=== PATIENT | female | born 1940 | race Caucasian/White ===

== ENCOUNTER → 2017-05-30 | Outpatient (CLI) | payer MEDICARE, BC ==
--- NOTE | 2017-05-31 11:10 | MM ---
Reason for exam: screening (asymptomatic). Last mammogram was performed 1 year ago. History: Patient is postmenopausal. Benign stereotactic core biopsy of the right breast, January 16, 2001. Took hormonal contraceptives for 1 year beginning at age 19. Took estrogen for 10 years beginning at age 49. Took progesterone for 10 years beginning at age 49. Physical Findings: A clinical breast exam by your physician is recommended on an annual basis and results should be correlated with mammographic findings. MG 3D Screening Mammo W/Cad Bilateral CC and MLO view(s) were taken. Prior study comparison: May 29, 2016, bilateral MG 3d screening mammo w/cad. May 27, 2015, bilateral MG screening mammo w CAD. The breast tissue is heterogeneously dense. This may lower the sensitivity of mammography. No suspicious abnormality. ASSESSMENT: Negative, BI-RAD 1 RECOMMENDATION: Routine screening mammogram of both breasts in 1 year.
== END | disposition home or self-care (01) ==
LOC: RADMAMWWP 08:43
PROVIDERS: ATTEND Internal Medicine Geriatric Medicine
DX: Z12.31 Encounter for screening mammogram for malignant neoplasm of breast (principal)
CPT/HCPCS: 77063; G0202

== ENCOUNTER → 2018-06-02 | Outpatient (CLI) | payer MEDICARE, BC ==
--- NOTE | 2018-06-03 13:19 | MM ---
Reason for exam: screening (asymptomatic). Last mammogram was performed 1 year ago. History: Patient is postmenopausal and history of other cancer. Benign stereotactic core biopsy of the right breast, January 16, 2001. Took hormonal contraceptives for 1 year beginning at age 19. Took estrogen for 10 years beginning at age 49. Took progesterone for 10 years beginning at age 49. Physical Findings: A clinical breast exam by your physician is recommended on an annual basis and results should be correlated with mammographic findings. MG 3D Screening Mammo W/Cad Bilateral CC and MLO view(s) were taken. Prior study comparison: May 30, 2017, bilateral MG 3d screening mammo w/cad. May 29, 2016, bilateral MG 3d screening mammo w/cad. The breast tissue is heterogeneously dense. This may lower the sensitivity of mammography. Benign calcifications in the right breast. No suspicious abnormality. Right biopsy marker noted. ASSESSMENT: Benign, BI-RAD 2 RECOMMENDATION: Routine screening mammogram of both breasts in 1 year.
== END | disposition home or self-care (01) ==
LOC: RADMAMWWP 07:44
PROVIDERS: ATTEND Internal Medicine Geriatric Medicine
DX: Z12.31 Encounter for screening mammogram for malignant neoplasm of breast (principal)
CPT/HCPCS: 77063; 77067

== ENCOUNTER → 2019-06-03 | Outpatient (CLI) | payer MEDICARE, BC ==
--- NOTE | 2019-06-04 09:49 | MM ---
Reason for exam: screening (asymptomatic). Last mammogram was performed 1 year ago. History: Patient is postmenopausal and history of other cancer. Benign stereotactic core biopsy of the right breast, January 16, 2001. Took hormonal contraceptives for 1 year beginning at age 19. Took estrogen for 10 years beginning at age 49. Took progesterone for 10 years beginning at age 49. Physical Findings: A clinical breast exam by your physician is recommended on an annual basis and results should be correlated with mammographic findings. MG 3D Screening Mammo W/Cad Bilateral CC and MLO view(s) were taken. Prior study comparison: June 02, 2018, bilateral MG 3d screening mammo w/cad. May 30, 2017, bilateral MG 3d screening mammo w/cad. The breast tissue is heterogeneously dense. This may lower the sensitivity of mammography. Stable benign calcifications. There is no discrete abnormality. No significant changes when compared with prior studies. ASSESSMENT: Benign, BI-RAD 2 RECOMMENDATION: Routine screening mammogram of both breasts in 1 year.
== END | disposition home or self-care (01) ==
LOC: RADMAMWWP 09:31
PROVIDERS: ATTEND Internal Medicine Geriatric Medicine
DX: Z12.31 Encounter for screening mammogram for malignant neoplasm of breast (principal)
CPT/HCPCS: 77063; 77067

== ENCOUNTER → 2020-05-04 | Outpatient (CLI) | payer MEDICARE, BC | END | disposition home or self-care (01) | LOC: LABWHC1 14:28 | PROVIDERS: ATTEND Internal Medicine Geriatric Medicine | DX: Z20.828 Contact with and (suspected) exposure to other viral communicable diseases (principal) | CPT/HCPCS: U0003; C9803 ==

== ENCOUNTER → 2020-06-21 | Outpatient (CLI) | payer MEDICARE, BC ==
--- NOTE | 2020-06-22 13:58 | MM ---
Reason for exam: screening (asymptomatic). Last mammogram was performed 1 year and 1 month ago. History: Patient is postmenopausal and history of other cancer. Benign stereotactic core biopsy of the right breast, January 16, 2001. Took hormonal contraceptives for 1 year beginning at age 19. Took estrogen for 10 years beginning at age 49. Took progesterone for 10 years beginning at age 49. Physical Findings: A clinical breast exam by your physician is recommended on an annual basis and results should be correlated with mammographic findings. MG 3D Screening Mammo W/Cad Bilateral CC and MLO view(s) were taken. Prior study comparison: June 03, 2019, bilateral MG 3d screening mammo w/cad. June 02, 2018, bilateral MG 3d screening mammo w/cad. The breast tissue is heterogeneously dense. This may lower the sensitivity of mammography. No significant changes when compared with prior studies. ASSESSMENT: Benign, BI-RAD 2 RECOMMENDATION: Routine screening mammogram of both breasts in 1 year.
== END | disposition home or self-care (01) ==
LOC: RADMAMWWP 12:23
PROVIDERS: ATTEND Internal Medicine Geriatric Medicine
DX: Z12.31 Encounter for screening mammogram for malignant neoplasm of breast (principal)
CPT/HCPCS: 77063; 77067

== ENCOUNTER → 2021-06-22 | Outpatient (CLI) | payer MEDICARE, BC ==
--- NOTE | 2021-06-26 10:40 | MM ---
Reason for exam: screening (asymptomatic). Last mammogram was performed 1 year ago. History: Patient is postmenopausal and history of other cancer. Benign stereotactic core biopsy of the right breast, January 16, 2001. Took hormonal contraceptives for 1 year beginning at age 19. Took estrogen for 10 years beginning at age 49. Took progesterone for 10 years beginning at age 49. Physical Findings: A clinical breast exam by your physician is recommended on an annual basis and results should be correlated with mammographic findings. MG 3D Screening Mammo W/Cad Bilateral CC and MLO view(s) were taken. Prior study comparison: June 21, 2020, bilateral MG 3d screening mammo w/cad. June 03, 2019, bilateral MG 3d screening mammo w/cad. The breast tissue is heterogeneously dense. This may lower the sensitivity of mammography. Finding: There are new fine, grouped/clustered calcifications in the upper outer quadrant, middle position of the right breast. New finding since June 21, 2020 and June 03, 2019. ASSESSMENT: Incomplete: need additional imaging evaluation, BI-RAD 0 RECOMMENDATION: Special view mammogram of the right breast. [facility] will attempt to contact patient to return for supplemental views.
== END | disposition home or self-care (01) ==
LOC: RADMAMWWP 10:49
PROVIDERS: ATTEND Internal Medicine Geriatric Medicine
DX: Z12.31 Encounter for screening mammogram for malignant neoplasm of breast (principal)
CPT/HCPCS: 77063; 77067

== ENCOUNTER → 2021-06-30 | Outpatient (CLI) | payer MEDICARE, BC ==
--- NOTE | 2021-06-30 10:16 | MM ---
Reason for exam: additional evaluation requested from abnormal screening. Last mammogram was performed less than 1 month ago. History: Patient is postmenopausal and history of other cancer. Benign stereotactic core biopsy of the right breast, January 16, 2001. Took hormonal contraceptives for 1 year beginning at age 19. Took estrogen for 10 years beginning at age 49. Took progesterone for 10 years beginning at age 49. Physical Findings: Nurse did not find any significant physical abnormalities on exam. MG 3D Work Up W/Cad RT CC with magnification, LM with magnification, and LM view(s) were taken of the right breast. Prior study comparison: June 22, 2021, bilateral MG 3d screening mammo w/cad. June 21, 2020, bilateral MG 3d screening mammo w/cad. The breast tissue is heterogeneously dense. This may lower the sensitivity of mammography. Previous mammotome biopsy in the right breast. Calcifications correspond to vascular calcifications on additional views. These results were verbally communicated with the patient and result sheet given to the patient on 06/30/21. ASSESSMENT: Benign, BI-RAD 2 RECOMMENDATION: Return to routine screening mammogram schedule for both breasts.
== END | disposition home or self-care (01) ==
LOC: RADMAMWWP 09:00
PROVIDERS: ATTEND Internal Medicine Geriatric Medicine
DX: R92.8 Other abnormal and inconclusive findings on diagnostic imaging of breast (principal)
CPT/HCPCS: 77065; G0279; 77061

== ENCOUNTER 2021-11-06 09:52 | Observation (INO) | payer MEDICARE, BC ==
[2021-11-06 14:11] LABS: ALT 23 U/L (4-34); AST 33 U/L (14-36); African American GFR (CKD) >90 (>60 ml/min/1.73 sqM); Albumin 3.9 g/dL (3.5-5.0); Alkaline Phosphatase 74 U/L (38-126); Anion Gap 7 mmol/L; Blood Urea Nitrogen 18 mg/dL (7-17); Carbon Dioxide 28 mmol/L (22-30); Chloride 99 mmol/L (98-107); Glucose 317 mg/dL (74-99); Magnesium 1.7 mg/dL (1.6-2.3); Non-African American GFR(CKD) 84 (>60 ml/min/1.73 sqM); Potassium 4.2 mmol/L (3.5-5.1); Sodium 134 mmol/L (137-145); T4, Free (Free Thyroxine) 1.01 ng/dL (0.78-2.19); Total Bilirubin 0.9 mg/dL (0.2-1.3); Total Protein 6.5 g/dL (6.3-8.2)
[2021-11-06] MEDS ORDERED: ACETAMINOPHEN TAB 325 MG TAB PO PRN (14:24)
[2021-11-06] MEDS ORDERED: NALOXONE 0.4 MG/ML 1 ML VIAL IV PRN (14:24)
[2021-11-06 14:32] LABS: HCT 43.9 % (34.0-46.0); HGB 14.7 gm/dL (11.4-16.0); MCH 32.7 pg (25.0-35.0); MCHC 33.6 g/dL (31.0-37.0); MCV 97.3 fL (80.0-100.0); Mean Platelet Volume 10.2; Platelet Count 216 k/uL (150-450); RBC 4.51 m/uL (3.80-5.40); RDW 12.9 % (11.5-15.5); WBC 4.3 k/uL (3.8-10.6)
[2021-11-06 15:14] LABS: INR 1.1 (<1.2); Partial Thromboplastin Time 25.7 sec (22.0-30.0); Prothrombin Time 11.5 sec (9.0-12.0)
[2021-11-06] MEDS ORDERED: LACTOBACILLUS ACIDOPH & BULGAR 1 EACH PACKET PO PRN (15:16)
--- NOTE | 2021-11-06 15:27 | P.HPIM ---
History of Present Illness H&P Date: 11/06/21 Chief Complaint: Palpitation A 49-year-old female with past medical history significant for type 1 diabetes mellitus and anxiety disorder and depression. She is presenting to the emergency room with a chief complaint of palpitations on and off for the past 3 months. While the patient being referred discharged from ER heart rate 1 up to 160s. She had a CT on the monitor. Patient denied chest pain or shortness of breath. She nausea vomiting or abdominal pain. Patient denies any fever or chills. She recently moved from [place] with her . Patient denies any history of coronary disease, stroke, PE or DVT. History of cancer. Review of Systems All 14 review of systems evaluated and all negative except for above. Medications and Allergies Home Medications Medication Instructions Recorded Confirmed Type ALPRAZolam [Xanax] 0.25 mg PO BID 11/06/21 11/06/21 History Aspirin EC [Ecotrin Low Dose] 81 mg PO DAILY 11/06/21 11/06/21 History Bifidobacterium Infantis [Align] 4 mg PO DAILY PRN 11/06/21 11/06/21 History Escitalopram [Lexapro] 10 mg PO DAILY 11/06/21 11/06/21 History Insulin Aspart (Niacinamide) 4 units SQ AC-TID 11/06/21 11/06/21 History [Fiasp 100 Unit/ml Flextouch Pen] Insulin Degludec [Tresiba 10 units SQ DAILY 11/06/21 11/06/21 History Flextouch U-100 Pen] Lisinopril-Hctz 20-25 mg 1 tab PO HS 11/06/21 11/06/21 History [Zestoretic 20-25] Rosuvastatin [Crestor] 10 mg PO HS 11/06/21 11/06/21 History Allergies Allergy/AdvReac Type Severity Reaction Status Date / Time No Known Allergies Allergy Unverified 11/06/21 14:33 Physical Exam Vitals: Vital Signs Pulse Resp BP Pulse Ox 11/06/21 14:25 84 18 123/81 98 General: non toxic, no distress, appears at stated age Derm: warm, dry Head: atraumatic, normocephalic, symmetric Eyes: EOMI, no lid lag, anicteric sclera Mouth: no lip lesion, mucus membranes moist Cardiovascular: S1S2 reg, no murmur, positive posterior tibial pulse bilateral, Lungs: CTA bilateral, no rhonchi, no rales , no accessory muscle use Abdominal: soft, nontender to palpation, no guarding, no appreciable o rganomegaly Ext: no gross muscle atrophy, no edema, no contractures Neuro: CN II-XI grossly intact, no focal neuro deficits Psych: Alert, oriented, appropriate affect Results CBC & Chem 7: 11/06/21 10:44 11/06/21 10:44 Labs: Abnormal Lab Results - Last 24 Hours (Table) 11/06/21 Range/Units 10:44 Sodium 134 L (137-145) mmol/L BUN 18 H (7-17) mg/dL Glucose 317 H (74-99) mg/dL Assessment and Plan Assessment: #Assessment and plan: #Palpitation secondary to paroxysmal supraventricular tachycardia -Start metoprolol 25 twice a day -2-D echo -TSH is normal -Consult cardiology -Trend troponin #Type 1 diabetes mellitus -Resume home dose insulin -A1c #Hypertension -Resume lisinopril/hydrochlorothiazide #Depression or anxiety -Resume home medication #Full code #Patient admitted under observation status for probably she will be discharged home 26
[2021-11-06] MEDS: INSULIN ASPART (NovoLOG) 100 UNIT/ML VIAL SQ SCH (17:04)
[2021-11-06] MEDS ORDERED: METOPROLOL TARTRATE 25 MG TAB PO STA (17:37)
[2021-11-06] MEDS: SODIUM CHLORIDE 0.9% 1,000 ML IV SCH (17:50)
[2021-11-06] MEDS: METOPROLOL SUCCINATE (ER) 25 MG TAB.ER.24H PO SCH (20:37)
[2021-11-06] MEDS: ALPRAZolam 0.25 MG TAB PO SCH (20:50)
[2021-11-06] MEDS ORDERED: LISINOPRIL-HCTZ 20-25 MG 1 EACH TAB PO SCH (21:00)
[2021-11-06] MEDS ORDERED: ATORVASTATIN 20 MG TAB PO SCH (21:00)
[2021-11-07 06:07] VITALS: PULSE 62; TEMP 97.4
[2021-11-07] MEDS: SODIUM CHLORIDE 0.9% 1,000 ML IV SCH (06:09)
[2021-11-07 07:38] LABS: Glucose,Whole Blood 137 mg/dL (75-99)
--- NOTE | 2021-11-07 07:38 | CA ---
Transthoracic Echo Report Name: Tanya Bradley Age: 81 Gender: F : 1940 Exam Date: 11/06/2021 16:12 Exam Location: [place] [facility] Ht (in): 65 Wt (lb): 116 Ordering Physician: Peter Centeno MD Attending/Referring Phys: [id number], Taryn Store Coordinator Sharee Newsome, RDAJ Procedure CPT: Indications: svt Cardiac Hx: Technical Quality: Fair Contrast 1: Total Dose (mL): Contrast 2: Total Dose (mL): MEASUREMENTS (Male / Female) Normal Values 2D ECHO LV Diastolic Diameter PLAX 3.3 cm 4.2 - 5.9 / 3.9 - 5.3 cm LV Systolic Diameter PLAX 2.0 cm IVS Diastolic Thickness 1.1 cm 0.6 - 1.0 / 0.6 - 0.9 cm LVPW Diastolic Thickness 1.0 cm 0.6 - 1.0 / 0.6 - 0.9 cm LV Relative Wall Thickness 0.6 RV Internal Dim ED PLAX 2.1 cm LA Systolic Diameter LX 2.6 cm 3.0 - 4.0 / 2.7 - 3.8 cm M-MODE Aortic Root Diameter MM 2.8 cm MV E Point Septal Separation 0.5 cm AV Cusp Separation MM 1.8 cm DOPPLER AV Peak Velocity 97.3 cm/s AV Peak Gradient 3.8 mmHg MV Area PHT 6.5 cm MV Deceleration Time 76.9 ms TR Peak Velocity 208.1 cm/s TR Peak Gradient 17.3 mmHg Right Ventricular Systolic Press 21.9 mmHg FINDINGS Left Ventricle Mildly increased septal wall thickness. Left ventricular ejection fraction is estimated at 55-60 %. Right Ventricle Normal right ventricular size and function. Right ventricular systolic pressure within normal limits. Right Atrium Normal right atrial size. Left Atrium Normal left atrial size. Mitral Valve Structurally normal mitral valve. Aortic Valve Trileaflet aortic valve. Tricuspid Valve Mild tricuspid regurgitation. Pulmonic Valve Pulmonic valve not well visualized. Pericardium Normal pericardium. Aorta Normal size aortic root and proximal ascending aorta. CONCLUSIONS Normal LV size and systolic function. Mild mitral and tricuspid insufficiency. This is a poor quality echo suboptimal Doppler no pericardial effusion Previewed by: Dr. Rivas Aguilera MD (Electronically Signed) Final Date: 07 November 2021 07:37
[2021-11-07] MEDS: INSULIN ASPART (NovoLOG) 100 UNIT/ML VIAL SQ SCH (07:52)
--- NOTE | 2021-11-07 08:52 | P.DS ---
Providers Date of admission: 11/06/21 14:21 Expected date of discharge: 11/07/21 Attending physician: Tyler Patel Consults: 11/06/21 14:25 Consult Physician Urgent Consulting Provider: Latonia Wilburn Consult Reason/Comments: Tachycardia/palpitations Do you want consulting provider notified?: Yes Primary care physician: [facility] Course: A 49-year-old female with past medical history significant for type 1 diabetes mellitus and anxiety disorder and depression. She is presenting to the emergency room with a chief complaint of palpitations on and off for the past 3 months. While the patient being referred discharged from ER heart rate 1 up to 160s. She had a CT on the monitor. Patient denied chest pain or shortness of breath. She nausea vomiting or abdominal pain. Patient denies any fever or chills. She recently moved from [place] with her . Patient denies any history of coronary disease, stroke, PE or DVT. History of cancer. 11/07: Patient is seen today in the emergency center waiting for a bed on the cardiac stepdown unit. Patient has been seen by cardiology and cleared for discharge with recommendations for Toprol-XL 25 mg twice daily which will be sent to her pharmacy heart rate is running in the 50s and 60s, blood pressure 178/72, pulse ox 100% on room air, afebrile. Patient denies any symptoms at this time. She states that her was diagnosed with Covid 19 last week but she did not get tested. We will test the patient prior to discharge. Patient will be discharged home today in stable condition. DISCHARGE DIAGNOSES Paroxysmal SVT Elevated troponin secondary to SVT Hypertension Diabetes mellitus type 2 Generalized anxiety disorder Hyperlipidemia DISCHARGE PLAN Home Greater than 35 minutes was utilized and coordinating patient's discharge. Impression and plan of care have been directed as dictated by the signing physician. Laura Grant nurse practitioner acting as scribe for signing physician. Patient Condition at Discharge: Good Plan - Discharge Summary New Discharge Prescriptions: New Metoprolol Succinate (ER) [Toprol XL] 25 mg PO BID #60 tab Continue Aspirin EC [Ecotrin Low Dose] 81 mg PO DAILY Rosuvastatin [Crestor] 10 mg PO HS Escitalopram [Lexapro] 10 mg PO DAILY Bifidobacterium Infantis [Align] 4 mg PO DAILY PRN PRN Reason: Gi Upset Lisinopril-Hctz 20-25 mg [Zestoretic 20-25] 1 tab PO HS Insulin Aspart (Niacinamide) [Fiasp 100 Unit/ml Flextouch Pen] 4 units SQ AC- TID ALPRAZolam [Xanax] 0.25 mg PO BID Insulin Degludec [Tresiba Flextouch U-100 Pen] 10 units SQ DAILY Discharge Medication List ALPRAZolam [Xanax] 0.25 mg PO BID 11/06/21 [History] Aspirin EC [Ecotrin Low Dose] 81 mg PO DAILY 11/06/21 [History] Bifidobacterium Infantis [Align] 4 mg PO DAILY PRN 11/06/21 [History] Escitalopram [Lexapro] 10 mg PO DAILY 11/06/21 [History] Insulin Aspart (Niacinamide) [Fiasp 100 Unit/ml Flextouch Pen] 4 units SQ AC-TID 11/06/21 [History] Insulin Degludec [Tresiba Flextouch U-100 Pen] 10 units SQ DAILY 11/06/21 [History] Lisinopril-Hctz 20-25 mg [Zestoretic 20-25] 1 tab PO HS 11/06/21 [History] Rosuvastatin [Crestor] 10 mg PO HS 11/06/21 [History] Metoprolol Succinate (ER) [Toprol XL] 25 mg PO BID #60 tab 11/07/21 [Rx] Follow up Appointment(s)/Referral(s): Tyler Patel MD [Primary Care Provider] - 1 Week Latonia Wilburn MD [STAFF PHYSICIAN] - 1 Week Patient Instructions/Handouts: Heart Palpitations (DC) Discharge Disposition: HOME SELF-CARE
[2021-11-07] MEDS ORDERED: ESCITALOPRAM 10 MG TAB PO SCH (09:00)
[2021-11-07] MEDS ORDERED: INSULIN DETEMIR (LEVEMIR) 100 UNIT/ML SYR SQ SCH (09:00)
[2021-11-07] MEDS ORDERED: ASPIRIN 81 MG PO SCH (09:00)
[2021-11-07] MEDS: METOPROLOL SUCCINATE (ER) 25 MG TAB.ER.24H PO SCH (09:03)
[2021-11-07] MEDS: ALPRAZolam 0.25 MG TAB PO SCH (09:03)
--- NOTE | 2021-11-07 09:03 | P.CRDCN ---
History of Present Illness History of present illness: 81-year-old lady with history of insulin requiring diabetes hypertension and dyslipidemia comes to Hospital having had sustained palpitations. She stated that she developed sudden onset palpitations which lasted for several hours she was concerned and came to the emergency room. Initial EKG showed SVT she subsequently converted to sinus rhythm and stayed in sinus rhythm since. She is on Toprol-XL 25 mg twice a day which seemed to be controlling her heart rate and she has been symptom-free. She does not have chest pain difficulty in breathing. There is no prior history of cardiac arrhythmia. He doesn't have leg edema. There is no prior history of coronary artery disease or congestive heart failure. Her troponin is mildly elevated. A troponin elevation could be related to the SVT with supply demand mismatch. I talked to her about her treatment options including invasive angiography or a stress test. Understanding all the issues patient wishes to go home continue with medications follow-up with Dr. Wilburn who she was supposed to see this morning and consider stress test if necessary. She had an echocardiogram that showed normal LV function and wall motion. Constitutional: Denies chills. Denies fever. Eyes: Denies blurred vision. Denies pain. Ears, nose, mouth and throat: Denies headache. Denies sore throat. Cardiovascular: Denies chest pain. Denies shortness of breath. Significant for palpitations Respiratory: Denies cough. Gastrointestinal: Denies abdominal pain. Denies diarrhea. Denies nausea. Denies vomiting. Musculoskeletal: Denies myalgias. Integumentary: Denies pruritus. Denies rash. Neurological: Denies numbness. Denies weakness. Psychiatric: Denies anxiety. Denies depression. Endocrine: Denies fatigue. Denies weight change. Genitourinary: Denies burning, hematuria, frequency of urination. Hematological: No anemia or excess bleeding. General: The patient is awake and alert, in no distress, and does not appear acutely ill. Skin: Skin is warm and dry and no rashes or lesions are noted. Eye: Pupils are equal, round and reactive to light, extra-ocular movements are intact; there is normal conjunctiva bilaterally. Ears, nose, mouth and throat: There are moist mucous membranes and no oral lesions. Neck: The neck is supple, there is no tenderness or JVD. Cardiovascular: There is a regular rate and rhythm. No murmur, rub or gallop is appreciated. Respiratory: Lungs are clear to auscultation, respirations are non-labored, breath sounds are equal. Gastrointestinal: Soft, non-distended, non-tender abdomen without masses or organomegaly noted. There is no rebound or guarding present. Bowel sounds are unremarkable. Back: There is no tenderness to palpation in the midline. There is no obvious deformity. Musculoskeletal: Normal ROM, no tenderness, There is no pedal edema. There is no calf tenderness or swelling. Extremities: No edema. Vascular: Femoral pulse is normal. Posterior tibial pulses are normal .Dorsalis pedis is palpable. Neurological: CN II-XII intact. There are no obvious motor or sensory deficits. Speech is normal. Psychiatric: Cooperative, appropriate mood & affect, normal judgment. Assessment and plan: Paroxysmal SVT Elevated troponin probably secondary to SVT Hypertension Diabetes I reviewed echo findings with the patient talked to her about stress test and cardiac cath understanding all the issues she wishes to go home and beta blockers and follow-up with cardiology Medications and Allergies Home Medications Medication Instructions Recorded Confirmed Type ALPRAZolam [Xanax] 0.25 mg PO BID 11/06/21 11/06/21 History Aspirin EC [Ecotrin Low Dose] 81 mg PO DAILY 11/06/21 11/06/21 History Bifidobacterium Infantis [Align] 4 mg PO DAILY PRN 11/06/21 11/06/21 History Escitalopram [Lexapro] 10 mg PO DAILY 11/06/21 11/06/21 History Insulin Aspart (Niacinamide) 4 units SQ AC-TID 11/06/21 11/06/21 History [Fiasp 100 Unit/ml Flextouch Pen] Insulin Degludec [Tresiba 10 units SQ DAILY 11/06/21 11/06/21 History Flextouch U-100 Pen] Lisinopril-Hctz 20-25 mg 1 tab PO HS 11/06/21 11/06/21 History [Zestoretic 20-25] Rosuvastatin [Crestor] 10 mg PO HS 11/06/21 11/06/21 History Metoprolol Succinate (ER) [Toprol 25 mg PO BID #60 tab 11/07/21 Rx XL] Allergies Allergy/AdvReac Type Severity Reaction Status Date / Time No Known Allergies Allergy Unverified 11/06/21 14:33 Physical Exam Vitals: Vital Signs Temp Pulse Resp BP Pulse Ox 11/07/21 06:00 97.4 F L 62 16 153/70 97 11/07/21 03:05 57 L 15 11/07/21 02:00 54 L 16 11/07/21 00:00 54 L 16 11/06/21 23:00 59 L 18 135/66 96 11/06/21 20:35 98.2 F 11/06/21 20:32 58 L 18 147/71 96 11/06/21 19:12 68 18 162/87 96 11/06/21 19:08 66 11/06/21 18:15 88 11/06/21 17:51 95 11/06/21 17:34 152 H 18 162/87 97 11/06/21 16:10 95 18 146/86 95 11/06/21 14:25 84 18 123/81 98 Intake and Output 11/06/21 11/07/21 11/07/21 22:59 06:59 14:59 Other: Weight 52.617 kg Results 11/06/21 10:44 11/06/21 10:44 Cardiac Enzymes 11/06/21 11/06/21 11/06/21 Range/Units 10:44 10:44 17:59 AST 33 (14-36) U/L Troponin I <0.012 0.042 H* (0.000-0.034) ng/mL 11/06/21 Range/Units 20:48 AST (14-36) U/L Troponin I 0.057 H* (0.000-0.034) ng/mL Coagulation 11/06/21 Range/Units 10:44 PT 11.5 (9.0-12.0) sec APTT 25.7 (22.0-30.0) sec CBC 11/06/21 Range/Units 10:44 WBC 4.3 (3.8-10.6) k/uL RBC 4.51 (3.80-5.40) m/uL Hgb 14.7 (11.4-16.0) gm/dL Hct 43.9 (34.0-46.0) % Plt Count 216 (150-450) k/uL Comprehensive Metabolic Panel 11/06/21 Range/Units 10:44 Sodium 134 L (137-145) mmol/L Potassium 4.2 (3.5-5.1) mmol/L Chloride 99 (98-107) mmol/L Carbon Dioxide 28 (22-30) mmol/L BUN 18 H (7-17) mg/dL Creatinine 0.63 (0.52-1.04) mg/dL Glucose 317 H (74-99) mg/dL Calcium 9.0 (8.4-10.2) mg/dL AST 33 (14-36) U/L ALT 23 (4-34) U/L Alkaline Phosphatase 74 (38-126) U/L Total Protein 6.5 (6.3-8.2) g/dL Albumin 3.9 (3.5-5.0) g/dL Current Medications Generic Name Dose Route Start Last Admin Trade Name Freq PRN Reason Stop Dose Admin Acetaminophen 650 mg 11/06/21 14:24 Acetaminophen Tab 325 Mg Tab PO Q6HR PRN Mild Pain or Fever > 100.5 Alprazolam 0.25 mg 11/06/21 21:00 11/06/21 20:50 Alprazolam 0.25 Mg Tab PO 0.25 mg BID SHANICE Administration Aspirin 81 mg 11/07/21 09:00 Aspirin 81 Mg PO DAILY SHANICE Atorvastatin Calcium 20 mg 11/06/21 21:00 11/06/21 20:50 Atorvastatin 20 Mg Tab PO 20 mg HS SHANICE Administration Escitalopram Oxalate 10 mg 11/07/21 09:00 Escitalopram 10 Mg Tab PO DAILY SHANICE Lisinopril/HCTZ 1 each 11/06/21 21:00 11/06/21 20:36 Lisinopril-Hctz 20-25 Mg 1 Each Tab PO Not Given HS SHANICE Sodium Chloride 1,000 mls @ 75 mls/hr 11/06/21 14:30 11/07/21 06:09 Saline 0.9% IV 75 mls/hr .[id number] SHANICE Administration Insulin Aspart 4 unit 11/06/21 17:30 11/07/21 07:52 Insulin Aspart (Novolog) 100 Unit/Ml Vial SQ Not Given AC-TID SHANICE Insulin Detemir 10 unit 11/07/21 09:00 Insulin Detemir (Levemir) 100 Unit/Ml Syr SQ DAILY SHANICE Lactobacillus Acidoph/Bulgaricus 1 each 11/06/21 15:16 Lactobacillus Acidoph & Bulgar 1 Each Packet PO DAILY PRN GI Upset Metoprolol Succinate 25 mg 11/06/21 21:00 11/06/21 20:37 Metoprolol Succinate (Er) 25 Mg Tab.Er.24h PO Not Given BID SHANICE Naloxone HCl 0.2 mg 11/06/21 14:24 Naloxone 0.4 Mg/Ml 1 Ml Vial IV Q2M PRN Opioid Reversal Intake and Output 11/06/21 11/07/21 11/07/21 22:59 06:59 14:59 Other: Weight 52.617 kg 11/06/21 10:44 11/06/21 10:44
[2021-11-07 10:17] LABS: Basophils # (A) 0.04 X 10*3/uL (0.00-0.10); Basophils % (A) 0.9 %; Eosinophils # (A) 0.18 X 10*3/uL (0.04-0.35); Eosinophils % (A) 3.9 %; HCT 43.2 % (37.2-46.3); HGB 14.3 g/dL (12.0-15.0); Immature Grans, Automated 0.4 %; Lymphocytes # (A) 1.15 X 10*3/uL (0.90-5.00); Lymphocytes % (A) 24.8 %; MCH 31.5 pg (27.0-32.0); MCHC 33.1 g/dL (32.0-37.0); MCV 95.2 fL (80.0-97.0); Mean Platelet Volume 12.7 fL (9.5-12.2); Monocytes # (A) 0.55 X 10*3/uL (0.20-1.00); Monocytes % (A) 11.9 %; NRBC Per 100 WBC 0 /100 WBCS (0.0-0.0); Neutrophils # (A) 2.69 X 10*3/uL (1.80-7.70); Neutrophils % (A) 58.1 %; Platelet Count 252 X 10*3/uL (140-440); RBC 4.54 X 10*6/uL (4.10-5.20); RDW 13.4 % (11.5-14.5); WBC 4.63 X 10*3/uL (4.50-10.00)
[2021-11-07 10:45] VITALS: BP 178/72; RESP 18
== END 2021-11-07 11:00 | disposition home or self-care (01) ==
LOC: EC 09:52 → 6NMEDSUR 14:21 → 3SCARD 21:54
PROVIDERS: ADMIT Internal Medicine Geriatric Medicine; ATTEND Internal Medicine Geriatric Medicine
DX: I47.1 Supraventricular tachycardia (principal); E10.9 Type 1 diabetes mellitus without complications; U07.1 COVID-19; I10 Essential (primary) hypertension; F32.A Depression, unspecified; F41.1 Generalized anxiety disorder; E78.5 Hyperlipidemia, unspecified; R77.8 Other specified abnormalities of plasma proteins; Z79.4 Long term (current) use of insulin; Z79.82 Long term (current) use of aspirin; Z79.899 Other long term (current) drug therapy
CPT/HCPCS: 96360; 96361; 99285; 36415; 93005; 93306; 84439; 80053; 83735; 84443; 84484; 85025; 85027; 85610; 85730; 83036; 87635; G0378 ×3

== ENCOUNTER 2023-01-02 17:02 | Inpatient (IN) | payer MEDICARE, BC ==
[2023-01-02] MEDS ORDERED: HYDROmorphone 1 MG/ML 1 ML SYRINGE IVP STA (17:50)
[2023-01-02] MEDS ORDERED: DIPH,PERTUS(ACELL)TETVAC-LF 0.5 ML VIAL IM ONE (17:52)
[2023-01-02] MEDS ORDERED: SODIUM CHLORIDE 0.9% 500 ML 500 ML IV STA (17:52)
[2023-01-02 18:13] LABS: Basophils % (A) 1 %; Eosinophils # (A) 0.4 k/uL (0-0.7); Eosinophils % (A) 7 %; HCT 37.4 % (34.0-46.0); HGB 12.7 gm/dL (11.4-16.0); Lymphocytes % (A) 17 %; MCH 32.1 pg (25.0-35.0); MCHC 33.9 g/dL (31.0-37.0); MCV 94.9 fL (80.0-100.0); Mean Platelet Volume 9.8; Monocytes # (A) 0.4 k/uL (0-1.0); Monocytes % (A) 6 %; Neutrophils # (A) 3.8 k/uL (1.3-7.7); Neutrophils % (A) 67 %; Platelet Count 363 k/uL (150-450); RBC 3.94 m/uL (3.80-5.40); RDW 13.1 % (11.5-15.5); WBC 5.6 k/uL (3.8-10.6)
[2023-01-02 18:28] LABS: ALT 35 U/L (4-34); AST 48 U/L (14-36); African American GFR (CKD) >90 (>60 ml/min/1.73 sqM); Albumin 3.6 g/dL (3.5-5.0); Alkaline Phosphatase 96 U/L (38-126); Anion Gap 12 mmol/L; Blood Urea Nitrogen 17 mg/dL (7-17); Calcium 8.9 mg/dL (8.4-10.2); Carbon Dioxide 25 mmol/L (22-30); Chloride 92 mmol/L (98-107); Glucose 137 mg/dL (74-99); Non-African American GFR(CKD) 84 (>60 ml/min/1.73 sqM); Potassium 4.3 mmol/L (3.5-5.1); Sodium 129 mmol/L (137-145); Total Bilirubin 0.4 mg/dL (0.2-1.3); Total Protein 6.2 g/dL (6.3-8.2)
[2023-01-02 18:31] LABS: Partial Thromboplastin Time 24.8 sec (22.0-30.0); Prothrombin Time 10.3 sec (9.0-12.0)
--- NOTE | 2023-01-02 18:52 | XR ---
EXAMINATION TYPE: XR forearm RT DATE OF EXAM: 01/02/2023 6:09 PM INDICATION: Patient age:Female; 82 years old; Reason for study: open fracture; COMPARISON: None TECHNIQUE: The right forearm was examined in AP and lateral projections. FINDINGS/IMPRESSION: There is acute fracture of the distal diaphysis of the radius and ulna on the ri ght with dorsal displacement and dorsal angulation. There is approximately 22 mm of displacement. No additional fractures. This does not appear to extend into the wrist joint. There is soft tissue swell ing and skin defect.
[2023-01-02] MEDS ORDERED: MAG HYDROX/AL HYDROX/SIMETH 30 ML CUP PO PRN (19:44)
[2023-01-02] MEDS ORDERED: ALPRAZolam 0.25 MG TAB PO PRN (19:44)
[2023-01-02] MEDS ORDERED: ONDANSETRON 4 MG/2 ML VIAL IVP PRN (19:44)
[2023-01-02] MEDS ORDERED: ACETAMINOPHEN TAB 325 MG TAB PO PRN (19:44)
[2023-01-02] MEDS ORDERED: NALOXONE 0.4 MG/ML 1 ML VIAL IV PRN (19:44)
[2023-01-02] MEDS ORDERED: DEXTROSE 50% SYRINGE 50 ML IVP PRN ×2 (19:53)
[2023-01-02] MEDS: SODIUM CHLORIDE 0.9% 1,000 ML IV SCH (19:53)
--- NOTE | 2023-01-02 19:55 | ED ---
Upper Extremity HPI - General Chief Complaint: Extremity Injury, Upper Stated Complaint: right arm injury-bone protruding Time Seen by Provider: 01/02/23 17:47 Source: patient, family Mode of arrival: ambulatory Limitations: no limitations - History of Present Illness Initial Comments: Patient has an 82-year-old woman who is here to have evaluation of right forearm injury. Patient states she had been walking, tripped and fell on outstretched arm which struck a door. She states she experienced severe pain. It was noted that the bone had penetrated the skin. The patient was then not able to move her wrist or hand due to pain. She denies previous injury or surgery to the right forearm. MD Complaint: Injury to:: right, forearm Onset/Timin -: hour(s) Other Extremity Injury: Forearm: Right Other Injuries: none Handedness: left Place: home Improves With: none Worsens With: none Context: fall Associated Symptoms: denies other symptoms - Related Data Home Medications Medication Instructions Recorded Confirmed ALPRAZolam [Xanax] 0.25 mg PO BID 11/06/21 01/02/23 Aspirin EC [Ecotrin Low Dose] 81 mg PO DAILY 11/06/21 01/02/23 Insulin Aspart (Niacinamide) 1 - 7 units SQ AC-TID 11/06/21 01/02/23 [Fiasp 100 Unit/ml Flextouch Pen] Insulin Degludec [Tresiba 8 units SQ DIRECTED 11/06/21 01/02/23 Flextouch U-100 Pen] Rosuvastatin [Crestor] 10 mg PO DAILY 11/06/21 01/02/23 Albuterol Inhaler [Ventolin Hfa 2 puff INHALATION RT-Q4H PRN 01/02/23 01/02/23 Inhaler] Alendronate Sodium 70 mg PO GUERRA 01/02/23 01/02/23 Calcium Carbonate [Calcium] 1,200 mg PO DAILY 01/02/23 01/02/23 Pantoprazole [Protonix] 40 mg PO DAILY 01/02/23 01/02/23 hydrALAZINE HCL [Apresoline] 25 mg PO BID 01/02/23 01/02/23 traMADol HCL 50 mg PO TID 01/02/23 01/02/23 Previous Rx's Medication Instructions Recorded Metoprolol Succinate (ER) [Toprol 25 mg PO BID #60 tab 11/07/21 XL] HYDROcodone/APAP 7.5-325MG [[place]on 1 tab PO Q4-6H PRN #42 tab 01/06/23 7.5] Sennosides/Docusate Sodium [Senna 1 each PO DAILY PRN #20 capsule 01/06/23 Plus 8.6-50 mg Softgel] amLODIPine [Norvasc] 5 mg PO DAILY #90 tab 01/06/23 lisinopriL [Zestril] 40 mg PO DAILY #90 tab 01/06/23 Allergies Allergy/AdvReac Type Severity Reaction Status Date / Time No Known Allergies Allergy Verified 01/02/23 20:05 Review of Systems ROS Statement: Those systems with pertinent positive or pertinent negative responses have been documented in the HPI. ROS Other: All systems not noted in ROS Statement are negative. Constitutional: Denies: fever, chills Respiratory: Denies: cough, dyspnea Cardiovascular: Denies: chest pain, palpitations, syncope Gastrointestinal: Denies: abdominal pain, vomiting, diarrhea Genitourinary: Denies: dysuria, hematuria Musculoskeletal: Reports: as per HPI, arthralgia. Denies: back pain Skin: Reports: other (Laceration). Denies: rash Neurological: Denies: headache, weakness, numbness, paresthesias Hematological/Lymphatic: Denies: easy bleeding Past Medical History Past Medical History: No Reported History, Diabetes Mellitus Additional Past Medical History / Comment(s): fast heart rate- unsure of what its called. spinal stenosis History of Any Multi-Drug Resistant Organisms: None Reported Past Surgical History: No Surgical Hx Reported Past Psychological History: No Psychological Hx Reported Smoking Status: Never smoker Past Alcohol Use History: None Reported Past Drug Use History: None Reported General Exam Limitations: no limitations General appearance: alert, in no apparent distress Head exam: Present: atraumatic, normocephalic Eye exam: Present: normal appearance. Absent: scleral icterus, conjunctival injection ENT exam: Present: normal oropharynx Neck exam: Present: normal inspection, full ROM. Absent: tenderness Respiratory exam: Present: normal lung sounds bilaterally. Absent: respiratory distress, wheezes, rales, rhonchi, stridor, chest wall tenderness, accessory muscle use Cardiovascular Exam: Present: regular rate, normal rhythm, normal heart sounds. Absent: systolic murmur, diastolic murmur, rubs, gallop GI/Abdominal exam: Present: soft. Absent: distended, tenderness, guarding, rebound, rigid, mass Extremities exam: Present: normal capillary refill, other (The patient has obvious forearm deformity, with posterior displacement of the distal radius ulna. There is laceration with approximately 4-5 cm of the distal ulna protru ding through the skin.). Absent: full ROM, pedal edema, calf tenderness Back exam: Present: normal inspection. Absent: vertebral tenderness Neurological exam: Present: alert. Absent: motor sensory deficit Skin exam: Present: warm, dry, intact, normal color. Absent: rash Course Vital Signs 01/02/23 01/02/23 01/02/23 17:14 19:05 20:26 Temperature 97.6 F 98.3 F 97.8 F Pulse Rate 73 74 67 Respiratory 20 18 16 Rate Blood Pressure 182/74 185/79 172/73 O2 Sat by Pulse 96 95 96 Oximetry Procedures - Orthopedic Fracture Reduction Fracture #1 Consent Obtained: verbal consent Side: right Fracture Reduction Location: humerus, radius Analgesia: hematoma block, other Technique: traction/counter-traction Post Reduction X-rays Demonstrate: acceptable reduction Post-Reduction Neuro Exam: intact Post-Reduction Vascular Exam: intact Splint Applied: Yes Patient Tolerated Procedure: well - Orthopedic Splinting/Casting Injury #1 Side: right Upper Extremity Injury Location: short arm Upper Extremity Immobilizer: sugar tong splint Medical Decision Making - Medical Decision Making This patient is an 82-year-old woman coming for evaluation after ground-level fall. The patient has open fracture of the right distal radius/ulna. Antibiotic coverage is ordered immediately, as well as analgesia. I called and spoke with the orthopedics nutrition and dietetics instructor, and they will admit the patient to have OR washout and repair of this fracture. I had discussions with the patient prior to the reduction, and she elected to have pain medicine and a local block applied. I did apply the local block in the usual fashion then perform the forearm reduction and splinting, see the procedure notes. One percent lidocaine without epinephrine was injected directly into the injured hematoma, with relatively good result. Patient tolerated the reduction and splinting well with no complications. There is good arterial circulation distal to the injury and no evident neurologic dysfunction distal to the injury. The patient had x-ray of the right forearm which I interpreted to show distal radius/ulna fracture posterior displacement. The patient had postreduction x-ray of the right forearm which I interpreted to show an acceptable level of reduction Was pt. sent in by a medical professional or institution ([facility], [facility], urgent care, hospital, or [place] health care facility...) When possible be specific @ -[No] Did you speak to anyone other than the patient for history (EMS, parent, family, police, friend...)? What history was obtained from this source @ -[Family contributed to history Did you review nursing and triage notes (agree or disagree)? Why? @ -[I reviewed and agree with nursing and triage notes] Were old charts reviewed (outside hosp., previous admission, EMS record, old EKG, old radiological studies, urgent care reports/EKG's, [place] health care facility records)? Report findings @ -[No old charts were reviewed] Differential Diagnosis (chest pain, altered mental status, abdominal pain women, abdominal pain men, vaginal bleeding, weakness, fever, dyspnea, syncope, headache, dizziness, GI bleed, back pain, seizure, CVA, palpatations, mental health, musculoskeletal)? @ -[Differential Musculoskeletal Muscular strain, contusion, ligament sprain, fracture, arthritis, septic arthritis, bursitis, cellulitis, muscle spasm, nerve compression, DVT, arterial occlusion, herpes zoster, electrolyte abnormality, tumor.... This is not meant to be in all inclusive list EKG interpreted by me (3pts min.). @ -[As above] X-rays interpreted by me (1pt min.). @ -As above CT interpreted by me (1pt min.). @ -[None done] U/S interpreted by me (1pt. min.). @ -[None done] What testing was considered but not performed or refused? (CT, X-rays, U/S, labs)? Why? @ -[None] What meds were considered but not given or refused? Why? @ -[None] Did you discuss the management of the patient with other professionals (professionals i.e. [facility], [facility], lab, RT, psych nurse, social professionals, screening specialist, teacher, chief business officer, counseling case manager)? Give summary @ -[The case is discussed with the admitting physician group Was smoking cessation discussed for >3mins.? @ -[No] Was critical care preformed (if so, how long)? @ -[Yes, 35 minutes Were there social determinants of health that impacted care today? How? (Homelessness, low income, unemployed, alcoholism, drug addiction, transportation, low edu. Level, literacy, decrease access to med. care, fci, rehab)? @ -[No] Was there de-escalation of care discussed even if they declined (Discuss DNR or withdrawal of care, Hospice)? DNR status @ -[No] What co-morbidities impacted this encounter? (DM, HTN, Smoking, COPD, CAD, Cancer, CVA, ARF, Chemo, Hep., AIDS, mental health diagnosis, sleep apnea, morbid obesity)? @ -[None] Was patient admitted / discharged? Hospital course, mention meds given and route, prescriptions, significant lab abnormalities, going to OR and other pertinent info. @ -[The patient is admitted to go to the OR for further open fracture care and to continue IV antibiotic therapy Undiagnosed new problem with uncertain prognosis? @ -[No] Drug Therapy requiring intensive monitoring for toxicity (Heparin, Nitro, Insulin, Cardizem)? @ -[No] Were any procedures done? @ -[Yes, fracture reduction and splinting, with hematoma block for anesthesia, see the notes Diagnosis/symptom? @ -[Acute open fracture of the distal radius and ulna, right arm Acute, or Chronic, or Acute on Chronic? @ -[default] Uncomplicated (without systemic symptoms) or Complicated (systemic symptoms)? @ -[Uncomplicated Side effects of treatment? @ -[No] Exacerbation, Progression, or Severe Exacerbation? @ -[No] Poses a threat to life or bodily function? How? (Chest pain, USA, OR, pneumonia, PE, COPD, DKA, ARF, appy, cholecystitis, CVA, Diverticulitis, Homicidal, Suicidal, threat to staff... and all critical care pts) @ -[Yes, untreated open fracture may result in osteomyelitis threatening the limb function, in some cases sepsis and - Lab Data Result diagrams: 01/02/23 18:00 01/06/23 05:19 Lab Results 01/02/23 01/02/23 01/02/23 Range/Units 18:00 18:00 18:00 WBC 5.6 (3.8-10.6) k/uL RBC 3.94 (3.80-5.40) m/uL Hgb 12.7 (11.4-16.0) gm/dL Hct 37.4 (34.0-46.0) % MCV 94.9 (80.0-100.0) fL MCH 32.1 (25.0-35.0) pg MCHC 33.9 (31.0-37.0) g/dL RDW 13.1 (11.5-15.5) % Plt Count 363 (150-450) k/uL MPV 9.8 Neutrophils % 67 % Lymphocytes % 17 % Monocytes % 6 % Eosinophils % 7 % Basophils % 1 % Neutrophils # 3.8 (1.3-7.7) k/uL Lymphocytes # 1.0 (1.0-4.8) k/uL Monocytes # 0.4 (0-1.0) k/uL Eosinophils # 0.4 (0-0.7) k/uL Basophils # 0.0 (0-0.2) k/uL PT 10.3 (9.0-12.0) sec INR 1.0 (<1.2) APTT 24.8 (22.0-30.0) sec Sodium 129 L (137-145) mmol/L Potassium 4.3 (3.5-5.1) mmol/L Chloride 92 L (98-107) mmol/L Carbon Dioxide 25 (22-30) mmol/L Anion Gap 12 mmol/L BUN 17 (7-17) mg/dL Creatinine 0.61 (0.52-1.04) mg/dL Est GFR (CKD-EPI)AfAm >90 (>60 ml/min/1.73 sqM) Est GFR (CKD-EPI)NonAf 84 (>60 ml/min/1.73 sqM) Glucose 137 H (74-99) mg/dL Estimated Ave Glu mg/dL mg/dL Hemoglobin A1c (<=6.0) % Calcium 8.9 (8.4-10.2) mg/dL Total Bilirubin 0.4 (0.2-1.3) mg/dL AST 48 H (14-36) U/L ALT 35 H (4-34) U/L Alkaline Phosphatase 96 (38-126) U/L Total Protein 6.2 L (6.3-8.2) g/dL Albumin 3.6 (3.5-5.0) g/dL 01/02/23 Range/Units 18:00 WBC (3.8-10.6) k/uL RBC (3.80-5.40) m/uL Hgb (11.4-16.0) gm/dL Hct (34.0-46.0) % MCV (80.0-100.0) fL MCH (25.0-35.0) pg MCHC (31.0-37.0) g/dL RDW (11.5-15.5) % Plt Count (150-450) k/uL MPV Neutrophils % % Lymphocytes % % Monocytes % % Eosinophils % % Basophils % % Neutrophils # (1.3-7.7) k/uL Lymphocytes # (1.0-4.8) k/uL Monocytes # (0-1.0) k/uL Eosinophils # (0-0.7) k/uL Basophils # (0-0.2) k/uL PT (9.0-12.0) sec INR (<1.2) APTT (22.0-30.0) sec Sodium (137-145) mmol/L Potassium (3.5-5.1) mmol/L Chloride (98-107) mmol/L Carbon Dioxide (22-30) mmol/L Anion Gap mmol/L BUN (7-17) mg/dL Creatinine (0.52-1.04) mg/dL Est GFR (CKD-EPI)AfAm (>60 ml/min/1.73 sqM) Est GFR (CKD-EPI)NonAf (>60 ml/min/1.73 sqM) Glucose (74-99) mg/dL Estimated Ave Glu mg/dL 148 mg/dL Hemoglobin A1c 6.8 H (<=6.0) % Calcium (8.4-10.2) mg/dL Total Bilirubin (0.2-1.3) mg/dL AST (14-36) U/L ALT (4-34) U/L Alkaline Phosphatase (38-126) U/L Total Protein (6.3-8.2) g/dL Albumin (3.5-5.0) g/dL Disposition Clinical Impression: Radius and ulna distal fracture, Open fracture Disposition: [facility] Condition: Good Is patient prescribed a controlled substance at d/c from ED?: No
[2023-01-02 20:01] LABS: Glucose,Whole Blood 183 mg/dL (70-110)
[2023-01-02] MEDS: LISINOPRIL-HCTZ 20-25 MG 1 EACH TAB PO SCH ×2 (20:18→20:21)
[2023-01-02] MEDS: FAMOTIDINE 20 MG TAB PO SCH (20:18)
[2023-01-02] MEDS: METOPROLOL SUCCINATE (ER) 25 MG TAB.ER.24H PO SCH (20:18)
[2023-01-02] MEDS: INSULIN ASPART (NovoLOG) 100 UNIT/ML VIAL SQ SCH (20:20)
[2023-01-02] MEDS: MORPHINE SULFATE 4 MG/ML SYRINGE IV PRN (21:14)
[2023-01-02] MEDS: HYDROcodone/APAP 5-325MG 1 EACH TAB PO PRN (23:40)
[2023-01-03] MEDS: MORPHINE SULFATE 4 MG/ML SYRINGE IV PRN ×4 (02:01→23:52)
[2023-01-03] MEDS: HYDROcodone/APAP 5-325MG 1 EACH TAB PO PRN ×4 (03:59→20:39)
[2023-01-03 05:46] LABS: Glucose,Whole Blood 177 mg/dL (70-110)
[2023-01-03] MEDS: INSULIN ASPART (NovoLOG) 100 UNIT/ML VIAL SQ SCH ×4 (06:36→20:39)
--- NOTE | 2023-01-03 07:42 | P.HPOR ---
History of Present Illness H&P Date: 01/03/23 Chief Complaint: Right wrist pain 82 yo female presented to ED after fall at home. She was going to answer the door when she tripped and fell into the door handle with her right arm outstreched. She states it just "went" and she hit her head on the door as well just above her eye on the right. Denies any LOC with the fall. States pain in wrist and deformity for which she came to ED. She states the bone was out. She denies and f/c/sob/cp at this time. States she is normally active and does all ADLs on he own. She states no other areas of injury at this time. Review of Systems 14 points review of systems completed and as stated in HPI, all other systems reviewed are negative. Past Medical History Past Medical History: No Reported History, Diabetes Mellitus Additional Past Medical History / Comment(s): fast heart rate- unsure of what its called. spinal stenosis History of Any Multi-Drug Resistant Organisms: None Reported Past Surgical History: No Surgical Hx Reported Past Anesthesia/Blood Transfusion Reactions: No Reported Reaction Past Psychological History: No Psychological Hx Reported Smoking Status: Never smoker Past Alcohol Use History: None Reported Past Drug Use History: None Reported Medications and Allergies Home Medications Medication Instructions Recorded Confirmed Type ALPRAZolam [Xanax] 0.25 mg PO BID 11/06/21 01/02/23 History Aspirin EC [Ecotrin Low Dose] 81 mg PO DAILY 11/06/21 01/02/23 History Insulin Aspart (Niacinamide) 1 - 7 units SQ AC-TID 11/06/21 01/02/23 History [Fiasp 100 Unit/ml Flextouch Pen] Insulin Degludec [Tresiba 8 units SQ DIRECTED 11/06/21 01/02/23 History Flextouch U-100 Pen] Lisinopril-Hctz 20-25 mg 1 tab PO HS 11/06/21 01/02/23 History [Zestoretic 20-25] Rosuvastatin [Crestor] 10 mg PO DAILY 11/06/21 01/02/23 History Metoprolol Succinate (ER) [Toprol 25 mg PO BID #60 tab 11/07/21 01/02/23 Rx XL] Albuterol Inhaler [Ventolin Hfa 2 puff INHALATION RT-Q4H PRN 01/02/23 01/02/23 History Inhaler] Alendronate Sodium 70 mg PO GUERRA 01/02/23 01/02/23 History Azithromycin [Zithromax] 250 mg PO DAILY 01/02/23 01/02/23 History Calcium Carbonate [Calcium] 1,200 mg PO DAILY 01/02/23 01/02/23 History Pantoprazole [Protonix] 40 mg PO DAILY 01/02/23 01/02/23 History hydrALAZINE HCL [Apresoline] 25 mg PO BID 01/02/23 01/02/23 History traMADol HCL 50 mg PO TID 01/02/23 01/02/23 History Allergies Allergy/AdvReac Type Severity Reaction Status Date / Time No Known Allergies Allergy Verified 01/02/23 20:05 Physical Examination Osteopathic Statement: *. No significant issues noted on an osteopathic structural exam other than those noted in the History and Physical/Consult. Physical Exam: -Patient is alert and oriented 3 appears well-nourished well-hydrated is in no acute distress. They do not appear septic. -There is TTP about the right wrist in the splint at this time. -Upper extremities show 5 out of 5 strength in all major muscle groups. Right wrist and elbow due to splint and fracture -Lower extremities with 5 out of 5 strength in all major muscle groups ##EXCEPT -There is FROM that is painless of the b/l UE and LE in all major joints. Negative logroll bilaterally right wrist and elbow due to fracture and splint -They are intact to light touch sensation in C5 to T1 and L2 to S1 nerve distribution. -DTR 2/4 all upper and lower extremities -Patient has palpable distal pulses all 4 ext -Compartments are soft and compressible. -Patient shows a negative Salo's -Neg Hoffmans b/l -Neg Clonus b/l -Neg babinski b/l Cranial nerves II through XII are grossly intact. Results X-ray of the wrist demonstrates a completely displaced distal radius fracture and ulnar fracture with dorsal displacement dorsal angulation 150% intra- articular comminuted. This is an open fracture with the ulna coming through the skin. Postreduction films demonstrate better alignment with the bone completely covered. No other fractures notable at this time. - Labs Labs: Abnormal Lab Results - Last 24 Hours (Table) 01/02/23 01/02/2323 Range/Units 18:00 19:59 05:44 Sodium 129 L (137-145) mmol/L Chloride 92 L (98-107) mmol/L Glucose 137 H (74-99) mg/dL POC Glucose (mg/dL) 183 H 177 H (70-110) mg/dL AST 48 H (14-36) U/L ALT 35 H (4-34) U/L Total Protein 6.2 L (6.3-8.2) g/dL H & H 01/02/23 Range/Units 18:00 Hgb 12.7 (11.4-16.0) gm/dL Hct 37.4 (34.0-46.0) % Coagulation 01/02/23 Range/Units 18:00 INR 1.0 (<1.2) Result Diagrams: 01/02/23 18:00 01/02/23 18:00 Assessment and Plan Assessment: 82-year-old female status post fall from standing Right distal radius fracture interarticular 3 part displaced angulated open Blunt head trauma, no loss of consciousness Plan: Orthopedic Surgery Risk Review Tanya Bradley is a 82-year-old right-hand dominant female presenting for evaluation of sudden onset right wrist pain, inability to bear weight after fall from standing at home. It was my pleasure to have seen and examined Tanya. In our visit today we have had a chance to go over subjective complaints, physical examination findings and treatments including the natural course history without intervention and various interventional options. Her imaging demonstrates displaced distal radius fracture interarticular 3 or 4 part, open. On physical exam, Tanya demonstrates pain with motion of right wrist, which is NV intact at this time. I have explained to the patient that this fracture needs stabilization. Based on the patients imaging, physical exam, and the rapid progression and disabling nature of her symptoms, at this time I recommend surgery in the form or a: Open reduction internal fixation with irrigation and debridement right wrist fracture I discussed the risk and benefits of this procedure at length with Tanya. I discussed that I would either be myself or my partner Dr. Forrest performing the surgery and she was okay with this Questions were invited and answered, and the patient wishes to proceed as outlined below. Currently, I am recommendin. Open reduction with internal fixation and irrigation and debridement right wrist fracture 2. Review of surgical risks and benefits as well as an educational packet on the proposed surgical procedure. Risks: All surgical procedures come with inherent risks, including those related to positioning, anesthesia, intraoperative findings, and postoperative complications. It is important to understand that surgery does not come with any guarantee of a successful outcome as complications and adverse events are always possible. The patient was given a handout discussing the surgical procedure and risks associated with the intervention, both of which were discussed with the patient. These risks include but are not limited to the following: - Experiencing same, different or even worse symptoms compared to before surgery. - Requiring further surgery or other forms of treatment presently or at some time in the future . - On an extreme but fortunately relatively rare basis severe complication such as blindness, stroke, heart attack, temporary and/or permanent nerve injury, paralysis, coma, or may occur, sometimes without known explanatio n. - Surgical complications may include but are not limited to risk of infection, fluid accumulation in the surgical dissection site, including a seroma or hematoma, that requires additional surgery, wound drainage, bleeding, new numbness or weakness, vision changes/loss, spinal fluid leakage, non-healing and/or infected incision, headaches, difficulty or inability to swallow, hoarseness, hemopneumothorax, pneumothorax, injury to nerves, spinal cord, blood vessels, lymphatics or other vital organs (i.e., bowel injury, injury to the great vessels); heterotopic bone formation; complications related to the hardware such as screws, rods, including misplaced hardware, device failure, hardware fracture/breakage, or hardware loosening; retained surgical instrumentations or devices and the need for further surgery. - Medical risks of the planned surgery include but are not limited to generalized Infections to the whole body or local areas outside of the surgical site (sepsis), heart attack, bleeding, anaphylaxis, meningitis, seizure, epilepsy, hearing loss, burn pimentel, laceration of the head or other areas of the body, bruising, hypersensitivity of the skin, bladder over distension; allergic reaction; shoulder injury related to positioning; fat, blood and air clots to other areas of the body like heart, lungs, brain; failure of internal organs such as lungs, kidneys, liver and excessive bleeding. If blood transfusions are necessary, note that transfusions may cause intolerance reactions such as anaphylaxis or other complex reactions. Despite best efforts, the results of surgery might not heal in terms of bone, soft tissues such as skin, fascia, ligaments, and joints. [facility] has multiple operating rooms with single and overlapping rooms running daily. They currently function under the required guidelines as produced by the [facility] Finance Committee with regards to the overlapping rooms and will continue to comply with changes to this policy as they occur. The requirements include and are complied with as follows: (1) the critical portions of the overlapping rooms will not occur at the same time, (2) the attending physician will be physically present during the critical portions of the procedure and immediately available during the entire case, and (3) a back-up attending is designated should the primary attending not be immediately available. The patient has had a chance to review all the listed information, has been give n print outs detailing this information, and has had all his/her questions answered to their satisfaction. It was my pleasure to have seen and examined Tanya Bradley. In our visit today we have had a chance to go over my understanding of our patient's current condition, the natural course history without intervention and various interventional options. Questions were invited and answered, and the patient wishes to proceed as outlined above. I have seen and examined the patient for 25 minutes and we have spent more than 50% of the time in repeat and detailed counseling about the patient's condition, its natural course history with out and as much as can be predicted with surgery and re-review of various surgical treatment options. In conclusion, Tanya Bradley requested we proceed with the above suggested surgery and are willing to accept risks and limitations of the suggested surgery as nature of the disease process and our best attempts at treatment for the condition. Thank you again for allowing us to be part of your patient's care. Please don't hesitate to contact me if you have any further questions. Signed and authenticated by: Geraldo Parish DO [facility] [address] [facility], [address] [id number]
[2023-01-03] MEDS: METOPROLOL SUCCINATE (ER) 25 MG TAB.ER.24H PO SCH ×2 (07:52→20:39)
[2023-01-03] MEDS: FAMOTIDINE 20 MG TAB PO SCH ×2 (07:52→20:39)
[2023-01-03] MEDS: hydrALAZINE HCL 25 MG TAB PO SCH ×2 (07:52→20:39)
--- NOTE | 2023-01-03 10:05 | XR ---
EXAMINATION TYPE: XR wrist complete RT DATE OF EXAM: 01/03/2023 COMPARISON: 01/02/2023 HISTORY: 82-year-old female post reduction TECHNIQUE: 2 views FINDINGS: Overlying fiberglass cast. There is persistent varus deformity and soft tissue swelling. Wh ile the overall degree of dorsal angulation has improved, there is persistent dorsal displacement jesenia suring up to 1.7 cm and foreshortening of up to 1.2 cm. Comminuted fractures of the distal radial met aphyses and metadiaphyses. The ulnar fracture shows slight radial angulation. IMPRESSION: Markedly comminuted both bone fractures at the distal metaphyses and metadiaphyses. While the overall dorsal angulation is significantly improved, there is persistent prominent dorsal displacement of up to 1.7 cm and foreshortening up to 1.2 cm.
[2023-01-03] MEDS ORDERED: ALBUTEROL NEBULIZED 2.5 MG/3 ML INHALATION PRN (10:38)
[2023-01-03] MEDS ORDERED: hydrALAZINE HCL 20 MG/ML 1 ML VIAL IVP PRN (10:56)
--- NOTE | 2023-01-03 11:00 | P.CONS ---
History of Present Illness - Reason for Consult Consult date: 01/03/23 - History of Present Illness Patient is a 82-year-old female with history of insulin-dependent diabetes, h ypertension, anxiety presenting with a mechanical fall resulting in distal radial and ulnar fracture. [facility] has been consulted for perioperative evaluation and medical management. Patient claims that she was running to the door to open up, and had a slip and fall. She tried to break her fall with her right hand, and also hit her head on the door. She denies any loss of consciousness. She denies any headache, visual loss, nausea, vomiting, urinary or bowel complaints. She denies any chest pain, palpitations, or lightheadedness. She claims that she has significant pain in the right wrist. She had one urological procedure about 30 years ago, and tolerated anesthesia well. She denies any history of strokes or renal dysfunction. She recently was treated for acute bronchitis with antibiotics. She denies any recent steroid use. In the ED, temperature was 97.6, pulse 73, respiratory 20, blood pressure elevated at 182/74, saturating at 96% on room air. WBC 5.6, hemoglobin 12.7, sodium 129, chloride 92, creatinine 0.61, blood sugar 137, AST and ALT slightly elevated. Wrist x-ray shows markedly comminuted both bone fractures at the distal metaphysis and metadiaphysis, ulna and radius on the right. Patient is pending surgical repair today. Pertinent positives and negatives as discussed in HPI, a complete review of systems was performed and all other systems are negative. Patient seen and examined at bedside. Vital signs reviewed General: nontoxic, no distress, appears at stated age Derm: warm, dry Head: Right's forehead bruise, normocephalic, symmetric Eyes: EOMI, no lid lag, anicteric sclera, pupils equal round reactive to light ENT: Nose and ears atraumatic Neck: No thyromegaly, supple Mouth: no lip lesion, mucus membranes moist Cardiovascular: S1S2 reg, no murmur, no edema Lungs: clear to auscultation bilateral, no rhonchi, no rales, no wheeze, no accessory muscle use Abdominal: soft, nontender to palpation, no guarding, no appreciable organo megaly Ext: no gross muscle atrophy, right arm in a cast Neuro: CN II-XII grossly intact Psych: Alert, oriented, appropriate affect Assessment/Plan: Perioperative evaluation Acute right ulnar and radial fractures Mechanical fall Insulin-dependent diabetes mellitus Hypertension, uncontrolled Anxiety Mild hyponatremia Transaminitis -Per ACS NSQIP risk calculator, given patient's advanced age and multiple medical comorbidities, she has above average risk of 2.4% for any serious complications, 0.1% risk for cardiac complications, increased risk for discharge to nursing or rehab facility at 12.8%. -We'll continue long-acting insulin at night at home dose, and sliding scale insulin -Blood pressure still elevated, in the setting of pain. Patient's blood pressure is usually around systolics of 130 -Continue home hydralazine twice a day, and lisinopril and hydrochlorothiazide scheduled for night -Continue the beta yahir -Heart rates in the 60s, can utilize IV push hydralazine prior to surgery to bring systolic blood pressure below 180 -Anxiolytics also restarted -Mild hyponatremia likely in the setting of hydrochlorothiazide use, repeat BMP tomorrow, not an absolute contraindication for undergoing surgery -Transaminitis likely from fractures, not complaining of any right upper quadrant pain -DVT prophylaxis per surgical service -Patient is medically optimized for surgery Thank you for allowing us to participate in the care of this pleasant patient. Do not hesitate to contact us with questions. Someone can be reached from the [facility] [place] hospitalist group all hours of the day at [phone] or via [employer]. Past Medical History Past Medical History: No Reported History, Diabetes Mellitus Additional Past Medical History / Comment(s): fast heart rate- unsure of what its called. spinal stenosis History of Any Multi-Drug Resistant Organisms: None Reported Past Surgical History: No Surgical Hx Reported Past Anesthesia/Blood Transfusion Reactions: No Reported Reaction Past Psychological History: No Psychological Hx Reported Smoking Status: Never smoker Past Alcohol Use History: None Reported Past Drug Use History: None Reported Medications and Allergies Home Medications Medication Instructions Recorded Confirmed Type ALPRAZolam [Xanax] 0.25 mg PO BID 11/06/21 01/02/23 History Aspirin EC [Ecotrin Low Dose] 81 mg PO DAILY 11/06/21 01/02/23 History Insulin Aspart (Niacinamide) 1 - 7 units SQ AC-TID 11/06/21 01/02/23 History [Fiasp 100 Unit/ml Flextouch Pen] Insulin Degludec [Tresiba 8 units SQ DIRECTED 11/06/21 01/02/23 History Flextouch U-100 Pen] Lisinopril-Hctz 20-25 mg 1 tab PO HS 11/06/21 01/02/23 History [Zestoretic 20-25] Rosuvastatin [Crestor] 10 mg PO DAILY 11/06/21 01/02/23 History Metoprolol Succinate (ER) [Toprol 25 mg PO BID #60 tab 11/07/21 01/02/23 Rx XL] Albuterol Inhaler [Ventolin Hfa 2 puff INHALATION RT-Q4H PRN 01/02/23 01/02/23 History Inhaler] Alendronate Sodium 70 mg PO GUERRA 01/02/23 01/02/23 History Azithromycin [Zithromax] 250 mg PO DAILY 01/02/23 01/02/23 History Calcium Carbonate [Calcium] 1,200 mg PO DAILY 01/02/23 01/02/23 History Pantoprazole [Protonix] 40 mg PO DAILY 01/02/23 01/02/23 History hydrALAZINE HCL [Apresoline] 25 mg PO BID 01/02/23 01/02/23 History traMADol HCL 50 mg PO TID 01/02/23 01/02/23 History Allergies Allergy/AdvReac Type Severity Reaction Status Date / Time No Known Allergies Allergy Verified 01/02/23 20:05 Physical Exam Vitals: Vital Signs Temp Pulse Pulse Resp BP BP Pulse Ox 01/03/23 09:17 176/74 01/03/23 06:57 98.0 F 69 16 192/66 92 L 01/03/23 01:58 98.0 F 74 18 187/73 98 01/02/23 21:07 97.5 F L 65 18 168/69 97 01/02/23 20:26 97.8 F 67 16 172/73 96 01/02/23 19:05 98.3 F 74 18 185/79 95 01/02/23 17:14 97.6 F 73 20 182/74 96 Intake and Output 01/02/23 01/03/23 01/03/23 22:59 06:59 14:59 Intake Total 0 Balance 0 Intake: Oral 0 Other: Voiding Method Toilet # Voids 1 Weight 50.802 kg Results CBC & Chem 7: 01/02/23 18:00 01/02/23 18:00 Labs: Abnormal Lab Results - Last 24 Hours (Table) 01/02/23 01/02/23 01/02/23 Range/Units 18:00 18:00 19:59 Sodium 129 L (137-145) mmol/L Chloride 92 L (98-107) mmol/L Glucose 137 H (74-99) mg/dL POC Glucose (mg/dL) 183 H (70-110) mg/dL Hemoglobin A1c 6.8 H (<=6.0) % AST 48 H (14-36) U/L ALT 35 H (4-34) U/L Total Protein 6.2 L (6.3-8.2) g/dL 01/03/23 Range/Units 05:44 Sodium (137-145) mmol/L Chloride (98-107) mmol/L Glucose (74-99) mg/dL POC Glucose (mg/dL) 177 H (70-110) mg/dL Hemoglobin A1c (<=6.0) % AST (14-36) U/L ALT (4-34) U/L Total Protein (6.3-8.2) g/dL
[2023-01-03 11:35] VITALS: BMI 18.6
[2023-01-03 11:46] LABS: Glucose,Whole Blood 181 mg/dL (70-110)
[2023-01-03] MEDS: SODIUM CHLORIDE 0.9% 1,000 ML IV SCH ×2 (11:48→20:46)
[2023-01-03 13:35] LABS: African American GFR (CKD) >90 (>60 ml/min/1.73 sqM); Anion Gap 6 mmol/L; Blood Urea Nitrogen 12 mg/dL (7-17); Carbon Dioxide 25 mmol/L (22-30); Chloride 95 mmol/L (98-107); Glucose 190 mg/dL (74-99); Non-African American GFR(CKD) 90 (>60 ml/min/1.73 sqM); Potassium 4.3 mmol/L (3.5-5.1); Sodium 126 mmol/L (137-145)
--- NOTE | 2023-01-03 16:29 | CT ---
EXAMINATION TYPE: CT brain abril valdez con DATE OF EXAM: 01/03/2023 COMPARISON: None HISTORY: fall CT DLP: 1289.[address] of the brain was performed. The ventricles, basal cisterns and sulci overlying the cerebral convexities demonstrate mild enlargem ent. There is no evidence for intracranial hemorrhage or sulcal effacement. There is decreased attenuatio n about the periventricular white matter and deep white matter of both cerebral hemispheres, compatib le with chronic small vessel ischemia. No mass effects are seen. If symptoms persist consider MRI. Osseous calvarium is intact. Right frontal scalp hematoma noted. IMPRESSION: 1. Age related atrophic and chronic small vessel ischemic change without acute intracranial process seen at this time. CT Cervical Spine: Unenhanced CT of the cervical spine was performed with bone and soft tissue window settings submitted . Coronal and sagittal reconstruction is obtained. There is normal alignment and prevertebral soft tissues. No evidence for acute cervical fracture . Scattered degenerative disc disease and spondylosis. Biapical scarring. IMPRESSION: 1. No evidence for acute fracture or subluxation of the cervical spine.
[2023-01-03] MEDS ORDERED: LIDOCAINE 2% INJ 20 MG/ML (2 ML VIAL) ONE (17:20)
[2023-01-03] MEDS ORDERED: PROPOFOL 10 MG/ML 20 ML VIAL IV ONE (17:20)
[2023-01-03] MEDS ORDERED: SUCCINYLCHOLINE CHLORIDE 200 MG/10 ML VIAL IV ONE (17:20)
[2023-01-03] MEDS ORDERED: fentaNYL (PF) 50 MCG/ML 2 ML AMP ONE (17:20)
[2023-01-03] MEDS ORDERED: IV FLUID CONTINUATION 1,000 ML IV ONE (17:25)
[2023-01-03] MEDS ORDERED: SODIUM CHLORIDE 0.9% 100 ML with ceFAZolin 2,000 MG IV ONE ×2 (17:40)
[2023-01-03] MEDS ORDERED: BUPIVACAINE (PF) 0.5% 30 ML VIAL SQ ONE (17:49)
[2023-01-03 19:29] LABS: Glucose,Whole Blood 210 mg/dL (70-110)
[2023-01-03 20:14] LABS: Glucose,Whole Blood 200 mg/dL (70-110)
[2023-01-03] MEDS: ALPRAZolam 0.25 MG TAB PO SCH (20:39)
--- NOTE | 2023-01-03 20:45 | P.OP ---
Date of Procedure: 01/03/23 Preoperative Diagnosis: 1.) Right grade II open distal radius fracture 2.) Right grade II open distal ulna fracture Postoperative Diagnosis: 1.) Right grade II open distal radius fracture 2.) Right grade II open distal ulna fracture Procedure(s) Performed: 1.) Open reduction internal fixation of right grade II open distal radius fracture, greater than 3 parts 2.) Irrigation and debridement of right grade II open distal radius/ulna fractures with sharp excision of nonviable skin, fat and bone. 3.) Closed treatment of open grade II distal ulna fracture Implants: Arthrex 7 hole Titanium volar locking plate. Narrow Width. [facility] Surgeon: Renato Forrest Shipwright Apprentice #1: Kevin Browne Estimated Blood Loss (ml): 40 Pathology: none sent Condition: stable Disposition: PACU Description of Procedure: This is a 82 year old female who sustained a displaced grade 2 open intra- articular right distal radius and ulna fracture after a fall from standing and presents today for open reduction internal fixation of their right distal radius fracture. Patient was admitted to the hospital for surgical intervention and had received appropriate antibiotics immediately upon arrival to the emergency department where closed reduction and immobilization was performed. Risks and benefits of surgery were discussed with the patient including bleeding, damage to surrounding tissue, infection, need for further surgery as well as risks of anesthesia including pulmonary embolism and even and the patient wished to proceed with surgical intervention. The patient was seen in the pre-operative area by myself. Consent and H&P were completed and updated. The correct extremity was marked in the pre-operative area by myself and all other questions were answered. Operative Narrative: The patient was brought to the operating room by the department of anesthesia. They transferred to the operative table with hand board attachment. All shani prominences were well padded. Pre-operative time out was performed indicating the correct patient, procedure and laterality. All in the room agreed. Pre-operative antibiotics were given prior to skin incision. The patient was then drifted off to sleep by the department of anesthesia. A nonsterile tourniquet was then applied to the operative extremity and the right upper extremity was then prepped and draped in normal sterile fashion. The operative extremity was then exsanguinated with an esmarch bandage and the tourniquet was inflated to 250mmHg. There was a 4cm oblique laceration near the site of the distal radius fracture at the level of the distal 1/3 forearm with exposed flexor muscle belly. A longitudinal incision centered over the FCR tendon was made with a 15-blade scalpel and was connected to the open wound. The forearm fascia had been disrupted and non viable skin edges were sharply excised to healthy tissue with 15 blade scapel. Multiple small non viable bone fragments were discovered in the volar subcutaneous tissues which were excised. The open wound was thoroughly irrigated with sterile saline. Blunt dissection was taken down to the FCR tendon sheath using Bovie cautery for meticulous hemostasis. The FCR sheath was opened with tenotomy scissors. The floor of the FCR sheath was then incised with a 15-blade scalpel and the FPL tendon and muscle belly was swept bluntly in an ulnar direction to reveal the pronator quadratus. Pronator quadratus was sharply incised with a 15-blade scalpel along the radial border of the distal radius, coming across transversely parallel to the joint at the level of the watershed line, radial artery was identified and protected. Periosteal elevator was then used to elevate the pronator quadratus off the distal radius from a radial to ulnar fashion. A lobster claw clamp was placed around the radial shaft to control rotation. There appeared to be extensive metaphyseal comminution and an intra-articular component of the distal fragment that was non displaced. A [place] elevator was used to lever the distal pieces back into place and free up the fractured fragments. A narrow width 7 hole Arthrex titanium volar locking distal radius plate was chosen to fit the patients anatomy best. This was placed on the distal radius under direct visualization and the oblong hole was drilled and filled with a non-locking screw. The fracture was then reduced to the plate distally and a k-wire was placed in the ulnar and radial most k-wire holes in the proximal row. Fluoroscopy was then utilized to confirm correct placement of plate in the radial/ulnar plane and distal k-wire placement was confirmed to be proximal to the subchondral bone on 20 degree elevated lateral view confirming extra-articular screw placement. Yarsanism of radial height, inclination and volar tilt was achieved. The distal rows and radial styloid screw holes were then drilled and filled from ulnar to radial with locking screws. Attention was then brought to the proximal shaft screws. Proxim al nonlocking and locking shaft screws were drilled, measured, and filled. The wrist joint was the ranged and full smooth flexion/extension with no crepitus appreciated. The distal ulna fracture had self reduced with an acceptable reduction after fixing the radius. Decision was made at that time to not go forward with fixation of the length stable ulna fracture due to the amount of soft tissue disruption it would require considering it's acceptable alignment after fixation of the radius. Further exploration revealed a 2cm laceration near the distal ulna. This was bluntly dissected and the ulnar artery and nerve were identified and found to be intact. This wound was irrigated copiously with sterile saline. Final imaging was taken confirming extra-articular placement of distal screws at DRUJ and radiocarpal joint. The wound was then irrigated. Subcutaneous closure was performed with 4-0 monocryl followed by skin closure with 4-0 nylon suture. 20cc's of 1% Lidocaine was injected into the subcutaneous tissues near the incision performing ulnar, median and radial nerve blocks. Sterile dressing consisting of adaptic, 4x4s, and a volar and dorsal plaster splint was applied. Tourniquet was let down and the hand had immediate perfusion. The patient was then woken by the department of anesthesia and transferred to PACU in stable condition. Kevin MORALES was present for the case and assisted in major portions of the operation and hardware placement. Renato Forrest D.O. Orthopedic Hand/Upper Extremity Surgeon
[2023-01-03] MEDS: INSULIN DETEMIR (LEVEMIR) 100 UNIT/ML SYR SQ SCH (20:46)
[2023-01-03] MEDS ORDERED: lisinopriL 20 MG TAB PO SCH (21:00)
[2023-01-04] MEDS: HYDROcodone/APAP 5-325MG 1 EACH TAB PO PRN ×2 (01:07→06:15)
[2023-01-04] MEDS: SODIUM CHLORIDE 0.9% 1,000 ML IV SCH ×3 (03:09→18:43)
[2023-01-04 06:05] LABS: Glucose,Whole Blood 120 mg/dL (70-110)
[2023-01-04] MEDS: INSULIN ASPART (NovoLOG) 100 UNIT/ML VIAL SQ SCH ×4 (06:12→22:36)
[2023-01-04] MEDS: PANTOPRAZOLE 40 MG TABLET PO SCH (06:15)
[2023-01-04] MEDS: CALCIUM CARBONATE 500 MG CHEWABLE PO SCH (08:23)
[2023-01-04] MEDS: ATORVASTATIN 20 MG TAB PO SCH (08:23)
[2023-01-04] MEDS: ALPRAZolam 0.25 MG TAB PO SCH ×2 (08:24→21:09)
[2023-01-04] MEDS: hydrALAZINE HCL 25 MG TAB PO SCH ×2 (08:24→21:09)
[2023-01-04] MEDS: METOPROLOL SUCCINATE (ER) 25 MG TAB.ER.24H PO SCH ×2 (08:24→21:09)
[2023-01-04] MEDS: FAMOTIDINE 20 MG TAB PO SCH ×2 (08:24→21:09)
[2023-01-04] MEDS: MORPHINE SULFATE 4 MG/ML SYRINGE IV PRN (08:46)
[2023-01-04 09:39] LABS: BUN/Creat Ratio 14.83 Ratio (12.00-20.00); Blood Urea Nitrogen 8.9 mg/dL (9.0-27.0); Calcium 7.8 mg/dL (8.7-10.3); Carbon Dioxide 20.3 mmol/L (21.6-31.8); Chloride 98 mmol/L (96-109); Glucose 126 mg/dL (70-110); Potassium 4.1 mmol/L (3.5-5.5); Sodium 129 mmol/L (135-145)
--- NOTE | 2023-01-04 10:07 | P.PN ---
Subjective Progress Note Date: 01/04/23 Principal diagnosis: Status post fall from standing Right distal radius fracture interarticular 3 part displaced angulated open Blunt head trauma, no loss of consciousness Patient seen and examined this morning. Patient is resting completely in bed. She does have complaint of pain in the right wrist, medications have been adjusted. Right upper extremity has been elevated up on a pillow to reduce swelling. Patient denies any numbness or tingling to the right upper extremity. She is able to wiggle her fingers without difficulty. Patient reports that she does plan on going home with home care at discharge. She states she has been es tablished with visiting nurses previously. Patient has been afebrile, denies nausea/vomiting, or chest pain. Objective - Vital Signs Vital signs: Vital Signs Temp 98.3 F 01/04/23 07:43 Pulse 78 01/04/23 07:43 Resp 20 01/04/23 07:43 BP 170/55 01/04/23 07:43 Pulse Ox 97 01/04/23 01:11 FiO2 Intake & Output 01/03/23 01/04/23 01/04/23 18:59 06:59 18:59 Intake Total 300 120 Output Total 40 Balance 260 120 Weight 50.802 kg Intake: IV 300 0 Oral 120 Output: Estimated Blood Loss 40 Other: Voiding Method Toilet # Voids 1 - Exam Inspection: [place] wrap and splint to right wrist is CDI. Right extremity elevated on pillow to reduce swelling. Sensation: Sensation is equal, symmetric, bilaterally intact throughout the upper and lower extremities. Palpation: Nontender to palpation throughout left upper and lower extremities and throughout spine exam. TTP over the right wrist due to surgical procedure. Range of motion: Patient does have full range of motion bilateral upper and lower extremities on exam. Motor: 5/5 in all major motor groups in the left upper and lower extremities. Limited to right wrist due to splint and surgical procedure. Neurovascular: Radial pulse intact, 2+ bilaterally. Cap refill under 3 seconds in digits upper extremities. - Labs CBC & Chem 7: 01/02/23 18:00 01/04/23 06:04 Labs: Abnormal Lab Results - Last 24 Hours (Table) 01/02/23 01/03/23 01/03/23 Range/Units 18:00 11:45 12:35 Sodium 126 L (137-145) mmol/L Chloride 95 L (98-107) mmol/L Creatinine 0.50 L (0.52-1.04) mg/dL Glucose 190 H (74-99) mg/dL POC Glucose (mg/dL) 181 H (70-110) mg/dL Hemoglobin A1c 6.8 H (<=6.0) % Calcium 8.0 L (8.4-10.2) mg/dL 01/03/23 01/03/23 01/04/23 Range/Units 19:26 20:12 06:03 Sodium (137-145) mmol/L Chloride (98-107) mmol/L Creatinine (0.52-1.04) mg/dL Glucose (74-99) mg/dL POC Glucose (mg/dL) 210 H 200 H 120 H (70-110) mg/dL Hemoglobin A1c (<=6.0) % Calcium (8.4-10.2) mg/dL Assessment and Plan Assessment: Postop day 1: Right wrist ORIF Status post fall from standing Right distal radius fracture interarticular 3 part displaced angulated open Blunt head trauma, no loss of consciousness Plan: -Appreciate network consultant and team management. -Activity: Ambulate QID, OOB all meals, up and about. NWB RUE, keep elevated on pillow to reduce swelling. -Daily PT/OT, increase ambulation strength and balance. -Pain control: Adequate at this time -Meds: reviewed -GI ppx: senna, Miralax -DVT PPX: Ordered Lovenox 40mg SQ daily while in hospital. -Hygiene: Maintain splint dressing clean and dry. -Encourage IS 10x/hr -Dispo: Anticipate discharge home with homecare in the next 24-48hrs. *I reviewed and discussed this case with my attending Dr. Parish, whom has reviewed this chart and films and is in agreement with assessment and plan of care as outlined above. I have personally seen and examined the patient, performed the documentation and the assessment and plan as written. Number of minutes spent on the visit: 15m.
[2023-01-04] MEDS: ENOXAPARIN 40 MG/0.4 ML SYRINGE SQ SCH (10:12)
[2023-01-04] MEDS: HYDROcodone/APAP 7.5-325MG 1 EACH TAB PO PRN ×2 (11:09→15:56)
[2023-01-04 11:42] LABS: Glucose,Whole Blood 146 mg/dL (70-110)
[2023-01-04] MEDS ORDERED: lisinopriL 10 MG TAB PO STA (13:51)
--- NOTE | 2023-01-04 13:54 | P.PN ---
Subjective Progress Note Date: 01/04/23 Subjective: Seen and examined at bedside. No acute events overnight. He claims that she has significant pain in the right arm after surgery. Denies any other complaints. Pertinent positives and negatives as discussed above, a complete review of systems was performed and all other systems are negative. Vitals Signs Reviewed. General: nontoxic, no distress, appears at stated age Derm: warm, dry Head: Right forehead bruising ,normocephalic, symmetric Eyes: EOMI, no lid lag, anicteric sclera Mouth: no lip lesion, mucus membranes moist Cardiovascular: S1S2 reg, no murmur Lungs: CTA bilateral, no rhonchi, no rales , no accessory muscle use Abdominal: soft, nontender to palpation, no guarding, no appreciable organomegaly Ext: Right arm in a cast Neuro: CN II-XI grossly intact, no focal neuro deficits Psych: Alert, oriented, appropriate affect Data Reviewed Today: Pertinent Labs: Sodium 129, creatinine 0.6, blood sugars range between 120-200 Imaging: Head/ Cervical spine CT did not show any acute fractures Assessment and Plan: Acute right ulnar and radial fractures status post repair Mechanical fall Insulin-dependent diabetes mellitus Hypertension, uncontrolled Anxiety Mild hyponatremia, resolving Transaminitis -Orthopedic note reviewed, likely discharge in the next 24-48 hours -Pain control with oral Tylenol, oral [place], IV morphine as needed -Levemir 8 units at night, sliding scale insulin -Continue to hold hydrochlorothiazide, lisinopril increased, amlodipine added, continue hydralazine -Sodium improving on IV fluids, continue -Repeat BMP tomorrow Thank you for allowing us to participate in the care of this pleasant patient. Do not hesitate to contact us with questions. Someone can be reached from the [facility] hospitalist group all hours of the day at [phone] or via [employer]. Objective - Vital Signs Vital signs: Vital Signs Temp 98.3 F 01/04/23 07:43 Pulse 78 01/04/23 07:43 Resp 20 01/04/23 07:43 BP 170/55 01/04/23 07:43 Pulse Ox 97 01/04/23 01:11 FiO2 Intake & Output 01/03/23 01/04/23 01/04/23 18:59 06:59 18:59 Intake Total 300 120 Output Total 40 Balance 260 120 Weight 50.802 kg Intake: IV 300 0 Oral 120 Output: Estimated Blood Loss 40 Other: Voiding Method Toilet # Voids 1 1 - Labs CBC & Chem 7: 01/02/23 18:00 01/04/23 06:04 Labs: Abnormal Lab Results - Last 24 Hours (Table) 01/03/23 01/03/23 01/04/23 Range/Units 19:26 20:12 06:03 Sodium (135-145) mmol/L Carbon Dioxide (21.6-31.8) mmol/L BUN (9.0-27.0) mg/dL Glucose (70-110) mg/dL POC Glucose (mg/dL) 210 H 200 H 120 H (70-110) mg/dL Calcium (8.7-10.3) mg/dL 01/04/23 01/04/23 Range/Units 06:04 11:40 Sodium 129 L (135-145) mmol/L Carbon Dioxide 20.3 L (21.6-31.8) mmol/L BUN 8.9 L (9.0-27.0) mg/dL Glucose 126 H (70-110) mg/dL POC Glucose (mg/dL) 146 H (70-110) mg/dL Calcium 7.8 L (8.7-10.3) mg/dL
[2023-01-04] MEDS: amLODIPine 5 MG TAB PO SCH (14:16)
[2023-01-04 17:02] LABS: Glucose,Whole Blood 190 mg/dL (70-110)
[2023-01-04] MEDS: INSULIN DETEMIR (LEVEMIR) 100 UNIT/ML SYR SQ SCH (21:07)
[2023-01-04 21:54] LABS: Glucose,Whole Blood 232 mg/dL (70-110)
[2023-01-05] MEDS: SODIUM CHLORIDE 0.9% 1,000 ML IV SCH ×4 (05:14→23:29)
[2023-01-05 06:19] LABS: Glucose,Whole Blood 119 mg/dL (70-110)
[2023-01-05] MEDS: INSULIN ASPART (NovoLOG) 100 UNIT/ML VIAL SQ SCH ×4 (06:20→21:25)
[2023-01-05] MEDS: PANTOPRAZOLE 40 MG TABLET PO SCH (06:37)
[2023-01-05 07:23] LABS: African American GFR (CKD) >90 (>60 ml/min/1.73 sqM); Anion Gap 3 mmol/L; Blood Urea Nitrogen 7 mg/dL (7-17); Calcium 7.2 mg/dL (8.4-10.2); Carbon Dioxide 25 mmol/L (22-30); Chloride 103 mmol/L (98-107); Glucose 105 mg/dL (74-99); Non-African American GFR(CKD) >90 (>60 ml/min/1.73 sqM); Potassium 3.3 mmol/L (3.5-5.1); Sodium 131 mmol/L (137-145)
[2023-01-05] MEDS: CALCIUM CARBONATE 500 MG CHEWABLE PO SCH (07:33)
[2023-01-05] MEDS: METOPROLOL SUCCINATE (ER) 25 MG TAB.ER.24H PO SCH ×2 (07:34→20:25)
[2023-01-05] MEDS: FAMOTIDINE 20 MG TAB PO SCH ×2 (07:34→20:26)
[2023-01-05] MEDS: ATORVASTATIN 20 MG TAB PO SCH (07:34)
[2023-01-05] MEDS: hydrALAZINE HCL 25 MG TAB PO SCH ×2 (07:34→20:24)
[2023-01-05] MEDS: ALPRAZolam 0.25 MG TAB PO SCH ×2 (07:35→20:25)
[2023-01-05] MEDS: amLODIPine 5 MG TAB PO SCH (07:35)
[2023-01-05] MEDS: ENOXAPARIN 40 MG/0.4 ML SYRINGE SQ SCH (07:35)
[2023-01-05] MEDS ORDERED: POTASSIUM CHLORIDE ER 20 MEQ TAB.ER PO STA (08:27)
[2023-01-05] MEDS ORDERED: MAGNESIUM HYDROXIDE 2,400 MG/30 ML CUP PO PRN (08:35)
[2023-01-05] MEDS: lisinopriL 20 MG TAB PO SCH (08:38)
[2023-01-05] MEDS: SENNOSIDES-DOCUSATE SODIUM 1 EACH TAB PO SCH (08:55)
[2023-01-05] MEDS ORDERED: lisinopriL 10 MG TAB PO SCH (09:00)
[2023-01-05 11:14] LABS: Glucose,Whole Blood 143 mg/dL (70-110)
--- NOTE | 2023-01-05 11:55 | XR ---
EXAMINATION TYPE: XR wrist complete LT DATE OF EXAM: 01/05/2023 CLINICAL HISTORY: pain TECHNIQUE: Frontal, lateral and oblique images of the left wrist are obtained. Overlying tubing limi ts evaluation. COMPARISON: None. FINDINGS: There is no acute fracture/dislocation evident. The joint spaces appear within normal juarez its. The overlying soft tissue appears unremarkable. IMPRESSION: There is no acute fracture or dislocation seen. ICD 10 NO FRACTURE, INITIAL EVALUATION
--- NOTE | 2023-01-05 13:32 | P.PN ---
Subjective Progress Note Date: 01/05/23 Subjective: Seen and examined at bedside. No acute events overnight. He claims that she has some pain in the right arm after surgery. Denies any other complaints. Patient has been constipated Pertinent positives and negatives as discussed above, a complete review of systems was performed and all other systems are negative. Vitals Signs Reviewed. General: nontoxic, no distress, appears at stated age Derm: warm, dry Head: Right forehead bruising ,normocephalic, symmetric Eyes: EOMI, no lid lag, anicteric sclera Mouth: no lip lesion, mucus membranes moist Cardiovascular: S1S2 reg, no murmur Lungs: CTA bilateral, no rhonchi, no rales , no accessory muscle use Abdominal: soft, nontender to palpation, no guarding, no appreciable organomegaly Ext: Right arm in a sling Neuro: CN II-XI grossly intact, no focal neuro deficits Psych: Alert, oriented, appropriate affect Data Reviewed Today: Pertinent Labs: Sodium 131, potassium 2.3, creatinine 0.49, blood sugars range between 105-232 Imaging: Left wrist x-ray shows no acute fracture Assessment and Plan: Acute right ulnar and radial fractures status post repair Constipation Mechanical fall Insulin-dependent diabetes mellitus Hypertension, uncontrolled Anxiety Mild hyponatremia, resolving Transaminitis Hypokalemia -Pain control with oral Tylenol, oral [place], IV morphine as needed -Started on senna -Levemir 8 units at night, sliding scale insulin -Continue to hold hydrochlorothiazide, lisinopril increased again today, amlodipine, continue hydralazine -Sodium improving on IV fluids, continue -Given 40 mEq of potassium chloride, repeat BMP tomorrow Thank you for allowing us to participate in the care of this pleasant patient. Do not hesitate to contact us with questions. Someone can be reached from the [facility] [place] hospitalist group all hours of the day at [phone] or via Get[employer]. Objective - Vital Signs Vital signs: Vital Signs Temp 98.6 F 01/05/23 06:55 Pulse 82 01/05/23 06:55 Resp 16 01/05/23 06:55 BP 156/66 01/05/23 06:55 Pulse Ox 94 L 01/05/23 06:55 FiO2 Intake & Output 01/04/23 01/05/23 01/05/23 18:59 06:59 18:59 Intake Total 2150 Balance 2149 Intake: Intake, IV Titration 1600 Amount Sodium Chloride 0.9% 1, 1500 000 ml @ 125 mls/hr IV . Q8H [facility] Rx#:[id number] ceFAZolin 1,000 mg In 50 Sodium Chloride 0.9% 50 ml @ 100 mls/hr IVPB Q6H [facility] Rx#:[id number] ceFAZolin 1,000 mg In 50 Sodium Chloride 0.9% 50 ml @ 100 mls/hr IVPB Q6HR [facility] Rx#:[id number] Oral 550 Other: # Voids 3 4 - Labs CBC & Chem 7: 01/02/23 18:00 01/05/23 06:20 Labs: Abnormal Lab Results - Last 24 Hours (Table) 01/04/23 01/04/23 01/05/23 Range/Units 17:00 21:53 06:18 Sodium (137-145) mmol/L Potassium (3.5-5.1) mmol/L Creatinine (0.52-1.04) mg/dL Glucose (74-99) mg/dL POC Glucose (mg/dL) 190 H 232 H 119 H (70-110) mg/dL Calcium (8.4-10.2) mg/dL 01/05/23 01/05/23 Range/Units 06:20 11:12 Sodium 131 L (137-145) mmol/L Potassium 3.3 L (3.5-5.1) mmol/L Creatinine 0.49 L (0.52-1.04) mg/dL Glucose 105 H (74-99) mg/dL POC Glucose (mg/dL) 143 H (70-110) mg/dL Calcium 7.2 L (8.4-10.2) mg/dL
[2023-01-05] MEDS: HYDROcodone/APAP 7.5-325MG 1 EACH TAB PO PRN ×2 (13:47→21:42)
[2023-01-05 16:17] LABS: Glucose,Whole Blood 215 mg/dL (70-110)
[2023-01-05 21:03] LABS: Glucose,Whole Blood 258 mg/dL (70-110)
[2023-01-05] MEDS: INSULIN DETEMIR (LEVEMIR) 100 UNIT/ML SYR SQ SCH (21:25)
[2023-01-06 05:28] LABS: Glucose,Whole Blood 124 mg/dL (70-110)
[2023-01-06] MEDS: INSULIN ASPART (NovoLOG) 100 UNIT/ML VIAL SQ SCH ×2 (05:32→11:39)
[2023-01-06] MEDS: PANTOPRAZOLE 40 MG TABLET PO SCH (06:31)
[2023-01-06 06:35] LABS: African American GFR (CKD) >90 (>60 ml/min/1.73 sqM); Anion Gap 3 mmol/L; Blood Urea Nitrogen 6 mg/dL (7-17); Calcium 7.2 mg/dL (8.4-10.2); Carbon Dioxide 26 mmol/L (22-30); Chloride 105 mmol/L (98-107); Glucose 111 mg/dL (74-99); Magnesium 1.9 mg/dL (1.6-2.3); Non-African American GFR(CKD) >90 (>60 ml/min/1.73 sqM); Potassium 3.6 mmol/L (3.5-5.1); Sodium 134 mmol/L (137-145)
[2023-01-06] MEDS: HYDROcodone/APAP 7.5-325MG 1 EACH TAB PO PRN ×2 (07:39→14:09)
[2023-01-06 07:44] VITALS: BP 153/71; PULSE 80; RESP 18; TEMP 98.4
[2023-01-06] MEDS: ENOXAPARIN 40 MG/0.4 ML SYRINGE SQ SCH (08:39)
[2023-01-06] MEDS: lisinopriL 20 MG TAB PO SCH (08:39)
[2023-01-06] MEDS: CALCIUM CARBONATE 500 MG CHEWABLE PO SCH (08:39)
[2023-01-06] MEDS: amLODIPine 5 MG TAB PO SCH (08:39)
[2023-01-06] MEDS: ATORVASTATIN 20 MG TAB PO SCH (08:39)
[2023-01-06] MEDS: FAMOTIDINE 20 MG TAB PO SCH (08:40)
[2023-01-06] MEDS: ALPRAZolam 0.25 MG TAB PO SCH (08:40)
[2023-01-06] MEDS: METOPROLOL SUCCINATE (ER) 25 MG TAB.ER.24H PO SCH (08:40)
[2023-01-06] MEDS: hydrALAZINE HCL 25 MG TAB PO SCH (08:40)
[2023-01-06] MEDS: SODIUM CHLORIDE 0.9% 1,000 ML IV SCH (08:40)
[2023-01-06] MEDS: SENNOSIDES-DOCUSATE SODIUM 1 EACH TAB PO SCH (08:41)
--- NOTE | 2023-01-06 10:50 | P.PN ---
Subjective Progress Note Date: 01/05/23 Principal diagnosis: Status post fall from standing Right distal radius fracture interarticular 3 part displaced angulated open Blunt head trauma, no loss of consciousness Patient seen and examined this morning. Patient is sitting up in chair at bedside. She does have complaint of pain in the right wrist, medications have been adjusted. Right upper extremity has sling presnt and has been elevated up on a pillow to reduce swelling. Patient states she has intermittent numbness and tingling to the right finger tips. She is able to wiggle her fingers without difficulty. Patient reports she has some pain and swelling to her left wrist. Bruising is noted to left thumb and forearm. Xrays have been ordered. Patient has been afebrile, denies nausea/vomiting, or chest pain. Objective - Vital Signs Vital signs: Vital Signs Temp 98.6 F 01/05/23 06:55 Pulse 82 01/05/23 06:55 Resp 16 01/05/23 06:55 BP 156/66 01/05/23 06:55 Pulse Ox 94 L 01/05/23 06:55 FiO2 Intake & Output 01/04/23 01/05/23 01/05/23 18:59 06:59 18:59 Intake Total 2150 Balance 2150 Intake: Intake, IV Titration 1600 Amount Sodium Chloride 0.9% 1, 1500 000 ml @ 125 mls/hr IV . Q8H [facility] Rx#:[id number] ceFAZolin 1,000 mg In 50 Sodium Chloride 0.9% 50 ml @ 100 mls/hr IVPB Q6H [facility] Rx#:[id number] ceFAZolin 1,000 mg In 50 Sodium Chloride 0.9% 50 ml @ 100 mls/hr IVPB Q6HR [facility] Rx#:[id number] Oral 550 Other: # Voids 3 4 - Exam Inspection: [place] wrap and splint to right wrist is CDI. Right extremity elevated on pillow to reduce swelling. Bruising over right side of forehead and eye. Slight bruising noted to the left thumb and forearm. Sensation: Sensation is equal, symmetric, bilaterally intact throughout the upper and lower extremities. Palpation: Nontender to palpation throughout lower extremities and throughout spine exam. TTP over the right wrist due to surgical procedure. Mild tenderness over the left wrist. Range of motion: Patient does have full range of motion bilateral upper and lower extremities on exam. Motor: 5/5 in all major motor groups in the left upper and lower extremities. Limited to right wrist due to splint and surgical procedure. Neurovascular: Radial pulse intact, 2+ bilaterally. Cap refill under 3 seconds in digits upper extremities. - Labs CBC & Chem 7: 01/02/23 18:00 01/05/23 06:20 Labs: Abnormal Lab Results - Last 24 Hours (Table) 01/04/23 01/04/23 01/04/23 Range/Units 11:40 17:00 21:53 Sodium (137-145) mmol/L Potassium (3.5-5.1) mmol/L Creatinine (0.52-1.04) mg/dL Glucose (74-99) mg/dL POC Glucose (mg/dL) 146 H 190 H 232 H (70-110) mg/dL Calcium (8.4-10.2) mg/dL 01/05/23 01/05/23 Range/Units 06:18 06:20 Sodium 131 L (137-145) mmol/L Potassium 3.3 L (3.5-5.1) mmol/L Creatinine 0.49 L (0.52-1.04) mg/dL Glucose 105 H (74-99) mg/dL POC Glucose (mg/dL) 119 H (70-110) mg/dL Calcium 7.2 L (8.4-10.2) mg/dL Assessment and Plan Assessment: Postop day 2: Right wrist ORIF Status post fall from standing Right distal radius fracture interarticular 3 part displaced angulated open Blunt head trauma, no loss of consciousness Left wrist pain Plan: -Appreciate accounting policy consultant and team management. -Right wrist xray: pending results -Activity: Ambulate QID, OOB all meals, up and about. NWB RUE, keep elevated on pillow to reduce swelling. -Daily PT/OT, increase ambulation strength and balance. -Pain control: Adequate at this time -Meds: reviewed -GI ppx: senna, Miralax -DVT PPX: Lovenox 40mg SQ daily while in hospital. -Hygiene: Maintain splint dressing clean and dry. -Encourage IS 10x/hr -Dispo: Anticipate discharge home with homecare in the next 24-48hrs. *I reviewed and discussed this case with my attending Dr. Parish, whom has reviewed this chart and films and is in agreement with assessment and plan of care as outlined above. I have personally seen and examined the patient, performed the documentation and the assessment and plan as written. Number of minutes spent on the visit: 15m.
[2023-01-06 11:38] LABS: Glucose,Whole Blood 135 mg/dL (70-110)
--- NOTE | 2023-01-06 11:40 | P.PN ---
Subjective Progress Note Date: 01/06/23 Principal diagnosis: Status post fall from standing Right distal radius fracture interarticular 3 part displaced angulated open Blunt head trauma, no loss of consciousness Patient seen and examined this morning. Patient is sitting up in chair at bedside. She states she is feeling much better than yesterday, her pain is managed on current regimen. Right upper extremity has sling present and is elevated up on a pillow to reduce swelling. She is able to wiggle her fingers without difficulty. Xray that was obtained for left wrist on 01/05/23 has been reviewed and is negative for and dislocation or fracture. Patient states she feels comfortable going home with home care. Physical therapy has recommended patient would benefit from a straight cane, Patient was provided a prescription. Patient has been afebrile, denies nausea/vomiting, or chest pain. Objective - Vital Signs Vital signs: Vital Signs Temp 98.4 F 01/06/23 07:43 Pulse 80 01/06/23 07:43 Resp 18 01/06/23 07:43 BP 153/71 01/06/23 07:43 Pulse Ox 96 01/06/23 07:43 FiO2 Intake & Output 01/05/23 01/06/23 01/06/23 18:59 06:59 18:59 Intake Total 2049 Balance 2049 Intake: Intake, IV Titration 1550 Amount Sodium Chloride 0.9% 1, 1500 000 ml @ 125 mls/hr IV . Q8H [facility] Rx#:[id number] ceFAZolin 1,000 mg In 50 Sodium Chloride 0.9% 50 ml @ 100 mls/hr IVPB Q6H [facility] Rx#:[id number] Oral 500 Other: # Voids 3 2 - Exam Inspection: [place] wrap and splint to right wrist is CDI. Right extremity elevated on pillow to reduce swelling. Bruising over right side of forehead and eye. Slight bruising noted to the left thumb and forearm. Sensation: Sensation is equal, symmetric, bilaterally intact throughout the upper and lower extremities. Palpation: Nontender to palpation throughout lower extremities and throughout spine exam. TTP over the right wrist due to surgical procedure. Mild tenderness over the left wrist. Range of motion: Patient does have full range of motion bilateral upper and lower extremities on exam. Motor: 5/5 in all major motor groups in the left upper and lower extremities. Limited to right wrist due to splint and surgical procedure. Neurovascular: Radial pulse intact, 2+ bilaterally. Cap refill under 3 seconds in digits upper extremities. - Labs CBC & Chem 7: 01/02/23 18:00 01/06/23 05:19 Labs: Abnormal Lab Results - Last 24 Hours (Table) 01/05/23 01/05/23 01/05/23 Range/Units 11:12 16:16 21:02 Sodium (137-145) mmol/L BUN (7-17) mg/dL Creatinine (0.52-1.04) mg/dL Glucose (74-99) mg/dL POC Glucose (mg/dL) 143 H 215 H 258 H (70-110) mg/dL Calcium (8.4-10.2) mg/dL 01/06/23 01/06/23 Range/Units 05:19 05:26 Sodium 134 L (137-145) mmol/L BUN 6 L (7-17) mg/dL Creatinine 0.41 L (0.52-1.04) mg/dL Glucose 111 H (74-99) mg/dL POC Glucose (mg/dL) 124 H (70-110) mg/dL Calcium 7.2 L (8.4-10.2) mg/dL Assessment and Plan Assessment: Postop day 3: Right wrist ORIF Status post fall from standing Right distal radius fracture interarticular 3 part displaced angulated open Blunt head trauma, no loss of consciousness Left wrist pain Plan: -Appreciate insurance consultant and team management. -Right wrist xray: pending results -Activity: Ambulate QID, OOB all meals, up and about. NWB RUE, keep elevated on pillow to reduce swelling. -Daily PT/OT, increase ambulation strength and balance. -Pain control: Adequate at this time -Meds: reviewed -GI ppx: senna, Miralax -DVT PPX: Lovenox 40mg SQ daily while in hospital. -Hygiene: Maintain splint dressing clean and dry. -Encourage IS 10x/hr -Dispo: Anticipate discharge home with homecare today 01/06/23. *I reviewed and discussed this case with my attending Dr. Parish, whom has reviewed this chart and films and is in agreement with assessment and plan of care as outlined above. I have personally seen and examined the patient, performed the documentation and the assessment and plan as written. Number of minutes spent on the visit: 15m.
--- NOTE | 2023-01-06 11:50 | P.DS ---
Providers Date of admission: 01/02/23 19:48 Expected date of discharge: 01/06/23 Attending physician: Geraldo Parish DO Consults: 01/03/23 07:09 Consult Physician Urgent Consulting Provider: Magali Fernandez Consult Reason/Comments: medical clearance Do you want consulting provider notified?: Yes Primary care physician: [facility] Course: Hospital Course: The patient was evaluated preoperatively and found to have the diagnosis of Right distal radius fracture interarticular 3 part displaced angulated open They underwent appropriate preoperative care and were willing to undergo the intended procedure. They underwent a successful right wrist ORIF were recovered appropriately and sent to the floor. While on the floor they worked with physical therapy, occupational therapy and nursing to enhance their recovery experience. Their pain was well controlled through their stay and they were started on appropriate medications, DVT ppx modalities, activity and dietary needs. Daily labs were monitored closely, and transfusions were only used when necessary. Medicine as well as other consulting services have made their input and have helped with our team approach and multidisciplinary care. PT milestones have been met and passed and they have made the recommendation of home with home care for this patient and treating providers agree with this care path. The patient will be discharged home with appropriate medications, instructions and follow-up information and in stable condition. Patient Condition at Discharge: Good Plan - Discharge Summary Discharge Rx Participant: Yes New Discharge Prescriptions: New amLODIPine [Norvasc] 5 mg PO DAILY #90 tab lisinopriL [Zestril] 40 mg PO DAILY #90 tab HYDROcodone/APAP 7.5-325MG [[place] 7.5] 1 tab PO Q4-6H PRN #42 tab PRN Reason: Pain Sennosides/Docusate Sodium [Senna Plus 8.6-50 mg Softgel] 1 each PO DAILY PRN #20 capsule PRN Reason: Constipation Continue Rosuvastatin [Crestor] 10 mg PO DAILY Albuterol Inhaler [Ventolin Hfa Inhaler] 2 puff INHALATION RT-Q4H PRN PRN Reason: Shortness Of Breath Calcium Carbonate [Calcium] 1,200 mg PO DAILY Insulin Aspart (Niacinamide) [Fiasp 100 Unit/ml Flextouch Pen] 1 - 7 units SQ AC-TID ALPRAZolam [Xanax] 0.25 mg PO BID Insulin Degludec [Tresiba Flextouch U-100 Pen] 8 units SQ DIRECTED Metoprolol Succinate (ER) [Toprol XL] 25 mg PO BID #60 tab Alendronate Sodium 70 mg PO GUERRA hydrALAZINE HCL [Apresoline] 25 mg PO BID Pantoprazole [Protonix] 40 mg PO DAILY Discontinued Lisinopril-Hctz 20-25 mg [Zestoretic 20-25] 1 tab PO HS Azithromycin [Zithromax] 250 mg PO DAILY No Action Aspirin EC [Ecotrin Low Dose] 81 mg PO DAILY traMADol HCL 50 mg PO TID Discharge Medication List ALPRAZolam [Xanax] 0.25 mg PO BID 11/06/21 [History] Aspirin EC [Ecotrin Low Dose] 81 mg PO DAILY 11/06/21 [History] Insulin Aspart (Niacinamide) [Fiasp 100 Unit/ml Flextouch Pen] 1 - 7 units SQ AC-TID 11/06/21 [History] Insulin Degludec [Tresiba Flextouch U-100 Pen] 8 units SQ DIRECTED 11/06/21 [History] Rosuvastatin [Crestor] 10 mg PO DAILY 11/06/21 [History] Metoprolol Succinate (ER) [Toprol XL] 25 mg PO BID #60 tab 11/07/21 [Rx] Albuterol Inhaler [Ventolin Hfa Inhaler] 2 puff INHALATION RT-Q4H PRN 01/02/23 [History] Alendronate Sodium 70 mg PO GUERRA 01/02/23 [History] Calcium Carbonate [Calcium] 1,200 mg PO DAILY 01/02/23 [History] Pantoprazole [Protonix] 40 mg PO DAILY 01/02/23 [History] hydrALAZINE HCL [Apresoline] 25 mg PO BID 01/02/23 [History] traMADol HCL 50 mg PO TID 01/02/23 [History] HYDROcodone/APAP 7.5-325MG [[place] 7.5] 1 tab PO Q4-6H PRN #42 tab 01/06/23 [Rx] Sennosides/Docusate Sodium [Senna Plus 8.6-50 mg Softgel] 1 each PO DAILY PRN #20 capsule 01/06/23 [Rx] amLODIPine [Norvasc] 5 mg PO DAILY #90 tab 01/06/23 [Rx] lisinopriL [Zestril] 40 mg PO DAILY #90 tab 01/06/23 [Rx] Follow up Appointment(s)/Referral(s): Renato Forrest DO [Doctor of Osteopathic Medicine] - 10 Days Tyler Patel MD [Primary Care Provider] - 1-2 days Patient Instructions/Handouts: ORIF (DC) Activity/Diet/Wound Care/Special Instructions: Orthopedic Discharge Instructions: Wound care and infection precautions, keep cast/splint, dry and covered while showering. Non weight bearing of Left upper extremity with sling until follow-up. Ice and elevate when necessary. Do not exceed 20 minutes per hour with ice pack. Pain meds per prescription. Pain medication has potential to cause constipation. Increase oral fluid and fiber intake. Contact primary care provider if you have not had a bowel movement within 48 hours after discharge. No anti-inflammatory medication until discussed at first post operative visit, this including Motrin, Aleve, Mobic, Diclofenac, Aspirin. Follow up in office at 2 weeks postop Follow up with your primary care doctor 7-10 days after discharge. Contact [facility] with any questions, . Discharge Disposition: HOME WITH HOME HEALTH SERVICES
--- NOTE | 2023-01-06 12:24 | P.PN ---
Subjective Progress Note Date: 01/06/23 Subjective: Seen and examined at bedside. No acute events overnight. He claims that she has some pain in the right arm after surgery. Denies any other complaints. Patient has been constipated Pertinent positives and negatives as discussed above, a complete review of systems was performed and all other systems are negative. Vitals Signs Reviewed. General: nontoxic, no distress, appears at stated age Derm: warm, dry Head: Right forehead bruising ,normocephalic, symmetric Eyes: EOMI, no lid lag, anicteric sclera Mouth: no lip lesion, mucus membranes moist Cardiovascular: S1S2 reg, no murmur Lungs: CTA bilateral, no rhonchi, no rales , no accessory muscle use Abdominal: soft, nontender to palpation, no guarding, no appreciable organomegaly Ext: Right arm in a sling Neuro: CN II-XI grossly intact, no focal neuro deficits Psych: Alert, oriented, appropriate affect Data Reviewed Today: Pertinent Labs: Sodium 134, potassium 2.6, creatinine 0.41, blood sugars range between 124-258 Imaging: No new imaging today Assessment and Plan: Acute right ulnar and radial fractures status post repair Constipation Mechanical fall Insulin-dependent diabetes mellitus Hypertension, uncontrolled Anxiety Mild hyponatremia, resolving Transaminitis Hypokalemia, resolved -Pain control with oral Tylenol, oral [place], IV morphine as needed -On senna -Levemir 8 units at night, sliding scale insulin -Continue to hold hydrochlorothiazide -On lisinopril, amlodipine, hydralazine -Sodium improving on IV fluids, continue Patient is medically optimized for discharge home. Thank you for allowing us to participate in the care of this pleasant patient. Do not hesitate to contact us with questions. Someone can be reached from the [facility] hospitalist group all hours of the day at [phone] or via perfect serve. Objective - Vital Signs Vital signs: Vital Signs Temp 98.4 F 01/06/23 07:43 Pulse 80 01/06/23 07:43 Resp 18 01/06/23 07:43 BP 153/71 01/06/23 07:43 Pulse Ox 96 01/06/23 07:43 FiO2 Intake & Output 01/05/23 01/06/23 01/06/23 18:59 06:59 18:59 Intake Total 2049 Balance 2049 Intake: Intake, IV Titration 1550 Amount Sodium Chloride 0.9% 1, 1500 000 ml @ 125 mls/hr IV . Q8H [facility] Rx#:[id number] ceFAZolin 1,000 mg In 50 Sodium Chloride 0.9% 50 ml @ 100 mls/hr IVPB Q6H [facility] Rx#:[id number] Oral 500 Other: # Voids 3 2 - Labs CBC & Chem 7: 01/02/23 18:00 01/06/23 05:19 Labs: Abnormal Lab Results - Last 24 Hours (Table) 01/05/23 01/05/23 01/06/23 Range/Units 16:16 21:02 05:19 Sodium 134 L (137-145) mmol/L BUN 6 L (7-17) mg/dL Creatinine 0.41 L (0.52-1.04) mg/dL Glucose 111 H (74-99) mg/dL POC Glucose (mg/dL) 215 H 258 H (70-110) mg/dL Calcium 7.2 L (8.4-10.2) mg/dL 01/06/23 01/06/23 Range/Units 05:26 11:36 Sodium (137-145) mmol/L BUN (7-17) mg/dL Creatinine (0.52-1.04) mg/dL Glucose (74-99) mg/dL POC Glucose (mg/dL) 124 H 135 H (70-110) mg/dL Calcium (8.4-10.2) mg/dL
[2023-01-07] MEDS ORDERED: FUROSEMIDE 40 MG TAB PO SCH (09:00)
== END 2023-01-06 14:35 | disposition home or self-care (01) | DRG 511 ==
LOC: EC 17:02 → 4SSUR 19:48
PROVIDERS: ADMIT Orthopaedic Surgery; ATTEND Orthopaedic Surgery
PROC: 3E0234Z Introduction of Serum, Toxoid and Vaccine into Muscle, Percutaneous Approach (ICD-10-PCS; 2023-01-02)
PROC: 0PSH04Z Reposition Right Radius with Internal Fixation Device, Open Approach (ICD-10-PCS; principal; 2023-01-03 10:50)
PROC: 0PSK04Z Reposition Right Ulna with Internal Fixation Device, Open Approach (ICD-10-PCS; principal; 2023-01-03 10:50)
DX: S52.571B Other intraarticular fracture of lower end of right radius, initial encounter for open fracture type I or II (principal); E87.1 Hypo-osmolality and hyponatremia; S52.601B Unspecified fracture of lower end of right ulna, initial encounter for open fracture type I or II; E11.9 Type 2 diabetes mellitus without complications; S00.83XA Contusion of other part of head, initial encounter; I10 Essential (primary) hypertension; Z79.4 Long term (current) use of insulin; Z23 Encounter for immunization; M48.00 Spinal stenosis, site unspecified; F41.9 Anxiety disorder, unspecified; W01.198A Fall on same level from slipping, tripping and stumbling with subsequent striking against other object, initial encounter; Y92.009 Unspecified place in unspecified non-institutional (private) residence as the place of occurrence of the external cause; R74.01 Elevation of levels of liver transaminase levels; E87.6 Hypokalemia; K59.00 Constipation, unspecified; M25.532 Pain in left wrist; Z79.82 Long term (current) use of aspirin; Z79.899 Other long term (current) drug therapy; Z79.83 Long term (current) use of bisphosphonates
CPT/HCPCS: 25605; 36415; 70450; 72125; 80048; 80053; 83036; 83735; 83935; 84300; 85025; 85610; 85730; 90471; 90715; 93005; 96361; 96365; 96375; 99285

== ENCOUNTER → 2023-03-14 | Outpatient (CLI) | payer MEDICARE, BC ==
--- NOTE | 2023-03-14 09:17 | CT ---
EXAMINATION TYPE: CT lumbar spine wo con CT DLP: 314 mGycm, Automated exposure control for dose reduction was used. DATE OF EXAM: 03/14/2023 8:48 AM COMPARISON: None. CLINICAL INDICATION:Female, 82 years old with history of M54.59,M47.817; back pain TECHNIQUE: Multiple axial images were obtained from the midportion of T11 through the sacroiliac nury nts. Soft tissue and bone windows in coronal and sagittal planes were obtained and reviewed. Contrast used: none. Oral contrast used: none. FINDINGS: Alignment: There are 5 lumbar type vertebral bodies within normal alignment. Bone: No evidence of fracture is identified. Multilevel disc degeneration changes with osteophyte fo rmation and disc space narrowing. Scattered facet joint arthropathy. Discs: T12-L1: No spinal canal or neural foraminal stenosis is identified. L1-L2: Facet joint arthropathy and disc bulging result with mild spinal canal stenosis and mild bilat eral neural foraminal stenosis. L2-L3: Facet joint arthropathy and disc bulging result with moderate spinal canal stenosis and modera te bilateral neural foraminal stenosis. L3-L4: Facet joint arthropathy and disc bulging result with moderate spinal canal stenosis and modera te bilateral neural foraminal stenosis. L4-L5: Facet joint arthropathy and disc bulging result in severe spinal canal stenosis and moderate to severe bilateral neural foraminal stenosis. L5-S1: No spinal canal or neural foraminal stenosis is identified. Other: None IMPRESSION: 1. No evidence for spinal fracture. 2. Severe spinal canal stenosis L4-L5 secondary to disc bulging and facet joint arthropathy. 3. Moderate spinal canal stenosis at L3-L4 secondary to disc bulging and facet joint arthropathy. 4. [id number] multilevel disc degeneration changes throughout the spine.
== END | disposition home or self-care (01) ==
LOC: RADCTMAIN 08:23
PROVIDERS: ATTEND Orthopaedic Surgery Orthopaedic Surgery of the Spine
DX: M51.16 Intervertebral disc disorders with radiculopathy, lumbar region (principal); M47.27 Other spondylosis with radiculopathy, lumbosacral region; M48.062 Spinal stenosis, lumbar region with neurogenic claudication; M99.73 Connective tissue and disc stenosis of intervertebral foramina of lumbar region; M43.16 Spondylolisthesis, lumbar region; M62.830 Muscle spasm of back
CPT/HCPCS: 72131

== ENCOUNTER → 2023-12-05 | Outpatient (CLI) | payer MEDICARE, BC ==
--- NOTE | 2023-12-05 14:52 | CT ---
EXAMINATION TYPE: CT hip RT wo con DATE OF EXAM: 12/05/2023 COMPARISON: None HISTORY: rt hip pain CT DLP: 309.9 mGycm Automated exposure control for dose reduction was used. FINDINGS: There are multiple fractures including minimally displaced fracture of the proximal aspect of the rig ht superior pubic ramus and mildly displaced fractures of the right iliac wing. The right femur is in tact there is no diastasis of the right SI joint or pubic symphysis. There is a remote healed fracture of the right inferior pubic ramus with significant deformity. IMPRESSION: Acute fractures of the right superior pubic ramus and right iliac bone as described above. There is n o fracture of the right proximal femur IMPRESSION:
== END | disposition home or self-care (01) ==
LOC: RADCTMAIN 14:19
PROVIDERS: ATTEND Orthopaedic Surgery
DX: S32.511A Fracture of superior rim of right pubis, initial encounter for closed fracture (principal); I10 Essential (primary) hypertension; E11.9 Type 2 diabetes mellitus without complications

== ENCOUNTER 2023-12-23 05:53 | Inpatient (IN) | payer MEDICARE, BC ==
--- NOTE | 2023-12-23 06:36 | ED ---
General Adult HPI - General Stated complaint: Difficulty Breathing Time Seen by Provider: 12/23/23 06:12 Source: patient, EMS, RN notes reviewed Mode of arrival: EMS Limitations: no limitations - History of Present Illness Initial comments: 83-year-old female presents emergency department chief complaint of shortness of breath. Patient states she had increasing shortness of breath the last couple days patient states she talked her PCP yesterday about it and was advised to [facility] if symptoms worsen. Patient states that she did start with a cough which is nonproductive at this time she states that she feels like she cannot get enough air in. She does admit that she has had a recent pelvic fracture. She denies any lung disease including asthma, COPD states she was never smoker. She is unsure if she had a fever at home. She does complain of some chest tightness. Patient reportedly received DuoNeb treatment by EMS. She does complain of leg swelling but denies history of CHF - Related Data Home Medications Medication Instructions Recorded Confirmed ALPRAZolam [Xanax] 0.25 mg PO BID 11/06/21 01/02/23 Aspirin EC [Ecotrin Low Dose] 81 mg PO DAILY 11/06/21 01/02/23 Insulin Aspart (Niacinamide) 1 - 7 units SQ AC-TID 11/06/21 01/02/23 [Fiasp 100 Unit/ml Flextouch Pen] Insulin Degludec [Tresiba 8 units SQ DIRECTED 11/06/21 01/02/23 Flextouch U-100 Pen] Rosuvastatin [Crestor] 10 mg PO DAILY 11/06/21 01/02/23 Albuterol Inhaler [Ventolin Hfa 2 puff INHALATION RT-Q4H PRN 01/02/23 01/02/23 Inhaler] Alendronate Sodium 70 mg PO GUERRA 01/02/23 01/02/23 Calcium Carbonate [Calcium] 1,200 mg PO DAILY 01/02/23 01/02/23 Pantoprazole [Protonix] 40 mg PO DAILY 01/02/23 01/02/23 hydrALAZINE HCL [Apresoline] 25 mg PO BID 01/02/23 01/02/23 traMADol HCL 50 mg PO TID 01/02/23 01/02/23 Previous Rx's Medication Instructions Recorded Metoprolol Succinate (ER) [Toprol 25 mg PO BID #60 tab 11/07/21 XL] HYDROcodone/APAP 7.5-325MG [[place] 1 tab PO Q4-6H PRN #42 tab 01/06/23 7.5] Sennosides/Docusate Sodium [Senna 1 each PO DAILY PRN #20 capsule 01/06/23 Plus 8.6-50 mg Softgel] amLODIPine [Norvasc] 5 mg PO DAILY #90 tab 01/06/23 lisinopriL [Zestril] 40 mg PO DAILY #90 tab 01/06/23 Allergies Allergy/AdvReac Type Severity Reaction Status Date / Time hydrocodone [From Vicodin] AdvReac Nausea & Verified 12/23/23 06:51 Vomiting Review of Systems ROS Statement: Those systems with pertinent positive or pertinent negative responses have been documented in the HPI. ROS Other: All systems not noted in ROS Statement are negative. Past Medical History Past Medical History: No Reported History, Diabetes Mellitus Additional Past Medical History / Comment(s): fast heart rate- unsure of what its called. spinal stenosis History of Any Multi-Drug Resistant Organisms: None Reported Past Surgical History: No Surgical Hx Reported Past Anesthesia/Blood Transfusion Reactions: No Reported Reaction Past Psychological History: No Psychological Hx Reported Smoking Status: Never smoker Past Alcohol Use History: None Reported Past Drug Use History: None Reported General Exam General appearance: alert, in no apparent distress Head exam: Present: atraumatic, normocephalic, normal inspection ENT exam: Present: normal exam, mucous membranes moist Neck exam: Present: normal inspection. Absent: tenderness, meningismus, lymphadenopathy Respiratory exam: Present: decreased breath sounds. Absent: normal lung sounds bilaterally, respiratory distress, wheezes, rales, rhonchi, stridor Cardiovascular Exam: Present: regular rate, normal rhythm, normal heart sounds. Absent: systolic murmur, diastolic murmur, rubs, gallop, clicks GI/Abdominal exam: Present: soft, normal bowel sounds. Absent: distended, tenderness, guarding, rebound, rigid Neurological exam: Present: alert, oriented X3 Skin exam: Present: warm, dry, intact, normal color. Absent: rash Course Vital Signs 12/23/23 12/23/23 12/23/23 06:19 06:55 07:02 Temperature 98.5 F Pulse Rate 92 97 Respiratory 24 22 22 Rate Blood Pressure 189/79 O2 Sat by Pulse 92 L 92 L Oximetry EKG Findings - EKG Comments: EKG Findings:: EKG performed at 6: 17 sinus rhythm rate of 91 PA 167 QRS 77 QT/QTc 346/395 - EKG Results: EKG: interpreted by [facility] Medical Decision Making - Medical Decision Making Was pt. sent in by a medical professional or institution (, CARMEN, LANE ATTENDANT, urgent care, hospital, or long term...) When possible be specific @ -No Did you speak to anyone other than the patient for history (EMS, parent, family, police, friend...)? What history was obtained from this source @ -No Did you review nursing and triage notes (agree or disagree)? Why? @ -I reviewed and agree with nursing and triage notes Were old charts reviewed (outside hosp., previous admission, EMS record, old EKG, old radiological studies, urgent care reports/EKG's, long term records)? Report findings @ -No old charts were reviewed Differential Diagnosis (chest pain, altered mental status, abdominal pain women, abdominal pain men, vaginal bleeding, weakness, fever, dyspnea, syncope, headache, dizziness, GI bleed, back pain, seizure, CVA, palpatations, mental health, musculoskeletal)? @Differential Dyspnea: Coronary syndrome, arrhythmia, tamponade, asthma, COPD, pulmonary embolism, pneumonia, pneumothorax, pulmonary effusion, anaphylaxis, diabetic ketoacidosis, flailed chest, pulmonary contusion, diaphragmatic rupture, anemia, neuromuscular, this is not meant to be an all-inclusive list. EKG interpreted by me (3pts min.). @ -As above X-rays interpreted by me (1pt min.). @ -Chest x-ray shows large right-sided pleural effusion CT interpreted by me (1pt min.). @ -CT angio for PE is negative for acute PE, or shows large pleural effusion possible secretions in caden region U/S interpreted by me (1pt. min.). @ -None done What testing was considered but not performed or refused? (CT, X-rays, U/S, labs)? Why? @ -None What meds were considered but not given or refused? Why? @ -None Did you discuss the management of the patient with other professionals (professionals i.e. , CARMEN, LANE ATTENDANT, lab, RT, psych nurse, social services manager, [employer] systems administrator, teacher, information management officer, medical case worker)? Give summary @ -Dr. Patel for admission with consults to pulmonology Was smoking cessation discussed for >3mins.? @ -No Was critical care preformed (if so, how long)? @ -35 minutes Were there social determinants of health that impacted care today? How? (Homelessness, low income, unemployed, alcoholism, drug addiction, transportation, low edu. Level, literacy, decrease access to med. care, residential, rehab)? @ -No Was there de-escalation of care discussed even if they declined (Discuss DNR or withdrawal of care, Hospice)? DNR status @ -No What co-morbidities impacted this encounter? (DM, HTN, Smoking, COPD, CAD, Cancer, CVA, ARF, Chemo, Hep., AIDS, mental health diagnosis, sleep apnea, morbid obesity)? @ -Diabetes Was patient admitted / discharged? Hospital course, mention meds given and route, prescriptions, significant lab abnormalities, going to OR and other pertinent info. @ -Admitted patient presented emerged part for dyspnea. Patient is found to be acutely hypoxic at 86%. Patient chest x-ray shows large pleural effusion which is consistent with CT performed. Patient does have significant leukocytosis was given IV antibiotics, blood cultures drawn lactic was elevated. Patient does have a critically low sodium at 116 was given minimal fluid bolus secondary to elevated BNP. Patient started on maintenance fluids will have recheck laboratory studies, pulmonary evaluation. Undiagnosed new problem with uncertain prognosis? @ -No Drug Therapy requiring intensive monitoring for toxicity (Heparin, Nitro, Insulin, Cardizem)? @ -No Were any procedures done? @ -No Diagnosis/symptom? @ -Hyponatremia, hypoxia, acute respiratory failure, pleural effusion Acute, or Chronic, or Acute on Chronic? @ -Acute Uncomplicated (without systemic symptoms) or Complicated (systemic symptoms)? @ -Complicated Side effects of treatment? @ -No Exacerbation, Progression, or Severe Exacerbation? @ -No Poses a threat to life or bodily function? How? (Chest pain, [place], [place], pneumonia, PE, COPD, DKA, ARF, appy, cholecystitis, CVA, Diverticulitis, Homicidal, Suicidal, threat to staff... and all critical care pts) @ -Yes patient has large pleural effusion, respiratory failure could lead to respiratory arrest - Lab Data Result diagrams: 12/23/23 06:05 12/23/23 06:05 Lab Results 12/23/23 12/23/23 12/23/23 Range/Units 06:05 06:05 06:05 WBC 34.5 H (3.8-10.6) k/uL RBC 5.10 (3.80-5.40) m/uL Hgb 14.8 (11.4-16.0) gm/dL Hct 44.5 (34.0-46.0) % MCV 87.3 (80.0-100.0) fL MCH 29.1 (25.0-35.0) pg MCHC 33.3 (31.0-37.0) g/dL RDW 14.1 (11.5-15.5) % Plt Count 537 H (150-450) k/uL MPV 9.8 Neutrophils % 93 % Lymphocytes % 2 % Monocytes % 4 % Eosinophils % 0 % Basophils % 0 % Neutrophils # 32.1 H (1.3-7.7) k/uL Lymphocytes # 0.7 L (1.0-4.8) k/uL Monocytes # 1.4 H (0-1.0) k/uL Eosinophils # 0.0 (0-0.7) k/uL Basophils # 0.1 (0-0.2) k/uL PT 13.1 H (10.0-12.5) sec INR 1.2 H (<1.2) APTT 25.2 (22.0-30.0) sec D-Dimer 2.68 H (<0.60) mg/L FEU Sodium 116 L* (137-145) mmol/L Potassium 5.9 H (3.5-5.1) mmol/L Chloride 86 L (98-107) mmol/L Carbon Dioxide 21 L (22-30) mmol/L Anion Gap 9 mmol/L BUN 18 H (7-17) mg/dL Creatinine 0.43 L (0.52-1.04) mg/dL Est GFR (CKD-EPI)AfAm >90 (>60 ml/min/1.73 sqM) Est GFR (CKD-EPI)NonAf >90 (>60 ml/min/1.73 sqM) Glucose 199 H (74-99) mg/dL Calcium 7.7 L (8.4-10.2) mg/dL Magnesium 1.8 (1.6-2.3) mg/dL Total Bilirubin 1.0 (0.2-1.3) mg/dL AST 38 H (14-36) U/L ALT 19 (4-34) U/L Alkaline Phosphatase 289 H (38-126) U/L Troponin I (0.000-0.034) ng/mL NT-Pro-B Natriuret Pep 5090 pg/mL Total Protein 5.5 L (6.3-8.2) g/dL Albumin 2.9 L (3.5-5.0) g/dL Influenza Type A (PCR) (Not Detectd) Influenza Type B (PCR) (Not Detectd) RSV (PCR) (Not Detectd) SARS-CoV-2 (PCR) (Not Detectd) 12/23/23 12/23/23 Range/Units 06:05 06:05 WBC (3.8-10.6) k/uL RBC (3.80-5.40) m/uL Hgb (11.4-16.0) gm/dL Hct (34.0-46.0) % MCV (80.0-100.0) fL MCH (25.0-35.0) pg MCHC (31.0-37.0) g/dL RDW (11.5-15.5) % Plt Count (150-450) k/uL MPV Neutrophils % % Lymphocytes % % Monocytes % % Eosinophils % % Basophils % % Neutrophils # (1.3-7.7) k/uL Lymphocytes # (1.0-4.8) k/uL Monocytes # (0-1.0) k/uL Eosinophils # (0-0.7) k/uL Basophils # (0-0.2) k/uL PT (10.0-12.5) sec INR (<1.2) APTT (22.0-30.0) sec D-Dimer (<0.60) mg/L FEU Sodium (137-145) mmol/L Potassium (3.5-5.1) mmol/L Chloride (98-107) mmol/L Carbon Dioxide (22-30) mmol/L Anion Gap mmol/L BUN (7-17) mg/dL Creatinine (0.52-1.04) mg/dL Est GFR (CKD-EPI)AfAm (>60 ml/min/1.73 sqM) Est GFR (CKD-EPI)NonAf (>60 ml/min/1.73 sqM) Glucose (74-99) mg/dL Calcium (8.4-10.2) mg/dL Magnesium (1.6-2.3) mg/dL Total Bilirubin (0.2-1.3) mg/dL AST (14-36) U/L ALT (4-34) U/L Alkaline Phosphatase (38-126) U/L Troponin I 0.070 H* (0.000-0.034) ng/mL NT-Pro-B Natriuret Pep pg/mL Total Protein (6.3-8.2) g/dL Albumin (3.5-5.0) g/dL Influenza Type A (PCR) Not Detected (Not Detectd) Influenza Type B (PCR) Not Detected (Not Detectd) RSV (PCR) Not Detected (Not Detectd) SARS-CoV-2 (PCR) Not Detected (Not Detectd) Disposition Clinical Impression: Hyponatremia, Pleural effusion, Hypoxia, Acute respiratory failure Disposition: ADMITTED IP TO THIS HOSP Condition: Serious Referrals: Tyler Patel MD [Primary Care Provider] - 1-2 days Time of Disposition: 09:08
[2023-12-23 06:57] LABS: Basophils # (A) 0.1 k/uL (0-0.2); Basophils % (A) 0 %; Eosinophils % (A) 0 %; HCT 44.5 % (34.0-46.0); HGB 14.8 gm/dL (11.4-16.0); Lymphocytes # (A) 0.7 k/uL (1.0-4.8); Lymphocytes % (A) 2 %; MCH 29.1 pg (25.0-35.0); MCHC 33.3 g/dL (31.0-37.0); MCV 87.3 fL (80.0-100.0); Mean Platelet Volume 9.8; Monocytes # (A) 1.4 k/uL (0-1.0); Monocytes % (A) 4 %; Neutrophils # (A) 32.1 k/uL (1.3-7.7); Neutrophils % (A) 93 %; Platelet Count 537 k/uL (150-450); RDW 14.1 % (11.5-15.5); WBC 34.5 k/uL (3.8-10.6)
[2023-12-23 07:17] LABS: ALT 19 U/L (4-34); AST 38 U/L (14-36); African American GFR (CKD) >90 (>60 ml/min/1.73 sqM); Albumin 2.9 g/dL (3.5-5.0); Alkaline Phosphatase 289 U/L (38-126); Anion Gap 9 mmol/L; Blood Urea Nitrogen 18 mg/dL (7-17); Calcium 7.7 mg/dL (8.4-10.2); Carbon Dioxide 21 mmol/L (22-30); Chloride 86 mmol/L (98-107); Glucose 199 mg/dL (74-99); Magnesium 1.8 mg/dL (1.6-2.3); Non-African American GFR(CKD) >90 (>60 ml/min/1.73 sqM); Potassium 5.9 mmol/L (3.5-5.1); Total Protein 5.5 g/dL (6.3-8.2)
[2023-12-23 07:19] LABS: Sodium 116 mmol/L (137-145)
[2023-12-23 07:23] LABS: NT-Pro-B-Type Natriuretic Pept 5090 pg/mL
--- NOTE | 2023-12-23 07:26 | XR ---
EXAMINATION TYPE: XR chest 2V DATE OF EXAM: 12/23/2023 COMPARISON: 02/08/2010 TECHNIQUE: PA and lateral views submitted. HISTORY: Shortness of breath FINDINGS: There is a large right pleural effusion with consolidation. Subsegmental changes medial margin left l berenice base. Heart size stable. No pneumothorax. Arthropathy of the shoulders. Degenerative change of th e spine. IMPRESSION: 1. Large right pleural effusion with right-sided consolidation..
[2023-12-23 07:31] LABS: INR 1.2 (<1.2); Partial Thromboplastin Time 25.2 sec (22.0-30.0); Prothrombin Time 13.1 sec (10.0-12.5)
--- NOTE | 2023-12-23 08:59 | CT ---
EXAMINATION TYPE: CT chest angio for PE DATE OF EXAM: 12/23/2023 COMPARISON: HISTORY: SOB CT DLP: 207.3 mGycm Automated exposure control for dose reduction was used. CONTRAST: CT Chest for pulmonary embolism performed with with IV Contrast, patient injected with 100 mL of Isov ue 370. FINDINGS: LUNGS: There is a large right pleural effusion with near-complete consolidation or atelectasis of the right lung. Small residual area of aeration in the right upper lobe. There is abnormal attenuation w ithin the right mainstem bronchus extending into the right middle and lower lobe bronchi. This could be related to secretions, aspiration or underlying endobronchial mucosal lesion. Calcifications of th e tracheobronchial tree. There is a tiny left pleural effusion with basilar consolidation favoring at electasis. Central and basilar bronchiectasis with underlying COPD. MEDIASTINUM: There is satisfactory enhancement of the pulmonary artery and its central branches, ther e is no CT evidence for pulmonary embolism. Third order and distal branches limited enhancement nond iagnostic in assessment. There are no greater than 1 cm hilar or mediastinal lymph nodes. The heart i s enlarged. OTHER: Small hiatal hernia. A punctate splenic granuloma. Thickening of the adrenal glands bilateral ly. Mild generalized anasarca. Multilevel degenerative disc disease. Nominal attenuation in the splen ic hilum may represent a small amount of ascites or fluid. Adenopathy is felt less likely but not exc luded. Only partially included in the [id number]. IMPRESSION: 1. No evidence of central pulmonary embolism. Third order and distal branches limited. 2. Large right pleural effusion with near-complete compression of the right lung. There is abnormal a ttenuation within the right mainstem, middle lobe and lower lobe bronchus which could be related to a spiration, retained secretions or underlying endobronchial lesion. 3. Tiny left pleural effusion with subsegmental areas of consolidation favor atelectasis. Pneumonitis not excluded. Follow-up recommendations for incidental pulmonary nodules are per [employer] or [employer].
[2023-12-23] MEDS ORDERED: PNEUMONIA PROTOCOL UTILIZED 1 EACH MISC PO PRN (09:05)
[2023-12-23] MEDS: ONDANSETRON 4 MG/2 ML VIAL IVP STA ×2 (09:06→13:39)
[2023-12-23] MEDS: SODIUM CHLORIDE 0.9% 500 ML 500 ML IV ONE (09:08)
[2023-12-23] MEDS: SODIUM CHLORIDE 0.9% 1,000 ML IV SCH (10:36)
[2023-12-23] MEDS: AZITHROMYCIN 500 MG in SODIUM CHLORIDE 0.9% 250 ML IVPB STA (10:36)
[2023-12-23] MEDS ORDERED: VANCOMYCIN IV PER PHARMACY 1 EACH MISC MISCELLANE PRN (13:28)
[2023-12-23] MEDS: HYDROcodone/APAP 5-325MG 1 EACH TAB PO STA (13:39)
--- NOTE | 2023-12-23 13:56 | XR ---
EXAMINATION TYPE: XR chest 1V portable DATE OF EXAM: 12/23/2023 COMPARISON: 12/23/2023 HISTORY: Postthoracentesis TECHNIQUE: Single frontal view of the chest is obtained. FINDINGS: Interval marked reduction in amount of pleural fluid on the right. No sizable pneumothorax . Basilar consolidation and small amount of residual fluid. Left lung clear. Heart size stable. Diffuse osteopenia, degenerative change of the spine and arthropathy of the should er. Correlate for underlying COPD. IMPRESSION: Interval marked reduction in amount of pleural fluid with no sizable pneumothorax. Right basilar atelectasis and infiltrate with small residual pleural effusion.
[2023-12-23] MEDS ORDERED: Magnesium Replacement Protocol 1 EACH MISC MISCELLANE PRN (15:37)
[2023-12-23] MEDS ORDERED: IPRATROPIUM-ALBUTEROL 3 ML NEB INHALATION PRN (15:37)
[2023-12-23] MEDS ORDERED: Potassium Replacement Protocol 1 EACH MISC MISCELLANE PRN (15:37)
[2023-12-23] MEDS ORDERED: NALOXONE 0.4 MG/ML 1 ML VIAL IV PRN (15:37)
--- NOTE | 2023-12-23 15:40 | P.CNPUL ---
History of Present Illness Consult date: 12/23/23 Reason for consult: dyspnea, pleural effusion History of present illness: This is a 83-year-old female patient who came to the emergency department with increased shortness of breath. Her breathing was progressively getting worse over the past 1 week. She had increased cough congestion chest tightness and wheezing and she was having chills at home. She was given outpatient antibiotic therapy with Zithromax and her condition decompensated and she ended up coming into the hospital. The patient has been having some chest discomfort along the right chest. She had a fall approximately few weeks back and she also sustained a pelvic fracture. She is a lifetime non-smoker. She came to the emergency department and the patient had a white cell count of 34 with a hemoglobin 14.8. Her sodium level was 116 with a potassium level of 5.9 and a serum bicarb was at 21. BUN was 18 with a creatinine of 0.4. Troponin was 0.07. proBNP level was 5000. The viral screen was negative. Initial lactic acid level was at 2.1 and dropped down to 1.6. Coagulation profile was normal with a D-dimer of 2.6. Initial chest x-ray showed a large right-sided pleural effusion. CAT scan of the chest was also done in the Emergency Department that showed no evidence of any central pulmonary embolism. There was a large right-sided pleural effusion with near complete opacification and compression of the right lung. There was also abnormal attenuation within the right mainstem right middle lobe and right lower lobe bronchus and aspiration was suspected. I saw the patient in the emergency department. She was quite short of breath and she was on oxygen at 5 L/min nasal cannula. Her pulse ox was as in the low 90s. I performed a bedside thoracentesis a total of 1.6 L of pleural fluid is aspirated. No complications. The post thoracentesis chest x-ray showed interval marked reduction in the right-sided pleural effusion without evidence of any pneumothorax. The patient was started on broad-spectrum antibiotics and she is currently on a combination of Rocephin and Zithromax and vancomycin. She is diabetic. She takes insulin on outpatient basis. She also has history of hypertension and hyperlipidemia. Currently she is also on IV fluids and the patient is on normal saline which is running at a rate of 75 cc an hour. No altered mentation. No seizure activity. Review of Systems Constitutional: Reports chills, Reports fatigue, Reports weakness Eyes: denies as per HPI, denies blurred vision, denies bulging eye, denies decreased vision, denies diplopia, denies discharge, denies dry eye, denies irritation, denies itching, denies pain, denies photophobia, denies loss of peripheral vision, denies loss of vision, denies tunnel vision/blind spots Ears: deny: decreased hearing, ear discharge, earache, tinnitus Ears, nose, mouth and throat: Reports as per HPI Breasts: absent: as per HPI, change in shape, gynecomastia, masses, nipple discharge, pain, skin changes, swelling Cardiovascular: Reports decreased exercise tolerance, Reports dyspnea on exertion Respiratory: Reports cough, Reports dyspnea Gastrointestinal: Reports as per HPI Genitourinary: Reports as per HPI Menstruation: Reports as per HPI Musculoskeletal: Reports as per HPI, Reports fractures (Pelvic fracture), Reports frequent falls Musculoskeletal: absent: ankle pain, ankle stiffness, ankle swelling, as per HPI, elbow pain, elbow stiffness, elbow swelling, foot pain, foot stiffness, foot swelling, hand pain, hand stiffness, hand swelling, hip pain, hip stiffness, hip swelling, knee pain, knee stiffness, knee swelling, shoulder pain, shoulder stiffness, shoulder swelling, wrist pain, wrist stiffness, wrist swelling Integumentary: Reports as per HPI Neurological: Reports as per HPI Psychiatric: Reports as per HPI Endocrine: Reports fatigue Hematologic/Lymphatic: Reports as per HPI Allergic/Immunologic: Reports as per HPI Past Medical History Past Medical History: No Reported History, Diabetes Mellitus, Hyperlipidemia, Hypertension Additional Past Medical History / Comment(s): Pelvic fracture 2 weeks ago. Neuropathy. spinal stenosis History of Any Multi-Drug Resistant Organisms: None Reported Past Surgical History: No Surgical Hx Reported Additional Past Surgical History / Comment(s): Broken wrist, ORIF Past Anesthesia/Blood Transfusion Reactions: No Reported Reaction Past Psychological History: No Psychological Hx Reported Smoking Status: Never smoker Past Alcohol Use History: None Reported Past Drug Use History: None Reported Medications and Allergies Home Medications Medication Instructions Recorded Confirmed Type ALPRAZolam [Xanax] 0.25 mg PO TID 11/06/21 12/23/23 History Insulin Aspart (Niacinamide) 10 - 12 units SQ AC-TID 11/06/21 12/23/23 History [Fiasp 100 Unit/ml Flextouch Pen] Rosuvastatin [Crestor] 10 mg PO DAILY 11/06/21 12/23/23 History Alendronate Sodium 70 mg PO GUERRA 01/02/23 12/23/23 History Calcium Carbonate [Calcium] 600 mg PO DAILY 01/02/23 12/23/23 History Pantoprazole [Protonix] 40 mg PO DAILY 01/02/23 12/23/23 History traMADol HCL 50 mg PO Q8H PRN 01/02/23 12/23/23 History Ascorbic Acid [Vitamin C] 500 mg PO DAILY 12/23/23 12/23/23 History Aspirin EC [Ecotrin Low Dose] 81 mg PO DAILY 12/23/23 12/23/23 History Bifidobacterium Infantis [Align] 4 mg PO DAILY 12/23/23 12/23/23 History Gabapentin [Neurontin] 400 mg PO BID 12/23/23 12/23/23 History Magnesium Oxide [Mag-Ox] 400 mg PO DAILY 12/23/23 12/23/23 History Metoprolol Tartrate [Lopressor] 25 mg PO BID 12/23/23 12/23/23 History Turmeric Root Extract [Turmeric] 500 mg PO MOWEFR 12/23/23 12/23/23 History guaiFENesin-Coden 100-10MG/5ML 5 ml PO Q6H PRN 12/23/23 12/23/23 History [Robitussin AC] hydrALAZINE HCL [Apresoline] 100 mg PO TID 12/23/23 12/23/23 History lisinopriL [Zestril] 40 mg PO DAILY 12/23/23 12/23/23 History traZODone HCL [Desyrel] 50 mg PO HS PRN 12/23/23 12/23/23 History Allergies Allergy/AdvReac Type Severity Reaction Status Date / Time hydrocodone [From Vicodin] AdvReac Nausea & Verified 12/23/23 12:54 Vomiting Physical Exam Vitals: Vital Signs Temp Pulse Resp BP Pulse Ox 12/23/23 10:00 88 18 157/68 91 L 12/23/23 07:02 22 12/23/23 06:55 97 22 92 L 12/23/23 06:19 98.5 F 92 24 189/79 92 L Intake and Output 06/04/0712/23/23 12/23/23 22:59 06:59 14:59 Other: Weight 48.081 kg Calm and comfortable mild degree of respiratory distress, BMI 17.6 currently on 5 L of O2 nasal cannula Head exam was generally normal. There was no scleral icterus or corneal arcus. Mucous membranes were moist. Neck was supple and without jugular venous distension, thyromegaly, or carotid bruits. Carotids were easily palpable bilaterally. There was no adenopathy. Lung sounds revealed marked diminished breath on the right lung base along with dullness to percussion Cardiac exam revealed the PMI to be normally situated and sized. The rhythm was regular and no extrasystoles were noted during several minutes of auscultation. The first and second heart sounds were normal and physiologic splitting of the second heart sound was noted. There were no murmurs, rubs, clicks, or gallops. Abdominal exam revealed normal bowel sounds. The abdomen was soft, non-tender, and without masses, organomegaly, or appreciable enlargement of the abdominal aorta. Examination of the extremities revealed easily palpable radial, femoral and pedal pulses. There was no cyanosis, clubbing or edema., Trace ankle edema Examination of the skin revealed no evidence of significant rashes, suspicious appearing nevi or other concerning lesions. Neurologically, the patient is awake and alert and the patient does not have any focal neurological deficit. Cranial nerves are essentially intact. Results - Laboratory Findings CBC and BMP: 12/23/23 06:05 12/23/23 06:05 PT/INR, D-dimer PT 13.1 sec (10.0-12.5) H 12/23/23 06:05 INR 1.2 (<1.2) H 12/23/23 06:05 D-Dimer 2.68 mg/L FEU (<0.60) H 12/23/23 06:05 Abnormal lab findings: Abnormal Labs 12/23/23 12/23/23 12/23/23 06:05 06:05 06:05 WBC 34.5 H Plt Count 537 H Neutrophils # 32.1 H Lymphocytes # 0.7 L Monocytes # 1.4 H PT 13.1 H INR 1.2 H D-Dimer 2.68 H Sodium 116 L* Potassium 5.9 H Chloride 86 L Carbon Dioxide 21 L BUN 18 H Creatinine 0.43 L Glucose 199 H Plasma Lactic Acid Singh Calcium 7.7 L AST 38 H Alkaline Phosphatase 289 H Troponin I Total Protein 5.5 L Albumin 2.9 L 12/23/23 12/23/23 06:05 08:24 WBC Plt Count Neutrophils # Lymphocytes # Monocytes # PT INR D-Dimer Sodium Potassium Chloride Carbon Dioxide BUN Creatinine Glucose Plasma Lactic Acid Singh 2.1 H* Calcium AST Alkaline Phosphatase Troponin I 0.070 H* Total Protein Albumin - Diagnostic Findings Chest x-ray: image reviewed CT scan - chest: image reviewed Assessment and Plan Plan: Acute hypoxic respiratory failure currently on 5 L of oxygen by nasal cannula Large right-sided pleural effusion with compressive atelectasis of the right lung, likely parapneumonic in nature. Thoracentesis was done and approximately 1.6 L of turbid pleural fluid was aspirated from the right lung. Awaiting pleural fluid analysis. Right lung pneumonia, clinically suspected Acute leukocytosis Mild lactic acidosis Hyponatremia, likely acute, could be related to above mentioned pneumonia, consider hypovolemic hyponatremia. Underlying mild component of SIADH related to pneumonia cannot be completely ruled out Diabetes mellitus type 1 maintained on insulin on outpatient basis Hypertension Hyperlipidemia Recent fall with pelvic fracture Generalized weakness and fatigue secondary to above Plan Titrate oxygen flow to maintain saturation above 90% currently on 5 L Provide the patient symptoms parameter Thoracentesis was performed and awaiting the pleural fluid chemistry and cytology and cultures Cover the patient with Rocephin Zithromax and vancomycin Check procalcitonin level Check blood cultures Daily chest x-rays Continue normal saline at rate of 75 cc an hour Urology consultation regarding hyponatremia Obtain echocardiogram Continue bronchodilators Will reconcile medication Monitor sodium levels every 4 hours and consider nephrology consultation Will continue to follow. Will admit the patient to the intensive care unit. Will monitor respiratory status. Will monitor the neurologic status. Condition is critical and will continue to follow.
[2023-12-23] MEDS ORDERED: traZODone HCL 50 MG TAB PO PRN (15:41)
--- NOTE | 2023-12-23 15:41 | P.PCN ---
Date of Procedure: 12/23/23 Preoperative Diagnosis: Right-sided pleural effusion Postoperative Diagnosis: Right-sided pleural effusion Procedure(s) Performed: Thoracentesis Anesthesia: local Surgeon: Pasha Burgess Estimated Blood Loss (ml): 0 Pathology: other Condition: critical Disposition: ICU Operative Findings: A time out was performed and the chest x-ray was reviewed, the appropriate side was confirmed and marked. My hands were washed immediately prior to the procedure. I wore a surgical cap, mask with protective eyewear, sterile gown and sterile gloves throughout the procedure. The patient was prepped and draped in a sterile manner using chlorhexidine scrub after the appropriate level was p ercussed and confirmed by ultrasound. 1% lidocaine was used to anesthesize the skin, subcutaneous tissue, superior aspect of the rib periosteum and parietal pleura. A finder needle was then introduced over the superior aspect of the rib to locate the pleural fluid; 2colored fluid was aspirated at a depth of approximately 2 cm. A 10-blade scalpel was used to karl the skin at the insertion site. The [id number] needle was then introduced through the skin incision into the pleural space using negative aspiration pressure and the red colometric indicator to confirm appropriate positioning of the needle. The thoracentesis catheter was then threaded without difficulty. 1600 ml of turbid colored fluid was removed without difficulty. The catheter was then removed. No immediate complications were noted during the procedure. A post-procedure chest x-ray is pending at the time of this note. The fluid will be sent for studies. Estimated blood loss is 0cc
[2023-12-23 15:57] LABS: Glucose,Whole Blood 285 mg/dL (70-110)
[2023-12-23] MEDS ORDERED: DEXTROSE 50% SYRINGE 50 ML IVP PRN ×2 (15:59)
[2023-12-23] MEDS ORDERED: ALPRAZolam 0.25 MG TAB PO SCH (16:00)
[2023-12-23] MEDS: INSULIN ASPART (NovoLOG) 100 UNIT/ML VIAL SQ SCH (16:59)
[2023-12-23] MEDS: VANCOMYCIN 750 MG in SODIUM CHLORIDE 0.9% 250 ML IVPB STA (17:00)
[2023-12-23] MEDS: IPRATROPIUM-ALBUTEROL 3 ML NEB INHALATION SCH (17:09)
[2023-12-23 17:14] LABS: African American GFR (CKD) >90 (>60 ml/min/1.73 sqM); Anion Gap 7 mmol/L; Blood Urea Nitrogen 19 mg/dL (7-17); Calcium 7.3 mg/dL (8.4-10.2); Carbon Dioxide 21 mmol/L (22-30); Chloride 88 mmol/L (98-107); Glucose 292 mg/dL (74-99); Magnesium 1.7 mg/dL (1.6-2.3); Non-African American GFR(CKD) 85 (>60 ml/min/1.73 sqM); Potassium 5.5 mmol/L (3.5-5.1)
[2023-12-23 17:19] LABS: Sodium 116 mmol/L (137-145)
[2023-12-23] MEDS: METOPROLOL TARTRATE 25 MG TAB PO SCH (17:51)
[2023-12-23] MEDS ORDERED: guaiFENesin-Coden 100-10MG/5ML 10 ML CUP PO PRN (18:31)
[2023-12-23 19:59] LABS: Glucose,Whole Blood 285 mg/dL (70-110)
[2023-12-23] MEDS: SODIUM CHLORIDE TAB 1 GM TAB PO STA (20:06)
--- NOTE | 2023-12-23 20:31 | CA ---
Transthoracic Echo Report Name: Tanya Bradley Age: 83 Gender: F : 1940 Exam Date: 12/23/2023 16:26 Exam Location: [facility] Ht (in): 65 Wt (lb): 106 Ordering Physician: Pasha Burgess MD Attending/Referring Phys: Performance Analyst Sharee Newsome RDCS Procedure CPT: Indications: chf Cardiac Hx: Technical Quality: Good Contrast 1: Total Dose (mL): Contrast 2: Total Dose (mL): MEASUREMENTS (Male / Female) Normal Values 2D ECHO LV Diastolic Diameter PLAX 3.5 cm 4.2 - 5.9 / 3.9 - 5.3 cm LV Systolic Diameter PLAX 2.5 cm IVS Diastolic Thickness 0.9 cm 0.6 - 1.0 / 0.6 - 0.9 cm LVPW Diastolic Thickness 1.0 cm 0.6 - 1.0 / 0.6 - 0.9 cm LV Relative Wall Thickness 0.6 RV Internal Dim ED PLAX 2.9 cm LA Systolic Diameter LX 3.4 cm 3.0 - 4.0 / 2.7 - 3.8 cm LV Diastolic Volume MOD 4C 73.2 cm??? LV Systolic Volume MOD 4C 32.6 cm??? LV Ejection Fraction MOD 4C 55.5 % LV Cardiac Index MOD 4C 2367.6 cm???/min???m??? LV Diastolic Length 4C 6.3 cm LV Systolic Length 4C 5.5 cm LV Diastolic Volume MOD 2C 46.7 cm??? LV Systolic Volume MOD 2C 22.5 cm??? LV Ejection Fraction MOD 2C 51.9 % LV Cardiac Index MOD 2C 1414.4 cm???/min???m??? LV Diastolic Length 2C 6.7 cm LV Systolic Length 2C 5.7 cm LA Volume 37.1 cm??? 18 - 58 / 22 - 52 cm??? LA Volume Index 25.2 cm???/m??? 16 - 28 cm???/m??? M-MODE Aortic Root Diameter MM 3.4 cm AV Cusp Separation MM 2.3 cm DOPPLER AV Peak Velocity 133.6 cm/s AV Peak Gradient 7.1 mmHg MV Area PHT 3.3 cm??? Mitral E Point Velocity 104.1 cm/s Mitral A Point Velocity 100.4 cm/s Mitral E to A Ratio 1.0 MV Deceleration Time 228.5 ms TR Peak Velocity 289.5 cm/s TR Peak Gradient 33.5 mmHg Right Ventricular Systolic Press 37.8 mmHg FINDINGS Left Ventricle Left ventricular ejection fraction is estimated at 55-60 %. Small left ventricular cavity. Mildly increased posterior wall thickness. Normal left ventricular wall motion. Right Ventricle Normal right ventricular size and function. Mild pulmonary hypertension. Right Atrium Normal right atrial size. No right atrial thrombus or mass seen. Left Atrium Normal left atrial size. No left atrial thrombus or mass present. Mitral Valve Structurally normal mitral valve. Mild mitral regurgitation. Aortic Valve Trileaflet aortic valve. No aortic valve stenosis or regurgitation. Tricuspid Valve Tricuspid valve not well visualized. Mild tricuspid regurgitation. Pulmonic Valve Structurally normal pulmonic valve. No pulmonic stenosis. Pericardium No pericardial or pleural effusion. Aorta Normal size aortic root and proximal ascending aorta. CONCLUSIONS LVH with preserved systolic function Previewed by: Dr. Phil Lopez MD (Electronically Signed) Final Date: 23 December 2023 20:30
[2023-12-23] MEDS: LOSARTAN 25 MG TAB PO SCH (20:55)
[2023-12-23] MEDS ORDERED: GABAPENTIN 400 MG CAP PO SCH (21:00)
[2023-12-23 22:41] LABS: African American GFR (CKD) >90 (>60 ml/min/1.73 sqM); Anion Gap 6 mmol/L; Blood Urea Nitrogen 18 mg/dL (7-17); Calcium 7.1 mg/dL (8.4-10.2); Carbon Dioxide 20 mmol/L (22-30); Chloride 92 mmol/L (98-107); Glucose 224 mg/dL (74-99); Non-African American GFR(CKD) 90 (>60 ml/min/1.73 sqM); Potassium 4.9 mmol/L (3.5-5.1)
[2023-12-23 22:44] LABS: Sodium 118 mmol/L (137-145)
[2023-12-24] MEDS: VANCOMYCIN 750 MG in SODIUM CHLORIDE 0.9% 250 ML IVPB SCH (04:57)
--- NOTE | 2023-12-24 05:46 | P.HPIM ---
History of Present Illness H&P Date: 12/23/23 HISTORY OF PRESENT ILLNESS: 83-year-old office patient for many years with active medical history of insulin-dependent type 2 diabetes, hypertension, hyperlipidemia, neuropathy, history of spinal stenosis, who has mild bradycardia otherwise healthy doing well has not been in the hospital long time she had a fall 2 weeks ago to the right side and developed pelvic and did not require to be hospitalized but ended up seen Dr. Wisdom as an outpatient. Also patient had open communicated distal radius fracture back in 2022 secondary to minor fall ended up having open reduction with internal fixation and irrigation debridement of the right wrist fracture. Patient seen cardiology in the last few years in 2021 was admitted to the hospital because of an episode of palpitation with pulse rate of 160 bpm found to have paroxysmal SVT and elevated troponin with no cardiac injury or any other cardiac history has been on beta-yahir been well-controlled since. I received a phone call from the yesterday with complain that his has been in extreme shortness of breath and been symptomatic and for the previous 5 days she had a virtual visit in the office for severe bronchitis was prescribed antibiotics and some expectorant which patient had felt slightly bit better but become much worse over the last 2 days to a degree becoming extreme dyspnea with minimal exertion. Was instructed to bring her to the emergency department to be seen and evaluated. Patient apparently decided not to come to the emergency department till early this morning on 12/23/2023 where was seen and evaluated was severely hypoxic at the time her chest x-ray showed very large right-sided pleural effusion almost occupying 90% out of the right lung. D-dimer was elevated and patient ended up for CTA finding with no pulmonary embolism large right-sided pleural effusion with near complete compression of the right lung there is an abnormal attenuation within the right mainstrem middle lobe and lower lobe bronchus which could be related to aspiration also there is only slight left pleural effusion as well with subsegmental area of consolidation favored to atelectasis versus pneumonitis. With pulse ox running quite a bit low at the time required 4 L of O2 to keep her pulse ox above 90 percentile and laboratory value showing sodium of 116 with normal creatinine and GFR with blood sugar of 292 white blood cell was 34,500 with platelet count 537 mildly elevated troponin 0.07 with lactic acid at 1.6 proBNP at 5090 with alk phos of 289. Patient ended up seeing Dr. Helms and in the emergency department who is done a consultation and decided to transfer the patient to the intensive care unit and ended up performing bedside thoracentesis for total of 1.6 L of pleural fluid is aspirated with no complication fluid was not bloody followed by chest x-ray showed fairly expansi on of the lung only. Patient was transferred to the ICU and admitted for severe large sided pleural effusion, possible aspiration pneumonia with sepsis, severe hyponatremia. Will consult nephrology as well for the severity of her hyponatremia. REVIEW OF SYSTEMS: CONSTITUTIONAL: Well-developed in acute respiratory distress. EYES: No icterus sclerae, no conjunctivitis. EARS, NOSE, MOUTH, THROAT, and FACE: No sore throat, lymphadenopathy, carotid bruits or deformity. RESPIRATORY: Positive shortness of breath cough or wheezes. CARDIOVASCULAR: Positive PND orthopnea palpitation. GASTROINTESTINAL: No Abd pain, Nausea or vomiting, no Diarrhea or constipation, No GI Bleed, no distention or masses. GENITOURINARY: Negative for Hematuria or UTI, no kidney stones. INTEGUMENT/BREAST: Negative for any muscular injury with mild osteoarthritis.. HEMATOLOGIC/LYMPHATIC: Negative for bleed or purpura. MUSCULOSKELTAL: Negative for Myalgia or arthralgia. NEURLOGICAL: No LOC, Sz or syncope, blurred vision dizziness or abnormality.. BEHAVIORAL/PSYCH: Negative. ENDOCRINE: Negative. PHYSICAL EXAMINATION: General Appearance: Alert, cooperative, in mild respiratory distress. Neck HEENT: Supple, no lymphadenopathy, no thyroid enlargement, no carotid bruits. Lungs: Significantly decreased breath sound in the right side all the way to gibson ve the way up significant rhonchi and mild crackles in the bases as well with mild expiratory wheezes. Chest Wall: Decreased expansion with deep inspiration no tenderness and no deformity was found on exam, no costochondral pain or discomfort. No sign of trauma or bruise to the rib cage area. Heart: Regular rate and rhythm with mild tachycardia, S1, S2 normal, no murmur, rub or gallop. Back: Symmetric, no curvature, ROM normal, no CVA tenderness. Abdomen: Soft, non-tender, bowel sounds active all four quadrants, no masses, no organomegaly. Extremities: Extremities normal, atraumatic, no cyanosis or edema. Pulses: 2+ and symmetric. Skin: Skin color, texture, tugor normal, no rashes or lesions. Neurologic: Alert oriented x3 cranial nerves II through XII intact, no motor deficit, no abnormal balance or gait. ASSESSMENT AND PLAN: _Acute hypoxic respiratory failure: Secondary to large right-sided pleural effusion and possible aspiration pneumonia, thoracentesis was done and patient will be on antibiotics and continue O2. _Severe large right-sided pleural effusion with compression of the right lung thoracentesis of 1.6 L of terabyte pleural fluid without any blood will be sent for analysis. No sign of trauma causing this at this point. _Aspiration pneumonia: With large right-sided pneumonia affecting the main steam branch, antibiotic was started with Rocephin, azithromycin and vancomycin continue updraft treatment continue O2 as well. _Severe hyponatremia: Most likely SIADH related to her pneumonia and pleural effusion, patient be seen nephrology, watch fluid intake, sodium tablets will be started as well and further analysis including urine sodium potassium and osmolality to be done. _Severe acute leukocytosis: Most likely secondary to aspiration pneumonia or gram-negative pneumonitis further testing for pneumonia including testing for mycoplasma and Legionella will be done as well. Blood culture and sputum for Gram stain along with pleural fluid for analysis and culture will be done. Continue trial of Vanco with Rocephin and azithromycin. _Type 1 diabetes: On insulin, seeing endocrinology on regular basis will resume Accu-Chek with sliding scales coverage if the blood sugar remain high patient might require to be on insulin drip if needed. _Hypertension: Remain on lisinopril 40 mg a day, hydralazine 100 mg 3 times a day and metoprolol titrate 25 mg twice a day. _Neuropathy: Has been on gabapentin 400 mg twice a day seems to do slightly bit better with it. _Recent history of pelvic fracture has been seen orthopedic. _Hyperlipidemia: Remain on rosuvastatin 10 mg a day. _Arrhythmia and PVCs: Has done very well since starting metoprolol 2 years ago. _Osteoporosis: Still on alendronate along with calcium and vitamin D. _GI prophylaxis: Patient will be on pantoprazole. _DVT prophylaxis: Patient will be on Lovenox 40 mg subcutaneous daily early mobilization and knee-high RONALDO hose will be done. CODE STATUS: Full code. Admit patient to the inpatient service for more than 2 night stay. Past Medical History Past Medical History: No Reported History, Diabetes Mellitus, Hyperlipidemia, Hypertension Additional Past Medical History / Comment(s): Pelvic fracture 2 weeks ago. Neuropathy. spinal stenosis History of Any Multi-Drug Resistant Organisms: None Reported Past Surgical History: No Surgical Hx Reported Additional Past Surgical History / Comment(s): Broken wrist, ORIF Past Anesthesia/Blood Transfusion Reactions: No Reported Reaction Past Psychological History: No Psychological Hx Reported Smoking Status: Never smoker Past Alcohol Use History: None Reported Past Drug Use History: None Reported Medications and Allergies Home Medications Medication Instructions Recorded Confirmed Type ALPRAZolam [Xanax] 0.25 mg PO TID 11/06/21 12/23/23 History Insulin Aspart (Niacinamide) 10 - 12 units SQ AC-TID 11/06/21 12/23/23 History [Fiasp 100 Unit/ml Flextouch Pen] Rosuvastatin [Crestor] 10 mg PO DAILY 11/06/21 12/23/23 History Alendronate Sodium 70 mg PO GUERRA 01/02/23 12/23/23 History Calcium Carbonate [Calcium] 600 mg PO DAILY 01/02/23 12/23/23 History Pantoprazole [Protonix] 40 mg PO DAILY 01/02/23 12/23/23 History traMADol HCL 50 mg PO Q8H PRN 01/02/23 12/23/23 History Ascorbic Acid [Vitamin C] 500 mg PO DAILY 12/23/23 12/23/23 History Aspirin EC [Ecotrin Low Dose] 81 mg PO DAILY 12/23/23 12/23/23 History Bifidobacterium Infantis [Align] 4 mg PO DAILY 12/23/23 12/23/23 History Gabapentin [Neurontin] 400 mg PO BID 12/23/23 12/23/23 History Magnesium Oxide [Mag-Ox] 400 mg PO DAILY 12/23/23 12/23/23 History Metoprolol Tartrate [Lopressor] 25 mg PO BID 12/23/23 12/23/23 History Turmeric Root Extract [Turmeric] 500 mg PO MOWEFR 12/23/23 12/23/23 History guaiFENesin-Coden 100-10MG/5ML 5 ml PO Q6H PRN 12/23/23 12/23/23 History [Robitussin AC] hydrALAZINE HCL [Apresoline] 100 mg PO TID 12/23/23 12/23/23 History lisinopriL [Zestril] 40 mg PO DAILY 12/23/23 12/23/23 History traZODone HCL [Desyrel] 50 mg PO HS PRN 12/23/23 12/23/23 History Allergies Allergy/AdvReac Type Severity Reaction Status Date / Time hydrocodone [From Vicodin] AdvReac Nausea & Verified 12/23/23 12:54 Vomiting Physical Exam Vitals: Vital Signs Temp Pulse Resp BP Pulse Ox 12/23/23 18:00 89 15 137/62 94 L 12/23/23 17:00 87 21 140/63 95 12/23/23 16:00 98.2 F 88 21 140/63 95 12/23/23 15:00 88 20 130/63 95 12/23/23 10:04 98.2 F 20 96 12/23/23 10:00 88 18 157/68 91 L 12/23/23 07:02 22 12/23/23 06:55 97 22 92 L 12/23/23 06:19 98.5 F 92 24 189/79 92 L Intake and Output 12/23/23 12/23/23 12/23/23 06:59 14:59 22:59 Intake Total 805 Balance 805 Intake: Intake, IV Titration 325 Amount Sodium Chloride 0.9% 1, 75 000 ml @ 75 mls/hr IV . [id number] [facility] Rx#:[id number] Vancomycin 750 mg In 250 Sodium Chloride 0.9% 250 ml @ 125 mls/hr IVPB Q12H [facility] Rx#:[id number] Oral 480 Other: Voiding Method Toilet Weight 48.081 kg 48.081 kg 48.081 kg Results CBC & Chem 7: 12/23/23 06:05 12/23/23 22:13 Labs: Abnormal Lab Results - Last 24 Hours (Table) 12/23/23 12/23/23 12/23/23 Range/Units 06:05 06:05 06:05 WBC 34.5 H (3.8-10.6) k/uL Plt Count 537 H (150-450) k/uL Neutrophils # 32.1 H (1.3-7.7) k/uL Lymphocytes # 0.7 L (1.0-4.8) k/uL Monocytes # 1.4 H (0-1.0) k/uL PT 13.1 H (10.0-12.5) sec INR 1.2 H (<1.2) D-Dimer 2.68 H (<0.60) mg/L FEU Sodium 116 L* (137-145) mmol/L Potassium 5.9 H (3.5-5.1) mmol/L Chloride 86 L (98-107) mmol/L Carbon Dioxide 21 L (22-30) mmol/L BUN 18 H (7-17) mg/dL Creatinine 0.43 L (0.52-1.04) mg/dL Glucose 199 H (74-99) mg/dL POC Glucose (mg/dL) (70-110) mg/dL Plasma Lactic Acid Singh (0.7-2.0) mmol/L Calcium 7.7 L (8.4-10.2) mg/dL AST 38 H (14-36) U/L Alkaline Phosphatase 289 H (38-126) U/L Troponin I (0.000-0.034) ng/mL Total Protein 5.5 L (6.3-8.2) g/dL Albumin 2.9 L (3.5-5.0) g/dL 12/23/23 12/23/23 12/23/23 Range/Units 06:05 08:24 15:56 WBC (3.8-10.6) k/uL Plt Count (150-450) k/uL Neutrophils # (1.3-7.7) k/uL Lymphocytes # (1.0-4.8) k/uL Monocytes # (0-1.0) k/uL PT (10.0-12.5) sec INR (<1.2) D-Dimer (<0.60) mg/L FEU Sodium (137-145) mmol/L Potassium (3.5-5.1) mmol/L Chloride (98-107) mmol/L Carbon Dioxide (22-30) mmol/L BUN (7-17) mg/dL Creatinine (0.52-1.04) mg/dL Glucose (74-99) mg/dL POC Glucose (mg/dL) 285 H (70-110) mg/dL Plasma Lactic Acid Singh 2.1 H* (0.7-2.0) mmol/L Calcium (8.4-10.2) mg/dL AST (14-36) U/L Alkaline Phosphatase (38-126) U/L Troponin I 0.070 H* (0.000-0.034) ng/mL Total Protein (6.3-8.2) g/dL Albumin (3.5-5.0) g/dL 12/23/23 Range/Units 16:56 WBC (3.8-10.6) k/uL Plt Count (150-450) k/uL Neutrophils # (1.3-7.7) k/uL Lymphocytes # (1.0-4.8) k/uL Monocytes # (0-1.0) k/uL PT (10.0-12.5) sec INR (<1.2) D-Dimer (<0.60) mg/L FEU Sodium 116 L* (137-145) mmol/L Potassium 5.5 H (3.5-5.1) mmol/L Chloride 88 L (98-107) mmol/L Carbon Dioxide 21 L (22-30) mmol/L BUN 19 H (7-17) mg/dL Creatinine (0.52-1.04) mg/dL Glucose 292 H (74-99) mg/dL POC Glucose (mg/dL) (70-110) mg/dL Plasma Lactic Acid Singh (0.7-2.0) mmol/L Calcium 7.3 L (8.4-10.2) mg/dL AST (14-36) U/L Alkaline Phosphatase (38-126) U/L Troponin I (0.000-0.034) ng/mL Total Protein (6.3-8.2) g/dL Albumin (3.5-5.0) g/dL Thrombosis Risk Factor Assmnt - Choose All That Apply Each Factor Represents 1 point: Serious lung disease incl. pneumonia (< 1month) Other Risk Factors: Yes Each Risk Factor Represents 3 Points: Age 75 years or older Other congenital or acquired thrombophilia - If yes, enter type in comment: No Thrombosis Risk Factor Assessment Total Risk Factor Score: 4 Thrombosis Risk Factor Assessment Level: Moderate Risk
[2023-12-24 06:10] LABS: Glucose,Whole Blood 253 mg/dL (70-110)
[2023-12-24] MEDS: INSULIN ASPART (NovoLOG) 100 UNIT/ML VIAL SQ SCH (06:12)
[2023-12-24] MEDS: PANTOPRAZOLE 40 MG TABLET PO SCH (06:15)
[2023-12-24 06:26] LABS: Basophils % (A) 0 %; Eosinophils % (A) 0 %; HCT 42.2 % (34.0-46.0); HGB 13.1 gm/dL (11.4-16.0); Lymphocytes # (A) 0.7 k/uL (1.0-4.8); Lymphocytes % (A) 3 %; MCH 28.4 pg (25.0-35.0); MCV 91.5 fL (80.0-100.0); Mean Platelet Volume 8.7; Monocytes # (A) 1.4 k/uL (0-1.0); Monocytes % (A) 5 %; Neutrophils # (A) 24.5 k/uL (1.3-7.7); Neutrophils % (A) 91 %; Platelet Count 495 k/uL (150-450); RBC 4.61 m/uL (3.80-5.40); RDW 14.1 % (11.5-15.5); WBC 26.9 k/uL (3.8-10.6)
[2023-12-24 06:36] LABS: ALT 17 U/L (4-34); AST 30 U/L (14-36); African American GFR (CKD) >90 (>60 ml/min/1.73 sqM); Albumin 2.2 g/dL (3.5-5.0); Alkaline Phosphatase 215 U/L (38-126); Anion Gap 7 mmol/L; Blood Urea Nitrogen 16 mg/dL (7-17); Carbon Dioxide 18 mmol/L (22-30); Chloride 94 mmol/L (98-107); Glucose 264 mg/dL (74-99); Non-African American GFR(CKD) >90 (>60 ml/min/1.73 sqM); Potassium 5.2 mmol/L (3.5-5.1); Total Bilirubin 0.9 mg/dL (0.2-1.3); Total Protein 4.4 g/dL (6.3-8.2)
[2023-12-24 06:38] LABS: Sodium 119 mmol/L (137-145)
--- NOTE | 2023-12-24 07:36 | XR ---
EXAMINATION TYPE: XR chest 1V DATE OF EXAM: 12/24/2023 COMPARISON: 12/23/2023 HISTORY: Postthoracentesis TECHNIQUE: Single frontal view of the chest is obtained. FINDINGS: There is no pneumothorax. Right-sided moderate pleural effusion and consolidation. Left juliet ng demonstrates basilar atelectasis. Heart size stable. Diffuse osteopenia throughout the shoulders. IMPRESSION: Moderate right pleural effusion and basilar consolidation. No pneumothorax.
--- NOTE | 2023-12-24 08:13 | P.PN ---
Subjective Progress Note Date: 12/24/23 HISTORY OF PRESENT ILLNESS: 83-year-old office patient for many years with active medical history of insulin-dependent type 2 diabetes, hypertension, hyperlipidemia, neuropathy, history of spinal stenosis, who has mild bradycardia otherwise healthy doing well has not been in the hospital long time she had a fall 2 weeks ago to the right side and developed pelvic and did not require to be hospitalized but ended up seen Dr. Wisdom as an outpatient. Also patient had open communicated distal radius fracture back in 2022 secondary to minor fall ended up having open reduction with internal fixation and irrigation debridement of the right wrist fracture. Patient seen cardiology in the last few years in 2021 was admitted to the hospital because of an episode of palpitation with pulse rate of 160 bpm found to have paroxysmal SVT and elevated troponin with no cardiac injury or any other cardiac history has been on beta-yahir been well-controlled since. I received a phone call from the yesterday with complain that his has been in extreme shortness of breath and been symptomatic and for the previous 5 days she had a virtual visit in the office for severe bronchitis was prescribed antibiotics and some expectorant which patient had felt slightly bit better but become much worse over the last 2 days to a degree becoming extreme dyspnea with minimal exertion. Was instructed to bring her to the emergency department to be seen and evaluated. Patient apparently decided not to come to the emergency department till early this morning on 12/23/2023 where was seen and evaluated was severely hypoxic at the time her chest x-ray showed very large right-sided pleural effusion almost occupying 90% out of the right lung. D-dimer was elevated and patient ended up for CTA finding with no pulmonary embolism large right-sided pleural effusion with near complete compression of the right lung there is an abnormal attenuation within the right mainstrem middle lobe and lower lobe bronchus which could be related to aspiration also there is only slight left pleural effusion as well with subsegmental area of consolidation favored to atelectasis versus pneumonitis. With pulse ox running quite a bit low at the time required 4 L of O2 to keep her pulse ox above 90 percentile and laboratory value showing sodium of 116 with normal creatinine and GFR with blood sugar of 292 white blood cell was 34,500 with platelet count 537 mildly elevated troponin 0.07 with lactic acid at 1.6 proBNP at 5090 with alk phos of 289. Patient ended up seeing Dr. Helms and in the emergency department who is done a consultation and decided to transfer the patient to the intensive care unit and ended up performing bedside thoracentesis for total of 1.6 L of pleural fluid is aspirated with no complication fluid was not bloody followed by chest x-ray showed fairly expansion of the lung only. Patient was transferred to the ICU and admitted for severe large sided pleural effusion, possible aspiration pneumonia with sepsis, severe hyponatremia. Will consult nephrology as well for the severity of her hyponatremia. 11/23/2023: Patient is resting comfortably in the chair this morning, her sodium is up to 119 from 116 early, kidney function still good, blood sugar still slightly bit elevated required 2 units of insulin every time she is having her Accu-Chek. Chest x-ray still showing significant amount of pleural effusion around the right side which might require another thoracentesis today or tomorrow. She still seen nephrology for probably increase her sodium tablet and little bit more restriction on IV fluid. Tachycardia has improved compared to yesterday also patient is not hypoxic but still required 2 L of O2 to keep her pulse ox above 92 percentile. Legionella antibody was negative still waiting for mycoplasma and further analysis of her thoracentesis fluid. Also echocardiogram came back with no major abnormality to create any pleural effusion. REVIEW OF SYSTEMS: CONSTITUTIONAL: Well-developed in acute respiratory distress. EYES: No icterus sclerae, no conjunctivitis. EARS, NOSE, MOUTH, THROAT, and FACE: No sore throat, lymphadenopathy, carotid bruits or deformity. RESPIRATORY: Positive shortness of breath cough or wheezes. CARDIOVASCULAR: Positive PND orthopnea palpitation. GASTROINTESTINAL: No Abd pain, Nausea or vomiting, no Diarrhea or constipation, No GI Bleed, no distention or masses. GENITOURINARY: Negative for Hematuria or UTI, no kidney stones. INTEGUMENT/BREAST: Negative for any muscular injury with mild osteoarthritis.. HEMATOLOGIC/LYMPHATIC: Negative for bleed or purpura. MUSCULOSKELTAL: Negative for Myalgia or arthralgia. NEURLOGICAL: No LOC, Sz or syncope, blurred vision dizziness or abnormality.. BEHAVIORAL/PSYCH: Negative. ENDOCRINE: Negative. PHYSICAL EXAMINATION: General Appearance: Alert, cooperative, in mild respiratory distress. Neck HEENT: Supple, no lymphadenopathy, no thyroid enlargement, no carotid bruits. Lungs: Significantly decreased breath sound in the right side all the way to have the way up significant rhonchi and mild crackles in the bases as well with mild expiratory wheezes. Chest Wall: Decreased expansion with deep inspiration no tenderness and no deformity was found on exam, no costochondral pain or discomfort. No sign of trauma or bruise to the rib cage area. Heart: Regular rate and rhythm with mild tachycardia, S1, S2 normal, no murmur, rub or gallop. Back: Symmetric, no curvature, ROM normal, no CVA tenderness. Abdomen: Soft, non-tender, bowel sounds active all four quadrants, no masses, no organomegaly. Extremities: Extremities normal, atraumatic, no cyanosis or edema. Pulses: 2+ and symmetric. Skin: Skin color, texture, tugor normal, no rashes or lesions. Neurologic: Alert oriented x3 cranial nerves II through XII intact, no motor deficit, no abnormal balance or gait. ASSESSMENT AND PLAN: _Acute hypoxic respiratory failure: Secondary to large right-sided pleural effusion and possible aspiration pneumonia, thoracentesis was done and patient will be on antibiotics and continue O2. Slightly bit better but still require oxygen no need for BiPAP. _Severe large right-sided pleural effusion with compression of the right lung thoracentesis of 1.6 L of terabyte pleural fluid without any blood will be sent for analysis. No sign of trauma causing this at this point. Repeat chest x-ray continue to show significant amount of pleural effusion on the right side might require thoracentesis again. _Aspiration pneumonia: Remain on Rocephin, azithromycin and Vanco. Waiting for the final culture. _Severe hyponatremia: Most likely SIADH related to her pneumonia and pleural eff usion, patient be seen nephrology, might benefit from increasing her sodium tablet and more fluid restriction. Repeat CMP in the afternoon today and tomorrow morning. _Severe acute leukocytosis: Mostly secondary to sepsis and mostly from aspiration pneumonia, white blood cell is down to 28,000, continue current antibiotics. _Type 1 diabetes: Was on Fiasp insulin at home between 5 and 10 unit AC meals 3 times a day, patient is on 5 units AC meals plus sliding scales here require over 25 to 30 units of insulin by the end of the day. _Hypertension: Still holding lisinopril and hydralazine. _Neuropathy: Has been on gabapentin 400 mg twice a day seems to do slightly bit better with it. _Recent history of pelvic fracture has been seen orthopedic. _Hyperlipidemia: Remain on rosuvastatin 10 mg a day. _Arrhythmia and PVCs: Has done very well since starting metoprolol 2 years ago. CODE STATUS: Full code. Discussion patient continue to have significant shortness of breath, continue to require oxygen and will need probably another thoracentesis by today or tomorrow. Objective - Vital Signs Vital signs: Vital Signs Temp 97.8 F 12/24/23 04:00 Pulse 92 12/24/23 05:00 Resp 18 12/24/23 05:00 BP 125/60 12/24/23 05:00 Pulse Ox 95 12/24/23 05:00 FiO2 Intake & Output 12/23/23 12/23/23 12/24/23 06:59 18:59 06:59 Intake Total 805 250 Output Total 400 1200 Balance 405 -950 Weight 48.081 kg 48.081 kg 51.6 kg Intake: IV 250 Vancomycin 750 mg In 250 Sodium Chloride 0.9% 250 ml @ 125 mls/hr IVPB ONCE [facility] Rx#:[id number] Intake, IV Titration 325 Amount Sodium Chloride 0.9% 1, 75 000 ml @ 75 mls/hr IV . [id number] [facility] Rx#:[id number] Vancomycin 750 mg In 250 Sodium Chloride 0.9% 250 ml @ 125 mls/hr IVPB Q12H [facility] Rx#:[id number] Oral 480 Output: Urine 400 1200 Other: Voiding Method Toilet Toilet - Labs CBC & Chem 7: 12/24/23 06:03 12/24/23 06:03 Labs: Abnormal Lab Results - Last 24 Hours (Table) 12/23/23 12/23/23 12/23/23 Range/Units 06:05 06:05 06:05 WBC 34.5 H (3.8-10.6) k/uL Plt Count 537 H (150-450) k/uL Neutrophils # 32.1 H (1.3-7.7) k/uL Lymphocytes # 0.7 L (1.0-4.8) k/uL Monocytes # 1.4 H (0-1.0) k/uL PT 13.1 H (10.0-12.5) sec INR 1.2 H (<1.2) D-Dimer 2.68 H (<0.60) mg/L FEU Sodium 116 L* (137-145) mmol/L Potassium 5.9 H (3.5-5.1) mmol/L Chloride 86 L (98-107) mmol/L Carbon Dioxide 21 L (22-30) mmol/L BUN 18 H (7-17) mg/dL Creatinine 0.43 L (0.52-1.04) mg/dL Glucose 199 H (74-99) mg/dL POC Glucose (mg/dL) (70-110) mg/dL Osmolality (275-295) mOsm/kg Plasma Lactic Acid Singh (0.7-2.0) mmol/L Calcium 7.7 L (8.4-10.2) mg/dL AST 38 H (14-36) U/L Alkaline Phosphatase 289 H (38-126) U/L Troponin I (0.000-0.034) ng/mL Total Protein 5.5 L (6.3-8.2) g/dL Albumin 2.9 L (3.5-5.0) g/dL Procalcitonin (0.02-0.09) ng/mL Ur Random Sodium (40-220) mmol/L 12/23/23 12/23/23 12/23/23 Range/Units 06:05 06:05 08:24 WBC (3.8-10.6) k/uL Plt Count (150-450) k/uL Neutrophils # (1.3-7.7) k/uL Lymphocytes # (1.0-4.8) k/uL Monocytes # (0-1.0) k/uL PT (10.0-12.5) sec INR (<1.2) D-Dimer (<0.60) mg/L FEU Sodium (137-145) mmol/L Potassium (3.5-5.1) mmol/L Chloride (98-107) mmol/L Carbon Dioxide (22-30) mmol/L BUN (7-17) mg/dL Creatinine (0.52-1.04) mg/dL Glucose (74-99) mg/dL POC Glucose (mg/dL) (70-110) mg/dL Osmolality (275-295) mOsm/kg Plasma Lactic Acid Singh 2.1 H* (0.7-2.0) mmol/L Calcium (8.4-10.2) mg/dL AST (14-36) U/L Alkaline Phosphatase (38-126) U/L Troponin I 0.070 H* (0.000-0.034) ng/mL Total Protein (6.3-8.2) g/dL Albumin (3.5-5.0) g/dL Procalcitonin 0.39 H (0.02-0.09) ng/mL Ur Random Sodium (40-220) mmol/L 12/23/23 12/23/23 12/23/23 Range/Units 15:56 16:56 18:05 WBC (3.8-10.6) k/uL Plt Count (150-450) k/uL Neutrophils # (1.3-7.7) k/uL Lymphocytes # (1.0-4.8) k/uL Monocytes # (0-1.0) k/uL PT (10.0-12.5) sec INR (<1.2) D-Dimer (<0.60) mg/L FEU Sodium 116 L* (137-145) mmol/L Potassium 5.5 H (3.5-5.1) mmol/L Chloride 88 L (98-107) mmol/L Carbon Dioxide 21 L (22-30) mmol/L BUN 19 H (7-17) mg/dL Creatinine (0.52-1.04) mg/dL Glucose 292 H (74-99) mg/dL POC Glucose (mg/dL) 285 H (70-110) mg/dL Osmolality 273 L (275-295) mOsm/kg Plasma Lactic Acid Singh (0.7-2.0) mmol/L Calcium 7.3 L (8.4-10.2) mg/dL AST (14-36) U/L Alkaline Phosphatase (38-126) U/L Troponin I (0.000-0.034) ng/mL Total Protein (6.3-8.2) g/dL Albumin (3.5-5.0) g/dL Procalcitonin (0.02-0.09) ng/mL Ur Random Sodium <20 L (40-220) mmol/L 12/23/23 12/23/23 Range/Units 19:58 22:13 WBC (3.8-10.6) k/uL Plt Count (150-450) k/uL Neutrophils # (1.3-7.7) k/uL Lymphocytes # (1.0-4.8) k/uL Monocytes # (0-1.0) k/uL PT (10.0-12.5) sec INR (<1.2) D-Dimer (<0.60) mg/L FEU Sodium 118 L* (137-145) mmol/L Potassium (3.5-5.1) mmol/L Chloride 92 L (98-107) mmol/L Carbon Dioxide 20 L (22-30) mmol/L BUN 18 H (7-17) mg/dL Creatinine 0.49 L (0.52-1.04) mg/dL Glucose 224 H (74-99) mg/dL POC Glucose (mg/dL) 285 H (70-110) mg/dL Osmolality (275-295) mOsm/kg Plasma Lactic Acid Singh (0.7-2.0) mmol/L Calcium 7.1 L (8.4-10.2) mg/dL AST (14-36) U/L Alkaline Phosphatase (38-126) U/L Troponin I (0.000-0.034) ng/mL Total Protein (6.3-8.2) g/dL Albumin (3.5-5.0) g/dL Procalcitonin (0.02-0.09) ng/mL Ur Random Sodium (40-220) mmol/L
[2023-12-24] MEDS: MAGNESIUM OXIDE 400 MG TAB PO SCH (10:21)
[2023-12-24] MEDS: LACTOBACILLUS ACIDOPHILUS/PECT 1 EACH CAPSULE PO SCH (10:21)
[2023-12-24] MEDS: ASCORBIC ACID 500 MG TAB PO SCH (10:21)
[2023-12-24] MEDS: CALCIUM CARBONATE 500 MG CHEWABLE PO SCH (10:21)
[2023-12-24] MEDS: lisinopriL 20 MG TAB PO SCH (10:21)
[2023-12-24] MEDS: SODIUM CHLORIDE 0.9% 1,000 ML IV SCH (10:22)
[2023-12-24] MEDS: ATORVASTATIN 20 MG TAB PO SCH (10:22)
[2023-12-24] MEDS: ASPIRIN 81 MG PO SCH (10:22)
[2023-12-24] MEDS: AZITHROMYCIN 500 MG in SODIUM CHLORIDE 0.9% 250 ML IVPB SCH (11:25)
[2023-12-24 11:37] LABS: Glucose,Whole Blood 261 mg/dL (70-110)
--- NOTE | 2023-12-24 11:41 | P.PN ---
Subjective Progress Note Date: 12/24/23 This is a 83-year-old female patient who came to the emergency department with increased shortness of breath. Her breathing was progressively getting worse over the past 1 week. She had increased cough congestion chest tightness and wheezing and she was having chills at home. She was given outpatient antibiotic therapy with Zithromax and her condition decompensated and she ended up coming into the hospital. The patient has been having some chest discomfort along the right chest. She had a fall approximately few weeks back and she also sustained a pelvic fracture. She is a lifetime non-smoker. She came to the emergency department and the patient had a white cell count of 34 with a hemoglobin 14.8. Her sodium level was 116 with a potassium level of 5.9 and a serum bicarb was at 21. BUN was 18 with a creatinine of 0.4. Troponin was 0.07. proBNP level was 5000. The viral screen was negative. Initial lactic acid level was at 2.1 and dropped down to 1.6. Coagulation profile was normal with a D-dimer of 2.6. Initial chest x-ray showed a large right-sided pleural effusion. CAT scan of the chest was also done in the Emergency Department that showed no evidence of any central pulmonary embolism. There was a large right-sided pleural effusion with near complete opacification and compression of the right lung. There was also abnormal attenuation within the right mainstem right middle lobe and right lower lobe bronchus and aspiration was suspected. I saw the patient in the e mergency department. She was quite short of breath and she was on oxygen at 5 L/min nasal cannula. Her pulse ox was as in the low 90s. I performed a bedside thoracentesis a total of 1.6 L of pleural fluid is aspirated. No complications. The post thoracentesis chest x-ray showed interval marked reduction in the right-sided pleural effusion without evidence of any pneumothorax. The patient was started on broad-spectrum antibiotics and she is currently on a combination of Rocephin and Zithromax and vancomycin. She is diabetic. She takes insulin on outpatient basis. She also has history of hypertension and hyperlipidemia. Currently she is also on IV fluids and the patient is on normal saline which is running at a rate of 75 cc an hour. No altered mentation. No seizure activity. On 12/24/2023, the patient is feeling better. The patient is less short of breath and currently she is on 2 L of oxygen by nasal cannula. Her breathing is more comfortable. Thoracentesis was done yesterday and the pleural fluid analysis still pending. Cultures are still pending. Legionella urine antigen is negative. Echocardiogram showed a preserved LV function, no significant valvular abnormalities. The white cell count is currently down to 26 with a hemoglobin 13.1 and a platelet count of 491. Sodium is 119 improved compared to yesterday and the urine sodium is essentially low less than 20, not typical of SIADH. Serum bicarb is 18 with a BUN of 16 and a creatinine of 0.4. She remain s on Rocephin and Zithromax and vancomycin. Metoprolol was restarted. He is also on Zestril 40 mg p.o. daily for blood pressure control. She is on NovoLog 5 units 3 times daily with meals plus a sliding scale coverage. She remains on bronchodilators. Objective - Vital Signs Vital signs: Vital Signs Temp 97.8 F 12/24/23 04:00 Pulse 104 H 12/24/23 07:00 Resp 17 12/24/23 07:00 BP 149/105 12/24/23 07:00 Pulse Ox 91 L 12/24/23 07:00 FiO2 Intake & Output 12/23/23 12/24/23 12/24/23 18:59 06:59 18:59 Intake Total 805 250 Output Total 400 1200 0 Balance 405 -950 0 Weight 48.081 kg 51.6 kg Intake: IV 250 Vancomycin 750 mg In 250 Sodium Chloride 0.9% 250 ml @ 125 mls/hr IVPB ONCE [facility] Rx#:[id number] Intake, IV Titration 325 Amount Sodium Chloride 0.9% 1, 75 000 ml @ 75 mls/hr IV . [id number] [facility] Rx#:[id number] Vancomycin 750 mg In 250 Sodium Chloride 0.9% 250 ml @ 125 mls/hr IVPB Q12H [facility] Rx#:[id number] Oral 480 Output: Urine 400 1200 0 Other: Voiding Method Toilet Toilet - Exam Calm and comfortable mild degree of respiratory distress, BMI 17.6 currently on 2 L of O2 nasal cannula Head exam was generally normal. There was no scleral icterus or corneal arcus. Mucous membranes were moist. Neck was supple and without jugular venous distension, thyromegaly, or carotid bruits. Carotids were easily palpable bilaterally. There was no adenopathy. Lung sounds revealed improved breath sounds right lung base. Some limited crackles. Left lung is clear. Cardiac exam revealed the PMI to be normally situated and sized. The rhythm was regular and no extrasystoles were noted during several minutes of auscultation. The first and second heart sounds were normal and physiologic splitting of the second heart sound was noted. There were no murmurs, rubs, clicks, or gallops. Abdominal exam revealed normal bowel sounds. The abdomen was soft, non-tender, and without masses, organomegaly, or appreciable enlargement of the abdominal aorta. Examination of the extremities revealed easily palpable radial, femoral and pe joce pulses. There was no cyanosis, clubbing or edema., Trace ankle edema Examination of the skin revealed no evidence of significant rashes, suspicious appearing nevi or other concerning lesions. Neurologically, the patient is awake and alert and the patient does not have any focal neurological deficit. Cranial nerves are essentially intact. - Labs CBC & Chem 7: 12/24/23 06:03 12/24/23 06:03 Labs: Abnormal Lab Results - Last 24 Hours (Table) 12/23/23 12/23/23 12/23/23 Range/Units 06:05 08:24 15:56 WBC (3.8-10.6) k/uL Plt Count (150-450) k/uL Neutrophils # (1.3-7.7) k/uL Lymphocytes # (1.0-4.8) k/uL Monocytes # (0-1.0) k/uL Sodium (137-145) mmol/L Potassium (3.5-5.1) mmol/L Chloride (98-107) mmol/L Carbon Dioxide (22-30) mmol/L BUN (7-17) mg/dL Creatinine (0.52-1.04) mg/dL Glucose (74-99) mg/dL POC Glucose (mg/dL) 285 H (70-110) mg/dL Osmolality (275-295) mOsm/kg Plasma Lactic Acid Singh 2.1 H* (0.7-2.0) mmol/L Calcium (8.4-10.2) mg/dL Alkaline Phosphatase (38-126) U/L Total Protein (6.3-8.2) g/dL Albumin (3.5-5.0) g/dL Procalcitonin 0.39 H (0.02-0.09) ng/mL Ur Random Sodium (40-220) mmol/L 12/23/23 12/23/23 12/23/23 Range/Units 16:56 18:05 19:58 WBC (3.8-10.6) k/uL Plt Count (150-450) k/uL Neutrophils # (1.3-7.7) k/uL Lymphocytes # (1.0-4.8) k/uL Monocytes # (0-1.0) k/uL Sodium 116 L* (137-145) mmol/L Potassium 5.5 H (3.5-5.1) mmol/L Chloride 88 L (98-107) mmol/L Carbon Dioxide 21 L (22-30) mmol/L BUN 19 H (7-17) mg/dL Creatinine (0.52-1.04) mg/dL Glucose 292 H (74-99) mg/dL POC Glucose (mg/dL) 285 H (70-110) mg/dL Osmolality 273 L (275-295) mOsm/kg Plasma Lactic Acid Singh (0.7-2.0) mmol/L Calcium 7.3 L (8.4-10.2) mg/dL Alkaline Phosphatase (38-126) U/L Total Protein (6.3-8.2) g/dL Albumin (3.5-5.0) g/dL Procalcitonin (0.02-0.09) ng/mL Ur Random Sodium <20 L (40-220) mmol/L 12/23/23 12/24/23 12/24/23 Range/Units 22:13 06:03 06:03 WBC 26.9 H (3.8-10.6) k/uL Plt Count 495 H (150-450) k/uL Neutrophils # 24.5 H (1.3-7.7) k/uL Lymphocytes # 0.7 L (1.0-4.8) k/uL Monocytes # 1.4 H (0-1.0) k/uL Sodium 118 L* 119 L* (137-145) mmol/L Potassium 5.2 H (3.5-5.1) mmol/L Chloride 92 L 94 L (98-107) mmol/L Carbon Dioxide 20 L 18 L (22-30) mmol/L BUN 18 H (7-17) mg/dL Creatinine 0.49 L 0.45 L (0.52-1.04) mg/dL Glucose 224 H 264 H (74-99) mg/dL POC Glucose (mg/dL) (70-110) mg/dL Osmolality (275-295) mOsm/kg Plasma Lactic Acid Singh (0.7-2.0) mmol/L Calcium 7.1 L 7.0 L (8.4-10.2) mg/dL Alkaline Phosphatase 215 H (38-126) U/L Total Protein 4.4 L (6.3-8.2) g/dL Albumin 2.2 L (3.5-5.0) g/dL Procalcitonin (0.02-0.09) ng/mL Ur Random Sodium (40-220) mmol/L 12/24/23 Range/Units 06:08 WBC (3.8-10.6) k/uL Plt Count (150-450) k/uL Neutrophils # (1.3-7.7) k/uL Lymphocytes # (1.0-4.8) k/uL Monocytes # (0-1.0) k/uL Sodium (137-145) mmol/L Potassium (3.5-5.1) mmol/L Chloride (98-107) mmol/L Carbon Dioxide (22-30) mmol/L BUN (7-17) mg/dL Creatinine (0.52-1.04) mg/dL Glucose (74-99) mg/dL POC Glucose (mg/dL) 253 H (70-110) mg/dL Osmolality (275-295) mOsm/kg Plasma Lactic Acid Singh (0.7-2.0) mmol/L Calcium (8.4-10.2) mg/dL Alkaline Phosphatase (38-126) U/L Total Protein (6.3-8.2) g/dL Albumin (3.5-5.0) g/dL Procalcitonin (0.02-0.09) ng/mL Ur Random Sodium (40-220) mmol/L Assessment and Plan Plan: Acute hypoxic respiratory failure currently on 2 L of oxygen by nasal cannula, improved compared to yesterday Large right-sided pleural effusion with compressive atelectasis of the right lung, likely parapneumonic in nature. Thoracentesis was done and approximately 1.6 L of turbid pleural fluid was aspirated from the right lung. Awaiting pleural fluid analysis. Right lung pneumonia, clinically suspected Acute leukocytosis, improving Mild lactic acidosis, improved Hyponatremia, likely acute, could be related to above mentioned pneumonia, consider hypovolemic hyponatremia. Underlying mild component of SIADH related to pneumonia cannot be completely ruled out, yet the urine sodium was less than 20, not typical of SIADH. Sodium levels of 119. Diabetes mellitus type 1 maintained on insulin on outpatient basis Hypertension Hyperlipidemia Recent fall with pelvic fracture Generalized weakness and fatigue secondary to above Plan Titrate oxygen flow to maintain saturation above 90% currently on 2 L Provide the patient symptoms parameter Thoracentesis was performed and awaiting the pleural fluid chemistry and cytology and cultures Cover the patient with Rocephin Zithromax and vancomycin Check procalcitonin level, mildly elevated Check blood cultures Daily chest x-rays IV fluids at [facility] Nephrology regarding hyponatremia Obtain echocardiogram was noted and the patient has a preserved LV function Continue bronchodilators Will continue to follow.
--- NOTE | 2023-12-24 12:03 | P.NPCON ---
History of Present Illness - Reason for Consult hyponatremia - History of Present Illness patient is an 83-year-old female with history of hypertension, type 2 diabetes who was admitted to the hospital with complaints of shortness of breath which has progressively worsened. Patient also complained of chills. History of fall a few weeks ago with a pelvic fracture. Serum sodium was 116 on admission. Patient was maintained on normal saline and repeat sodium stayed at 116. Normal saline was discontinued yesterday and sodium has improved to 119 today. It appears that the fluids have been restarted. Patient was noted to have significant right pleural effusion and she is status post right thoracentesis of 1.6 L yesterday. Patient states that she did have a low sodium level during her hospitalization last year in December 2022 for fracture of the arm. Patient has had significant pain after her fall few weeks ago. Oral intake has been fair. Patient admits to lower extremity swelling for a few weeks now. No previous history of congestive heart failure. ejection fraction 55-60%. no new medications started recently as outpatient. Review of Systems as per HPI Past Medical History Past Medical History: No Reported History, Diabetes Mellitus, Hyperlipidemia, Hypertension Additional Past Medical History / Comment(s): Pelvic fracture 2 weeks ago. Neuropathy. spinal stenosis History of Any Multi-Drug Resistant Organisms: None Reported Past Surgical History: No Surgical Hx Reported Additional Past Surgical History / Comment(s): Broken wrist, ORIF Past Anesthesia/Blood Transfusion Reactions: No Reported Reaction Past Psychological History: No Psychological Hx Reported Smoking Status: Never smoker Past Alcohol Use History: None Reported Past Drug Use History: None Reported Medications and Allergies Home Medications Medication Instructions Recorded Confirmed Type ALPRAZolam [Xanax] 0.25 mg PO TID 11/06/21 12/23/23 History Insulin Aspart (Niacinamide) 10 - 12 units SQ AC-TID 11/06/21 12/23/23 History [Fiasp 100 Unit/ml Flextouch Pen] Rosuvastatin [Crestor] 10 mg PO DAILY 11/06/21 12/23/23 History Alendronate Sodium 70 mg PO GUERRA 01/02/23 12/23/23 History Calcium Carbonate [Calcium] 600 mg PO DAILY 01/02/23 12/23/23 History Pantoprazole [Protonix] 40 mg PO DAILY 01/02/23 12/23/23 History traMADol HCL 50 mg PO Q8H PRN 01/02/23 12/23/23 History Ascorbic Acid [Vitamin C] 500 mg PO DAILY 12/23/23 12/23/23 History Aspirin EC [Ecotrin Low Dose] 81 mg PO DAILY 12/23/23 12/23/23 History Bifidobacterium Infantis [Align] 4 mg PO DAILY 12/23/23 12/23/23 History Gabapentin [Neurontin] 400 mg PO BID 12/23/23 12/23/23 History Magnesium Oxide [Mag-Ox] 400 mg PO DAILY 12/23/23 12/23/23 History Metoprolol Tartrate [Lopressor] 25 mg PO BID 12/23/23 12/23/23 History Turmeric Root Extract [Turmeric] 500 mg PO MOWEFR 12/23/23 12/23/23 History guaiFENesin-Coden 100-10MG/5ML 5 ml PO Q6H PRN 12/23/23 12/23/23 History [Robitussin AC] hydrALAZINE HCL [Apresoline] 100 mg PO TID 12/23/23 12/23/23 History lisinopriL [Zestril] 40 mg PO DAILY 12/23/23 12/23/23 History traZODone HCL [Desyrel] 50 mg PO HS PRN 12/23/23 12/23/23 History Allergies Allergy/AdvReac Type Severity Reaction Status Date / Time hydrocodone [From Vicodin] AdvReac Nausea & Verified 12/23/23 12:54 Vomiting Physical Exam Vitals: Vital Signs Temp Pulse Resp BP Pulse Ox 12/24/23 09:16 94 12/24/23 09:10 93 96 12/24/23 07:00 104 H 17 149/105 91 L 12/24/23 06:00 93 11 L 140/64 94 L 12/24/23 05:00 92 18 125/60 95 12/24/23 04:25 94 12/24/23 04:11 91 12/24/23 04:00 97.8 F 75 12 118/55 95 12/24/23 03:00 95 18 127/60 93 L 12/24/23 02:00 98 14 141/75 96 12/24/23 01:00 86 17 122/51 97 12/24/23 00:15 85 12/24/23 00:06 82 12/24/23 00:02 78 18 97 12/24/23 00:00 98.4 F 78 15 137/51 96 12/23/23 23:00 84 14 154/99 94 L 12/23/23 22:00 85 21 134/83 97 12/23/23 21:00 115 H 20 154/81 12/23/23 20:00 99.6 F 82 15 147/75 97 12/23/23 19:51 78 12/23/23 19:40 79 12/23/23 19:00 116 H 18 156/96 95 12/23/23 18:00 89 15 137/62 94 L 12/23/23 17:00 87 21 140/63 95 12/23/23 16:00 98.2 F 88 21 140/63 95 12/23/23 15:00 88 20 130/63 95 Intake and Output 12/23/23 12/24/23 12/24/23 22:59 06:59 14:59 Intake Total 805 250 150 Output Total 600 1000 300 Balance 205 -750 -150 Intake: IV 250 150 Sodium Chloride 0.9% 1, 150 000 ml @ 75 mls/hr IV . [id number] [facility] Rx#:[id number] Vancomycin 750 mg In 250 Sodium Chloride 0.9% 250 ml @ 125 mls/hr IVPB ONCE [facility] Rx#:[id number] Intake, IV Titration 325 Amount Sodium Chloride 0.9% 1, 75 000 ml @ 75 mls/hr IV . [id number] [facility] Rx#:[id number] Vancomycin 750 mg In 250 Sodium Chloride 0.9% 250 ml @ 125 mls/hr IVPB Q12H [facility] Rx#:[id number] Oral 480 Output: Urine 600 1000 300 Other: Voiding Method Toilet Toilet # Voids 1 Weight 48.081 kg 51.6 kg patient is awake comfortable. No acute distress. Examination of the heart S1 and S2 Examination of the lungs decreased breath sounds at the bases Abdomen is soft nontender Examination of lower extremities shows edema 1+ bilaterally [employer] exam grossly intact Results - Lab Results Most recent lab results Calcium 7.0 mg/dL (8.4-10.2) L 12/24/23 06:03 Magnesium 1.9 mg/dL (1.6-2.3) 12/23/23 22:13 12/24/23 06:03 12/24/23 06:03 Assessment and Plan Assessment: 1. Hyponatremia, appears mildly hypervolemic. Patient is status post normal saline administration after initial admission. Serum sodium did not improve after saline administration for 10 hours. Saline was eventually discontinued and sodium improved to 119 this morning. urine osmolality at 493 random urine sodium was less than 20. Patient has been restarted on IV fluids. Repeat sodium is ordered for this evening. Saline will be discontinued if serum sodium drops further. Patient is encouraged to increase oral protein intake. check bladder scan rule out urine retention. 2. Right pleural effusion status post thoracentesis of 1.6 L. Most likely related to pneumonia and 3. Acute hypoxic respiratory failure secondary to pneumonia and large right pleural effusion, status post thoracentesis 4. Type 2 diabetes 5. History of fall few weeks ago with pelvic fracture. Plan: May continue with saline and repeat sodium this afternoon. If serum sodium worsens IV fluids will be discontinued. Check bladder scan rule out urine retention with history of recent pelvic fracture Patient is encouraged to increase oral intake particularly protein. Continue with antibiotics. repeat labs in a.m. Ex Thank you for the consultation. We will continue to follow the patient with you during her hospitalization.
[2023-12-24 12:50] LABS: Appearance,BF Clear (Clear)
[2023-12-24] MEDS ORDERED: DILTIAZEM 125 MG in SODIUM CHLORIDE 0.9% 100 ML IV SCH (13:15)
[2023-12-24] MEDS: DILTIAZEM DRIP BOLUS FROM BAG 1 MG SOLN IV ONE (15:57)
--- NOTE | 2023-12-24 16:31 | P.CRDCN ---
History of Present Illness Consult date: 12/24/23 History of present illness: HISTORY OF PRESENTING ILLNESS 83-year-old female who came to the emergency department because of increased shortness of breath. Patient has been having progressively worsening symptoms over last 1 week along with increased cough and chest congestion along with chest tightness. Patient has also been feeling more confused and weak over the last 1 to 2 weeks. Few weeks ago patient had a fall and sustained a pelvic fracture which has been managed conservatively. On admission she was noticed to have a WBC count of 34,000, hemoglobin 14.8. She also had hyponatremia with sodium of 116, potassium 5.9, bicarb 21, BUN 18, creatinine 0.4. Her troponin was not elevated. Her NT proBNP was 5000. She also had mild elevated lactate. Her CT scan of chest showed large right-sided pleural effusion with compression atelectasis of the right lung. She [id number] right thoracentesis with drainage of 1.6 L of fluid. Currently she has been treated for pneumonia with IV antibiotics, and hyponatremia. Patient is previously known to Dr. Wilburn. This time cardiology is consulted because of concerns of atrial fibrillation. On review of her ECG and telemetry it appears that patient is not in atrial fibrillation but rather is in multifocal atrial tachycardia along with frequent premature atrial contractions. Patient denies any prior history of reported atrial fibrillation. Resting ECG does not show significant ST deviations that are diagnostic for ischemia. Her echocardiogram showed an preserved LV systolic function with a EF of 55 to 60%, mild LVH, with no major valvular abnormality. REVIEW OF SYSTEMS 14 point review of system is negative except what is mentioned above in HPI. PHYSICAL EXAMINATION Vital signs reviewed. Head: Normocephalic. Eyes: Sclerae nonicteric. Neck: Brisk carotid upstroke, no jugular venous distention. Lungs: Clear to auscultation. Heart: Regular rate and rhythm, S1-S2, no S3, no murmur or rub. Abdomen: Soft nontender, positive bowel sounds. Extremities: No edema, intact distal pulses. Neuro: Alert, oritented, no focal deficits. Detailed neuro exam was not performed. ASSESSMENT Tachycardia, likely multifocal atrial tachycardia along with frequent PACs Community-acquired pneumonia with large right-sided pleural effusion s/p thoracentesis with removal of 1.6 L fluid. Likely parapneumonic. Await fluid analysis, cytology and culture reports Hyponatremia and hyperkalemia. High urine osmolality with low urine sodium suggestive of intravascular depletion Generalized weakness and fatigue Pelvic fracture from mechanical fall few weeks ago Bilateral lower extremity swelling Diabetes mellitus, insulin-dependent Hypertension Debility and frailty PLAN Less likely atrial fibrillation. Will continue to monitor telemetry. She might benefit from an event monitor at the time of discharge. Continue aspirin, atorvastatin, losartan 25mg Discontinue lisinopril Obtain bilateral lower extremity Doppler to make sure there is no DVT due to lower extremity swelling and recent pelvic fracture Nephrology and ICU team managing hyponatremia Dejan Hurd MD, FACC, RPVI Thank you for allowing [facility] to participate in this patient's care. Feel free to reach out in case of any followup questions. Past Medical History Past Medical History: No Reported History, Diabetes Mellitus, Hyperlipidemia, Hypertension Additional Past Medical History / Comment(s): Pelvic fracture 2 weeks ago. Neuropathy. spinal stenosis History of Any Multi-Drug Resistant Organisms: None Reported Past Surgical History: No Surgical Hx Reported Additional Past Surgical History / Comment(s): Broken wrist, ORIF Past Anesthesia/Blood Transfusion Reactions: No Reported Reaction Past Psychological History: No Psychological Hx Reported Smoking Status: Never smoker Past Alcohol Use History: None Reported Past Drug Use History: None Reported Medications and Allergies Home Medications Medication Instructions Recorded Confirmed Type ALPRAZolam [Xanax] 0.25 mg PO TID 11/06/21 12/23/23 History Insulin Aspart (Niacinamide) 10 - 12 units SQ AC-TID 11/06/21 12/23/23 History [Fiasp 100 Unit/ml Flextouch Pen] Rosuvastatin [Crestor] 10 mg PO DAILY 11/06/21 12/23/23 History Alendronate Sodium 70 mg PO GUERRA 01/02/23 12/23/23 History Calcium Carbonate [Calcium] 600 mg PO DAILY 01/02/23 12/23/23 History Pantoprazole [Protonix] 40 mg PO DAILY 01/02/23 12/23/23 History traMADol HCL 50 mg PO Q8H PRN 01/02/23 12/23/23 History Ascorbic Acid [Vitamin C] 500 mg PO DAILY 12/23/23 12/23/23 History Aspirin EC [Ecotrin Low Dose] 81 mg PO DAILY 12/23/23 12/23/23 History Bifidobacterium Infantis [Align] 4 mg PO DAILY 12/23/23 12/23/23 History Gabapentin [Neurontin] 400 mg PO BID 12/23/23 12/23/23 History Magnesium Oxide [Mag-Ox] 400 mg PO DAILY 12/23/23 12/23/23 History Metoprolol Tartrate [Lopressor] 25 mg PO BID 12/23/23 12/23/23 History Turmeric Root Extract [Turmeric] 500 mg PO MOWEFR 12/23/23 12/23/23 History guaiFENesin-Coden 100-10MG/5ML 5 ml PO Q6H PRN 12/23/23 12/23/23 History [Robitussin AC] hydrALAZINE HCL [Apresoline] 100 mg PO TID 12/23/23 12/23/23 History lisinopriL [Zestril] 40 mg PO DAILY 12/23/23 12/23/23 History traZODone HCL [Desyrel] 50 mg PO HS PRN 12/23/23 12/23/23 History Allergies Allergy/AdvReac Type Severity Reaction Status Date / Time hydrocodone [From Vicodin] AdvReac Nausea & Verified 12/23/23 12:54 Vomiting Physical Exam Vitals: Vital Signs Temp Pulse Resp BP Pulse Ox 12/24/23 16:00 98.4 F 112 H 9 L 149/89 96 12/24/23 15:37 102 H 12/24/23 15:28 101 H 12/24/23 15:00 144 H 23 148/63 93 L 12/24/23 14:00 109 H 24 149/63 91 L 12/24/23 13:00 109 H 23 109/81 93 L 12/24/23 12:28 106 H 12/24/23 12:18 105 H 12/24/23 12:00 98.2 F 144 H 20 161/58 93 L 12/24/23 11:00 98 18 127/98 98 12/24/23 10:00 104 H 28 H 141/113 94 L 12/24/23 09:16 94 12/24/23 09:10 93 96 12/24/23 09:00 96 11 L 151/60 96 12/24/23 08:00 97.5 F L 102 H 12 152/89 96 12/24/23 07:00 104 H 17 149/105 91 L 12/24/23 06:00 93 11 L 140/64 94 L 12/24/23 05:00 92 18 125/60 95 12/24/23 04:25 94 12/24/23 04:11 91 12/24/23 04:00 97.8 F 75 12 118/55 95 12/24/23 03:00 95 18 127/60 93 L 12/24/23 02:00 98 14 141/75 96 12/24/23 01:00 86 17 122/51 97 12/24/23 00:15 85 12/24/23 00:06 82 12/24/23 00:02 78 18 97 12/24/23 00:00 98.4 F 78 15 137/51 96 12/23/23 23:00 84 14 154/99 94 L 12/23/23 22:00 85 21 134/83 97 12/23/23 21:00 115 H 20 154/81 12/23/23 20:00 99.6 F 82 15 147/75 97 12/23/23 19:51 78 12/23/23 19:40 79 12/23/23 19:00 116 H 18 156/96 95 12/23/23 18:00 89 15 137/62 94 L 12/23/23 17:00 87 21 140/63 95 Intake and Output 12/24/23 12/24/23 12/24/23 06:59 14:59 22:59 Intake Total 250 450 150 Output Total 1000 350 Balance -750 100 150 Intake: IV 250 450 150 Sodium Chloride 0.9% 1, 450 150 000 ml @ 75 mls/hr IV . [id number] [facility] Rx#:[id number] Vancomycin 750 mg In 250 Sodium Chloride 0.9% 250 ml @ 125 mls/hr IVPB ONCE [facility] Rx#:[id number] Output: Urine 1000 350 Other: Voiding Method Toilet Bedside Commode # Voids 1 Weight 51.6 kg Results 12/24/23 06:03 12/24/23 14:01 Cardiac Enzymes 12/24/23 Range/Units 06:03 AST 30 (14-36) U/L CBC 12/24/23 Range/Units 06:03 WBC 26.9 H (3.8-10.6) k/uL RBC 4.61 (3.80-5.40) m/uL Hgb 13.1 (11.4-16.0) gm/dL Hct 42.2 (34.0-46.0) % Plt Count 495 H (150-450) k/uL Comprehensive Metabolic Panel 12/23/23 12/23/23 12/24/23 Range/Units 16:56 22:13 06:03 Sodium 116 L* 118 L* 119 L* (137-145) mmol/L Potassium 5.5 H 4.9 5.2 H (3.5-5.1) mmol/L Chloride 88 L 92 L 94 L (98-107) mmol/L Carbon Dioxide 21 L 20 L 18 L (22-30) mmol/L BUN 19 H 18 H 16 (7-17) mg/dL Creatinine 0.58 0.49 L 0.45 L (0.52-1.04) mg/dL Glucose 292 H 224 H 264 H (74-99) mg/dL Calcium 7.3 L 7.1 L 7.0 L (8.4-10.2) mg/dL AST 30 (14-36) U/L ALT 17 (4-34) U/L Alkaline Phosphatase 215 H (38-126) U/L Total Protein 4.4 L (6.3-8.2) g/dL Albumin 2.2 L (3.5-5.0) g/dL 12/24/23 Range/Units 14:01 Sodium 121 L (137-145) mmol/L Potassium (3.5-5.1) mmol/L Chloride (98-107) mmol/L Carbon Dioxide (22-30) mmol/L BUN (7-17) mg/dL Creatinine (0.52-1.04) mg/dL Glucose (74-99) mg/dL Calcium (8.4-10.2) mg/dL AST (14-36) U/L ALT (4-34) U/L Alkaline Phosphatase (38-126) U/L Total Protein (6.3-8.2) g/dL Albumin (3.5-5.0) g/dL Current Medications Generic Name Dose Route Start Last Admin Trade Name Freq PRN Reason Stop Dose Admin Albuterol/Ipratropium 3 ml 12/23/23 16:00 12/24/23 15:26 Ipratropium-Albuterol 3 Ml Neb INHALATION 3 ml RT-Q4H SHANICE Administration Albuterol/Ipratropium 3 ml 12/23/23 15:37 Ipratropium-Albuterol 3 Ml Neb INHALATION RT-Q2H PRN Shortness Of Breath Or Wheezing Ascorbic Acid 500 mg 12/24/23 09:00 12/24/23 10:21 Ascorbic Acid 500 Mg Tab PO 500 mg DAILY SHANICE Administration Aspirin 81 mg 12/24/23 09:00 12/24/23 10:22 Aspirin 81 Mg PO 81 mg DAILY SHANICE Administration Atorvastatin Calcium 20 mg 12/24/23 09:00 12/24/23 10:22 Atorvastatin 20 Mg Tab PO 20 mg DAILY SHANICE Administration Calcium Carbonate/Glycine 500 mg 12/24/23 09:00 12/24/23 10:21 Calcium Carbonate 500 Mg Chewable PO 500 mg DAILY SHANICE Administration Dextrose/Water 25 ml 12/23/23 15:59 Dextrose 50% Syringe 50 Ml IVP PER PROTOCOL PRN Hypoglycemia Protocol Dextrose/Water 50 ml 12/23/23 15:59 Dextrose 50% Syringe 50 Ml IVP PER PROTOCOL PRN Hypoglycemia Protocol Guaifenesin/Codeine Phosphate 5 ml 12/23/23 18:31 Guaifenesin-Coden 100-10mg/5ml 10 Ml Cup PO Q6H PRN Cough Ceftriaxone Sodium 2 gm/ 50 mls @ 100 mls/hr 12/24/23 09:00 12/24/23 10:20 Sodium Chloride IVPB 12/27/23 09:29 100 mls/hr Q24HR SHANICE Administration Protocol Azithromycin 500 mg/ Sodium 250 mls @ 250 mls/hr 12/24/23 09:00 12/24/23 11:25 Chloride IVPB 12/26/23 09:01 250 mls/hr DAILY SHANICE Administration Protocol Vancomycin HCl 750 mg/ Sodium 250 mls @ 125 mls/hr 12/24/23 05:00 12/24/23 04:57 Chloride IVPB 125 mls/hr Q12H [facility] Administration Sodium Chloride 1,000 mls @ 75 mls/hr 12/24/23 09:00 12/24/23 10:22 Saline 0.9% IV 75 mls/hr .[id number] SHANICE Administration Diltiazem HCl 125 mg/ Sodium 125 mls @ 0 mls/hr 12/24/23 13:15 Chloride IV .Q0M SHANICE Protocol Per Protocol Insulin Aspart 0 unit 12/23/23 17:30 12/24/23 12:04 Insulin Aspart (Novolog) 100 Unit/Ml Vial SQ 3 unit ACHS SHANICE Administration Protocol Insulin Aspart 5 unit 12/24/23 07:30 12/24/23 12:05 Insulin Aspart (Novolog) 100 Unit/Ml Vial SQ 5 unit AC-TID [facility] Administration Lactobacillus Acidophilus 1 each 12/24/23 09:00 12/24/23 10:21 Lactobacillus Acidophilus/Pect 1 Each Capsule PO 1 each DAILY SHANICE Administration Losartan Potassium 25 mg 12/23/23 21:00 12/24/23 10:21 Losartan 25 Mg Tab PO 25 mg BID SHANICE Administration Magnesium Oxide 400 mg 12/24/23 09:00 12/24/23 10:21 Magnesium Oxide 400 Mg Tab PO 400 mg DAILY SHANICE Administration Metoprolol Tartrate 25 mg 12/23/23 21:00 12/24/23 10:22 Metoprolol Tartrate 25 Mg Tab PO 25 mg BID SHANICE Administration Miscellaneous Information 1 each 12/23/23 09:05 Pneumonia Protocol Utilized 1 Each Misc PO ONCE PRN Per Protocol Miscellaneous Information 1 each 12/23/23 15:37 Potassium Replacement Protocol 1 Each Misc MISCELLANE DAILY PRN Per Protocol Miscellaneous Information 1 each 12/23/23 15:37 Magnesium Replacement Protocol 1 Each Misc MISCELLANE DAILY PRN Per Protocol Protocol Miscellaneous Information 0 each 12/25/23 16:00 Vancomycin Trough Due 1 Each Misc MISCELLANE 12/25/23 16:01 DIRECTED ONE Naloxone HCl 0.2 mg 12/23/23 15:37 Naloxone 0.4 Mg/Ml 1 Ml Vial IV Q2M PRN Opioid Reversal Pantoprazole Sodium 40 mg 12/24/23 07:30 12/24/23 06:15 Pantoprazole 40 Mg Tablet PO 40 mg [id number] SHANICE Administration Tramadol HCl 50 mg 12/23/23 15:41 Tramadol 50 Mg Tab PO Q8H PRN Pain Intake and Output 12/24/23 12/24/23 12/24/23 06:59 14:59 22:59 Intake Total 250 450 150 Output Total 1000 350 Balance -750 100 150 Intake: IV 250 450 150 Sodium Chloride 0.9% 1, 450 150 000 ml @ 75 mls/hr IV . [id number] [facility] Rx#:[id number] Vancomycin 750 mg In 250 Sodium Chloride 0.9% 250 ml @ 125 mls/hr IVPB ONCE [facility] Rx#:[id number] Output: Urine 1000 350 Other: Voiding Method Toilet Bedside Commode # Voids 1 Weight 51.6 kg 12/24/23 06:03 12/24/23 14:01
[2023-12-24 16:38] LABS: Glucose,Whole Blood 216 mg/dL (70-110)
[2023-12-24] MEDS: traMADol 50 MG TAB PO PRN (18:27)
[2023-12-24 18:41] LABS: Glucose, BF Source Pleural Fluid; Glucose, Body Fluid 136 mg/dL; LDH, Body Fluid Source Pleural Fluid; T. Protein, Body Fluid Source Pleural Fluid; Total Protein, Body Fluid 3220 mg/dL
--- NOTE | 2023-12-24 18:52 | US ---
EXAMINATION TYPE: US venous doppler duplex LE BI DATE OF EXAM: 12/24/2023 6:07 PM COMPARISON: NONE CLINICAL INDICATION: Female, 83 years old with history of DVT; Patient states no hx of DVT. States sh e takes a baby aspirin a day SIDE PERFORMED: Bilateral TECHNIQUE: The lower extremity deep venous system is examined utilizing real time linear array sonog zenaida with graded compression, doppler sonography and color-flow sonography. VESSELS IMAGED: Common Femoral Vein Deep Femoral Vein Greater Saphenous Vein * Femoral Vein Popliteal Vein Small Saphenous Vein * Proximal Calf Veins (* superficial vessels) Right Leg: Negative for DVT Left Leg: Negative for DVT Grayscale, color doppler, spectral doppler imaging performed of the deep veins of the bilateral lower extremities. There is normal flow, compressibility, vascular waveforms. IMPRESSION: No ultrasound evidence for acute DVT in either lower extremity.
[2023-12-24 19:59] LABS: Glucose,Whole Blood 146 mg/dL (70-110)
[2023-12-25 04:35] LABS: Mycoplasma IgG Antibody (EIA) 0.87 INDEX (<=0.90); Mycoplasma IgM Antibody 0.16 INDEX (<=0.90)
[2023-12-25 06:20] LABS: Glucose,Whole Blood 196 mg/dL (70-110)
[2023-12-25 06:31] LABS: Basophils % (A) 0 %; Eosinophils % (A) 0 %; HCT 31.7 % (34.0-46.0); HGB 10.4 gm/dL (11.4-16.0); Lymphocytes % (A) 5 %; MCH 28.9 pg (25.0-35.0); MCHC 32.9 g/dL (31.0-37.0); MCV 87.8 fL (80.0-100.0); Mean Platelet Volume 9.1; Monocytes # (A) 1.3 k/uL (0-1.0); Monocytes % (A) 7 %; Neutrophils # (A) 15.9 k/uL (1.3-7.7); Neutrophils % (A) 87 %; Platelet Count 465 k/uL (150-450); RBC 3.61 m/uL (3.80-5.40); RDW 14.3 % (11.5-15.5); WBC 18.3 k/uL (3.8-10.6)
[2023-12-25 06:41] LABS: ALT 16 U/L (4-34); AST 28 U/L (14-36); African American GFR (CKD) >90 (>60 ml/min/1.73 sqM); Albumin 1.8 g/dL (3.5-5.0); Alkaline Phosphatase 186 U/L (38-126); Anion Gap 6 mmol/L; Blood Urea Nitrogen 12 mg/dL (7-17); Calcium 6.6 mg/dL (8.4-10.2); Carbon Dioxide 19 mmol/L (22-30); Chloride 100 mmol/L (98-107); Glucose 204 mg/dL (74-99); Non-African American GFR(CKD) >90 (>60 ml/min/1.73 sqM); Potassium 4.7 mmol/L (3.5-5.1); Sodium 125 mmol/L (137-145); Total Bilirubin 0.8 mg/dL (0.2-1.3); Total Protein 3.9 g/dL (6.3-8.2)
--- NOTE | 2023-12-25 07:08 | CT ---
EXAMINATION TYPE: CT chest wo con DATE OF EXAM: 12/25/2023 COMPARISON: Prior chest x-ray earlier today. Prior chest CT 2 days ago. HISTORY: Recurrent right sided pleural effusion CT DLP: 202.3 mGycm. Automated Exposure Control for Dose Reduction was Utilized. TECHNIQUE: CT scan of the thorax is performed without IV contrast. FINDINGS: LUNGS: Persistent nonsimple moderate to large sized right-sided pleural fluid collection with associa maryana right lung compressive atelectasis. Versus an abrupt cutoff of the bronchus intermedius coronal i mage 50. Tiny left-sided pleural effusion redemonstrated. Calcified bronchi centrally redemonstrated. MEDIASTINUM: Lack of IV contrast is noted to limit evaluation for mediastinal and especially hilar ad enopathy. There are no definitive new greater than 1 cm mediastinal lymph nodes. Heart size stable an d within normal limits. OTHER: Moderate diffuse subcutaneous chest wall edema redemonstrated. IMPRESSION: Persistent large nonsimple right pleural fluid collection and associated compressive atel ectasis. Abrupt cut off of the central bronchi noted. Underlying neoplasm needs to be considered. Con casserole preparer PET CT and/or bronchoscopy and/or thoracentesis for diagnostic purposes to further evaluate. No significant change from CT 2 days earlier.
--- NOTE | 2023-12-25 07:47 | XR ---
EXAMINATION TYPE: XR chest 1V DATE OF EXAM: 12/25/2023 COMPARISON: 12/24/2023 HISTORY: Cough TECHNIQUE: Single frontal view of the chest is obtained. FINDINGS: There is increasing right-sided pleural effusion with consolidation. Left-sided consolidat ion and tiny effusion. No overt failure. Heart size stable. Diffuse osteopenia and arthropathy of the shoulders. Degenerative change of the spine. IMPRESSION: 1. Moderate to large right pleural effusion and consolidation. 2. Small tiny left pleural effusion with basilar consolidation.
[2023-12-25] MEDS: GABAPENTIN 400 MG CAP PO SCH (09:51)
[2023-12-25 11:31] LABS: Glucose,Whole Blood 221 mg/dL (70-110)
--- NOTE | 2023-12-25 12:13 | P.PN ---
Subjective patient is seen for follow-up for hyponatremia. Maintained on normal saline. Serum sodium improved from 119-125. It has not increased further today. Right pleural effusion has recurred and patient scheduled to have catheter placed today. There is also plan for bronchoscopy to rule out any underlying mass based on CT chest findings. No complaints of shortness of breath. Leg swelling appears slightly worse today. Objective - Vital Signs Vital signs: Vital Signs Temp 97.7 F 12/25/23 10:00 Pulse 86 12/25/23 10:00 Resp 16 12/25/23 10:00 BP 140/62 12/25/23 11:00 Pulse Ox 100 12/25/23 10:00 FiO2 Intake & Output 12/24/23 12/25/23 12/25/23 18:59 06:59 18:59 Intake Total 1325 1075 860 Output Total 635 700 Balance 690 375 860 Weight 61.2 kg Intake: IV 825 1075 310 Sodium Chloride 0.9% 1, 825 825 310 000 ml @ 75 mls/hr IV . [id number] [facility] Rx#:[id number] Vancomycin 750 mg In 250 Sodium Chloride 0.9% 250 ml @ 125 mls/hr IVPB ONCE [facility] Rx#:[id number] Intake, IV Titration 300 Amount Azithromycin 500 mg In 250 Sodium Chloride 0.9% 250 ml @ 250 mls/hr IVPB DAILY [facility] Rx#:[id number] cefTRIAXone 2 gm In 50 Sodium Chloride 0.9% 50 ml @ 100 mls/hr IVPB Q24HR [facility] Rx#:[id number] Oral 500 250 Output: Urine 550 700 Post Void Residual 85 Other: Voiding Method Bedside Commode Bedside Commode Bedside Commode # Voids 1 # Bowel Movements 1 - Exam patient is awake, comfortable, no acute distress. Examination of the heart S1 and S2 Examination of the lungs bilateral breath sounds are heard Abdomen is soft nontender Examination of lower extremity shows edema 2+ bilaterally [employer] exam grossly intact - Labs CBC & Chem 7: 12/25/23 05:53 12/25/23 05:53 Labs: Abnormal Lab Results - Last 24 Hours (Table) 12/24/23 12/24/23 12/24/23 Range/Units 11:06 14:01 16:36 WBC (3.8-10.6) k/uL RBC (3.80-5.40) m/uL Hgb (11.4-16.0) gm/dL Hct (34.0-46.0) % Plt Count (150-450) k/uL Neutrophils # (1.3-7.7) k/uL Monocytes # (0-1.0) k/uL ESR 32 H (0-30) mm/Hr Sodium 121 L (137-145) mmol/L Carbon Dioxide (22-30) mmol/L Creatinine (0.52-1.04) mg/dL Glucose (74-99) mg/dL POC Glucose (mg/dL) 216 H (70-110) mg/dL Calcium (8.4-10.2) mg/dL Alkaline Phosphatase (38-126) U/L Total Protein (6.3-8.2) g/dL Albumin (3.5-5.0) g/dL 12/24/23 12/24/23 12/25/23 Range/Units 19:58 21:03 05:53 WBC 18.3 H (3.8-10.6) k/uL RBC 3.61 L (3.80-5.40) m/uL Hgb 10.4 L (11.4-16.0) gm/dL Hct 31.7 L (34.0-46.0) % Plt Count 465 H (150-450) k/uL Neutrophils # 15.9 H (1.3-7.7) k/uL Monocytes # 1.3 H (0-1.0) k/uL ESR (0-30) mm/Hr Sodium 125 L (137-145) mmol/L Carbon Dioxide (22-30) mmol/L Creatinine (0.52-1.04) mg/dL Glucose (74-99) mg/dL POC Glucose (mg/dL) 146 H (70-110) mg/dL Calcium (8.4-10.2) mg/dL Alkaline Phosphatase (38-126) U/L Total Protein (6.3-8.2) g/dL Albumin (3.5-5.0) g/dL 12/25/23 12/25/23 12/25/23 Range/Units 05:53 06:19 11:29 WBC (3.8-10.6) k/uL RBC (3.80-5.40) m/uL Hgb (11.4-16.0) gm/dL Hct (34.0-46.0) % Plt Count (150-450) k/uL Neutrophils # (1.3-7.7) k/uL Monocytes # (0-1.0) k/uL ESR (0-30) mm/Hr Sodium 125 L (137-145) mmol/L Carbon Dioxide 19 L (22-30) mmol/L Creatinine 0.44 L (0.52-1.04) mg/dL Glucose 204 H (74-99) mg/dL POC Glucose (mg/dL) 196 H 221 H (70-110) mg/dL Calcium 6.6 L (8.4-10.2) mg/dL Alkaline Phosphatase 186 H (38-126) U/L Total Protein 3.9 L (6.3-8.2) g/dL Albumin 1.8 L (3.5-5.0) g/dL Microbiology - Last 24 Hours (Table) 12/23/23 13:28 Gram Stain - Preliminary Pleural Fluid Body Fluid Culture - Preliminary 12/23/23 08:24 Blood Culture - Preliminary Blood 12/23/23 08:24 Blood Culture - Preliminary Blood Assessment and Plan Assessment: 1. Hyponatremia, appears mildly hypervolemic clinically. Low urine sodium suggestive of underlying volume depletion. Serum sodium improved with normal saline. Serum sodium at 125 yesterday and today. Leg swelling appears slightly worse today. Sodium will be rechecked later this afternoon and if there is no further improvement I will discontinue IV fluids. 2. Right pleural effusion status post thoracentesis of 1.6 L. Most likely related to pneumonia. Pleural effusion has recurred again today and patient is scheduled to have a pigtail catheter placed. Plan for bronchoscopy tomorrow to rule out underlying malignancy. 3. Acute hypoxic respiratory failure secondary to pneumonia and large right pleural effusion, status post thoracentesis 4. Type 2 diabetes 5. History of fall few weeks ago with pelvic fracture. Plan: May continue with saline and repeat sodium this afternoon. If there is no further improvement in serum sodium I will discontinue the saline. repeat labs in a.m.
--- NOTE | 2023-12-25 12:50 | US ---
Ultrasound-guided right chest tube insertion thoracentesis DATE OF EXAM: 12/25/2023 CLINICAL HISTORY: Recurrent large right pleural effusion The procedure was discussed with the patient. The risks, complications, benefits, and alternatives we re discussed and any questions were answered. Informed consent was obtained. The patient was placed supine on the ultrasound table and prepped and draped in the usual sterile fas hion. All elements of maximal barrier and sterile technique were utilized. Under ultrasound guidance, access into the pleural space was obtained, via the tail catheter system and direct ultrasound guidance. Repeat imag ing demonstrated ideal placement of the catheter. The patient was stable throughout the procedure and remained stable upon discharge from Department of Radiology. IMPRESSION: 1. Successful right-sided pigtail chest tube catheter insertion under ultrasound guidance.
--- NOTE | 2023-12-25 13:29 | P.PN ---
Subjective Progress Note Date: 12/25/23 HISTORY OF PRESENTING ILLNESS 83-year-old female who came to the emergency department because of increased shortness of breath. Patient has been having progressively worsening symptoms over last 1 week along with increased cough and chest congestion along with chest tightness. Patient has also been feeling more confused and weak over the last 1 to 2 weeks. Few weeks ago patient had a fall and sustained a pelvic fracture which has been managed conservatively. On admission she was noticed to have a WBC count of 34,000, hemoglobin 14.8. She also had hyponatremia with sodium of 116, potassium 5.9, bicarb 21, BUN 18, creatinine 0.4. Her troponin was not elevated. Her NT proBNP was 5000. She also had mild elevated lactate. Her CT scan of chest showed large right-sided pleural effusion with compression atelectasis of the right lung. She [id number] right thoracentesis with drainage of 1.6 L of fluid. Currently she has been treated for pneumonia with IV antibiotics, and hyponatremia. Patient is previously known to Dr. Wilburn. This time cardiology is consulted because of concerns of atrial fibrillation. On review of her ECG and telemetry it appears that patient is not in atrial fibrillation but rather is in multifocal atrial tachycardia along with frequent premature atrial contractions. Patient denies any prior history of reported atrial fibrillation. Resting ECG does not show significant ST deviations that are diagnostic for ischemia. Her echocardiogram showed an preserved LV systolic function with a EF of 55 to 60%, mild LVH, with no major valvular abnormality. Progress note 12/25/2023 Patient is doing well from cardiovascular standpoint. She is still continuing to have sinus tachycardia with frequent PACs. There is no evidence of atrial fibrillation noticed on telemetry. Patient sodium is improving, sodium 125 today, creatinine 0.4. Hemoglobin has dropped from 14 on admission to 10.4 today. WBC count has improved to 18,000. Normotensive much more alert and oriented since admission PHYSICAL EXAMINATION Vital signs reviewed. Head: Normocephalic. Eyes: Sclerae nonicteric. Neck: Brisk carotid upstroke, no jugular venous distention. Lungs: Clear to auscultation. Heart: irregular rhythm, S1-S2, no S3, no murmur or rub. Abdomen: Soft nontender, positive bowel sounds. Extremities: No edema, intact distal pulses. Neuro: Alert, oritented, no focal deficits. Detailed neuro exam was not performed. ASSESSMENT Tachycardia, likely multifocal atrial tachycardia along with frequent PACs Community-acquired pneumonia with large right-sided pleural effusion s/p thoracentesis with removal of 1.6 L fluid. Likely parapneumonic. Await fluid analysis, cytology and culture reports Hyponatremia and hyperkalemia. High urine osmolality with low urine sodium suggestive of intravascular depletion Generalized weakness and fatigue Pelvic fracture from mechanical fall few weeks ago Bilateral lower extremity swelling Diabetes mellitus, insulin-dependent Hypertension Debility and frailty Cardiac testing Echo showed preserved LV systolic function, LVH with no significant valvular dysfunction Bilateral lower extremity Doppler did not show any evidence of DVT PLAN Less likely atrial fibrillation. Will continue to monitor telemetry. She might benefit from an event monitor at the time of discharge. Continue aspirin, atorvastatin, losartan 25mg, metoprolol 25 mg Discontinue lisinopril Nephrology and ICU team managing hyponatremia Patient has recollection of fluid after thoracentesis in right pleural space. Further she is being evaluated for possible IR guided pleural drain placement. Objective - Vital Signs Vital signs: Vital Signs Temp 97.7 F 12/25/23 10:00 Pulse 81 12/25/23 12:40 Resp 16 12/25/23 12:40 BP 140/80 12/25/23 12:40 Pulse Ox 96 12/25/23 12:40 FiO2 Intake & Output 12/24/23 12/25/23 12/25/23 18:59 06:59 18:59 Intake Total 1325 1075 860 Output Total 635 700 Balance 690 375 860 Weight 61.2 kg Intake: IV 825 1075 310 Sodium Chloride 0.9% 1, 825 825 310 000 ml @ 75 mls/hr IV . [id number] [facility] Rx#:[id number] Vancomycin 750 mg In 250 Sodium Chloride 0.9% 250 ml @ 125 mls/hr IVPB ONCE [facility] Rx#:[id number] Intake, IV Titration 300 Amount Azithromycin 500 mg In 250 Sodium Chloride 0.9% 250 ml @ 250 mls/hr IVPB DAILY [facility] Rx#:[id number] cefTRIAXone 2 gm In 50 Sodium Chloride 0.9% 50 ml @ 100 mls/hr IVPB Q24HR [facility] Rx#:[id number] Oral 500 250 Output: Urine 550 700 Post Void Residual 85 Other: Voiding Method Bedside Commode Bedside Commode Bedside Commode # Voids 1 # Bowel Movements 1 - Labs CBC & Chem 7: 12/25/23 05:53 12/25/23 05:53 Labs: Abnormal Lab Results - Last 24 Hours (Table) 12/24/23 12/24/23 12/24/23 Range/Units 11:06 14:01 16:36 WBC (3.8-10.6) k/uL RBC (3.80-5.40) m/uL Hgb (11.4-16.0) gm/dL Hct (34.0-46.0) % Plt Count (150-450) k/uL Neutrophils # (1.3-7.7) k/uL Monocytes # (0-1.0) k/uL ESR 32 H (0-30) mm/Hr Sodium 121 L (137-145) mmol/L Carbon Dioxide (22-30) mmol/L Creatinine (0.52-1.04) mg/dL Glucose (74-99) mg/dL POC Glucose (mg/dL) 216 H (70-110) mg/dL Calcium (8.4-10.2) mg/dL Alkaline Phosphatase (38-126) U/L Total Protein (6.3-8.2) g/dL Albumin (3.5-5.0) g/dL 12/24/23 12/24/23 12/25/23 Range/Units 19:58 21:03 05:53 WBC 18.3 H (3.8-10.6) k/uL RBC 3.61 L (3.80-5.40) m/uL Hgb 10.4 L (11.4-16.0) gm/dL Hct 31.7 L (34.0-46.0) % Plt Count 465 H (150-450) k/uL Neutrophils # 15.9 H (1.3-7.7) k/uL Monocytes # 1.3 H (0-1.0) k/uL ESR (0-30) mm/Hr Sodium 125 L (137-145) mmol/L Carbon Dioxide (22-30) mmol/L Creatinine (0.52-1.04) mg/dL Glucose (74-99) mg/dL POC Glucose (mg/dL) 146 H (70-110) mg/dL Calcium (8.4-10.2) mg/dL Alkaline Phosphatase (38-126) U/L Total Protein (6.3-8.2) g/dL Albumin (3.5-5.0) g/dL 12/25/23 12/25/23 12/25/23 Range/Units 05:53 06:19 11:29 WBC (3.8-10.6) k/uL RBC (3.80-5.40) m/uL Hgb (11.4-16.0) gm/dL Hct (34.0-46.0) % Plt Count (150-450) k/uL Neutrophils # (1.3-7.7) k/uL Monocytes # (0-1.0) k/uL ESR (0-30) mm/Hr Sodium 125 L (137-145) mmol/L Carbon Dioxide 19 L (22-30) mmol/L Creatinine 0.44 L (0.52-1.04) mg/dL Glucose 204 H (74-99) mg/dL POC Glucose (mg/dL) 196 H 221 H (70-110) mg/dL Calcium 6.6 L (8.4-10.2) mg/dL Alkaline Phosphatase 186 H (38-126) U/L Total Protein 3.9 L (6.3-8.2) g/dL Albumin 1.8 L (3.5-5.0) g/dL Microbiology - Last 24 Hours (Table) 12/23/23 13:28 Gram Stain - Preliminary Pleural Fluid Body Fluid Culture - Preliminary 12/23/23 08:24 Blood Culture - Preliminary Blood 12/23/23 08:24 Blood Culture - Preliminary Blood
--- NOTE | 2023-12-25 13:47 | P.PN ---
Subjective Progress Note Date: 12/25/23 This is a 83-year-old female patient who came to the emergency department with increased shortness of breath. Her breathing was progressively getting worse over the past 1 week. She had increased cough congestion chest tightness and wheezing and she was having chills at home. She was given outpatient antibiotic therapy with Zithromax and her condition decompensated and she ended up coming into the hospital. The patient has been having some chest discomfort along the right chest. She had a fall approximately few weeks back and she also sustained a pelvic fracture. She is a lifetime non-smoker. She came to the emergency department and the patient had a white cell count of 34 with a hemoglobin 14.8. Her sodium level was 116 with a potassium level of 5.9 and a serum bicarb was at 21. BUN was 18 with a creatinine of 0.4. Troponin was 0.07. proBNP level was 5000. The viral screen was negative. Initial lactic acid level was at 2.1 and dropped down to 1.6. Coagulation profile was normal with a D-dimer of 2.6. Initial chest x-ray showed a large right-sided pleural effusion. CAT scan of the chest was also done in the Emergency Department that showed no evidence of any central pulmonary embolism. There was a large right-sided pleural effusion with near complete opacification and compression of the right lung. There was also abnormal attenuation within the right mainstem right middle lobe and right lower lobe bronchus and aspiration was suspected. I saw the patient in the e mergency department. She was quite short of breath and she was on oxygen at 5 L/min nasal cannula. Her pulse ox was as in the low 90s. I performed a bedside thoracentesis a total of 1.6 L of pleural fluid is aspirated. No complications. The post thoracentesis chest x-ray showed interval marked reduction in the right-sided pleural effusion without evidence of any pneumothorax. The patient was started on broad-spectrum antibiotics and she is currently on a combination of Rocephin and Zithromax and vancomycin. She is diabetic. She takes insulin on outpatient basis. She also has history of hypertension and hyperlipidemia. Currently she is also on IV fluids and the patient is on normal saline which is running at a rate of 75 cc an hour. No altered mentation. No seizure activity. On 12/24/2023, the patient is feeling better. The patient is less short of breath and currently she is on 2 L of oxygen by nasal cannula. Her breathing is more comfortable. Thoracentesis was done yesterday and the pleural fluid analysis still pending. Cultures are still pending. Legionella urine antigen is negative. Echocardiogram showed a preserved LV function, no significant valvular abnormalities. The white cell count is currently down to 26 with a hemoglobin 13.1 and a platelet count of 491. Sodium is 119 improved compared to yesterday and the urine sodium is essentially low less than 20, not typical of SIADH. Serum bicarb is 18 with a BUN of 16 and a creatinine of 0.4. She remain s on Rocephin and Zithromax and vancomycin. Metoprolol was restarted. He is also on Zestril 40 mg p.o. daily for blood pressure control. She is on NovoLog 5 units 3 times daily with meals plus a sliding scale coverage. She remains on bronchodilators. On today's evaluation on 12/25/2023, the patient is being seen for a follow- up.The patient has no specific complaints. She seems to be less short of breath. She is on 4 L of oxygen by nasal cannula with a pulse ox of 96%. She remains on a combination of Rocephin and Zithromax and vancomycin. The white cell count is improving is currently down to 18.3 with a hemoglobin of 10.5 and a platelet count of 465. Sodium levels of 125. BUN is 12 with a creatinine of 0.4 and the patient is currently nondistended. Exercises an hour. On a separ ate note, chest x-ray that was done today showed further opacification of the right lung compared to yesterday chest x-ray. Based on that, a CAT scan of the chest was done and it showed a moderate to large right-sided pleural fluid collection along with compressive atelectasis of the right lung. There was also extensive calcification of the bronchi bilaterally more so on the right lower lobe bronchus and there was also a filling defect in the right lower lobe bronchus that was not felt to be patent. There is an abrupt cut off sign in the bronchus intermedius/right lower lobe area. Based on those findings, I recommended a pigtail catheter insertion and this will be done by interventional radiology today to be followed up by bronchoscopy in a.m. The pleural fluid is aspirated earlier was an accident with elevated LDH of 610 and a protein of 3.2 g. Glucose was at 136. Cell count was 1000. The fluid cytology still pending for now. The Gram stain culture is also negative. Objective - Vital Signs Vital signs: Vital Signs Temp 98.6 F 12/25/23 04:00 Pulse 98 12/25/23 08:13 Resp 21 12/25/23 07:00 BP 126/53 12/25/23 07:00 Pulse Ox 95 12/25/23 07:00 FiO2 Intake & Output 12/24/23 12/25/23 12/25/23 18:59 06:59 18:59 Intake Total 1325 1075 75 Output Total 635 700 Balance 690 375 75 Weight 61.2 kg Intake: IV 825 1075 75 Sodium Chloride 0.9% 1, 825 825 75 000 ml @ 75 mls/hr IV . [id number] [facility] Rx#:[id number] Vancomycin 750 mg In 250 Sodium Chloride 0.9% 250 ml @ 125 mls/hr IVPB ONCE [facility] Rx#:[id number] Oral 500 Output: Urine 550 700 Post Void Residual 85 Other: Voiding Method Bedside Commode Bedside Commode # Voids 1 # Bowel Movements 1 - Exam Calm and comfortable mild degree of respiratory distress, BMI 17.6 currently on 4 L of O2 nasal cannula Head exam was generally normal. There was no scleral icterus or corneal arcus. Mucous membranes were moist. Neck was supple and without jugular venous distension, thyromegaly, or carotid bruits. Carotids were easily palpable bilaterally. There was no adenopathy. Lung sounds revealed improved breath sounds right lung base. Some limited crackles. Left lung is clear. Cardiac exam revealed the PMI to be normally situated and sized. The rhythm was regular and no extrasystoles were noted during several minutes of auscultation. The first and second heart sounds were normal and physiologic splitting of the second heart sound was noted. There were no murmurs, rubs, clicks, or gallops. Abdominal exam revealed normal bowel sounds. The abdomen was soft, non-tender, and without masses, organomegaly, or appreciable enlargement of the abdominal aorta. Examination of the extremities revealed easily palpable radial, femoral and pedal pulses. There was no cyanosis, clubbing or edema., Trace ankle edema Examination of the skin revealed no evidence of significant rashes, suspicious appearing nevi or other concerning lesions. Neurologically, the patient is awake and alert and the patient does not have any focal neurological deficit. Cranial nerves are essentially intact. - Labs CBC & Chem 7: 12/25/23 05:53 12/25/23 05:53 Labs: Abnormal Lab Results - Last 24 Hours (Table) 12/24/23 12/24/23 12/24/23 Range/Units 11:06 11:36 14:01 WBC (3.8-10.6) k/uL RBC (3.80-5.40) m/uL Hgb (11.4-16.0) gm/dL Hct (34.0-46.0) % Plt Count (150-450) k/uL Neutrophils # (1.3-7.7) k/uL Monocytes # (0-1.0) k/uL ESR 32 H (0-30) mm/Hr Sodium 121 L (137-145) mmol/L Carbon Dioxide (22-30) mmol/L Creatinine (0.52-1.04) mg/dL Glucose (74-99) mg/dL POC Glucose (mg/dL) 261 H (70-110) mg/dL Calcium (8.4-10.2) mg/dL Alkaline Phosphatase (38-126) U/L Total Protein (6.3-8.2) g/dL Albumin (3.5-5.0) g/dL 12/24/23 12/24/23 12/24/23 Range/Units 16:36 19:58 21:03 WBC (3.8-10.6) k/uL RBC (3.80-5.40) m/uL Hgb (11.4-16.0) gm/dL Hct (34.0-46.0) % Plt Count (150-450) k/uL Neutrophils # (1.3-7.7) k/uL Monocytes # (0-1.0) k/uL ESR (0-30) mm/Hr Sodium 125 L (137-145) mmol/L Carbon Dioxide (22-30) mmol/L Creatinine (0.52-1.04) mg/dL Glucose (74-99) mg/dL POC Glucose (mg/dL) 216 H 146 H (70-110) mg/dL Calcium (8.4-10.2) mg/dL Alkaline Phosphatase (38-126) U/L Total Protein (6.3-8.2) g/dL Albumin (3.5-5.0) g/dL 12/25/23 12/25/23 12/25/23 Range/Units 05:53 05:53 06:19 WBC 18.3 H (3.8-10.6) k/uL RBC 3.61 L (3.80-5.40) m/uL Hgb 10.4 L (11.4-16.0) gm/dL Hct 31.7 L (34.0-46.0) % Plt Count 465 H (150-450) k/uL Neutrophils # 15.9 H (1.3-7.7) k/uL Monocytes # 1.3 H (0-1.0) k/uL ESR (0-30) mm/Hr Sodium 125 L (137-145) mmol/L Carbon Dioxide 19 L (22-30) mmol/L Creatinine 0.44 L (0.52-1.04) mg/dL Glucose 204 H (74-99) mg/dL POC Glucose (mg/dL) 196 H (70-110) mg/dL Calcium 6.6 L (8.4-10.2) mg/dL Alkaline Phosphatase 186 H (38-126) U/L Total Protein 3.9 L (6.3-8.2) g/dL Albumin 1.8 L (3.5-5.0) g/dL Microbiology - Last 24 Hours (Table) 12/23/23 08:24 Blood Culture - Preliminary Blood 12/23/23 08:24 Blood Culture - Preliminary Blood 12/23/23 13:28 Gram Stain - Preliminary Pleural Fluid Assessment and Plan Plan: Acute hypoxic respiratory failure currently on 4 L of oxygen by nasal cannula, improved compared to yesterday Large right-sided pleural effusion with compressive atelectasis of the right lung, likely parapneumonic in nature. Thoracentesis was done and approximately 1.6 L of turbid pleural fluid was aspirated from the right lung. The pleural fluid is an exudate. Culture is still pending for now. The follow-up chest x- ray showed reaccumulation of a moderate to large size right-sided pleural effusion along with compressive atelectasis of the right lung base. There is also extensive calcification of the airways and the right mainstem bronchus, bronchus remains in the right lower lobe bronchus and there is also an abrupt cut off sign. This could be mucus. This could be also malignancy. Right lung pneumonia, clinically suspected Acute leukocytosis, improving Mild lactic acidosis, improved Hyponatremia, likely acute, could be related to above mentioned pneumonia, consider hypovolemic hyponatremia. Underlying mild component of SIADH related to pneumonia cannot be completely ruled out, yet the urine sodium was less than 20, not typical of SIADH. Sodium levels of 125 Diabetes mellitus type 1 maintained on insulin on outpatient basis Hypertension Hyperlipidemia Recent fall with pelvic fracture Generalized weakness and fatigue secondary to above Plan Titrate oxygen flow to maintain saturation above 90% currently on 4 L/min nasal cannula Provide the patient w incentive spirometer Thoracentesis was performed cytology and cultures Cover the patient with Rocephin Zithromax and vancomycin Check procalcitonin level, mildly elevated Follow-up chest x-ray from today shows recurrent pleural effusion. CAT scan of the chest was noted. Recommend interventional radiology consult the pigtail catheter into the right hemithorax for constant drainage and thrombolytics if needed. Meanwhile, the patient will be kept n.p.o. after midnight for bronchoscopy and airway inspection to be done tomorrow. This was discussed with the patient's daughter. Check blood cultures Daily chest x-rays IV fluids with normal saline at rate of 75 cc an hour Nephrology regarding hyponatremia, sodium level is improving Obtain echocardiogram was noted and the patient has a preserved LV function Continue bronchodilators Will continue to follow.
[2023-12-25 16:46] LABS: Glucose,Whole Blood 177 mg/dL (70-110)
[2023-12-25] MEDS: VANCOMYCIN TROUGH DUE 1 EACH MISC MISCELLANE ONE (17:27)
[2023-12-25] MEDS: VANCOMYCIN 1,000 MG in SODIUM CHLORIDE 0.9% 250 ML IVPB SCH (17:29)
[2023-12-25 18:20] LABS: Glucose,Whole Blood 258 mg/dL (70-110)
[2023-12-25] MEDS: HYDROcodone/APAP 5-325MG 1 EACH TAB PO PRN (18:31)
[2023-12-25 20:50] LABS: Glucose,Whole Blood 245 mg/dL (70-110)
--- NOTE | 2023-12-25 22:19 | P.PN ---
Subjective Progress Note Date: 12/25/23 HISTORY OF PRESENT ILLNESS: 83-year-old office patient for many years with active medical history of insulin-dependent type 2 diabetes, hypertension, hyperlipidemia, neuropathy, history of spinal stenosis, who has mild bradycardia otherwise healthy doing well has not been in the hospital long time she had a fall 2 weeks ago to the right side and developed pelvic and did not require to be hospitalized but ended up seen Dr. Wisdom as an outpatient. Also patient had open communicated distal radius fracture back in 2022 secondary to minor fall ended up having open reduction with internal fixation and irrigation debridement of the right wrist fracture. Patient seen cardiology in the last few years in 2021 was admitted to the hospital because of an episode of palpitation with pulse rate of 160 bpm found to have paroxysmal SVT and elevated troponin with no cardiac injury or any other cardiac history has been on beta-yahir been well-controlled since. I received a phone call from the yesterday with complain that his has been in extreme shortness of breath and been symptomatic and for the previous 5 days she had a virtual visit in the office for severe bronchitis was prescribed antibiotics and some expectorant which patient had felt slightly bit better but become much worse over the last 2 days to a degree becoming extreme dyspnea with minimal exertion. Was instructed to bring her to the emergency department to be seen and evaluated. Patient apparently decided not to come to the emergency department till early this morning on 12/23/2023 where was seen and evaluated was severely hypoxic at the time her chest x-ray showed very large right-sided pleural effusion almost occupying 90% out of the right lung. D-dimer was elevated and patient ended up for CTA finding with no pulmonary embolism large right-sided pleural effusion with near complete compression of the right lung there is an abnormal attenuation within the right mainstrem middle lobe and lower lobe bronchus which could be related to aspiration also there is only slight left pleural effusion as well with subsegmental area of consolidation favored to atelectasis versus pneumonitis. With pulse ox running quite a bit low at the time required 4 L of O2 to keep her pulse ox above 90 percentile and laboratory value showing sodium of 116 with normal creatinine and GFR with blood sugar of 292 white blood cell was 34,500 with platelet count 537 mildly elevated troponin 0.07 with lactic acid at 1.6 proBNP at 5090 with alk phos of 289. Patient ended up seeing Dr. Helms and in the emergency department who is done a consultation and decided to transfer the patient to the intensive care unit and ended up performing bedside thoracentesis for total of 1.6 L of pleural fluid is aspirated with no complication fluid was not bloody followed by chest x-ray showed fairly expansion of the lung only. Patient was transferred to the ICU and admitted for severe large sided pleural effusion, possible aspiration pneumonia with sepsis, severe hyponatremia. Will consult nephrology as well for the severity of her hyponatremia. 11/23/2023: Patient is resting comfortably in the chair this morning, her sodium is up to 119 from 116 early, kidney function still good, blood sugar still slightly bit elevated required 2 units of insulin every time she is having her Accu-Chek. Chest x-ray still showing significant amount of pleural effusion around the right side which might require another thoracentesis today or tomorrow. She still seen nephrology for probably increase her sodium tablet and little bit more restriction on IV fluid. Tachycardia has improved compared to yesterday also patient is not hypoxic but still required 2 L of O2 to keep her pulse ox above 92 percentile. Legionella antibody was negative still waiting for mycoplasma and further analysis of her thoracentesis fluid. Also echocardiogram came back with no major abnormality to create any pleural effusion. 11/24/2023: With the recurrent pleural effusion pulmonary decided to accelerate this into setting up patient for pigtail catheter placement in the pleural space by radiology to be able to drain pleural fluid when needed. Apparently with patient is not improving as fast as expected earlier consideration including possibility of malignancy is quite bit high at this point chest x-ray apparently showed further opacification of the right lung compared to the one from yesterday chest CAT scan showed moderate right-sided pleural fluid collection along with compressive atelectasis of the right side and there was extensive calcification and bronchial bilaterally more on the right lower lobe bronchus and there were also filling defect in the right lower lobe that was not felt to be patent. After pigtail catheter placement patient will be going for bronchoscopy to see if he have any malignancy in the lung. Still awaiting the final analysis of the pleural fluid. Sodium has been improved up to 125 today blood sugar still mildly elevated at some point. Oxygen level has been better so far. She is remain having slight tachycardia likely multifocal atrial tachycardia along with frequent PACs will continue Cardizem and metoprolol patient does not need to be on anticoagulation. REVIEW OF SYSTEMS: CONSTITUTIONAL: Well-developed in acute respiratory distress. EYES: No icterus sclerae, no conjunctivitis. EARS, NOSE, MOUTH, THROAT, and FACE: No sore throat, lymphadenopathy, carotid bruits or deformity. RESPIRATORY: Positive shortness of breath cough or wheezes. CARDIOVASCULAR: Positive PND orthopnea palpitation. GASTROINTESTINAL: No Abd pain, Nausea or vomiting, no Diarrhea or constipation, No GI Bleed, no distention or masses. GENITOURINARY: Negative for Hematuria or UTI, no kidney stones. INTEGUMENT/BREAST: Negative for any muscular injury with mild osteoarthritis.. HEMATOLOGIC/LYMPHATIC: Negative for bleed or purpura. MUSCULOSKELTAL: Negative for Myalgia or arthralgia. NEURLOGICAL: No LOC, Sz or syncope, blurred vision dizziness or abnormality.. BEHAVIORAL/PSYCH: Negative. ENDOCRINE: Negative. PHYSICAL EXAMINATION: General Appearance: Alert, cooperative, in mild respiratory distress. Neck HEENT: Supple, no lymphadenopathy, no thyroid enlargement, no carotid bruits. Lungs: Significantly decreased breath sound in the right side all the way to have the way up significant rhonchi and mild crackles in the bases as well with mild expiratory wheezes. Chest Wall: Decreased expansion with deep inspiration no tenderness and no deformity was found on exam, no costochondral pain or discomfort. No sign of trauma or bruise to the rib cage area. Heart: Regular rate and rhythm with mild tachycardia, S1, S2 normal, no murmur, rub or gallop. Back: Symmetric, no curvature, ROM normal, no CVA tenderness. Abdomen: Soft, non-tender, bowel sounds active all four quadrants, no masses, no organomegaly. Extremities: Extremities normal, atraumatic, no cyanosis or edema. Pulses: 2+ and symmetric. Skin: Skin color, texture, tugor normal, no rashes or lesions. Neurologic: Alert oriented x3 cranial nerves II through XII intact, no motor deficit, no abnormal balance or gait. ASSESSMENT AND PLAN: _Acute hypoxic respiratory failure: Secondary to large right-sided pleural effusion and possible aspiration pneumonia, thoracentesis was done, patient still on higher oxygen does not require to be on BiPAP anymore and slightly better compared to before. _Severe large right-sided pleural effusion with compression of the right lung thoracentesis of 1.6 L of terabyte pleural fluid without any blood will be sent for analysis. With the area still not a clear and accumulating fast plus there is more finding for consolidation pigtail catheter was ordered by radiology and patient be going for bronchoscopy tomorrow. _Aspiration pneumonia: Remain on Rocephin, azithromycin and Vanco. Waiting for the final culture. _Severe hyponatremia: Sodium has improved some since continue sodium tablet and fluid restriction continue to watch improvement of this to see if there is any other explanation for SIADH including malignancy. _Severe acute leukocytosis: Mostly secondary to sepsis and mostly from aspiration pneumonia, white blood cell is down to 28,000, continue current antibiotics. _Type 1 diabetes: Was on Fiasp insulin at home between 5 and 10 unit AC meals 3 times a day, patient is on 5 units AC meals plus sliding scales here require over 25 to 30 units of insulin by the end of the day. _Hypertension: Still holding lisinopril and hydralazine. _Neuropathy: Continue gabapentin doing slightly better. _Recent history of pelvic fracture has been seen orthopedic. _Hyperlipidemia: Remain on rosuvastatin 10 mg a day. _Tachycardia and multifocal PACs: Remain on metoprolol and if needed will add Cardizem drip. CODE STATUS: Full code. Discussion patient be going for pigtail catheter and scheduled for colonoscopy hopefully by tomorrow. Objective - Vital Signs Vital signs: Vital Signs Temp 98.6 F 12/25/23 04:00 Pulse 98 12/25/23 05:00 Resp 12 12/25/23 05:00 BP 137/53 12/25/23 05:00 Pulse Ox 95 12/25/23 05:00 FiO2 Intake & Output 12/24/23 12/24/23 12/25/23 06:59 18:59 06:59 Intake Total 250 1325 1000 Output Total 1200 635 500 Balance -950 690 500 Weight 51.6 kg 61.2 kg Intake: IV 464 222 4765 Sodium Chloride 0.9% 1, 825 750 000 ml @ 75 mls/hr IV . [id number] SHANICE Rx#:[id number] Vancomycin 750 mg In 250 250 Sodium Chloride 0.9% 250 ml @ 125 mls/hr IVPB ONCE STA Rx#:[id number] Oral 500 Output: Urine 1200 550 500 Post Void Residual 85 Other: Voiding Method Toilet Bedside Commode Bedside Commode # Voids 1 # Bowel Movements 1 - Labs CBC & Chem 7: 12/25/23 05:53 12/25/23 15:26 Labs: Abnormal Lab Results - Last 24 Hours (Table) 12/24/23 12/24/23 12/24/23 Range/Units 06:03 06:03 06:08 WBC 26.9 H (3.8-10.6) k/uL Plt Count 495 H (150-450) k/uL Neutrophils # 24.5 H (1.3-7.7) k/uL Lymphocytes # 0.7 L (1.0-4.8) k/uL Monocytes # 1.4 H (0-1.0) k/uL ESR (0-30) mm/Hr Sodium 119 L* (137-145) mmol/L Potassium 5.2 H (3.5-5.1) mmol/L Chloride 94 L (98-107) mmol/L Carbon Dioxide 18 L (22-30) mmol/L Creatinine 0.45 L (0.52-1.04) mg/dL Glucose 264 H (74-99) mg/dL POC Glucose (mg/dL) 253 H (70-110) mg/dL Calcium 7.0 L (8.4-10.2) mg/dL Alkaline Phosphatase 215 H (38-126) U/L Total Protein 4.4 L (6.3-8.2) g/dL Albumin 2.2 L (3.5-5.0) g/dL 12/24/23 12/24/23 12/24/23 Range/Units 11:06 11:36 14:01 WBC (3.8-10.6) k/uL Plt Count (150-450) k/uL Neutrophils # (1.3-7.7) k/uL Lymphocytes # (1.0-4.8) k/uL Monocytes # (0-1.0) k/uL ESR 32 H (0-30) mm/Hr Sodium 121 L (137-145) mmol/L Potassium (3.5-5.1) mmol/L Chloride (98-107) mmol/L Carbon Dioxide (22-30) mmol/L Creatinine (0.52-1.04) mg/dL Glucose (74-99) mg/dL POC Glucose (mg/dL) 261 H (70-110) mg/dL Calcium (8.4-10.2) mg/dL Alkaline Phosphatase (38-126) U/L Total Protein (6.3-8.2) g/dL Albumin (3.5-5.0) g/dL 12/24/23 12/24/23 12/24/23 Range/Units 16:36 19:58 21:03 WBC (3.8-10.6) k/uL Plt Count (150-450) k/uL Neutrophils # (1.3-7.7) k/uL Lymphocytes # (1.0-4.8) k/uL Monocytes # (0-1.0) k/uL ESR (0-30) mm/Hr Sodium 125 L (137-145) mmol/L Potassium (3.5-5.1) mmol/L Chloride (98-107) mmol/L Carbon Dioxide (22-30) mmol/L Creatinine (0.52-1.04) mg/dL Glucose (74-99) mg/dL POC Glucose (mg/dL) 216 H 146 H (70-110) mg/dL Calcium (8.4-10.2) mg/dL Alkaline Phosphatase (38-126) U/L Total Protein (6.3-8.2) g/dL Albumin (3.5-5.0) g/dL Microbiology - Last 24 Hours (Table) 12/23/23 08:24 Blood Culture - Preliminary Blood 12/23/23 08:24 Blood Culture - Preliminary Blood 12/23/23 13:28 Gram Stain - Preliminary Pleural Fluid
[2023-12-26 04:35] LABS: Basophils % (A) 0 %; Eosinophils # (A) 0.1 k/uL (0-0.7); Eosinophils % (A) 1 %; HCT 35.1 % (34.0-46.0); HGB 11.2 gm/dL (11.4-16.0); Hypochromasia Slight; Lymphocytes # (A) 0.9 k/uL (1.0-4.8); Lymphocytes % (A) 6 %; MCV 90.6 fL (80.0-100.0); Mean Platelet Volume 9.1; Monocytes # (A) 1.4 k/uL (0-1.0); Monocytes % (A) 9 %; Neutrophils # (A) 13.5 k/uL (1.3-7.7); Neutrophils % (A) 83 %; Platelet Count 464 k/uL (150-450); RBC 3.87 m/uL (3.80-5.40); RDW 14.3 % (11.5-15.5); WBC 16.2 k/uL (3.8-10.6)
[2023-12-26 05:12] LABS: African American GFR (CKD) >90 (>60 ml/min/1.73 sqM); Anion Gap 4 mmol/L; Blood Urea Nitrogen 10 mg/dL (7-17); Calcium 6.7 mg/dL (8.4-10.2); Carbon Dioxide 21 mmol/L (22-30); Chloride 103 mmol/L (98-107); Glucose 213 mg/dL (74-99); Non-African American GFR(CKD) >90 (>60 ml/min/1.73 sqM); Potassium 4.7 mmol/L (3.5-5.1); Sodium 128 mmol/L (137-145)
[2023-12-26 06:16] LABS: Glucose,Whole Blood 219 mg/dL (70-110)
--- NOTE | 2023-12-26 07:33 | XR ---
EXAMINATION TYPE: XR chest 1V DATE OF EXAM: 12/26/2023 COMPARISON: 12/25/2023 HISTORY: Pleural effusion TECHNIQUE: Single frontal view of the chest is obtained. FINDINGS: There is increasing right-sided pleural effusion with consolidation. Left-sided consolidat ion and tiny effusion. No overt failure. Heart size stable. Diffuse osteopenia and arthropathy of the shoulders. Degenerative change of the spine. IMPRESSION: 1. Stable right-sided consolidation with large pleural effusion. Chest tube noted in position. 2. Stable left lower lobe infiltrate and small effusion. 3. Abrupt cut off of the right mainstem bronchus correlate for endobronchial lesion.
[2023-12-26] MEDS: SODIUM CHLORIDE 0.9% 1,000 ML IV SCH (10:09)
[2023-12-26 11:16] LABS: Glucose,Whole Blood 118 mg/dL (70-110)
--- NOTE | 2023-12-26 11:31 | P.PN ---
Subjective Progress Note Date: 12/26/23 This is a 83-year-old female patient who came to the emergency department with increased shortness of breath. Her breathing was progressively getting worse over the past 1 week. She had increased cough congestion chest tightness and wheezing and she was having chills at home. She was given outpatient antibiotic therapy with Zithromax and her condition decompensated and she ended up coming into the hospital. The patient has been having some chest discomfort along the right chest. She had a fall approximately few weeks back and she also sustained a pelvic fracture. She is a lifetime non-smoker. She came to the emergency department and the patient had a white cell count of 34 with a hemoglobin 14.8. Her sodium level was 116 with a potassium level of 5.9 and a serum bicarb was at 21. BUN was 18 with a creatinine of 0.4. Troponin was 0.07. proBNP level was 5000. The viral screen was negative. Initial lactic acid level was at 2.1 and dropped down to 1.6. Coagulation profile was normal with a D-dimer of 2.6. Initial chest x-ray showed a large right-sided pleural effusion. CAT scan of the chest was also done in the Emergency Department that showed no evidence of any central pulmonary embolism. There was a large right-sided pleural effusion with near complete opacification and compression of the right lung. There was also abnormal attenuation within the right mainstem right middle lobe and right lower lobe bronchus and aspiration was suspected. I saw the patient in the e mergency department. She was quite short of breath and she was on oxygen at 5 L/min nasal cannula. Her pulse ox was as in the low 90s. I performed a bedside thoracentesis a total of 1.6 L of pleural fluid is aspirated. No complications. The post thoracentesis chest x-ray showed interval marked reduction in the right-sided pleural effusion without evidence of any pneumothorax. The patient was started on broad-spectrum antibiotics and she is currently on a combination of Rocephin and Zithromax and vancomycin. She is diabetic. She takes insulin on outpatient basis. She also has history of hypertension and hyperlipidemia. Currently she is also on IV fluids and the patient is on normal saline which is running at a rate of 75 cc an hour. No altered mentation. No seizure activity. On 12/24/2023, the patient is feeling better. The patient is less short of breath and currently she is on 2 L of oxygen by nasal cannula. Her breathing is more comfortable. Thoracentesis was done yesterday and the pleural fluid analysis still pending. Cultures are still pending. Legionella urine antigen is negative. Echocardiogram showed a preserved LV function, no significant valvular abnormalities. The white cell count is currently down to 26 with a hemoglobin 13.1 and a platelet count of 491. Sodium is 119 improved compared to yesterday and the urine sodium is essentially low less than 20, not typical of SIADH. Serum bicarb is 18 with a BUN of 16 and a creatinine of 0.4. She remain s on Rocephin and Zithromax and vancomycin. Metoprolol was restarted. He is also on Zestril 40 mg p.o. daily for blood pressure control. She is on NovoLog 5 units 3 times daily with meals plus a sliding scale coverage. She remains on bronchodilators. On today's evaluation on 12/25/2023, the patient is being seen for a follow- up.The patient has no specific complaints. She seems to be less short of breath. She is on 4 L of oxygen by nasal cannula with a pulse ox of 96%. She remains on a combination of Rocephin and Zithromax and vancomycin. The white cell count is improving is currently down to 18.3 with a hemoglobin of 10.5 and a platelet count of 465. Sodium levels of 125. BUN is 12 with a creatinine of 0.4 and the patient is currently nondistended. Exercises an hour. On a separ ate note, chest x-ray that was done today showed further opacification of the right lung compared to yesterday chest x-ray. Based on that, a CAT scan of the chest was done and it showed a moderate to large right-sided pleural fluid collection along with compressive atelectasis of the right lung. There was also extensive calcification of the bronchi bilaterally more so on the right lower lobe bronchus and there was also a filling defect in the right lower lobe bronchus that was not felt to be patent. There is an abrupt cut off sign in the bronchus intermedius/right lower lobe area. Based on those findings, I recommended a pigtail catheter insertion and this will be done by interventional radiology today to be followed up by bronchoscopy in a.m. The pleural fluid is aspirated earlier was an accident with elevated LDH of 610 and a protein of 3.2 g. Glucose was at 136. Cell count was 1000. The fluid cytology still pending for now. The Gram stain culture is also negative. 12/26/2023, the patient is being seen for a follow-up. The patient is on 4 L of oxygen nasal cannula. The pigtail catheter was inserted yesterday and a total of 4 L of pleural fluid was further aspirated. Blood from the PICC line has been noted. Nevertheless, the chest x-ray still showing volume loss and persistent right lung consolidation. As mentioned earlier, there is an abrupt cut off sign in the right mainstem bronchus/bronchus intermedius and the patient is going to undergo a bronchoscopy today. White cell count is 16, hemoglobin 11 and platelet count is at 464, sodium levels at 128, BUN is at 10 with a creatinine of 0.3. Remains on the same antibiotic coverage to include Rocephin and Zithromax and vancomycin. Cultures are still negative. Sputum culture still pending. Clinically doing well. No significant tachycardia. Hemodynamically stable. Currently n.p.o. awaiting bronchoscopy. Objective - Vital Signs Vital signs: Vital Signs Temp 98.2 F 12/26/23 04:00 Pulse 86 12/26/23 07:00 Resp 18 12/26/23 07:00 BP 166/73 12/26/23 07:00 Pulse Ox 96 12/26/23 07:00 FiO2 Intake & Output 12/25/23 12/26/23 12/26/23 18:59 06:59 18:59 Intake Total 1895 435 5 Output Total 660 590 0 Balance 1235 -155 5 Weight 61.2 kg 59 kg Intake: IV 795 60 5 Sodium Chloride 0.9% 1, 795 60 5 000 ml @ 75 mls/hr IV . [id number] SHANICE Rx#:[id number] Intake, IV Titration 550 125 Amount Azithromycin 500 mg In 250 Sodium Chloride 0.9% 250 ml @ 250 mls/hr IVPB DAILY SHANICE Rx#:[id number] Vancomycin 1,000 mg In 250 125 Sodium Chloride 0.9% 250 ml @ 125 mls/hr IVPB BID@ 0500,1700 SHANICE Rx#: [id number] cefTRIAXone 2 gm In 50 Sodium Chloride 0.9% 50 ml @ 100 mls/hr IVPB Q24HR SHANICE Rx#:[id number] Oral 550 250 Output: Chest Tube Drainage 360 110 Pleural Catheter Right 360 110 Posterior Chest Urine 300 480 0 Other: Voiding Method Bedside Commode Bedside Commode - Exam Calm and comfortable mild degree of respiratory distress, BMI 17.6 currently on 4 L of O2 nasal cannula Head exam was generally normal. There was no scleral icterus or corneal arcus. Mucous membranes were moist. Neck was supple and without jugular venous distension, thyromegaly, or carotid bruits. Carotids were easily palpable bilaterally. There was no adenopathy. Lung sounds revealed improved breath sounds right lung base. Some limited crackles. Left lung is clear. Cardiac exam revealed the PMI to be normally situated and sized. The rhythm was regular and no extrasystoles were noted during several minutes of auscultation. The first and second heart sounds were normal and physiologic splitting of the second heart sound was noted. There were no murmurs, rubs, clicks, or gallops. Abdominal exam revealed normal bowel sounds. The abdomen was soft, non-tender, and without masses, organomegaly, or appreciable enlargement of the abdominal aorta. Examination of the extremities revealed easily palpable radial, femoral and pedal pulses. There was no cyanosis, clubbing or edema., Trace ankle edema Examination of the skin revealed no evidence of significant rashes, suspicious appearing nevi or other concerning lesions. Neurologically, the patient is awake and alert and the patient does not have any focal neurological deficit. Cranial nerves are essentially intact. - Labs CBC & Chem 7: 12/26/23 03:56 12/26/23 03:50 Labs: Abnormal Lab Results - Last 24 Hours (Table) 12/25/23 12/25/23 12/25/23 Range/Units 11:29 15:26 16:44 WBC (3.8-10.6) k/uL Hgb (11.4-16.0) gm/dL Plt Count (150-450) k/uL Neutrophils # (1.3-7.7) k/uL Lymphocytes # (1.0-4.8) k/uL Monocytes # (0-1.0) k/uL Sodium 127 L (137-145) mmol/L Carbon Dioxide (22-30) mmol/L Creatinine (0.52-1.04) mg/dL Glucose (74-99) mg/dL POC Glucose (mg/dL) 221 H 177 H (70-110) mg/dL Calcium (8.4-10.2) mg/dL 12/25/23 12/25/23 12/26/23 Range/Units 18:19 20:48 03:50 WBC (3.8-10.6) k/uL Hgb (11.4-16.0) gm/dL Plt Count (150-450) k/uL Neutrophils # (1.3-7.7) k/uL Lymphocytes # (1.0-4.8) k/uL Monocytes # (0-1.0) k/uL Sodium 128 L (137-145) mmol/L Carbon Dioxide 21 L (22-30) mmol/L Creatinine 0.32 L (0.52-1.04) mg/dL Glucose 213 H (74-99) mg/dL POC Glucose (mg/dL) 258 H 245 H (70-110) mg/dL Calcium 6.7 L (8.4-10.2) mg/dL 12/26/23 12/26/23 Range/Units 03:56 06:14 WBC 16.2 H (3.8-10.6) k/uL Hgb 11.2 L (11.4-16.0) gm/dL Plt Count 464 H (150-450) k/uL Neutrophils # 13.5 H (1.3-7.7) k/uL Lymphocytes # 0.9 L (1.0-4.8) k/uL Monocytes # 1.4 H (0-1.0) k/uL Sodium (137-145) mmol/L Carbon Dioxide (22-30) mmol/L Creatinine (0.52-1.04) mg/dL Glucose (74-99) mg/dL POC Glucose (mg/dL) 219 H (70-110) mg/dL Calcium (8.4-10.2) mg/dL Microbiology - Last 24 Hours (Table) 12/23/23 08:24 Blood Culture - Preliminary Blood 12/23/23 08:24 Blood Culture - Preliminary Blood 12/23/23 13:28 Gram Stain - Preliminary Pleural Fluid Body Fluid Culture - Preliminary Assessment and Plan Plan: Acute hypoxic respiratory failure currently on 4 L of oxygen by nasal cannula, improved compared to yesterday Large right-sided pleural effusion with compressive atelectasis of the right lung, likely parapneumonic in nature. Thoracentesis was done and approximately 1.6 L of turbid pleural fluid was aspirated from the right lung. The pleural f luid is an exudate. Culture is still pending for now. The follow-up chest x- ray showed reaccumulation of a moderate to large size right-sided pleural effusion along with compressive atelectasis of the right lung base. There is also extensive calcification of the airways and the right mainstem bronchus, bronchus remains in the right lower lobe bronchus and there is also an abrupt cut off sign. This could be mucus. This could be also malignancy. The chest x-ray from today post pigtail catheter insertion shows persistent volume loss and consolidation involving the right lung. Bronchoscopy is to follow. 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 Underlying mild component of SIADH related to pneumonia cannot be completely ruled out, yet the urine sodium was less than 20, not typical of SIADH. Sodium levels of 125 Diabetes mellitus type 1 maintained on insulin on outpatient basis Hypertension Hyperlipidemia Recent fall with pelvic fracture Generalized weakness and fatigue secondary to above Plan Titrate oxygen flow to maintain saturation above 90% currently on 4 L/min nasal cannula Provide the patient w incentive spirometer Thoracentesis was performed cytology and cultures, subsequent pigtail catheter insertion with evacuation of another 500 cc of pleural fluid. Cover the patient with Rocephin Zithromax and vancomycin Check procalcitonin level, mildly elevated There is a count of sign on the CAT scan of the chest and the patient will need bronchoscopy Check blood cultures Daily chest x-rays IV fluids with normal saline at rate of 10 cc an hour Nephrology regarding hyponatremia, sodium level is improving Obtain echocardiogram was noted and the patient has a preserved LV function Continue bronchodilators Will continue to follow.
--- NOTE | 2023-12-26 12:41 | P.PN ---
Subjective patient is seen for follow-up for hyponatremia. Maintained on normal saline. Serum sodium improved to 128. Patient is more short of breath today. IV fluids were discontinued this morning. Patient is scheduled for bronchoscopy today. I Objective - Vital Signs Vital signs: Vital Signs Temp 98.5 F 12/26/23 08:00 Pulse 102 H 12/26/23 11:00 Resp 15 12/26/23 11:00 BP 157/69 12/26/23 11:00 Pulse Ox 95 12/26/23 11:00 FiO2 Intake & Output 12/25/23 12/26/23 12/26/23 18:59 06:59 18:59 Intake Total 1895 435 345 Output Total 660 590 500 Balance 1235 -155 -155 Weight 61.2 kg 59 kg Intake: IV 795 60 25 Sodium Chloride 0.9% 1, 795 60 25 000 ml @ 75 mls/hr IV . [id number] [facility]AN[facility] Rx#:[id number] Intake, IV Titration 550 125 320 Amount Azithromycin 500 mg In 250 250 Sodium Chloride 0.9% 250 ml @ 250 mls/hr IVPB DAILY [facility] Rx#:[id number] Sodium Chloride 0.9% 1, 20 000 ml @ 10 mls/hr IV . Q24H [facility] Rx#:[id number] Vancomycin 1,000 mg In 250 125 Sodium Chloride 0.9% 250 ml @ 125 mls/hr IVPB BID@ 0500,1700 SH[facility] Rx#: [id number] cefTRIAXone 2 gm In 50 50 Sodium Chloride 0.9% 50 ml @ 100 mls/hr IVPB Q24HR [facility] Rx#:[id number] Oral 550 250 Output: Chest Tube Drainage 360 110 Pleural Catheter Right 360 110 Posterior Chest Urine 300 480 500 Other: Voiding Method Bedside Commode Bedside Commode Bedside Commode - Exam patient is awake, comfortable, no acute distress. 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 - Labs CBC & Chem 7: 12/26/23 03:56 12/26/23 03:50 Labs: Abnormal Lab Results - Last 24 Hours (Table) 12/25/23 12/25/23 12/25/23 Range/Units 15:26 16:44 18:19 WBC (3.8-10.6) k/uL Hgb (11.4-16.0) gm/dL Plt Count (150-450) k/uL Neutrophils # (1.3-7.7) k/uL Lymphocytes # (1.0-4.8) k/uL Monocytes # (0-1.0) k/uL Sodium 127 L (137-145) mmol/L Carbon Dioxide (22-30) mmol/L Creatinine (0.52-1.04) mg/dL Glucose (74-99) mg/dL POC Glucose (mg/dL) 177 H 258 H (70-110) mg/dL Calcium (8.4-10.2) mg/dL 12/25/23 12/26/23 12/26/23 Range/Units 20:48 03:50 03:56 WBC 16.2 H (3.8-10.6) k/uL Hgb 11.2 L (11.4-16.0) gm/dL Plt Count 464 H (150-450) k/uL Neutrophils # 13.5 H (1.3-7.7) k/uL Lymphocytes # 0.9 L (1.0-4.8) k/uL Monocytes # 1.4 H (0-1.0) k/uL Sodium 128 L (137-145) mmol/L Carbon Dioxide 21 L (22-30) mmol/L Creatinine 0.32 L (0.52-1.04) mg/dL Glucose 213 H (74-99) mg/dL POC Glucose (mg/dL) 245 H (70-110) mg/dL Calcium 6.7 L (8.4-10.2) mg/dL 12/26/23 12/26/23 Range/Units 06:14 11:14 WBC (3.8-10.6) k/uL Hgb (11.4-16.0) gm/dL Plt Count (150-450) k/uL Neutrophils # (1.3-7.7) k/uL Lymphocytes # (1.0-4.8) k/uL Monocytes # (0-1.0) k/uL Sodium (137-145) mmol/L Carbon Dioxide (22-30) mmol/L Creatinine (0.52-1.04) mg/dL Glucose (74-99) mg/dL POC Glucose (mg/dL) 219 H 118 H (70-110) mg/dL Calcium (8.4-10.2) mg/dL Microbiology - Last 24 Hours (Table) 12/23/23 13:28 Gram Stain - Preliminary Pleural Fluid Body Fluid Culture - Preliminary 12/23/23 08:24 Blood Culture - Preliminary Blood 12/23/23 08:24 Blood Culture - Preliminary Blood Assessment and Plan Assessment: 1. Hyponatremia, appears hypervolemic clinically. Low urine sodium suggestive of underlying volume depletion. Serum sodium improved with normal saline. Serum sodium at 128today. Patient is more short of breath today and fluids have been appropriately discontinued. 2. Right pleural effusion status post thoracentesis of 1.6 L. Most likely rel ated to pneumonia. Pleural effusion has recurred again today and patient is scheduled to have a pigtail catheter placed. Plan for bronchoscopy today to rule out underlying malignancy. 3. Acute hypoxic respiratory failure secondary to pneumonia and large right pleural effusion, status post thoracentesis 4. Type 2 diabetes 5. History of fall few weeks ago with pelvic fracture. Plan: maintained off of IV fluids. Repeat labs in a.m.
[2023-12-26] MEDS: LIDOCAINE 2% INJ 20 MG/ML INTRATRACH ONE ×2 (13:32→13:43)
[2023-12-26] MEDS: LIDOCAINE 2% GLYDO JELLY 6 ML APPL TOPICAL ONE ×2 (13:32→13:43)
[2023-12-26] MEDS: IV FLUID CONTINUATION 1,000 ML IV ONE (13:34)
[2023-12-26] MEDS ORDERED: MIDAZOLAM 2 MG/2 ML VIAL ONE (13:38)
[2023-12-26] MEDS ORDERED: PROPOFOL 10 MG/ML 20 ML VIAL IV ONE (13:38)
[2023-12-26] MEDS ORDERED: fentaNYL (PF) 50 MCG/ML 2 ML AMP ONE (13:38)
[2023-12-26] MEDS ORDERED: LIDOCAINE 1% INJ 10MG/ML (20 ML MDV) ONE (13:38)
[2023-12-26 14:14] LABS: Glucose,Whole Blood 145 mg/dL (70-110)
[2023-12-26] MEDS: METOPROLOL TARTRATE 25 MG TAB PO STA (14:32)
--- NOTE | 2023-12-26 14:57 | XR ---
EXAMINATION TYPE: XR chest 1V portable DATE OF EXAM: 12/26/2023 COMPARISON: 12/26/2023 HISTORY: Status post bronchoscopy. TECHNIQUE: Single frontal view of the chest is obtained. FINDINGS: There is increasing right-sided pleural effusion with consolidation. Left-sided consolidat ion and tiny effusion. No overt failure. Heart size stable. Diffuse osteopenia and arthropathy of the shoulders. Degenerative change of the spine. No sizable pneumothorax. IMPRESSION: Similar appearance to right pleural effusion and pulmonary consolidation noted.
--- NOTE | 2023-12-26 14:58 | P.PCN ---
Date of Procedure: 12/26/23 Preoperative Diagnosis: Right lower lobe pneumonia/parapneumonic effusion Postoperative Diagnosis: Mucous obstructing the right mainstem bronchus and right lower lobe bronchus Procedure(s) Performed: Flexible bronchoscopy, bronchial lavage of the right lower lobe, therapeutic aspiration of mucous plugs in the right mainstem bronchus, bronchus intermedius and trachea. Anesthesia: MAC Surgeon: Pasha Burgess Estimated Blood Loss (ml): 0 Pathology: other Condition: stable Disposition: ICU Operative Findings: This procedure was done in the endoscopy suite. The patient is on 4 L of oxygen by nasal cannula. Appropriate sedation was given. Following that, the flex bronchoscope was introduced through the left nostril it was advanced into the posterior pharynx and then to the larynx. Upper airway structures were all inspected. Posterior pharynx was within normal limits. Larynx was within normal. Epiglottis was normal. Vallecula, arytenoids and the vocal cords were all within normal limits. A total of 2 cc of 1% lidocaine was applied to the vocal cords and following that the bronchoscope was transferred to the upper trachea and examination of the tracheobronchial tree was done. The proximal and the mid trachea were within normal limits. Copious amount of respiratory secretions noted in the distal trachea that were suctioned out. The secretions were originating from the right lower lobe bronchus as the right mainstem bronchus was full of mucous plugs. Therapeutic airway suctioning was done. The bronchoscope during the process was introduced and removed on multiple occasions at the mucous plugs were aspirated. At the completion of the procedure, the right upper lobe bronchus, bronchus intermedius, right middle lobe bronchus and the right lower lobe bronchus were all inspected. The subsegments in the right lower lobe bronchus and right middle lobe bronchus were quite inflamed and erythematous. Nevertheless, the airways were patent. Therapeutic airway suctioning was done. There was no evidence of any foreign bodies or endobronchial lesions or tumors. Right upper lobe bronchus was within normal limits elevated segments of the right upper lobe were within normal limits. At this point, after achieving therapeutic airway suctioning and airway patency, bronchial lavage of the right lower lobe was done. Total of 60 cc of fluid/saline was infused and 20 cc was aspirated without any major difficulties. The flexor bronchoscope was removed. The patient tolerated the procedure well. A follow-up chest x-ray to be done in the intensive care unit to be followed up by alteplase administration into the pigtail catheter.
--- NOTE | 2023-12-26 15:14 | P.PN ---
Subjective Progress Note Date: 12/26/23 HISTORY OF PRESENTING ILLNESS 83-year-old female who came to the emergency department because of increased shortness of breath. Patient has been having progressively worsening symptoms over last 1 week along with increased cough and chest congestion along with chest tightness. Patient has also been feeling more confused and weak over the last 1 to 2 weeks. Few weeks ago patient had a fall and sustained a pelvic fracture which has been managed conservatively. On admission she was noticed to have a WBC count of 34,000, hemoglobin 14.8. She also had hyponatremia with sodium of 116, potassium 5.9, bicarb 21, BUN 18, creatinine 0.4. Her troponin was not elevated. Her NT proBNP was 5000. She also had mild elevated lactate. Her CT scan of chest showed large right-sided pleural effusion with compression atelectasis of the right lung. She [id number] right thoracentesis with drainage of 1.6 L of fluid. Currently she has been treated for pneumonia with IV antibiotics, and hyponatremia. Patient is previously known to Dr. Wilburn. This time cardiology is consulted because of concerns of atrial fibrillation. On review of her ECG and telemetry it appears that patient is not in atrial fibrillation but rather is in multifocal atrial tachycardia along with frequent premature atrial contractions. Patient denies any prior history of reported atrial fibrillation. Resting ECG does not show significant ST deviations that are diagnostic for ischemia. Her echocardiogram showed an preserved LV systolic function with a EF of 55 to 60%, mild LVH, with no major valvular abnormality. Progress note 12/25/2023 Patient is doing well from cardiovascular standpoint. She is still continuing to have sinus tachycardia with frequent PACs. There is no evidence of atrial fibrillation noticed on telemetry. Patient sodium is improving, sodium 125 today, creatinine 0.4. Hemoglobin has dropped from 14 on admission to 10.4 today. WBC count has improved to 18,000. Normotensive much more alert and oriented since admission 12/26/2023 Patient went for a bronchoscopy and bronchial washing today. She got chest tube placed yesterday. She has had 400 cc of output in the chest tube since yesterday. Today she is noticed to be sinus tachycardic with frequent PACs. She would intermittently go into atrial tachycardia which would last for less than few minutes. Othe blood pressure 140/70, heart rate 125 bpm Hemoglobin 11.2, WBC 16.2, BUN 10, creatinine 0.3, sodium 128 PHYSICAL EXAMINATION Vital signs reviewed. Head: Normocephalic. Eyes: Sclerae nonicteric. Neck: Brisk carotid upstroke, no jugular venous distention. Lungs: Clear to auscultation. Heart: irregular rhythm, S1-S2, no S3, no murmur or rub. Abdomen: Soft nontender, positive bowel sounds. Extremities: No edema, intact distal pulses. Neuro: Alert, oritented, no focal deficits. Detailed neuro exam was not performed. ASSESSMENT Tachycardia, likely multifocal atrial tachycardia along with frequent PACs Atrial tachycardia, short lived. Community-acquired pneumonia with large right-sided pleural effusion s/p thoracentesis with removal of 1.6 L fluid. Likely parapneumonic. s/p right chest tube placement. Hyponatremia and hyperkalemia. High urine osmolality with low urine sodium suggestive of intravascular depletion Generalized weakness and fatigue Pelvic fracture from mechanical fall few weeks ago Bilateral lower extremity swelling Diabetes mellitus, insulin-dependent Hypertension Debility and frailty Cardiac testing Echo showed preserved LV systolic function, LVH with no significant valvular dysfunction Bilateral lower extremity Doppler did not show any evidence of DVT PLAN Less likely atrial fibrillation. Will continue to monitor telemetry. She might benefit from an event monitor at the time of discharge. Continue aspirin, atorvastatin, losartan 25mg, Increase metoprolol to 50 mg BID Discontinue lisinopril Nephrology and ICU team managing hyponatremia Objective - Vital Signs Vital signs: Vital Signs Temp 98.5 F 12/26/23 14:15 Pulse 101 H 12/26/23 15:00 Resp 18 12/26/23 15:00 BP 148/65 12/26/23 15:00 Pulse Ox 94 L 12/26/23 15:00 FiO2 Intake & Output 12/25/23 12/26/23 12/26/23 18:59 06:59 18:59 Intake Total 1895 435 585 Output Total 660 590 820 Balance 1235 -155 -235 Weight 61.2 kg 59 kg Intake: IV 795 60 225 Sodium Chloride 0.9% 1, 795 60 25 000 ml @ 75 mls/hr IV . [id number] SHANICE Rx#:[id number] Intake, IV Titration 550 125 360 Amount Azithromycin 500 mg In 250 250 Sodium Chloride 0.9% 250 ml @ 250 mls/hr IVPB DAILY SHANICE Rx#:[id number] Sodium Chloride 0.9% 1, 60 000 ml @ 10 mls/hr IV . Q24H SHANICE Rx#:[id number] Vancomycin 1,000 mg In 250 125 Sodium Chloride 0.9% 250 ml @ 125 mls/hr IVPB BID@ 0500,1700 SHANICE Rx#: [id number] cefTRIAXone 2 gm In 50 50 Sodium Chloride 0.9% 50 ml @ 100 mls/hr IVPB Q24HR SHANICE Rx#:[id number] Oral 550 250 Output: Chest Tube Drainage 360 110 20 Pleural Catheter Right 360 110 20 Posterior Chest Urine 300 480 800 Other: Voiding Method Bedside Commode Bedside Commode Bedside Commode - Labs CBC & Chem 7: 12/26/23 03:56 12/26/23 03:50 Labs: Abnormal Lab Results - Last 24 Hours (Table) 12/25/23 12/25/23 12/25/23 Range/Units 15:26 16:44 18:19 WBC (3.8-10.6) k/uL Hgb (11.4-16.0) gm/dL Plt Count (150-450) k/uL Neutrophils # (1.3-7.7) k/uL Lymphocytes # (1.0-4.8) k/uL Monocytes # (0-1.0) k/uL Sodium 127 L (137-145) mmol/L Carbon Dioxide (22-30) mmol/L Creatinine (0.52-1.04) mg/dL Glucose (74-99) mg/dL POC Glucose (mg/dL) 177 H 258 H (70-110) mg/dL Calcium (8.4-10.2) mg/dL 12/25/23 12/26/23 12/26/23 Range/Units 20:48 03:50 03:56 WBC 16.2 H (3.8-10.6) k/uL Hgb 11.2 L (11.4-16.0) gm/dL Plt Count 464 H (150-450) k/uL Neutrophils # 13.5 H (1.3-7.7) k/uL Lymphocytes # 0.9 L (1.0-4.8) k/uL Monocytes # 1.4 H (0-1.0) k/uL Sodium 128 L (137-145) mmol/L Carbon Dioxide 21 L (22-30) mmol/L Creatinine 0.32 L (0.52-1.04) mg/dL Glucose 213 H (74-99) mg/dL POC Glucose (mg/dL) 245 H (70-110) mg/dL Calcium 6.7 L (8.4-10.2) mg/dL 12/26/23 12/26/23 12/26/23 Range/Units 06:14 11:14 14:10 WBC (3.8-10.6) k/uL Hgb (11.4-16.0) gm/dL Plt Count (150-450) k/uL Neutrophils # (1.3-7.7) k/uL Lymphocytes # (1.0-4.8) k/uL Monocytes # (0-1.0) k/uL Sodium (137-145) mmol/L Carbon Dioxide (22-30) mmol/L Creatinine (0.52-1.04) mg/dL Glucose (74-99) mg/dL POC Glucose (mg/dL) 219 H 118 H 145 H (70-110) mg/dL Calcium (8.4-10.2) mg/dL Microbiology - Last 24 Hours (Table) 12/23/23 13:28 Gram Stain - Preliminary Pleural Fluid Body Fluid Culture - Preliminary 12/23/23 08:24 Blood Culture - Preliminary Blood 12/23/23 08:24 Blood Culture - Preliminary Blood
--- NOTE | 2023-12-26 15:47 | P.GSCN ---
History of Present Illness Consult date: 12/26/23 Reason for Consult: This is an 83-year-old female patient who follows on an outpatient basis for her primary care with Dr. Tyler Patel. She has a past medical history significant for insulin-dependent type 2 diabetes mellitus, hypertension, hyperlipidemia, neuropathy, history of spinal stenosis, recent fall from standing with a fractured pelvis, daily EtOH use with drinking 1 glass of wine and remote history of nicotine dependence quit smoking over 50 years ago. On December 23, 2023 the patient presented to the emergency department here at [facility] with complaints of progressive shortness of breath, and a cough with productive sputum. She also reports she has had some swelling to her bilateral lower extremities and a low-grade fever at home. She denies any chills, nausea, vomiting, diarrhea, constipation, headache, tinnitus, palpitations, l ightheadedness, presyncope or syncope. Initial laboratory results showed a WBC count of 34.5, hemoglobin 14.8, hematocrit 44.5, platelets 537, PT 13.1, INR 1.2, PTT 25.2, D-dimer 2.68, sodium 116, potassium 5.9, chloride 86, CO2 21, BUN 18, creatinine 0.43, glucose 199, calcium 7.7, magnesium 1.8, AST 38, ALT 19, proBNP 5090, procalcitonin 0.39 and a troponin of 0.070. A chest x-ray was completed on admission which showed a large right pleural effusion with right- sided consolidation. For further evaluation the patient underwent a chest CT angio for PE which revealed no evidence of central pulmonary embolism, a large right pleural effusion with near complete compression of the right lung, and a tiny left pleural effusion. Due to the findings of a large right pleural effusion Dr. Burgess from pulmonary/critical care medicine was consulted and the patient underwent a right-sided thoracentesis on December 23, 2023 with 1.6 L of turbid colored fluid drained without difficulty. Status post thoracentesis the patient was feeling less short of breath with her oxygen titrated down to 2 L nasal cannula. The patient also underwent a transthoracic 2D echocardiogram on December 23, 2023 which showed a left ventricular ejection fraction estimated at 55 to 60%, mild mitral valve regurgitation, mild tricuspid valve regurgitation, and no pericardial effusion. Today December 26, 2023 the patient is currently on 4 L of oxygen with oxygen saturations 94%. The patient underwent a right chest pigtail catheter insertion by interventional radiology yesterday December 25, 2023. The chest x-ray from today December 26, 2023 showed a increasing right-sided pleural effusion with consolidation. Subsequently due to the findings of a right-sided pleural effusion a consult was placed to Dr. Cory Jacobs from cardiothoracic surgery for further evaluation and treatment recommendations including pleural instillation of alteplase/dornase. Review of Systems A review of systems was completed and was negative except as mentioned in HPI. Past Medical History Past Medical History: Diabetes Mellitus, Hyperlipidemia, Hypertension, Pneumonia Additional Past Medical History / Comment(s): Pelvic fracture 2 weeks ago. Neuropathy. spinal stenosis History of Any Multi-Drug Resistant Organisms: None Reported Past Surgical History: No Surgical Hx Reported Additional Past Surgical History / Comment(s): Broken wrist, ORIF Past Anesthesia/Blood Transfusion Reactions: No Reported Reaction Past Psychological History: No Psychological Hx Reported Smoking Status: Former smoker Past Alcohol Use History: Daily (Drinks 1 glass of wine per day) Past Drug Use History: None Reported - Past Family History Mother Additional Family Medical History / Comment(s): from encephalopathy Father Family Medical History: Cancer Medications and Allergies Home Medications Medication Instructions Recorded Confirmed Type ALPRAZolam [Xanax] 0.25 mg PO TID 11/06/21 12/23/23 History Insulin Aspart (Niacinamide) 10 - 12 units SQ AC-TID 11/06/21 12/23/23 History [Fiasp 100 Unit/ml Flextouch Pen] Rosuvastatin [Crestor] 10 mg PO DAILY 11/06/21 12/23/23 History Alendronate Sodium 70 mg PO GUERRA 01/02/23 12/23/23 History Calcium Carbonate [Calcium] 600 mg PO DAILY 01/02/23 12/23/23 History Pantoprazole [Protonix] 40 mg PO DAILY 01/02/23 12/23/23 History traMADol HCL 50 mg PO Q8H PRN 01/02/23 12/23/23 History Ascorbic Acid [Vitamin C] 500 mg PO DAILY 12/23/23 12/23/23 History Aspirin EC [Ecotrin Low Dose] 81 mg PO DAILY 12/23/23 12/23/23 History Bifidobacterium Infantis [Align] 4 mg PO DAILY 12/23/23 12/23/23 History Gabapentin [Neurontin] 400 mg PO BID 12/23/23 12/23/23 History Magnesium Oxide [Mag-Ox] 400 mg PO DAILY 12/23/23 12/23/23 History Metoprolol Tartrate [Lopressor] 25 mg PO BID 12/23/23 12/23/23 History Turmeric Root Extract [Turmeric] 500 mg PO MOWEFR 12/23/23 12/23/23 History guaiFENesin-Coden 100-10MG/5ML 5 ml PO Q6H PRN 12/23/23 12/23/23 History [Robitussin AC] hydrALAZINE HCL [Apresoline] 100 mg PO TID 12/23/23 12/23/23 History lisinopriL [Zestril] 40 mg PO DAILY 12/23/23 12/23/23 History traZODone HCL [Desyrel] 50 mg PO HS PRN 12/23/23 12/23/23 History Allergies Allergy/AdvReac Type Severity Reaction Status Date / Time hydrocodone [From Vicodin] AdvReac Nausea & Verified 12/23/23 12:54 Vomiting Surgical - Exam Vital Signs Temp Pulse Resp BP Pulse Ox 98.5 F 92 24 189/79 92 L 12/23/23 06:19 12/23/23 06:19 12/23/23 06:19 12/23/23 06:19 12/23/23 06:19 - General well developed, well nourished, no distress, no pain, chronically ill - Eyes PERRL, normal ocular movement, no pale, no icteric - ENT normal pinna, normal nares, normal mucosa, no congestion, decreased hearing - Neck Neck is supple, no lymphadenopathy. no masses, no bruits, trachea midline, no venous distension - Respiratory Diminished breath sounds to her right chest, essentially clear to her left chest. No rhonchi, wheezes or crackles. Respirations are symmetrical and nonlabored. Oxygen saturations 94% on 4 L nasal cannula and she is achieving 1000 mL on her incentive spirometry with encouragement. - Cardiovascular Regular rhythm and tachycardic rate. S1 and S2 present, negative for S3, gallop or murmur. +1 edema to her bilateral lower extremities. - Abdomen Abdomen is soft, nontender and nondistended. Active bowel sounds present all 4 abdominal quadrants. No organomegaly appreciated. No guarding or rigidity. - Genitourinary Deferred - Rectum Deferred - Integumentary Skin is warm and dry. No clubbing or cyanosis is present. no rash, no growths, no abnormal pigmentation - Neurologic No focal deficits. normal coordination, normal sensation - Musculoskeletal Moves all 4 extremities with equal strength bilateral. Generalized weakness. - Psychiatric oriented to time, oriented to person, oriented to place, speech is normal, memory intact Results - Labs 12/27/23 04:27 12/27/23 04:27 Abnormal Lab Results - Last 24 Hours (Table) 12/25/23 12/25/23 12/25/23 Range/Units 15:26 16:44 18:19 WBC (3.8-10.6) k/uL Hgb (11.4-16.0) gm/dL Plt Count (150-450) k/uL Neutrophils # (1.3-7.7) k/uL Lymphocytes # (1.0-4.8) k/uL Monocytes # (0-1.0) k/uL Sodium 127 L (137-145) mmol/L Carbon Dioxide (22-30) mmol/L Creatinine (0.52-1.04) mg/dL Glucose (74-99) mg/dL POC Glucose (mg/dL) 177 H 258 H (70-110) mg/dL Calcium (8.4-10.2) mg/dL 12/25/23 12/26/23 12/26/23 Range/Units 20:48 03:50 03:56 WBC 16.2 H (3.8-10.6) k/uL Hgb 11.2 L (11.4-16.0) gm/dL Plt Count 464 H (150-450) k/uL Neutrophils # 13.5 H (1.3-7.7) k/uL Lymphocytes # 0.9 L (1.0-4.8) k/uL Monocytes # 1.4 H (0-1.0) k/uL Sodium 128 L (137-145) mmol/L Carbon Dioxide 21 L (22-30) mmol/L Creatinine 0.32 L (0.52-1.04) mg/dL Glucose 213 H (74-99) mg/dL POC Glucose (mg/dL) 245 H (70-110) mg/dL Calcium 6.7 L (8.4-10.2) mg/dL 12/26/23 12/26/23 12/26/23 Range/Units 06:14 11:14 14:10 WBC (3.8-10.6) k/uL Hgb (11.4-16.0) gm/dL Plt Count (150-450) k/uL Neutrophils # (1.3-7.7) k/uL Lymphocytes # (1.0-4.8) k/uL Monocytes # (0-1.0) k/uL Sodium (137-145) mmol/L Carbon Dioxide (22-30) mmol/L Creatinine (0.52-1.04) mg/dL Glucose (74-99) mg/dL POC Glucose (mg/dL) 219 H 118 H 145 H (70-110) mg/dL Calcium (8.4-10.2) mg/dL Microbiology - Last 24 Hours (Table) 12/23/23 13:28 Gram Stain - Preliminary Pleural Fluid Body Fluid Culture - Preliminary 12/23/23 08:24 Blood Culture - Preliminary Blood 12/23/23 08:24 Blood Culture - Preliminary Blood Diabetes panel 12/25/23 12/26/23 Range/Units 15:26 03:50 Sodium 127 L 128 L (137-145) mmol/L Potassium 4.7 (3.5-5.1) mmol/L Chloride 103 (98-107) mmol/L Carbon Dioxide 21 L (22-30) mmol/L BUN 10 (7-17) mg/dL Creatinine 0.32 L (0.52-1.04) mg/dL Glucose 213 H (74-99) mg/dL Calcium 6.7 L (8.4-10.2) mg/dL Calcium panel 12/26/23 Range/Units 03:50 Calcium 6.7 L (8.4-10.2) mg/dL Pituitary panel 12/25/23 12/26/23 Range/Units 15:26 03:50 Sodium 127 L 128 L (137-145) mmol/L Potassium 4.7 (3.5-5.1) mmol/L Chloride 103 (98-107) mmol/L Carbon Dioxide 21 L (22-30) mmol/L BUN 10 (7-17) mg/dL Creatinine 0.32 L (0.52-1.04) mg/dL Glucose 213 H (74-99) mg/dL Calcium 6.7 L (8.4-10.2) mg/dL Adrenal panel 12/25/23 12/26/23 Range/Units 15:26 03:50 Sodium 127 L 128 L (137-145) mmol/L Potassium 4.7 (3.5-5.1) mmol/L Chloride 103 (98-107) mmol/L Carbon Dioxide 21 L (22-30) mmol/L BUN 10 (7-17) mg/dL Creatinine 0.32 L (0.52-1.04) mg/dL Glucose 213 H (74-99) mg/dL Calcium 6.7 L (8.4-10.2) mg/dL - Imaging Chest x-ray: report reviewed, image reviewed CT scan - chest: report reviewed, image reviewed Assessment and Plan Assessment: Large right-sided pleural effusion with compressive atelectasis right lung, status post thoracentesis which was done on December 23, [address] Burgess with 1.6 L of turbid pleural fluid aspirated status post right pigtail catheter placement by interventional radiology Acute hypoxic respiratory failure currently on 4 L of oxygen nasal cannula with oxygen saturations 94% Right lung pneumonia Acute leukocytosis Hyponatremia Hypertension Hyperlipidemia Insulin-dependent diabetes mellitus type 2 Recent fall from standing, sustaining a pelvic fracture Generalized weakness and fatigue Daily EtOH use with drinking 1 glass of wine Remote history of nicotine dependence quit smoking over 50 years ago Plan: The patient was seen and examined at her bedside in the intensive care unit in conjunction with Dr. Darius Jacobs from cardiothoracic surgery. Her chart and diagnostics were reviewed. Treatment options were discussed with the patient a nd her family present at her bedside. Recommendations to proceed with pleural instillation of alteplase/dornase lytic treatment through the pigtail catheter. The patient and family agree with the more conservative approach at this time. The first dose of alteplase/dornase will be instilled today. Medical management and other comorbidities per primary care service. Incentive spirometry has been ordered and will encourage use 10 times every hour while awake. Once the alteplase/dornase has been instilled through the pigtail catheter we will clamp the catheter for 1 hour and after 1 hour unclamp the chest tube and placed back to low continuous wall suction. We will continue to monitor daily chest x-rays. More recommendations to follow based on patient's clinical course. Thank you Dr. Burgess for this consult and we look forward to working with you in the care of this patient. I have personally seen and examined the patient, performed the documentation and the assessment and plan as written. Number of minutes spent on the visit: 30. CHIDI Lee Attending Addendum: Pt seen and evaluated with MEASUREMENT PSYCHOLOGIST above. Agree with his assessment and plan. I spent 35 minutes reviewing the data and discussing the plan of care with the team and the patient. Time with Patient: Greater than 30
[2023-12-26] MEDS: ALTEPLASE 10 MG in SODIUM CHLORIDE 0.9% 50 ML IRRIGATION ONE (15:56)
[2023-12-26] MEDS: DORNASE ALFA 5 MG in SODIUM CHLORIDE 0.9% 50 ML IRRIGATION ONE (15:56)
[2023-12-26 16:31] LABS: Glucose,Whole Blood 220 mg/dL (70-110)
[2023-12-26 20:25] LABS: Glucose,Whole Blood 233 mg/dL (70-110)
[2023-12-26] MEDS: METOPROLOL TARTRATE 25 MG TAB PO SCH (20:30)
[2023-12-26 20:52] LABS: Appearance,BF Turbid (Clear); RBC, Body Fluid 2975 /UL (0-2000)
--- NOTE | 2023-12-27 00:04 | P.PN ---
Subjective Progress Note Date: 12/26/23 HISTORY OF PRESENT ILLNESS: 83-year-old office patient for many years with active medical history of insulin-dependent type 2 diabetes, hypertension, hyperlipidemia, neuropathy, history of spinal stenosis, who has mild bradycardia otherwise healthy doing well has not been in the hospital long time she had a fall 2 weeks ago to the right side and developed pelvic and did not require to be hospitalized but ended up seen Dr. Wisdom as an outpatient. Also patient had open communicated distal radius fracture back in 2022 secondary to minor fall ended up having open reduction with internal fixation and irrigation debridement of the right wrist fracture. Patient seen cardiology in the last few years in 2021 was admitted to the hospital because of an episode of palpitation with pulse rate of 160 bpm found to have paroxysmal SVT and elevated troponin with no cardiac injury or any other cardiac history has been on beta-yahir been well-controlled since. I received a phone call from the yesterday with complain that his has been in extreme shortness of breath and been symptomatic and for the previous 5 days she had a virtual visit in the office for severe bronchitis was prescribed antibiotics and some expectorant which patient had felt slightly bit better but become much worse over the last 2 days to a degree becoming extreme dyspnea with minimal exertion. Was instructed to bring her to the emergency department to be seen and evaluated. Patient apparently decided not to come to the emergency department till early this morning on 12/23/2023 where was seen and evaluated was severely hypoxic at the time her chest x-ray showed very large right-sided pleural effusion almost occupying 90% out of the right lung. D-dimer was elevated and patient ended up for CTA finding with no pulmonary embolism large right-sided pleural effusion with near complete compression of the right lung there is an abnormal attenuation within the right mainstrem middle lobe and lower lobe bronchus which could be related to aspiration also there is only slight left pleural effusion as well with subsegmental area of consolidation favored to atelectasis versus pneumonitis. With pulse ox running quite a bit low at the time required 4 L of O2 to keep her pulse ox above 90 percentile and laboratory value showing sodium of 116 with normal creatinine and GFR with blood sugar of 292 white blood cell was 34,500 with platelet count 537 mildly elevated troponin 0.07 with lactic acid at 1.6 proBNP at 5090 with alk phos of 289. Patient ended up seeing Dr. Helms and in the emergency department who is done a consultation and decided to transfer the patient to the intensive care unit and ended up performing bedside thoracentesis for total of 1.6 L of pleural fluid is aspirated with no complication fluid was not bloody followed by chest x-ray showed fairly expansion of the lung only. Patient was transferred to the ICU and admitted for severe large sided pleural effusion, possible aspiration pneumonia with sepsis, severe hyponatremia. Will consult nephrology as well for the severity of her hyponatremia. 11/23/2023: Patient is resting comfortably in the chair this morning, her sodium is up to 119 from 116 early, kidney function still good, blood sugar still slightly bit elevated required 2 units of insulin every time she is having her Accu-Chek. Chest x-ray still showing significant amount of pleural effusion around the right side which might require another thoracentesis today or tomorrow. She still seen nephrology for probably increase her sodium tablet and little bit more restriction on IV fluid. Tachycardia has improved compared to yesterday also patient is not hypoxic but still required 2 L of O2 to keep her pulse ox above 92 percentile. Legionella antibody was negative still waiting for mycoplasma and further analysis of her thoracentesis fluid. Also echocardiogram came back with no major abnormality to create any pleural effusion. 11/24/2023: With the recurrent pleural effusion pulmonary decided to accelerate this into setting up patient for pigtail catheter placement in the pleural space by radiology to be able to drain pleural fluid when needed. Apparently with patient is not improving as fast as expected earlier consideration including possibility of malignancy is quite bit high at this point chest x-ray apparently showed further opacification of the right lung compared to the one from yesterday chest CAT scan showed moderate right-sided pleural fluid collection along with compressive atelectasis of the right side and there was extensive calcification and bronchial bilaterally more on the right lower lobe bronchus and there were also filling defect in the right lower lobe that was not felt to be patent. After pigtail catheter placement patient will be going for bronchoscopy to see if he have any malignancy in the lung. Still awaiting the final analysis of the pleural fluid. Sodium has been improved up to 125 today blood sugar still mildly elevated at some point. Oxygen level has been better so far. She is remain having slight tachycardia likely multifocal atrial tachycardia along with frequent PACs will continue Cardizem and metoprolol patient does not need to be on anticoagulation. 11/25/2023: She is still having significant shortness of breath did not improve she had yesterday pigtail catheter in the pleural space connected with chest tube under waterseal continue to have significant shortness of breath and dyspnea, chest x-ray continue to show significant lobulated fluid in the pleural space. Patient be going for bronchoscopy today looking for mass or malignancy. Continue aggressive antibiotics as expected but with all the picture have specially with the pleural fluid there is concern of malignancy. 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 Pulse rate remained slightly bit fast and continue Cardizem drip at this point. REVIEW OF SYSTEMS: CONSTITUTIONAL: Well-developed in acute respiratory distress. EYES: No icterus sclerae, no conjunctivitis. EARS, NOSE, MOUTH, THROAT, and FACE: No sore throat, lymphadenopathy, carotid bruits or deformity. RESPIRATORY: Positive shortness of breath cough or wheezes. CARDIOVASCULAR: Positive PND orthopnea palpitation. GASTROINTESTINAL: No Abd pain, Nausea or vomiting, no Diarrhea or constipation, No GI Bleed, no distention or masses. GENITOURINARY: Negative for Hematuria or UTI, no kidney stones. INTEGUMENT/BREAST: Negative for any muscular injury with mild osteoarthritis.. HEMATOLOGIC/LYMPHATIC: Negative for bleed or purpura. MUSCULOSKELTAL: Negative for Myalgia or arthralgia. NEURLOGICAL: No LOC, Sz or syncope, blurred vision dizziness or abnormality.. BEHAVIORAL/PSYCH: Negative. ENDOCRINE: Negative. PHYSICAL EXAMINATION: General Appearance: Alert, cooperative, in mild respiratory distress. Neck HEENT: Supple, no lymphadenopathy, no thyroid enlargement, no carotid bruits. Lungs: Significantly decreased breath sound in the right side all the way to have the way up significant rhonchi and mild crackles in the bases as well with mild expiratory wheezes. Chest Wall: Decreased expansion with deep inspiration no tenderness and no deformity was found on exam, no costochondral pain or discomfort. No sign of trauma or bruise to the rib cage area. Heart: Regular rate and rhythm with mild tachycardia, S1, S2 normal, no murmur, rub or gallop. Back: Symmetric, no curvature, ROM normal, no CVA tenderness. Abdomen: Soft, non-tender, bowel sounds active all four quadrants, no masses, no organomegaly. Extremities: Extremities normal, atraumatic, no cyanosis or edema. Pulses: 2+ and symmetric. Skin: Skin color, texture, tugor normal, no rashes or lesions. Neurologic: Alert oriented x3 cranial nerves II through XII intact, no motor deficit, no abnormal balance or gait. ASSESSMENT AND PLAN: _Acute hypoxic respiratory failure: Secondary to large right-sided pleural effusion and possible aspiration pneumonia, thoracentesis was done, did not impr ove a whole lot she had pigtail catheter in the pleural space and lets place with chest tube under waterseal draining close to 500 cc of pleural fluid. Shortness of breath still significant this point. _Severe large right-sided pleural effusion with compression of the right lung thoracentesis of 1.6 L of terabyte pleural fluid without any blood will be sent for analysis. With the area still not a clear and accumulating fast plus there is more finding for consolidation pigtail catheter was ordered by radiology and patient be going for bronchoscopy today depend on the results we will decide on further management. _Aspiration pneumonia: Remain on Rocephin, and vancomycin will be off azithro mycin for now. Bronchoscopy and probably lavage will help _Severe hyponatremia: Much better and sodium is up to 128, continue to treat underlying disease continue sodium tablets as well. _Severe acute leukocytosis: Secondary to infection with white blood cells down 17-19,000 only. _Type 1 diabetes: Blood sugars coming down gradually but remain on short acting insulin 5 to 10 units AC meals plus sliding scales. _Neuropathy: Continue gabapentin doing slightly better. _Recent history of pelvic fracture has been seen orthopedic. _Hyperlipidemia: Remain on rosuvastatin 10 mg a day. _Tachycardia and multifocal PACs: Remain on metoprolol and if needed will add Cardizem drip. CODE STATUS: Full code. Patient is going for bronchoscopy today, continue to drain pleural space with pigtail catheter connected with chest tube under waterseal. Culture still negative at this point also pleural fluid analysis still negative for any abnormal cells. Objective - Vital Signs Vital signs: Vital Signs Temp 98.2 F 12/26/23 04:00 Pulse 131 H 12/26/23 06:00 Resp 28 H 12/26/23 06:00 BP 155/53 12/26/23 06:00 Pulse Ox 95 12/26/23 06:00 FiO2 Intake & Output 12/25/23 12/25/23 12/26/23 06:59 18:59 06:59 Intake Total 1075 1895 435 Output Total 700 660 590 Balance 375 1235 -155 Weight 61.2 kg 61.2 kg 59 kg Intake: IV 1075 795 60 Sodium Chloride 0.9% 1, 825 795 60 000 ml @ 75 mls/hr IV . [id number] [facility] Rx#:[id number] Vancomycin 750 mg In 250 Sodium Chloride 0.9% 250 ml @ 125 mls/hr IVPB ONCE [facility] Rx#:[id number] Intake, IV Titration 550 125 Amount Azithromycin 500 mg In 250 Sodium Chloride 0.9% 250 ml @ 250 mls/hr IVPB DAILY [facility] Rx#:[id number] Vancomycin 1,000 mg In 250 125 Sodium Chloride 0.9% 250 ml @ 125 mls/hr IVPB BID@ 0500,1700 [facility] Rx#: [id number] cefTRIAXone 2 gm In 50 Sodium Chloride 0.9% 50 ml @ 100 mls/hr IVPB Q24HR [facility] Rx#:[id number] Oral 550 250 Output: Chest Tube Drainage 360 110 Pleural Catheter Right 360 110 Posterior Chest Urine 700 300 480 Other: Voiding Method Bedside Commode Bedside Commode Bedside Commode - Labs CBC & Chem 7: 12/26/23 03:56 12/26/23 03:50 Labs: Abnormal Lab Results - Last 24 Hours (Table) 12/25/23 12/25/23 12/25/23 Range/Units 05:53 05:53 11:29 WBC 18.3 H (3.8-10.6) k/uL RBC 3.61 L (3.80-5.40) m/uL Hgb 10.4 L (11.4-16.0) gm/dL Hct 31.7 L (34.0-46.0) % Plt Count 465 H (150-450) k/uL Neutrophils # 15.9 H (1.3-7.7) k/uL Lymphocytes # (1.0-4.8) k/uL Monocytes # 1.3 H (0-1.0) k/uL Sodium 125 L (137-145) mmol/L Carbon Dioxide 19 L (22-30) mmol/L Creatinine 0.44 L (0.52-1.04) mg/dL Glucose 204 H (74-99) mg/dL POC Glucose (mg/dL) 221 H (70-110) mg/dL Calcium 6.6 L (8.4-10.2) mg/dL Alkaline Phosphatase 186 H (38-126) U/L Total Protein 3.9 L (6.3-8.2) g/dL Albumin 1.8 L (3.5-5.0) g/dL 12/25/23 12/25/23 12/25/23 Range/Units 15:26 16:44 18:19 WBC (3.8-10.6) k/uL RBC (3.80-5.40) m/uL Hgb (11.4-16.0) gm/dL Hct (34.0-46.0) % Plt Count (150-450) k/uL Neutrophils # (1.3-7.7) k/uL Lymphocytes # (1.0-4.8) k/uL Monocytes # (0-1.0) k/uL Sodium 127 L (137-145) mmol/L Carbon Dioxide (22-30) mmol/L Creatinine (0.52-1.04) mg/dL Glucose (74-99) mg/dL POC Glucose (mg/dL) 177 H 258 H (70-110) mg/dL Calcium (8.4-10.2) mg/dL Alkaline Phosphatase (38-126) U/L Total Protein (6.3-8.2) g/dL Albumin (3.5-5.0) g/dL 12/25/23 12/26/23 12/26/23 Range/Units 20:48 03:50 03:56 WBC 16.2 H (3.8-10.6) k/uL RBC (3.80-5.40) m/uL Hgb 11.2 L (11.4-16.0) gm/dL Hct (34.0-46.0) % Plt Count 464 H (150-450) k/uL Neutrophils # 13.5 H (1.3-7.7) k/uL Lymphocytes # 0.9 L (1.0-4.8) k/uL Monocytes # 1.4 H (0-1.0) k/uL Sodium 128 L (137-145) mmol/L Carbon Dioxide 21 L (22-30) mmol/L Creatinine 0.32 L (0.52-1.04) mg/dL Glucose 213 H (74-99) mg/dL POC Glucose (mg/dL) 245 H (70-110) mg/dL Calcium 6.7 L (8.4-10.2) mg/dL Alkaline Phosphatase (38-126) U/L Total Protein (6.3-8.2) g/dL Albumin (3.5-5.0) g/dL 12/26/23 Range/Units 06:14 WBC (3.8-10.6) k/uL RBC (3.80-5.40) m/uL Hgb (11.4-16.0) gm/dL Hct (34.0-46.0) % Plt Count (150-450) k/uL Neutrophils # (1.3-7.7) k/uL Lymphocytes # (1.0-4.8) k/uL Monocytes # (0-1.0) k/uL Sodium (137-145) mmol/L Carbon Dioxide (22-30) mmol/L Creatinine (0.52-1.04) mg/dL Glucose (74-99) mg/dL POC Glucose (mg/dL) 219 H (70-110) mg/dL Calcium (8.4-10.2) mg/dL Alkaline Phosphatase (38-126) U/L Total Protein (6.3-8.2) g/dL Albumin (3.5-5.0) g/dL Microbiology - Last 24 Hours (Table) 12/23/23 08:24 Blood Culture - Preliminary Blood 12/23/23 08:24 Blood Culture - Preliminary Blood 12/23/23 13:28 Gram Stain - Preliminary Pleural Fluid Body Fluid Culture - Preliminary
[2023-12-27] MEDS: DILTIAZEM 125 MG in SODIUM CHLORIDE 0.9% 100 ML IV SCH (04:27)
[2023-12-27 04:46] LABS: Basophils # (A) 0.1 k/uL (0-0.2); Basophils % (A) 0 %; Eosinophils # (A) 0.1 k/uL (0-0.7); Eosinophils % (A) 0 %; HCT 45.7 % (34.0-46.0); Lymphocytes # (A) 2.2 k/uL (1.0-4.8); Lymphocytes % (A) 9 %; MCH 28.7 pg (25.0-35.0); MCHC 31.6 g/dL (31.0-37.0); MCV 90.8 fL (80.0-100.0); Mean Platelet Volume 8.8; Monocytes # (A) 2.6 k/uL (0-1.0); Monocytes % (A) 11 %; Neutrophils # (A) 19.9 k/uL (1.3-7.7); Neutrophils % (A) 80 %; Platelet Count 615 k/uL (150-450); RBC 5.03 m/uL (3.80-5.40); RDW 14.4 % (11.5-15.5)
[2023-12-27 04:49] LABS: HGB 14.4 gm/dL (11.4-16.0)
[2023-12-27 05:15] LABS: African American GFR (CKD) >90 (>60 ml/min/1.73 sqM); Anion Gap 5 mmol/L; Blood Urea Nitrogen 11 mg/dL (7-17); Carbon Dioxide 19 mmol/L (22-30); Chloride 104 mmol/L (98-107); Glucose 209 mg/dL (74-99); Non-African American GFR(CKD) >90 (>60 ml/min/1.73 sqM); Potassium 4.9 mmol/L (3.5-5.1); Sodium 128 mmol/L (137-145)
[2023-12-27 06:26] LABS: Glucose,Whole Blood 197 mg/dL (70-110)
[2023-12-27 07:25] LABS: Nucleated Cells, Body Fluid 495 /UL
--- NOTE | 2023-12-27 07:30 | XR ---
EXAMINATION TYPE: XR chest 1V portable DATE OF EXAM: 12/27/2023 COMPARISON: 12/26/2019 HISTORY: Right pleural effusion TECHNIQUE: Single frontal view of the chest is obtained. FINDINGS: There is stable right-sided pleural effusion with consolidation. Left-sided consolidation and tiny effusion. No overt failure. Heart size stable. Diffuse osteopenia and arthropathy of the sanam ulders. Degenerative change of the spine. No sizable pneumothorax. Right-sided chest tube longer seen IMPRESSION: Stable right pleural effusion and consolidation
--- NOTE | 2023-12-27 08:29 | CT ---
EXAMINATION TYPE: CT chest wo con DATE OF EXAM: 12/27/2023 COMPARISON: 12/25/2023 HISTORY: PLUERAL EFFUSION CT DLP: 264.4 mGycm. Automated Exposure Control for Dose Reduction was Utilized. TECHNIQUE: CT scan of the thorax is performed without IV contrast. FINDINGS: LUNGS: Persistent large sized right-sided pleural fluid collection with associated right lung jailene sive atelectasis. Versus an abrupt cutoff of the bronchus intermedius with abnormal attenuation withi n the right main stem, upper lobe, bronchus intermedius and lower lobe bronchus. Currently retained s ecretions, aspiration or endobronchial lesion. Tiny left-sided pleural effusion redemonstrated. Calci fied tracheobronchial tree. Small left pleural effusion with basilar consolidation. A drainage cathet er is not seen. A peripheral based groundglass changes involving the left lung apex nonspecific infla mmatory or postinfectious. MEDIASTINUM: Lack of IV contrast is noted to limit evaluation for mediastinal and especially hilar ad enopathy. Extensive compression of the right lung pleural fluid also limits assessment. Heart is enla rged. Coronary artery calcification pericardial effusion. OTHER: Diffuse subcutaneous edema. Splenic granuloma. Degenerative changes spine. Chronic rib deformi ties. A trace of ascites. IMPRESSION: 1. No evidence of a right-sided drainage catheter. 2. Large right pleural effusion with extensive soft tissue in the right mainstem, upper lobe, middle lobe, and lower lobe bronchus may represent aspiration, retained secretions or endobronchial lesion. 3. Anasarca 4. Small left pleural effusion with basilar consolidation. Follow-up recommendations for incidental pulmonary nodules are per [employer] or [employer].
--- NOTE | 2023-12-27 09:29 | P.PN ---
Subjective Progress Note Date: 12/27/23 Principal diagnosis: Large right-sided pleural effusion with compressive atelectasis right lung, status post thoracentesis and pigtail catheter placement, acute hypoxic respiratory failure, right lung pneumonia, acute leukocytosis, hyponatremia. History of hypertension, hyperlipidemia, insulin-dependent diabetes mellitus type 2, recent fall from standing sustaining a pelvic fracture, daily EtOH use, previous tobacco dependence POD #1 right sided pigtail catheter placement by interventional radiology The patient was seen and examined this morning again with Dr. Jacobs sitting up in recliner in the intensive care unit in no acute distress. Right-sided pigtail catheter was placed yesterday by interventional radiology with instillation of first dose of lytics. Unfortunately last night pigtail catheter inadvertently was dislodged and came out. Chest x-ray and CT scan were reviewed this morning with Dr. Jacobs, patient remains with large right-sided effusion likely will have pigtail catheter replaced if patient is agreeable. Currently on 4 L nasal cannula, only achieving 500 mL on her incentive spirometry. Remains on ceftriaxone and vancomycin for antibiotics. Objective - Vital Signs Vital signs: Vital Signs Temp 97.8 F 12/27/23 08:00 Pulse 93 12/27/23 09:00 Resp 29 H 12/27/23 09:00 BP 90/41 12/27/23 09:00 Pulse Ox 96 12/27/23 09:00 FiO2 Intake & Output 12/26/23 12/27/23 12/27/23 18:59 06:59 18:59 Intake Total 1085 10 20.75 Output Total 970 300 Balance 115 -290 20.75 Intake: IV 225 Sodium Chloride 0.9% 1, 25 000 ml @ 75 mls/hr IV . [id number] [facility] Rx#:[id number] Intake, IV Titration 620 10 20.75 Amount Azithromycin 500 mg In 250 Sodium Chloride 0.9% 250 ml @ 250 mls/hr IVPB DAILY [facility] Rx#:[id number] Diltiazem 125 mg In 20.75 Sodium Chloride 0.9% 100 ml @ 5 MG/HR 5 mls/hr IV .Q24H [facility] Rx#:[id number] Sodium Chloride 0.9% 1, 70 10 000 ml @ 10 mls/hr IV . Q24H [facility] Rx#:[id number] Vancomycin 1,000 mg In 250 Sodium Chloride 0.9% 250 ml @ 125 mls/hr IVPB BID@ 0500,1700 [facility] Rx#: [id number] cefTRIAXone 2 gm In 50 Sodium Chloride 0.9% 50 ml @ 100 mls/hr IVPB Q24HR [facility] Rx#:[id number] Oral 240 Output: Chest Tube Drainage 20 Pleural Catheter Right 20 Posterior Chest Urine 950 300 Other: Voiding Method Bedside Commode Bedside Commode Diaper # Bowel Movements 1 - Exam CONSTITUTIONAL: Appears comfortable, cooperative, no acute distress RESPIRATORY: Lungs sounds diminished bilaterally. Respirations even, nonlabored. Currently on 4 L nasal cannula with oxygen saturation 96%. Able to achieve 500 mL on incentive spirometry. Strong cough. CARDIOVASCULAR: S1, S2 present. Regular rate and rhythm, sinus rhythm on telemetry. Palpable peripheral pulses bilaterally. No edema present. No calf pain or tenderness noted. SCDs present. GASTROINTESTINAL: Abdomen soft, nontender, nondistended. Active bowel sounds present 4 quadrants. Tolerating diet. Positive bowel movement 12/26 GENITOURINARY: Continues to void INTEGUMENTARY: Skin is warm and dry NEUROLOGIC: Cranial nerves II through XII intact MUSKULOSKELETAL: Able to move all extremities, strength equal bilaterally, gait normal PSYCHIATRIC: Alert and oriented to person place and time, appropriate affect, intact judgment and insight - Allied health notes Allied health notes reviewed: nursing - Labs CBC & Chem 7: 12/27/23 04:27 12/27/23 04:27 Labs: Abnormal Lab Results - Last 24 Hours (Table) 12/26/23 12/26/23 12/26/23 Range/Units 11:14 13:51 14:10 WBC (3.8-10.6) k/uL Plt Count (150-450) k/uL Neutrophils # (1.3-7.7) k/uL Monocytes # (0-1.0) k/uL Sodium (137-145) mmol/L Carbon Dioxide (22-30) mmol/L Creatinine (0.52-1.04) mg/dL Glucose (74-99) mg/dL POC Glucose (mg/dL) 118 H 145 H (70-110) mg/dL Calcium (8.4-10.2) mg/dL Fluid Appearance Turbid A (Clear) Fluid RBC 2975 H (0-2000) /uL 12/26/23 12/26/23 12/27/23 Range/Units 16:29 20:23 04:27 WBC 25.0 H (3.8-10.6) k/uL Plt Count 615 H (150-450) k/uL Neutrophils # 19.9 H (1.3-7.7) k/uL Monocytes # 2.6 H (0-1.0) k/uL Sodium (137-145) mmol/L Carbon Dioxide (22-30) mmol/L Creatinine (0.52-1.04) mg/dL Glucose (74-99) mg/dL POC Glucose (mg/dL) 220 H 233 H (70-110) mg/dL Calcium (8.4-10.2) mg/dL Fluid Appearance (Clear) Fluid RBC (0-2000) /uL 12/27/23 12/27/23 Range/Units 04:27 06:25 WBC (3.8-10.6) k/uL Plt Count (150-450) k/uL Neutrophils # (1.3-7.7) k/uL Monocytes # (0-1.0) k/uL Sodium 128 L (137-145) mmol/L Carbon Dioxide 19 L (22-30) mmol/L Creatinine 0.39 L (0.52-1.04) mg/dL Glucose 209 H (74-99) mg/dL POC Glucose (mg/dL) 197 H (70-110) mg/dL Calcium 7.0 L (8.4-10.2) mg/dL Fluid Appearance (Clear) Fluid RBC (0-2000) /uL Microbiology - Last 24 Hours (Table) 12/23/23 13:28 Gram Stain - Preliminary Pleural Fluid Body Fluid Culture - Preliminary 12/23/23 08:24 Blood Culture - Preliminary Blood 12/23/23 08:24 Blood Culture - Preliminary Blood - Imaging and Cardiology Chest x-ray: report reviewed, image reviewed CT scan - chest: report reviewed, image reviewed Assessment and Plan Assessment: Large right-sided pleural effusion with compressive atelectasis right lung, status post thoracentesis and pigtail catheter placement, status post 1 dose lytics Acute hypoxic respiratory failure Right lung pneumonia Acute leukocytosis Hyponatremia History of hypertension Hyperlipidemia Insulin-dependent diabetes mellitus type 2 Recent fall from standing sustaining a pelvic fracture Daily EtOH use Previous tobacco dependence Plan: Recommend reinsertion of pigtail catheter with subsequent instillation of lytics Wean O2 as tolerated, encourage incentive spirometry use 10 times every hour while awake, bronchodilators per pulmonology Increase activity, ambulate as tolerated Antibiotics per pulmonology/internal medicine GI/DVT prophylaxis More recommendations to follow
[2023-12-27 11:39] LABS: Glucose,Whole Blood 279 mg/dL (70-110)
--- NOTE | 2023-12-27 11:48 | XR ---
EXAMINATION TYPE: XR chest 1V DATE OF EXAM: 12/27/2023 COMPARISON: 12/27/2023 HISTORY: Chest tube TECHNIQUE: Single frontal view of the chest is obtained. FINDINGS: Chest tube in place with interval marked improvement in the degree of pleural effusion. Th ere is a small hydropneumothorax estimated at 10% to 15%. Small left pleural effusion with basilar co nsolidation. Heart size stable. Osteopenia, arthropathy of the shoulders. IMPRESSION: 1. Interval marked improvement in the size of the pleural fluid and consolidation with a small right hydropneumothorax estimated at 15%.
[2023-12-27] MEDS: FUROSEMIDE 10 MG/ML 2 ML VIAL IV ONE (12:04)
--- NOTE | 2023-12-27 13:36 | P.PN ---
Subjective Progress Note Date: 12/27/23 This is a 83-year-old female patient who came to the emergency department with increased shortness of breath. Her breathing was progressively getting worse over the past 1 week. She had increased cough congestion chest tightness and wheezing and she was having chills at home. She was given outpatient antibiotic therapy with Zithromax and her condition decompensated and she ended up coming into the hospital. The patient has been having some chest discomfort along the right chest. She had a fall approximately few weeks back and she also sustained a pelvic fracture. She is a lifetime non-smoker. She came to the emergency department and the patient had a white cell count of 34 with a hemoglobin 14.8. Her sodium level was 116 with a potassium level of 5.9 and a serum bicarb was at 21. BUN was 18 with a creatinine of 0.4. Troponin was 0.07. proBNP level was 5000. The viral screen was negative. Initial lactic acid level was at 2.1 and dropped down to 1.6. Coagulation profile was normal with a D-dimer of 2.6. Initial chest x-ray showed a large right-sided pleural effusion. CAT scan of the chest was also done in the Emergency Department that showed no evidence of any central pulmonary embolism. There was a large right-sided pleural effusion with near complete opacification and compression of the right lung. There was also abnormal attenuation within the right mainstem right middle lobe and right lower lobe bronchus and aspiration was suspected. I saw the patient in the e mergency department. She was quite short of breath and she was on oxygen at 5 L/min nasal cannula. Her pulse ox was as in the low 90s. I performed a bedside thoracentesis a total of 1.6 L of pleural fluid is aspirated. No complications. The post thoracentesis chest x-ray showed interval marked reduction in the right-sided pleural effusion without evidence of any pneumothorax. The patient was started on broad-spectrum antibiotics and she is currently on a combination of Rocephin and Zithromax and vancomycin. She is diabetic. She takes insulin on outpatient basis. She also has history of hypertension and hyperlipidemia. Currently she is also on IV fluids and the patient is on normal saline which is running at a rate of 75 cc an hour. No altered mentation. No seizure activity. On 12/24/2023, the patient is feeling better. The patient is less short of breath and currently she is on 2 L of oxygen by nasal cannula. Her breathing is more comfortable. Thoracentesis was done yesterday and the pleural fluid analysis still pending. Cultures are still pending. Legionella urine antigen is negative. Echocardiogram showed a preserved LV function, no significant valvular abnormalities. The white cell count is currently down to 26 with a hemoglobin 13.1 and a platelet count of 491. Sodium is 119 improved compared to yesterday and the urine sodium is essentially low less than 20, not typical of SIADH. Serum bicarb is 18 with a BUN of 16 and a creatinine of 0.4. She remain s on Rocephin and Zithromax and vancomycin. Metoprolol was restarted. He is also on Zestril 40 mg p.o. daily for blood pressure control. She is on NovoLog 5 units 3 times daily with meals plus a sliding scale coverage. She remains on bronchodilators. On today's evaluation on 12/25/2023, the patient is being seen for a follow- up.The patient has no specific complaints. She seems to be less short of breath. She is on 4 L of oxygen by nasal cannula with a pulse ox of 96%. She remains on a combination of Rocephin and Zithromax and vancomycin. The white cell count is improving is currently down to 18.3 with a hemoglobin of 10.5 and a platelet count of 465. Sodium levels of 125. BUN is 12 with a creatinine of 0.4 and the patient is currently nondistended. Exercises an hour. On a separ ate note, chest x-ray that was done today showed further opacification of the right lung compared to yesterday chest x-ray. Based on that, a CAT scan of the chest was done and it showed a moderate to large right-sided pleural fluid collection along with compressive atelectasis of the right lung. There was also extensive calcification of the bronchi bilaterally more so on the right lower lobe bronchus and there was also a filling defect in the right lower lobe bronchus that was not felt to be patent. There is an abrupt cut off sign in the bronchus intermedius/right lower lobe area. Based on those findings, I recommended a pigtail catheter insertion and this will be done by interventional radiology today to be followed up by bronchoscopy in a.m. The pleural fluid is aspirated earlier was an accident with elevated LDH of 610 and a protein of 3.2 g. Glucose was at 136. Cell count was 1000. The fluid cytology still pending for now. The Gram stain culture is also negative. 12/26/2023, the patient is being seen for a follow-up. The patient is on 4 L of oxygen nasal cannula. The pigtail catheter was inserted yesterday and a total of 4 L of pleural fluid was further aspirated. Blood from the PICC line has been noted. Nevertheless, the chest x-ray still showing volume loss and persistent right lung consolidation. As mentioned earlier, there is an abrupt cut off sign in the right mainstem bronchus/bronchus intermedius and the patient is going to undergo a bronchoscopy today. White cell count is 16, hemoglobin 11 and platelet count is at 464, sodium levels at 128, BUN is at 10 with a creatinine of 0.3. Remains on the same antibiotic coverage to include Rocephin and Zithromax and vancomycin. Cultures are still negative. Sputum culture still pending. Clinically doing well. No significant tachycardia. Hemodynamically stable. Currently n.p.o. awaiting bronchoscopy. She went 12/27/2023, for the patient for a follow-up. Events from yesterday were noted and the patient's pigtail catheter has been removed. This came out accidentally. Repeat CAT scan of the chest was done this morning and it showed essentially enlarged right-sided pleural effusion with loculation. The patient also had atelectatic changes in the right lung. There is again a cut off sign in the right lower lobe bronchus. Noted I performed a bronchoscopy the patient and the patient had copious amount of respiratory secretions and mucous plugs that were aspirated without any major difficulties. Cultures were sent and the results are still pending for now. She remains on oxygen at 4 L nasal cannula with pulse ox of 97%. The patient has a white cell count of 25, hemoglobin is at 14.4 and a platelet count of 650. Sodium levels of 128, BUN 11 with a creatinine of 0.39. The pleural fluid cultures are still negative. She remains on bronchodilators with DuoNeb updrafts. She continues to have a congested cough, producing limited amount of sputum. Awake and alert and communicating. She does have chronic lower extremity edema. Cardiac rhythm remained sinus. Objective - Vital Signs Vital signs: Vital Signs Temp 97.8 F 12/27/23 08:00 Pulse 93 12/27/23 09:00 Resp 29 H 12/27/23 09:00 BP 90/41 12/27/23 09:00 Pulse Ox 96 12/27/23 09:00 FiO2 Intake & Output 12/26/23 12/27/23 12/27/23 18:59 06:59 18:59 Intake Total 1085 10 210.75 Output Total 970 300 100 Balance 115 -290 110.75 Intake: IV 225 Sodium Chloride 0.9% 1, 25 000 ml @ 75 mls/hr IV . [id number] SHANICE Rx#:[id number] Intake, IV Titration 620 10 90.75 Amount Azithromycin 500 mg In 250 Sodium Chloride 0.9% 250 ml @ 250 mls/hr IVPB DAILY SHANICE Rx#:[id number] Diltiazem 125 mg In 20.75 Sodium Chloride 0.9% 100 ml @ 5 MG/HR 5 mls/hr IV .Q24H SHANICE Rx#:[id number] Sodium Chloride 0.9% 1, 70 10 20 000 ml @ 10 mls/hr IV . Q24H SHANICE Rx#:[id number] Vancomycin 1,000 mg In 250 Sodium Chloride 0.9% 250 ml @ 125 mls/hr IVPB BID@ 0500,1700 SHANICE Rx#: [id number] cefTRIAXone 2 gm In 50 50 Sodium Chloride 0.9% 50 ml @ 100 mls/hr IVPB Q24HR SHANICE Rx#:[id number] Oral 240 120 Output: Chest Tube Drainage 20 Pleural Catheter Right 20 Posterior Chest Urine 950 300 100 Other: Voiding Method Bedside Commode Bedside Commode Diaper # Bowel Movements 1 - Exam Calm and comfortable mild degree of respiratory distress, BMI 17.6 currently on 4 L of O2 nasal cannula Head exam was generally normal. There was no scleral icterus or corneal arcus. Mucous membranes were moist. Neck was supple and without jugular venous distension, thyromegaly, or carotid bruits. Carotids were easily palpable bilaterally. There was no adenopathy. Lung sounds revealed improved breath sounds right lung base. Some limited crackles. Left lung is clear. Cardiac exam revealed the PMI to be normally situated and sized. The rhythm was regular and no extrasystoles were noted during several minutes of auscultation. The first and second heart sounds were normal and physiologic splitting of the second heart sound was noted. There were no murmurs, rubs, clicks, or gallops. Abdominal exam revealed normal bowel sounds. The abdomen was soft, non-tender, and without masses, organomegaly, or appreciable enlargement of the abdominal aorta. Examination of the extremities revealed easily palpable radial, femoral and pedal pulses. There was no cyanosis, clubbing or edema., Trace ankle edema Examination of the skin revealed no evidence of significant rashes, suspicious a ppearing nevi or other concerning lesions. Neurologically, the patient is awake and alert and the patient does not have any focal neurological deficit. Cranial nerves are essentially intact. - Labs CBC & Chem 7: 12/27/23 04:27 12/27/23 04:27 Labs: Abnormal Lab Results - Last 24 Hours (Table) 12/26/23 12/26/23 12/26/23 Range/Units 11:14 13:51 14:10 WBC (3.8-10.6) k/uL Plt Count (150-450) k/uL Neutrophils # (1.3-7.7) k/uL Monocytes # (0-1.0) k/uL Sodium (137-145) mmol/L Carbon Dioxide (22-30) mmol/L Creatinine (0.52-1.04) mg/dL Glucose (74-99) mg/dL POC Glucose (mg/dL) 118 H 145 H (70-110) mg/dL Calcium (8.4-10.2) mg/dL Fluid Appearance Turbid A (Clear) Fluid RBC 2975 H (0-2000) /uL 12/26/23 12/26/23 12/27/23 Range/Units 16:29 20:23 04:27 WBC 25.0 H (3.8-10.6) k/uL Plt Count 615 H (150-450) k/uL Neutrophils # 19.9 H (1.3-7.7) k/uL Monocytes # 2.6 H (0-1.0) k/uL Sodium (137-145) mmol/L Carbon Dioxide (22-30) mmol/L Creatinine (0.52-1.04) mg/dL Glucose (74-99) mg/dL POC Glucose (mg/dL) 220 H 233 H (70-110) mg/dL Calcium (8.4-10.2) mg/dL Fluid Appearance (Clear) Fluid RBC (0-2000) /uL 12/27/23 12/27/23 Range/Units 04:27 06:25 WBC (3.8-10.6) k/uL Plt Count (150-450) k/uL Neutrophils # (1.3-7.7) k/uL Monocytes # (0-1.0) k/uL Sodium 128 L (137-145) mmol/L Carbon Dioxide 19 L (22-30) mmol/L Creatinine 0.39 L (0.52-1.04) mg/dL Glucose 209 H (74-99) mg/dL POC Glucose (mg/dL) 197 H (70-110) mg/dL Calcium 7.0 L (8.4-10.2) mg/dL Fluid Appearance (Clear) Fluid RBC (0-2000) /uL Microbiology - Last 24 Hours (Table) 12/23/23 13:28 Gram Stain - Preliminary Pleural Fluid Body Fluid Culture - Preliminary 12/23/23 08:24 Blood Culture - Preliminary Blood 12/23/23 08:24 Blood Culture - Preliminary Blood Assessment and Plan Plan: Acute hypoxic respiratory failure currently on 4 L of oxygen by nasal cannula Large right-sided pleural effusion with compressive atelectasis of the right lung, likely parapneumonic in nature. Thoracentesis was done and approximately 1.6 L of turbid pleural fluid was aspirated from the right lung. The pleural fluid is an exudate. Culture is still pending for now. The follow-up chest x- ray showed reaccumulation of a moderate to large size right-sided pleural effusion along with compressive atelectasis of the right lung base. There is also extensive calcification of the airways and the right mainstem bronchus, bronchus remains in the right lower lobe bronchus and there is also an abrupt cut off sign. This could be mucus. The patient had bronchoscopy on 12/26/2023 and copious amount of mucous plugs were aspirated from the right lower lobe. Cultures are still pending from those. Meanwhile, following administration of the dose of tPA/dornase, the pigtail came out accidentally. Repeat CAT scan of the chest shows similar findings with a large right-sided pleural effusion and compressive atelectasis of the right lung base with ongoing count of send the right lower lobe bronchus. Noted the bronchoscopy revealed no evidence of any endobronchial tumors. Airways in the right lower lobe were quite inflamed and erythematous and similar inflammatory findings were found in the distal bronchus intermedius. Right lung pneumonia, Acute leukocytosis, white cell count remains elevated. Mild lactic acidosis, improved Hyponatremia, stable at 128 Diabetes mellitus type 1 maintained on insulin on outpatient basis Hypertension Hyperlipidemia Recent fall with pelvic fracture Generalized weakness and fatigue secondary to above Plan Titrate oxygen flow to maintain saturation above 90% currently on 4 L/min nasal cannula Provide the patient w incentive spirometer Thoracentesis was performed at time of admission. Subsequently the patient had pigtail catheter inserted which came out accidentally. Follow-up CAT scan of the chest from this morning was noted. Cover the patient with Rocephin Zithromax and vancomycin Check procalcitonin level, mildly elevated Bronchoscopy was done and copious amount of respiratory secretions were aspirated from the right lower lobe. Cultures are still pending. I had a lengthy discussion with the patient and the family. I also discussed the case with the cardiothoracic surgeon. Will proceed with a right-sided chest tube insertion. Will continue alteplase administration to the right hemithorax to evacuate the right-sided complicated parapneumonic effusion. I discussed the need for a VATS procedure at a later stage. The patient is against having any form of surgery at this point in time. Based on that, we will proceed with a right-sided chest tube insertion. Continue bronchodilators Will continue to follow. This evaluation was done more than 30 minutes, case was discussed with various consultants and family. Time with Patient: Greater than 30
--- NOTE | 2023-12-27 13:37 | P.PCN ---
Date of Procedure: 12/27/23 Preoperative Diagnosis: Complicated recurrent parapneumonic right-sided pleural effusion/empyema Postoperative Diagnosis: Same Procedure(s) Performed: Right-sided chest tube insertion Anesthesia: local Surgeon: Pasha Burgess Estimated Blood Loss (ml): 0 Pathology: other Condition: critical Disposition: ICU Operative Findings: A time-out was completed verifying correct patient, procedure, site, positioning, and special equipment if applicable. The patient was positioned ap propriately for chest tube placement. The patients [right/left] chest was prepped and draped in sterile fashion. 1% Lidocaine was used to anesthetize the surrounding skin area. A 2 cm skin incision was made in the mid-axillary line at the inframammarycrease. Utilizing blunt dissection a subcutaneous tunnel was created cephalad just adjacent to the superior rib. The pleural space was entered bluntly and gush of purulent pleural fluid was observed. A finger was inserted into the pleural space to check for anatomy and guide tube insertion. A 28 Lebanese thoracostomy tube was inserted using a Windy clamp and positioned appropriately. The chest tube was sutured securely to the skin and a sterile dressing applied. A pleurevac was attached to the chest tube and a chest x-ray obtained. I personally performed this procedure and I was was present for the entire procedure. Noted following the procedure, the patient had a total of 1.3 L of fluid aspirated from the right lung. The fluid was initially clear and subsequently became purulent. Estimated Blood Loss: 0 The patient tolerated the procedure well and there were no complications.
--- NOTE | 2023-12-27 16:07 | P.PN ---
Subjective patient is seen for follow-up for hyponatremia. S/p normal saline. Discontinued yesterday. Serum sodium staying at 128. Status post bronchoscopy which showed mucous plugs. Blood pressure is noted to be low today with occasional readings below 100 systolic. No significant worsening of shortness of breath. Objective - Vital Signs Vital signs: Vital Signs Temp 98 F 12/27/23 12:00 Pulse 79 12/27/23 15:30 Resp 21 12/27/23 15:30 BP 107/46 12/27/23 15:30 Pulse Ox 96 12/27/23 15:30 FiO2 Intake & Output 12/26/23 12/27/23 12/27/23 18:59 06:59 18:59 Intake Total 1085 10 390.75 Output Total 504 198 7095 Balance 115 -290 -1409.25 Intake: IV 225 Sodium Chloride 0.9% 1, 25 000 ml @ 75 mls/hr IV . [id number] [facility] Rx#:[id number] Intake, IV Titration 620 10 150.75 Amount Azithromycin 500 mg In 250 Sodium Chloride 0.9% 250 ml @ 250 mls/hr IVPB DAILY [facility] Rx#:[id number] Diltiazem 125 mg In 20.75 Sodium Chloride 0.9% 100 ml @ 5 MG/HR 5 mls/hr IV .Q24H [facility] Rx#:[id number] Sodium Chloride 0.9% 1, 70 10 80 000 ml @ 10 mls/hr IV . Q24H [facility] Rx#:[id number] Vancomycin 1,000 mg In 250 Sodium Chloride 0.9% 250 ml @ 125 mls/hr IVPB BID@ 0500,1700 SHAN[facility] Rx#: [id number] cefTRIAXone 2 gm In 50 50 Sodium Chloride 0.9% 50 ml @ 100 mls/hr IVPB Q24HR [facility] Rx#:[id number] Oral 240 240 Output: Chest Tube Drainage 20 1300 Chest Tube Right 1300 Posterior Chest Pleural Catheter Right 20 Posterior Chest Urine 950 300 250 Post Void Residual 250 Other: Voiding Method Bedside Commode Bedside Commode Bedside Commode Diaper Diaper # Bowel Movements 1 - Exam Patient is awake, comfortable, no acute distress. Examination of the heart S1 and S2 Examination of the lungs bilateral breath sounds are heard, decreased breath sounds at the bases. Abdomen is soft nontender Examination of lower extremity shows edema 2+ bilaterally [employer] exam grossly intact - Labs CBC & Chem 7: 12/27/23 04:27 12/27/23 04:27 Labs: Abnormal Lab Results - Last 24 Hours (Table) 12/26/23 12/26/23 12/26/23 Range/Units 13:51 16:29 20:23 WBC (3.8-10.6) k/uL Plt Count (150-450) k/uL Neutrophils # (1.3-7.7) k/uL Monocytes # (0-1.0) k/uL Sodium (137-145) mmol/L Carbon Dioxide (22-30) mmol/L Creatinine (0.52-1.04) mg/dL Glucose (74-99) mg/dL POC Glucose (mg/dL) 220 H 233 H (70-110) mg/dL Calcium (8.4-10.2) mg/dL Fluid Appearance Turbid A (Clear) Fluid RBC 2975 H (0-2000) /uL 12/27/23 12/27/23 12/27/23 Range/Units 04:27 04:27 06:25 WBC 25.0 H (3.8-10.6) k/uL Plt Count 615 H (150-450) k/uL Neutrophils # 19.9 H (1.3-7.7) k/uL Monocytes # 2.6 H (0-1.0) k/uL Sodium 128 L (137-145) mmol/L Carbon Dioxide 19 L (22-30) mmol/L Creatinine 0.39 L (0.52-1.04) mg/dL Glucose 209 H (74-99) mg/dL POC Glucose (mg/dL) 197 H (70-110) mg/dL Calcium 7.0 L (8.4-10.2) mg/dL Fluid Appearance (Clear) Fluid RBC (0-2000) /uL 12/27/23 Range/Units 11:38 WBC (3.8-10.6) k/uL Plt Count (150-450) k/uL Neutrophils # (1.3-7.7) k/uL Monocytes # (0-1.0) k/uL Sodium (137-145) mmol/L Carbon Dioxide (22-30) mmol/L Creatinine (0.52-1.04) mg/dL Glucose (74-99) mg/dL POC Glucose (mg/dL) 279 H (70-110) mg/dL Calcium (8.4-10.2) mg/dL Fluid Appearance (Clear) Fluid RBC (0-2000) /uL Microbiology - Last 24 Hours (Table) 12/26/23 13:51 Gram Stain - Preliminary Bronchoalviolar Lavage - Right Bronchial Washings Culture - Preliminary Michelle albicans 12/23/23 13:28 Gram Stain - Preliminary Pleural Fluid Body Fluid Culture - Preliminary 12/23/23 08:24 Blood Culture - Preliminary Blood 12/23/23 08:24 Blood Culture - Preliminary Blood Assessment and Plan Assessment: 1. Hyponatremia, appears hypervolemic clinically. Low urine sodium suggestive of underlying volume depletion. Serum sodium improved with normal saline. Now discontinued. Serum sodium staying at 128. 2. Recurrent right pleural effusion status post thoracentesis of 1.6 L. Most likely related to pneumonia. Status post bronchoscopy which showed mucous plugs. Scheduled for reinsertion of right chest tube as the previous one accidentally came out. 3. Acute hypoxic respiratory failure secondary to pneumonia and large right pleural effusion, status post thoracentesis 4. Type 2 diabetes 5. History of fall few weeks ago with pelvic fracture. 6. Chronic lower extremity edema Plan: Continue off of IV fluids Repeat labs in a.m.
[2023-12-27] MEDS: VANCOMYCIN TROUGH DUE 1 EACH MISC MISCELLANE ONE (16:36)
[2023-12-27 16:49] LABS: Glucose,Whole Blood 399 mg/dL (70-110)
[2023-12-27] MEDS: INSULIN ASPART (NovoLOG) 100 UNIT/ML VIAL SQ SCH (17:38)
--- NOTE | 2023-12-27 17:47 | P.PN ---
Subjective Progress Note Date: 12/27/23 HISTORY OF PRESENTING ILLNESS 83-year-old female who came to the emergency department because of increased shortness of breath. Patient has been having progressively worsening symptoms over last 1 week along with increased cough and chest congestion along with chest tightness. Patient has also been feeling more confused and weak over the last 1 to 2 weeks. Few weeks ago patient had a fall and sustained a pelvic fracture which has been managed conservatively. On admission she was noticed to have a WBC count of 34,000, hemoglobin 14.8. She also had hyponatremia with sodium of 116, potassium 5.9, bicarb 21, BUN 18, creatinine 0.4. Her troponin was not elevated. Her NT proBNP was 5000. She also had mild elevated lactate. Her CT scan of chest showed large right-sided pleural effusion with compression atelectasis of the right lung. She [id number] right thoracentesis with drainage of 1.6 L of fluid. Currently she has been treated for pneumonia with IV antibiotics, and hyponatremia. Patient is previously known to Dr. Wilburn. This time cardiology is consulted because of concerns of atrial fibrillation. On review of her ECG and telemetry it appears that patient is not in atrial fibrillation but rather is in multifocal atrial tachycardia along with frequent premature atrial contractions. Patient denies any prior history of reported atrial fibrillation. Resting ECG does not show significant ST deviations that are diagnostic for ischemia. Her echocardiogram showed an preserved LV systolic function with a EF of 55 to 60%, mild LVH, with no major valvular abnormality. Progress note 12/25/2023 Patient is doing well from cardiovascular standpoint. She is still continuing to have sinus tachycardia with frequent PACs. There is no evidence of atrial fibrillation noticed on telemetry. Patient sodium is improving, sodium 125 today, creatinine 0.4. Hemoglobin has dropped from 14 on admission to 10.4 today. WBC count has improved to 18,000. Normotensive much more alert and oriented since admission 12/26/2023 Patient went for a bronchoscopy and bronchial washing today. She got chest tube placed yesterday. She has had 400 cc of output in the chest tube since yesterday. Today she is noticed to be sinus tachycardic with frequent PACs. She would i ntermittently go into atrial tachycardia which would last for less than few minutes. blood pressure 140/70, heart rate 125 bpm Hemoglobin 11.2, WBC 16.2, BUN 10, creatinine 0.3, sodium 128 December 27, 2023 Patient is doing well from cardiovascular standpoint. Her heart rates are much better controlled on higher dose of metoprolol. She is tolerating it well with good blood pressure control. Patient had chest tube placement which is draining purulent pleural fluid. PHYSICAL EXAMINATION Vital signs reviewed. Head: Normocephalic. Eyes: Sclerae nonicteric. Neck: Brisk carotid upstroke, no jugular venous distention. Lungs: Clear to auscultation. Heart: irregular rhythm, S1-S2, no S3, no murmur or rub. Abdomen: Soft nontender, positive bowel sounds. Extremities: No edema, intact distal pulses. Neuro: Alert, oritented, no focal deficits. Detailed neuro exam was not performed. ASSESSMENT * Tachycardia, likely multifocal atrial tachycardia along with frequent PACs * Atrial tachycardia, short lived. * Community-acquired pneumonia with large right-sided pleural effusion s/p thoracentesis with removal of 1.6 L fluid. Likely parapneumonic. s/p right chest tube placement. * Hyponatremia and hyperkalemia. High urine osmolality with low urine sodium suggestive of intravascular depletion * Generalized weakness and fatigue * Pelvic fracture from mechanical fall few weeks ago * Bilateral lower extremity swelling * Diabetes mellitus, insulin-dependent * Hypertension * Debility and frailty Cardiac testing Echo showed preserved LV systolic function, LVH with no significant valvular dysfunction Bilateral lower extremity Doppler did not show any evidence of DVT PLAN Less likely atrial fibrillation. Will continue to monitor telemetry. She might benefit from an event monitor at the time of discharge. Continue aspirin, atorvastatin, losartan 25mg, metoprolol to 50 mg BID Discontinue lisinopril Nephrology and ICU team managing hyponatremia At this time patient is stable from cardiovascular standpoint. Cardiology team will sign off. Please reconsult us in case of any questions Objective - Vital Signs Vital signs: Vital Signs Temp 97.8 F 12/27/23 16:00 Pulse 72 12/27/23 16:00 Resp 18 12/27/23 16:00 BP 105/48 12/27/23 16:00 Pulse Ox 98 12/27/23 16:00 FiO2 Intake & Output 12/26/23 12/27/23 12/27/23 18:59 06:59 18:59 Intake Total 1085 10 400.75 Output Total 176 065 6372 Balance 115 -290 -1399.25 Intake: IV 225 Sodium Chloride 0.9% 1, 25 000 ml @ 75 mls/hr IV . [id number] [facility] Rx#:[id number] Intake, IV Titration 620 10 160.75 Amount Azithromycin 500 mg In 250 Sodium Chloride 0.9% 250 ml @ 250 mls/hr IVPB DAILY [facility] Rx#:[id number] Diltiazem 125 mg In 20.75 Sodium Chloride 0.9% 100 ml @ 5 MG/HR 5 mls/hr IV .Q24H [facility] Rx#:[id number] Sodium Chloride 0.9% 1, 70 10 90 000 ml @ 10 mls/hr IV . Q24H [facility] Rx#:[id number] Vancomycin 1,000 mg In 250 Sodium Chloride 0.9% 250 ml @ 125 mls/hr IVPB BID@ 0500,1700 SH[facility] Rx#: [id number] cefTRIAXone 2 gm In 50 50 Sodium Chloride 0.9% 50 ml @ 100 mls/hr IVPB Q24HR [facility] Rx#:[id number] Oral 240 240 Output: Chest Tube Drainage 20 1300 Chest Tube Right 1300 Posterior Chest Pleural Catheter Right 20 Posterior Chest Urine 950 300 250 Post Void Residual 250 Other: Voiding Method Bedside Commode Bedside Commode Bedside Commode Diaper Diaper # Bowel Movements 1 - Labs CBC & Chem 7: 12/27/23 04:27 12/27/23 04:27 Labs: Abnormal Lab Results - Last 24 Hours (Table) 12/26/23 12/26/23 12/27/23 Range/Units 13:51 20:23 04:27 WBC 25.0 H (3.8-10.6) k/uL Plt Count 615 H (150-450) k/uL Neutrophils # 19.9 H (1.3-7.7) k/uL Monocytes # 2.6 H (0-1.0) k/uL Sodium (137-145) mmol/L Carbon Dioxide (22-30) mmol/L Creatinine (0.52-1.04) mg/dL Glucose (74-99) mg/dL POC Glucose (mg/dL) 233 H (70-110) mg/dL Calcium (8.4-10.2) mg/dL Fluid Appearance Turbid A (Clear) Fluid RBC 2975 H (0-2000) /uL 06/12/27/23 12/27/23 Range/Units 04:27 06:25 11:38 WBC (3.8-10.6) k/uL Plt Count (150-450) k/uL Neutrophils # (1.3-7.7) k/uL Monocytes # (0-1.0) k/uL Sodium 128 L (137-145) mmol/L Carbon Dioxide 19 L (22-30) mmol/L Creatinine 0.39 L (0.52-1.04) mg/dL Glucose 209 H (74-99) mg/dL POC Glucose (mg/dL) 197 H 279 H (70-110) mg/dL Calcium 7.0 L (8.4-10.2) mg/dL Fluid Appearance (Clear) Fluid RBC (0-2000) /uL 12/27/23 Range/Units 16:47 WBC (3.8-10.6) k/uL Plt Count (150-450) k/uL Neutrophils # (1.3-7.7) k/uL Monocytes # (0-1.0) k/uL Sodium (137-145) mmol/L Carbon Dioxide (22-30) mmol/L Creatinine (0.52-1.04) mg/dL Glucose (74-99) mg/dL POC Glucose (mg/dL) 399 H (70-110) mg/dL Calcium (8.4-10.2) mg/dL Fluid Appearance (Clear) Fluid RBC (0-2000) /uL Microbiology - Last 24 Hours (Table) 12/26/23 13:51 Gram Stain - Preliminary Bronchoalviolar Lavage - Right Bronchial Washings Culture - Preliminary Michelle albicans 12/23/23 13:28 Gram Stain - Preliminary Pleural Fluid Body Fluid Culture - Preliminary 12/23/23 08:24 Blood Culture - Preliminary Blood 12/23/23 08:24 Blood Culture - Preliminary Blood
[2023-12-27 20:01] LABS: Glucose,Whole Blood 367 mg/dL (70-110)
[2023-12-27] MEDS: INSULIN DETEMIR (LEVEMIR) 100 UNIT/ML SYR SQ SCH (20:14)
[2023-12-27 23:41] LABS: Glucose,Whole Blood 285 mg/dL (70-110)
[2023-12-28 04:00] LABS: HCT 35.8 % (34.0-46.0); Hypochromasia Slight; MCH 28.6 pg (25.0-35.0); MCHC 31.6 g/dL (31.0-37.0); MCV 90.3 fL (80.0-100.0); Mean Platelet Volume 9.6; Platelet Count 415 k/uL (150-450); RBC 3.97 m/uL (3.80-5.40); RDW 14.4 % (11.5-15.5); WBC 19.1 k/uL (3.8-10.6)
[2023-12-28 04:10] LABS: African American GFR (CKD) 87 (>60 ml/min/1.73 sqM); Anion Gap 2 mmol/L; Blood Urea Nitrogen 22 mg/dL (7-17); Calcium 6.7 mg/dL (8.4-10.2); Carbon Dioxide 20 mmol/L (22-30); Chloride 103 mmol/L (98-107); Glucose 177 mg/dL (74-99); Non-African American GFR(CKD) 75 (>60 ml/min/1.73 sqM); Potassium 4.6 mmol/L (3.5-5.1); Sodium 125 mmol/L (137-145)
[2023-12-28 04:17] LABS: HGB 11.3 gm/dL (11.4-16.0)
[2023-12-28 04:58] LABS: Band Neutrophils % 1 %; Eosinophils # (M) 0.19 k/uL (0-0.7); Lymphocytes # (M) 1.34 k/uL (1.0-4.8); Monocytes # (M) 0.76 k/uL (0-1.0); Neutrophils % (M) 87 %; Nucleated Red Blood Cells 0 /100 WBC (0-0); Total Cells Counted 100
[2023-12-28 04:59] LABS: Tear Drop Cells Present
[2023-12-28] MEDS: VANCOMYCIN 1,250 MG in SODIUM CHLORIDE 0.9% 250 ML IVPB SCH (05:12)
[2023-12-28 06:28] LABS: Glucose,Whole Blood 141 mg/dL (70-110)
--- NOTE | 2023-12-28 09:39 | P.PN ---
Subjective Progress Note Date: 12/27/23 HISTORY OF PRESENT ILLNESS: 83-year-old office patient for many years with active medical history of insulin-dependent type 2 diabetes, hypertension, hyperlipidemia, neuropathy, history of spinal stenosis, who has mild bradycardia otherwise healthy doing well has not been in the hospital long time she had a fall 2 weeks ago to the right side and developed pelvic and did not require to be hospitalized but ended up seen Dr. Wisdom as an outpatient. Also patient had open communicated distal radius fracture back in 2022 secondary to minor fall ended up having open reduction with internal fixation and irrigation debridement of the right wrist fracture. Patient seen cardiology in the last few years in 2021 was admitted to the hospital because of an episode of palpitation with pulse rate of 160 bpm found to have paroxysmal SVT and elevated troponin with no cardiac injury or any other cardiac history has been on [id number] been well-controlled since. I received a phone call from the yesterday with complain that his has been in extreme shortness of breath and been symptomatic and for the previous 5 days she had a virtual visit in the office for severe bronchitis was prescribed antibiotics and some expectorant which patient had felt slightly bit better but become much worse over the last 2 days to a degree becoming extreme dyspnea with minimal exertion. Was instructed to bring her to the emergency department to be seen and evaluated. Patient apparently decided not to come to the emergency department till early this morning on 12/23/2023 where was seen and evaluated was severely hypoxic at the time her chest x-ray showed very large right-sided pleural effusion almost occupying 90% out of the right lung. D-dimer was elevated and patient ended up for CTA finding with no pulmonary embolism large right-sided pleural effusion with near complete compression of the right lung there is an abnormal attenuation within the right mainstrem middle lobe and lower lobe bronchus which could be related to aspiration also there is only slight left pleural effusion as well with subsegmental area of consolidation favored to atelectasis versus pneumonitis. With pulse ox running quite a bit low at the time required 4 L of O2 to keep her pulse ox above 90 percentile and laboratory value showing sodium of 116 with normal creatinine and GFR with blood sugar of 292 white blood cell was 34,500 with platelet count 537 mildly elevated troponin 0.07 with lactic acid at 1.6 proBNP at 5090 with alk phos of 289. Patient ended up seeing Dr. Helms and in the emergency department who is done a consultation and decided to transfer the patient to the intensive care unit and ended up performing bedside thoracentesis for total of 1.6 L of pleural fluid is aspirated with no complication fluid was not bloody followed by chest x-ray showed fairly expansion of the lung only. Patient was transferred to the ICU and admitted for severe large sided pleural effusion, possible aspiration pneumonia with sepsis, severe hyponatremia. Will consult nephrology as well for the severity of her hyponatremia. 11/23/2023: Patient is resting comfortably in the chair this morning, her sodium is up to 119 from 116 early, kidney function still good, blood sugar still slightly bit elevated required 2 units of insulin every time she is having her Accu-Chek. Chest x-ray still showing significant amount of pleural effusion around the right side which might require another thoracentesis today or tomorrow. She still seen nephrology for probably increase her sodium tablet and little bit more restriction on IV fluid. Tachycardia has improved compared to yesterday also patient is not hypoxic but still required 2 L of O2 to keep her pulse ox above 92 percentile. Legionella antibody was negative still waiting for mycoplasma and further analysis of her thoracentesis fluid. Also echocardiogram came back with no major abnormality to create any pleural effusion. 11/24/2023: With the recurrent pleural effusion pulmonary decided to accelerate this into setting up patient for pigtail catheter placement in the pleural space by radiology to be able to drain pleural fluid when needed. Apparently with patient is not improving as fast as expected earlier consideration including possibility of malignancy is quite bit high at this point chest x-ray apparently showed further opacification of the right lung compared to the one from yesterday chest CAT scan showed moderate right-sided pleural fluid collection along with compressive atelectasis of the right side and there was extensive calcification and bronchial bilaterally more on the right lower lobe bronchus and there were also filling defect in the right lower lobe that was not felt to be patent. After pigtail catheter placement patient will be going for bronchoscopy to see if he have any malignancy in the lung. Still awaiting the final analysis of the pleural fluid. Sodium has been improved up to 125 today blood sugar still mildly elevated at some point. Oxygen level has been better so far. She is remain having slight tachycardia likely multifocal atrial tachycardia along with frequent PACs will continue Cardizem and metoprolol patient does not need to be on anticoagulation. 11/25/2023: She is still having significant shortness of breath did not improve she had yesterday pigtail catheter in the pleural space connected with chest tube under waterseal continue to have significant shortness of breath and dyspnea, chest x-ray continue to show significant lobulated fluid in the pleural space. Patient be going for bronchoscopy today looking for mass or malignancy. Continue aggressive antibiotics as expected but with all the picture have specially with the pleural fluid there is concern of malignancy. 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 Pulse rate remained slightly bit fast and continue Cardizem drip at this point. 12/27/2023: Patient pigtail catheter was fluid off yesterday continue to have significant amount of right-sided pleural effusion with loculation bronchoscopy was done and had removal significant amount of respiratory secretion and sputum plug which had helped some but patient continued to be symptomatic. Original plan to use the pigtail catheter or thrombolytic by cardiothoracic but since it fell off was a bit harder. Pulmonary in the surgical chest tube and continue alteplase administration to the right side hemithoracic to evacuate the complic ated parapneumonic effusion. Apparently pulmonary has discussed with family and patient the possibility of VATS procedure at later stage. He is remain in the ICU, blood sugar slightly bit better medication were adjusted, white blood cells down recently to 25,000 today. She is remain on antibiotic to cover her pneumonia. REVIEW OF SYSTEMS: CONSTITUTIONAL: Well-developed in acute respiratory distress. EYES: No icterus sclerae, no conjunctivitis. EARS, NOSE, MOUTH, THROAT, and FACE: No sore throat, lymphadenopathy, carotid bruits or deformity. RESPIRATORY: Positive shortness of breath cough or wheezes. CARDIOVASCULAR: Positive PND orthopnea palpitation. GASTROINTESTINAL: No Abd pain, Nausea or vomiting, no Diarrhea or constipation, No GI Bleed, no distention or masses. GENITOURINARY: Negative for Hematuria or UTI, no kidney stones. INTEGUMENT/BREAST: Negative for any muscular injury with mild osteoarthritis.. HEMATOLOGIC/LYMPHATIC: Negative for bleed or purpura. MUSCULOSKELTAL: Negative for Myalgia or arthralgia. NEURLOGICAL: No LOC, Sz or syncope, blurred vision dizziness or abnormality.. BEHAVIORAL/PSYCH: Negative. ENDOCRINE: Negative. PHYSICAL EXAMINATION: General Appearance: Alert, cooperative, in mild respiratory distress. Neck HEENT: Supple, no lymphadenopathy, no thyroid enlargement, no carotid bruits. Lungs: Significantly decreased breath sound in the right side all the way to have the way up significant rhonchi and mild crackles in the bases as well with mild expiratory wheezes. Chest Wall: Decreased expansion with deep inspiration no tenderness and no deformity was found on exam, no costochondral pain or discomfort. No sign of trauma or bruise to the rib cage area. Heart: Regular rate and rhythm with mild tachycardia, S1, S2 normal, no murmur, rub or gallop. Back: Symmetric, no curvature, ROM normal, no CVA tenderness. Abdomen: Soft, non-tender, bowel sounds active all four quadrants, no masses, no organomegaly. Extremities: Extremities normal, atraumatic, no cyanosis or edema. Pulses: 2+ and symmetric. Skin: Skin color, texture, tugor normal, no rashes or lesions. Neurologic: Alert oriented x3 cranial nerves II through XII intact, no motor deficit, no abnormal balance or gait. ASSESSMENT AND PLAN: _Acute hypoxic respiratory failure: Secondary to large right-sided pleural effusion and severe right-sided pneumonia, with the amount of pleural effusion and complicated as loculated fluid seen cardiothoracic surgeon and originally was supposed to do alteplase administration through pigtail catheter when it fell off his pulmonary end up putting chest tube and continue alteplase currently via catheter. _Severe large right-sided pleural effusion with compression of the right lung thoracentesis of 1.6 L of terabyte pleural. Still have significant amount of pleural fluid with loculated fluid pulmonary doing alteplase through chest tube to clean the Rocephin at this point. _Aspiration pneumonia: Remain on Rocephin, and vancomycin will be off az ithromycin for now. Bronchoscopy was done including so much debris's and mucus with mucous blocks. _Severe hyponatremia: Much better and sodium is up to 128, continue to treat underlying disease continue sodium tablets as well. _Severe acute leukocytosis: White blood cells up to 25,000 remain on antibiotic currently. _Type 1 diabetes: Will change medication to 7 units of short acting insulin AC meals along with 7 to 8 units of Lantus at nighttime. _Neuropathy: Continue gabapentin doing slightly better. _Recent history of pelvic fracture has been seen orthopedic. _Hyperlipidemia: Remain on rosuvastatin 10 mg a day. _Tachycardia and multifocal PACs: Remain on metoprolol and if needed will add Cardizem drip. CODE STATUS: Full code. Patient had a chest tube today with alteplase being implemented to, also apparently go talk about possibility of that procedure at some point when patient is ready. All analysis at this point still not showing any sign of cancer. Objective - Vital Signs Vital signs: Vital Signs Temp 98.4 F 12/27/23 04:01 Pulse 98 12/27/23 05:00 Resp 18 12/27/23 05:00 BP 113/51 12/27/23 05:00 Pulse Ox 96 12/27/23 05:00 FiO2 Intake & Output 12/26/23 12/26/23 12/27/23 06:59 18:59 06:59 Intake Total 435 1085 10 Output Total 590 970 300 Balance -155 115 -290 Weight 59 kg Intake: IV 60 225 Sodium Chloride 0.9% 1, 60 25 000 ml @ 75 mls/hr IV . [id number] [facility] Rx#:[id number] Intake, IV Titration 125 620 10 Amount Azithromycin 500 mg In 250 Sodium Chloride 0.9% 250 ml @ 250 mls/hr IVPB DAILY [facility] Rx#:[id number] Sodium Chloride 0.9% 1, 70 10 000 ml @ 10 mls/hr IV . Q24H [facility] Rx#:[id number] Vancomycin 1,000 mg In 125 250 Sodium Chloride 0.9% 250 ml @ 125 mls/hr IVPB BID@ 0500,1700 [facility] Rx#: [id number] cefTRIAXone 2 gm In 50 Sodium Chloride 0.9% 50 ml @ 100 mls/hr IVPB Q24HR [facility] Rx#:[id number] Oral 250 240 Output: Chest Tube Drainage 110 20 Pleural Catheter Right 110 20 Posterior Chest Urine 480 950 300 Other: Voiding Method Bedside Commode Bedside Commode Bedside Commode Diaper # Bowel Movements 1 - Labs CBC & Chem 7: 12/28/23 03:01 12/28/23 03:01 Labs: Abnormal Lab Results - Last 24 Hours (Table) 12/26/23 12/26/23 12/26/23 Range/Units 06:14 11:14 13:51 WBC (3.8-10.6) k/uL Plt Count (150-450) k/uL Neutrophils # (1.3-7.7) k/uL Monocytes # (0-1.0) k/uL Sodium (137-145) mmol/L Carbon Dioxide (22-30) mmol/L Creatinine (0.52-1.04) mg/dL Glucose (74-99) mg/dL POC Glucose (mg/dL) 219 H 118 H (70-110) mg/dL Calcium (8.4-10.2) mg/dL Fluid Appearance Turbid A (Clear) 12/26/23 12/26/23 12/26/23 Range/Units 14:10 16:29 20:23 WBC (3.8-10.6) k/uL Plt Count (150-450) k/uL Neutrophils # (1.3-7.7) k/uL Monocytes # (0-1.0) k/uL Sodium (137-145) mmol/L Carbon Dioxide (22-30) mmol/L Creatinine (0.52-1.04) mg/dL Glucose (74-99) mg/dL POC Glucose (mg/dL) 145 H 220 H 233 H (70-110) mg/dL Calcium (8.4-10.2) mg/dL Fluid Appearance (Clear) 12/27/23 12/27/23 Range/Units 04:27 04:27 WBC 25.0 H (3.8-10.6) k/uL Plt Count 615 H (150-450) k/uL Neutrophils # 19.9 H (1.3-7.7) k/uL Monocytes # 2.6 H (0-1.0) k/uL Sodium 128 L (137-145) mmol/L Carbon Dioxide 19 L (22-30) mmol/L Creatinine 0.39 L (0.52-1.04) mg/dL Glucose 209 H (74-99) mg/dL POC Glucose (mg/dL) (70-110) mg/dL Calcium 7.0 L (8.4-10.2) mg/dL Fluid Appearance (Clear) Microbiology - Last 24 Hours (Table) 12/23/23 08:24 Blood Culture - Preliminary Blood 12/23/23 08:24 Blood Culture - Preliminary Blood 06/10/24 13:28 Gram Stain - Preliminary Pleural Fluid Body Fluid Culture - Preliminary
--- NOTE | 2023-12-28 10:18 | P.PN ---
Subjective Progress Note Date: 12/28/23 Principal diagnosis: Large right-sided pleural effusion with compressive atelectasis right lung, status post thoracentesis and pigtail catheter placement, acute hypoxic respiratory failure, right lung pneumonia, acute leukocytosis, hyponatremia. History of hypertension, hyperlipidemia, insulin-dependent diabetes mellitus type 2, recent fall from standing sustaining a pelvic fracture, daily EtOH use, previous tobacco dependence POD #2 right sided pigtail catheter placement by interventional radiology Status post day #1 right-sided chest tube insertion by Dr. Burgess The patient was seen and examined in follow-up today December 28, 2023 at her bedside in the intensive care unit. She is currently sitting up to the bedside chair, is awake, alert, oriented x 3 and is in no acute apparent distress. She is currently on room air with oxygen saturations 97% and is achieving 1000 mL on her incentive spirometry with encouragement. Right chest tube placement was completed by Dr. Burgess yesterday for complicated recurrent parapneumonic right-sided pleural effusion/empyema. No air leak is present. Draining thin cloudy serosanguineous drainage with 95 mL output in the last 8 hours and 1.7 L output in the last 24 hours. She remains hemodynamically stable and is curr ently on no inotropic or pressor support. Bedside telemetry is showing normal sinus rhythm with occasional PACs heart rate 93 bpm. Laboratory and chest x-ray results were reviewed. Objective - Vital Signs Vital signs: Vital Signs Temp 98.2 F 12/28/23 04:00 Pulse 114 H 12/28/23 07:00 Resp 15 12/28/23 07:00 BP 121/73 12/28/23 07:00 Pulse Ox 97 12/28/23 08:05 FiO2 Intake & Output 12/27/23 12/28/23 12/28/23 18:59 06:59 18:59 Intake Total 890.75 720 Output Total 1999 865 0 Balance -1109.25 -145 0 Weight 61.9 kg Intake: IV 250 Vancomycin 750 mg In 250 Sodium Chloride 0.9% 250 ml @ 125 mls/hr IVPB ONCE [facility] Rx#:[id number] Intake, IV Titration 410.75 20 Amount Diltiazem 125 mg In 20.75 Sodium Chloride 0.9% 100 ml @ 5 MG/HR 5 mls/hr IV .Q24H [facility] Rx#:[id number] Sodium Chloride 0.9% 1, 90 20 000 ml @ 10 mls/hr IV . Q24H [facility] Rx#:[id number] Vancomycin 1,000 mg In 250 Sodium Chloride 0.9% 250 ml @ 125 mls/hr IVPB BID@ 0500,1700 [facility] Rx#: [id number] cefTRIAXone 2 gm In 50 Sodium Chloride 0.9% 50 ml @ 100 mls/hr IVPB Q24HR [facility] Rx#:[id number] Oral 480 450 Output: Chest Tube Drainage 1500 65 0 Chest Tube Right 1500 65 0 Posterior Chest Urine 250 800 Post Void Residual 250 Other: Voiding Method External Catheter Bedside Commode - Exam CONSTITUTIONAL: Appears comfortable, cooperative, no acute distress RESPIRATORY: Lungs sounds diminished bilaterally. Respirations even, nonlabored. Currently on room air with oxygen saturation 97%. Able to achieve 1000 mL on incentive spirometry. Strong nonproductive cough. CARDIOVASCULAR: S1, S2 present. Regular rate and rhythm, sinus rhythm on telemetry. Palpable peripheral pulses bilaterally. No edema present. No calf pain or tenderness noted. SCDs present. GASTROINTESTINAL: Abdomen soft, nontender, nondistended. Active bowel sounds present 4 quadrants. Tolerating diet. Positive bowel movement 12/26 GENITOURINARY: Continues to void INTEGUMENTARY: Skin is warm and dry. No clubbing or cyanosis is present. NEUROLOGIC: Cranial nerves II through XII intact. No focal deficits. MUSKULOSKELETAL: Able to move all extremities, strength equal bilaterally, gait normal. PSYCHIATRIC: Alert and oriented to person place and time, appropriate affect, intact judgment and insight. - Allied health notes Allied health notes reviewed: nursing - Labs CBC & Chem 7: 12/28/23 03:01 12/28/23 03:01 Labs: Abnormal Lab Results - Last 24 Hours (Table) 12/27/23 12/27/23 12/27/23 Range/Units 11:38 16:47 20:00 WBC (3.8-10.6) k/uL Hgb (11.4-16.0) gm/dL Neutrophils # (Manual) (1.3-7.7) k/uL Sodium (137-145) mmol/L Carbon Dioxide (22-30) mmol/L BUN (7-17) mg/dL Glucose (74-99) mg/dL POC Glucose (mg/dL) 279 H 399 H 367 H (70-110) mg/dL Calcium (8.4-10.2) mg/dL 12/27/23 12/28/23 12/28/23 Range/Units 23:39 03:01 03:01 WBC 19.1 H (3.8-10.6) k/uL Hgb 11.3 L D (11.4-16.0) gm/dL Neutrophils # (Manual) 16.80 H (1.3-7.7) k/uL Sodium 125 L (137-145) mmol/L Carbon Dioxide 20 L (22-30) mmol/L BUN 22 H (7-17) mg/dL Glucose 177 H (74-99) mg/dL POC Glucose (mg/dL) 285 H (70-110) mg/dL Calcium 6.7 L (8.4-10.2) mg/dL 12/28/23 Range/Units 06:27 WBC (3.8-10.6) k/uL Hgb (11.4-16.0) gm/dL Neutrophils # (Manual) (1.3-7.7) k/uL Sodium (137-145) mmol/L Carbon Dioxide (22-30) mmol/L BUN (7-17) mg/dL Glucose (74-99) mg/dL POC Glucose (mg/dL) 141 H (70-110) mg/dL Calcium (8.4-10.2) mg/dL Microbiology - Last 24 Hours (Table) 12/27/23 11:30 Gram Stain - Preliminary Pleural Fluid 12/23/23 13:28 Gram Stain - Final Pleural Fluid Body Fluid Culture - Final 12/26/23 13:51 Gram Stain - Preliminary Bronchoalviolar Lavage - Right Bronchial Washings Culture - Preliminary Michelle albicans - Imaging and Cardiology Chest x-ray: report reviewed, image reviewed Assessment and Plan Assessment: Large right-sided pleural effusion/empyema with compressive atelectasis right lung, status post thoracentesis and pigtail catheter placement, status post 1 do se lytics, status post right chest tube placement by Dr. Burgess on December 27, 2023 Acute hypoxic respiratory failure Right lung pneumonia Acute leukocytosis Hyponatremia History of hypertension Hyperlipidemia Insulin-dependent diabetes mellitus type 2 Recent fall from standing sustaining a pelvic fracture Daily EtOH use Previous tobacco dependence Plan: We will instill alteplase/dornase pleural instillation through her right pleural chest tube today. We will clamp the chest tube for 1 hour and after 1 hour will unclamp and placed back to low continuous wall suction -20 cm H2O. May disconnect chest tube from wall suction to ambulate in the hallway. Encourage incentive spirometry use 10 times every hour while awake, bronchodilators per pulmonology Increase activity, ambulate as tolerated. Out of bed for all meals. Antibiotics per pulmonology/internal medicine. GI/DVT prophylaxis. More recommendations to follow based on patient's clinical course. Time with Patient: Greater than 30
--- NOTE | 2023-12-28 10:44 | XR ---
EXAM: XR chest 1V portable CLINICAL INDICATION:Female, 83 years old with history of Right pleural effusion; [facility] COMPARISON: 12/27/2023 TECHNIQUE: Chest single view. FINDINGS: Lines/tubes/devices: Stable right basilar chest tube. Oxygen tubing and EKG leads are in the chest. Cardiomediastinum: Cardiac silhouette appears stable, upper normal in size. Stable mediastinal silhouette. Vasculature: Central vasculature appears mildly increased. Lungs/pleura: Stable pleural/parenchymal opacity in the right lung base, suggesting small residual pleural effusion and infiltrate/atelectasis, with possible tiny pneumothorax component. Left lung appears stable, wit h minor basilar infiltrate or atelectasis again seen. Bones/soft tissues: Bony thorax appears grossly intact as seen. Regional soft tissues appear unremarkable. IMPRESSION: * Stable appearance of small right basilar pleural/parenchymal opacity with possible small pneumotho rax component. * Right basilar chest tube unchanged. * Mild central vascular congestion.
[2023-12-28 11:32] LABS: Glucose,Whole Blood 276 mg/dL (70-110)
--- NOTE | 2023-12-28 13:16 | P.PN ---
Subjective Progress Note Date: 12/28/23 83-year-old office patient for many years with active medical history of insulin-dependent type 2 diabetes, hypertension, hyperlipidemia, neuropathy, history of spinal stenosis, who has mild bradycardia otherwise healthy doing well has not been in the hospital long time she had a fall 2 weeks ago to the right side and developed pelvic and did not require to be hospitalized but ended up seen Dr. Wisdom as an outpatient. Also patient had open communicated distal radius fracture back in 2022 secondary to minor fall ended up having open reduction with internal fixation and irrigation debridement of the right wrist fracture. Patient seen cardiology in the last few years in 2021 was admitted to the hospital because of an episode of palpitation with pulse rate of 160 bpm found to have paroxysmal SVT and elevated troponin with no cardiac injury or any other cardiac history has been on beta-yahir been well-controlled since. I received a phone call from the yesterday with complain that his has been in extreme shortness of breath and been symptomatic and for the previous 5 days she had a virtual visit in the office for severe bronchitis was prescribed antibiotics and some expectorant which patient had felt slightly bit better but become much worse over the last 2 days to a degree becoming extreme dyspnea with minimal exertion. Was instructed to bring her to the emergency department to be seen and evaluated. Patient apparently decided not to come to the emergency department till early this morning on 12/23/2023 where was seen and evaluated was severely hypoxic at the time her chest x-ray showed very large right-sided pleural effusion almost occupying 90% out of the right lung. D-dimer was elevated and patient ended up for CTA finding with no pulmonary embolism large right-sided pleural effusion with near complete compression of the right lung there is an abnormal attenuation within the right mainstrem middle lobe and lower lobe bronchus which could be related to aspiration also there is only slight left pleural effusion as well with subsegmental area of consolidation favored to atelectasis versus pneumonitis. With pulse ox running quite a bit low at the time required 4 L of O2 to keep her pulse ox above 90 percentile and laboratory value showing sodium of 116 with normal creatinine and GFR with blood sugar of 292 white blood cell was 34,500 with platelet count 537 mildly elevated troponin 0.07 with lactic acid at 1.6 proBNP at 5090 with alk phos of 289. Patient ended up seeing Dr. Helms and in the emergency department who is done a consultation and decided to transfer the patient to the intensive care unit and ended up performing bedside thoracentesis for total of 1.6 L of pleural fluid is aspirated with no complication fluid was not bloody followed by chest x-ray showed fairly expansion of the lung only. Patient was transferred to the ICU and admitted for severe large sided pleural effusion, possible aspiration pneumonia with sepsis, severe hyponatremia. Will consult nephrology as well for the severity of her hyponatremia. 11/23/2023: Patient is resting comfortably in the chair this morning, her sodium is up to 119 from 116 early, kidney function still good, blood sugar still slightly bit elevated required 2 units of insulin every time she is having her Accu-Chek. Chest x-ray still showing significant amount of pleural effusion around the right side which might require another thoracentesis today or tomorrow. She still seen nephrology for probably increase her sodium tablet and little bit more restriction on IV fluid. Tachycardia has improved compared to yesterday also patient is not hypoxic but still required 2 L of O2 to keep her pulse ox above 92 percentile. Legionella antibody was negative still waiting for mycoplasma and further analysis of her thoracentesis fluid. Also echocardiogram came back with no major abnormality to create any pleural effusion. 11/24/2023: With the recurrent pleural effusion pulmonary decided to accelerate this into setting up patient for pigtail catheter placement in the pleural space by radiology to be able to drain pleural fluid when needed. Apparently with patient is not improving as fast as expected earlier consideration including possibility of malignancy is quite bit high at this point chest x-ray apparently showed further opacification of the right lung compared to the one from yesterday chest CAT scan showed moderate right-sided pleural fluid collection along with compressive atelectasis of the right side and there was extensive calcification and bronchial bilaterally more on the right lower lobe bronchus and there were also filling defect in the right lower lobe that was not felt to be patent. After pigtail catheter placement patient will be going for bronchoscopy to see if he have any malignancy in the lung. Still awaiting the final analysis of the pleural fluid. Sodium has been improved up to 125 today blood sugar still mildly elevated at some point. Oxygen level has been better so far. She is remain having slight tachycardia likely multifocal atrial tachycardia along with frequent PACs will continue Cardizem and metoprolol patient does not need to be on anticoagulation. 11/25/2023: She is still having significant shortness of breath did not improve she had yesterday pigtail catheter in the pleural space connected with chest tube under waterseal continue to have significant shortness of breath and dyspnea, chest x-ray continue to show significant lobulated fluid in the pleural space. Patient be going for bronchoscopy today looking for mass or malignancy. Continue aggressive antibiotics as expected but with all the picture have specially with the pleural fluid there is concern of malignancy. 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 Pulse rate remained slightly bit fast and continue Cardizem drip at this point. 12/27/2023: Patient pigtail catheter was fluid off yesterday continue to have significant amount of right-sided pleural effusion with loculation bronchoscopy was done and had removal significant amount of respiratory secretion and sputum plug which had helped some but patient continued to be symptomatic. Original plan to use the pigtail catheter or thrombolytic by cardiothoracic but since it fell off was a bit harder. Pulmonary in the surgical chest tube and continue alteplase administration to the right side hemithoracic to evacuate the complicated parapneumonic effusion. Apparently pulmonary has discussed with family and patient the possibility of VATS procedure at later stage. He is remain in the ICU, blood sugar slightly bit better medication were adjusted, white blood cells down recently to 25,000 today. She is remain on antibiotic to cover her pneumonia. 12/27. Patient seen and examined. Lab work done this morning showed WBC 19.1, hemoglobin 11.3, sodium 125, potassium 4.6,. States she feels better. Patient had 95 mL output in the last 8 hours and 1.7 L output in the last 24 hours REVIEW OF SYSTEMS: CONSTITUTIONAL: No fever, no malaise,. CARDIOVASCULAR: No chest pain, no palpitations, no syncope. PULMONARY: No shortness of breath, no cough, GASTROINTESTINAL: No diarrhea, no nausea, no vomiting, no abdominal pain. NEUROLOGICAL: No headaches, no weakness, PHYSICAL EXAMINATION: GENERAL: The patient is alert and oriented x3, not in any acute distress. Well developed, well nourished. HEENT: Pupils are round and equally reacting to light. EOMI. No scleral icterus. No conjunctival pallor. Normocephalic, atraumatic. No pharyngeal erythema. No thyromegaly. CARDIOVASCULAR: S1 and S2 present. No murmurs, rubs, or gallops. PULMONARY: Right-sided chest tube seen, diminished breath sounds at the bases. No wheezing or crackles. ABDOMEN: Soft, nontender, nondistended, normoactive bowel sounds. No palpable organomegaly. MUSCULOSKELETAL: No joint swelling or deformity. EXTREMITIES: No cyanosis, clubbing, or pedal edema. NEUROLOGICAL: Gross neurological examination did not reveal any focal deficits. SKIN: No rashes. Assessment and plan Acute hypoxic respiratory failure Complicated recurrent parapneumonic right-sided pleural effusion/empyema Bacterial pneumonia, Monitor vital signs monitor CBC Monitor CMP Continue oxygen supplementation Status post thoracentesis and right-sided chest tube placement Continue IV Rocephin Pulmonology following CT surgery following _Severe hyponatremia: Monitor BMP _Severe acute leukocytosis: Monitor CBC _Type 1 diabetes: Monitor blood sugar levels, continue current insulin regimen _Neuropathy: Continue gabapentin doing slightly better. _Recent history of pelvic fracture has been seen orthopedic. _Hyperlipidemia: Remain on rosuvastatin 10 mg a day. _Tachycardia and multifocal PACs: Remain on metoprolol Labs and medication were reviewed.. Continue same treatment. Continue with symptomatic treatment. Resume home medication. Monitor labs and vitals. DVT and GI prophylaxis. Further recommendations as per clinical course of the patient Dictation was produced using [employer] dictation software. please excuse any grammatical, word or spelling errors. Objective - Vital Signs Vital signs: Vital Signs Temp 98.2 F 12/28/23 04:00 Pulse 114 H 12/28/23 07:00 Resp 15 12/28/23 07:00 BP 121/73 12/28/23 07:00 Pulse Ox 97 12/28/23 08:05 FiO2 Intake & Output 12/27/23 12/28/23 12/28/23 18:59 06:59 18:59 Intake Total 890.75 720 Output Total 1999 865 0 Balance -1109.25 -145 0 Weight 61.9 kg Intake: IV 250 Vancomycin 750 mg In 250 Sodium Chloride 0.9% 250 ml @ 125 mls/hr IVPB ONCE STA Rx#:[id number] Intake, IV Titration 410.75 20 Amount Diltiazem 125 mg In 20.75 Sodium Chloride 0.9% 100 ml @ 5 MG/HR 5 mls/hr IV .Q24H [facility] Rx#:[id number] Sodium Chloride 0.9% 1, 90 20 000 ml @ 10 mls/hr IV . Q24H [facility] Rx#:[id number] Vancomycin 1,000 mg In 250 Sodium Chloride 0.9% 250 ml @ 125 mls/hr IVPB BID@ 0500,1700 [facility] Rx#: [id number] cefTRIAXone 2 gm In 50 Sodium Chloride 0.9% 50 ml @ 100 mls/hr IVPB Q24HR [facility] Rx#:[id number] Oral 480 450 Output: Chest Tube Drainage 1500 65 0 Chest Tube Right 1500 65 0 Posterior Chest Urine 250 800 Post Void Residual 250 Other: Voiding Method External Catheter Bedside Commode - Labs CBC & Chem 7: 12/28/23 03:01 12/28/23 03:01 Labs: Abnormal Lab Results - Last 24 Hours (Table) 12/27/23 12/27/23 12/27/23 Range/Units 11:38 16:47 20:00 WBC (3.8-10.6) k/uL Hgb (11.4-16.0) gm/dL Neutrophils # (Manual) (1.3-7.7) k/uL Sodium (137-145) mmol/L Carbon Dioxide (22-30) mmol/L BUN (7-17) mg/dL Glucose (74-99) mg/dL POC Glucose (mg/dL) 279 H 399 H 367 H (70-110) mg/dL Calcium (8.4-10.2) mg/dL 12/27/23 12/28/23 12/28/23 Range/Units 23:39 03:01 03:01 WBC 19.1 H (3.8-10.6) k/uL Hgb 11.3 L D (11.4-16.0) gm/dL Neutrophils # (Manual) 16.80 H (1.3-7.7) k/uL Sodium 125 L (137-145) mmol/L Carbon Dioxide 20 L (22-30) mmol/L BUN 22 H (7-17) mg/dL Glucose 177 H (74-99) mg/dL POC Glucose (mg/dL) 285 H (70-110) mg/dL Calcium 6.7 L (8.4-10.2) mg/dL 12/28/23 Range/Units 06:27 WBC (3.8-10.6) k/uL Hgb (11.4-16.0) gm/dL Neutrophils # (Manual) (1.3-7.7) k/uL Sodium (137-145) mmol/L Carbon Dioxide (22-30) mmol/L BUN (7-17) mg/dL Glucose (74-99) mg/dL POC Glucose (mg/dL) 141 H (70-110) mg/dL Calcium (8.4-10.2) mg/dL Microbiology - Last 24 Hours (Table) 12/23/23 13:28 Gram Stain - Final Pleural Fluid Body Fluid Culture - Final 12/26/23 13:51 Gram Stain - Preliminary Bronchoalviolar Lavage - Right Bronchial Washings Culture - Preliminary Michelle albicans
[2023-12-28] MEDS: ALTEPLASE 10 MG in SODIUM CHLORIDE 0.9% 50 ML IRRIGATION ONE (13:55)
[2023-12-28] MEDS: DORNASE ALFA 5 MG in SODIUM CHLORIDE 0.9% 50 ML IRRIGATION ONE (13:55)
--- NOTE | 2023-12-28 15:15 | P.PN ---
Subjective Progress Note Date: 12/28/23 This is a 83-year-old female patient who came to the emergency department with increased shortness of breath. Her breathing was progressively getting worse over the past 1 week. She had increased cough congestion chest tightness and wheezing and she was having chills at home. She was given outpatient antibiotic therapy with Zithromax and her condition decompensated and she ended up coming into the hospital. The patient has been having some chest discomfort along the right chest. She had a fall approximately few weeks back and she also sustained a pelvic fracture. She is a lifetime non-smoker. She came to the emergency department and the patient had a white cell count of 34 with a hemoglobin 14.8. Her sodium level was 116 with a potassium level of 5.9 and a serum bicarb was at 21. BUN was 18 with a creatinine of 0.4. Troponin was 0.07. proBNP level was 5000. The viral screen was negative. Initial lactic acid level was at 2.1 and dropped down to 1.6. Coagulation profile was normal with a D-dimer of 2.6. Initial chest x-ray showed a large right-sided pleural effusion. CAT scan of the chest was also done in the Emergency Department that showed no evidence of any central pulmonary embolism. There was a large right-sided pleural effusion with near complete opacification and compression of the right lung. There was also abnormal attenuation within the right mainstem right middle lobe and right lower lobe bronchus and aspiration was suspected. I saw the patient in the e mergency department. She was quite short of breath and she was on oxygen at 5 L/min nasal cannula. Her pulse ox was as in the low 90s. I performed a bedside thoracentesis a total of 1.6 L of pleural fluid is aspirated. No complications. The post thoracentesis chest x-ray showed interval marked reduction in the right-sided pleural effusion without evidence of any pneumothorax. The patient was started on broad-spectrum antibiotics and she is currently on a combination of Rocephin and Zithromax and vancomycin. She is diabetic. She takes insulin on outpatient basis. She also has history of hypertension and hyperlipidemia. Currently she is also on IV fluids and the patient is on normal saline which is running at a rate of 75 cc an hour. No altered mentation. No seizure activity. On 12/24/2023, the patient is feeling better. The patient is less short of breath and currently she is on 2 L of oxygen by nasal cannula. Her breathing is more comfortable. Thoracentesis was done yesterday and the pleural fluid analysis still pending. Cultures are still pending. Legionella urine antigen is negative. Echocardiogram showed a preserved LV function, no significant valvular abnormalities. The white cell count is currently down to 26 with a hemoglobin 13.1 and a platelet count of 491. Sodium is 119 improved compared to yesterday and the urine sodium is essentially low less than 20, not typical of SIADH. Serum bicarb is 18 with a BUN of 16 and a creatinine of 0.4. She remain s on Rocephin and Zithromax and vancomycin. Metoprolol was restarted. He is also on Zestril 40 mg p.o. daily for blood pressure control. She is on NovoLog 5 units 3 times daily with meals plus a sliding scale coverage. She remains on bronchodilators. On today's evaluation on 12/25/2023, the patient is being seen for a follow- up.The patient has no specific complaints. She seems to be less short of breath. She is on 4 L of oxygen by nasal cannula with a pulse ox of 96%. She remains on a combination of Rocephin and Zithromax and vancomycin. The white cell count is improving is currently down to 18.3 with a hemoglobin of 10.5 and a platelet count of 465. Sodium levels of 125. BUN is 12 with a creatinine of 0.4 and the patient is currently nondistended. Exercises an hour. On a separ ate note, chest x-ray that was done today showed further opacification of the right lung compared to yesterday chest x-ray. Based on that, a CAT scan of the chest was done and it showed a moderate to large right-sided pleural fluid collection along with compressive atelectasis of the right lung. There was also extensive calcification of the bronchi bilaterally more so on the right lower lobe bronchus and there was also a filling defect in the right lower lobe bronchus that was not felt to be patent. There is an abrupt cut off sign in the bronchus intermedius/right lower lobe area. Based on those findings, I recommended a pigtail catheter insertion and this will be done by interventional radiology today to be followed up by bronchoscopy in a.m. The pleural fluid is aspirated earlier was an accident with elevated LDH of 610 and a protein of 3.2 g. Glucose was at 136. Cell count was 1000. The fluid cytology still pending for now. The Gram stain culture is also negative. 12/26/2023, the patient is being seen for a follow-up. The patient is on 4 L of oxygen nasal cannula. The pigtail catheter was inserted yesterday and a total of 4 L of pleural fluid was further aspirated. Blood from the PICC line has been noted. Nevertheless, the chest x-ray still showing volume loss and persistent right lung consolidation. As mentioned earlier, there is an abrupt cut off sign in the right mainstem bronchus/bronchus intermedius and the patient is going to undergo a bronchoscopy today. White cell count is 16, hemoglobin 11 and platelet count is at 464, sodium levels at 128, BUN is at 10 with a creatinine of 0.3. Remains on the same antibiotic coverage to include Rocephin and Zithromax and vancomycin. Cultures are still negative. Sputum culture still pending. Clinically doing well. No significant tachycardia. Hemodynamically stable. Currently n.p.o. awaiting bronchoscopy. She went 12/27/2023, for the patient for a follow-up. Events from yesterday were noted and the patient's pigtail catheter has been removed. This came out accidentally. Repeat CAT scan of the chest was done this morning and it showed essentially enlarged right-sided pleural effusion with loculation. The patient also had atelectatic changes in the right lung. There is again a cut off sign in the right lower lobe bronchus. Noted I performed a bronchoscopy the patient and the patient had copious amount of respiratory secretions and mucous plugs that were aspirated without any major difficulties. Cultures were sent and the results are still pending for now. She remains on oxygen at 4 L nasal cannula with pulse ox of 97%. The patient has a white cell count of 25, hemoglobin is at 14.4 and a platelet count of 650. Sodium levels of 128, BUN 11 with a creatinine of 0.39. The pleural fluid cultures are still negative. She remains on bronchodilators with DuoNeb updrafts. She continues to have a congested cough, producing limited amount of sputum. Awake and alert and communicating. She does have chronic lower extremity edema. Cardiac rhythm remained sinus. 12/28/2023, the patient has produced approximately 1.7 L of purulent material from the right lung post chest tube insertion. Output has dropped and the patient is going to receive a dose of alteplase through the chest tube. She is currently on room air oxygen. The chest x-ray from today shows residual consolidation of the right lung base. No evidence of any pneumothorax and the chest tube is in good location. The white cell count is at 93 with a hemoglobin 11.3 platelet count of 450. The BUN is 22 with a creatinine of 0.74. All of the cultures have been negative thus far. The patient is currently on IV Rocephin. Cardiac rhythm is sinus. IV fluids are currently at KVO. No other significant events overnight. She is sitting up on a chair and she is calm and comfortable. Objective - Vital Signs Vital signs: Vital Signs Temp 98.2 F 12/28/23 04:00 Pulse 114 H 12/28/23 07:00 Resp 15 12/28/23 07:00 BP 121/73 12/28/23 07:00 Pulse Ox 97 12/28/23 08:05 FiO2 Intake & Output 12/27/23 12/28/23 12/28/23 18:59 06:59 18:59 Intake Total 890.75 720 Output Total 2000 865 0 Balance -1109.25 -145 0 Weight 61.9 kg Intake: IV 250 Vancomycin 750 mg In 250 Sodium Chloride 0.9% 250 ml @ 125 mls/hr IVPB ONCE [facility] Rx#:[id number] Intake, IV Titration 410.75 20 Amount Diltiazem 125 mg In 20.75 Sodium Chloride 0.9% 100 ml @ 5 MG/HR 5 mls/hr IV .Q24H [facility] Rx#:[id number] Sodium Chloride 0.9% 1, 90 20 000 ml @ 10 mls/hr IV . Q24H [facility] Rx#:[id number] Vancomycin 1,000 mg In 250 Sodium Chloride 0.9% 250 ml @ 125 mls/hr IVPB BID@ 0500,1700 [facility] Rx#: [id number] cefTRIAXone 2 gm In 50 Sodium Chloride 0.9% 50 ml @ 100 mls/hr IVPB Q24HR [facility] Rx#:[id number] Oral 480 450 Output: Chest Tube Drainage 1500 65 0 Chest Tube Right 1500 65 0 Posterior Chest Urine 250 800 Post Void Residual 250 Other: Voiding Method External Catheter Bedside Commode - Exam Calm and comfortable mild degree of respiratory distress, BMI 17.6 currently on room air oxygen Head exam was generally normal. There was no scleral icterus or corneal arcus. Mucous membranes were moist. Neck was supple and without jugular venous distension, thyromegaly, or carotid bruits. Carotids were easily palpable bilaterally. There was no adenopathy. Lung sounds revealed improved breath sounds right lung base. Some limited crackles. Left lung is clear. Cardiac exam revealed the PMI to be normally situated and sized. The rhythm was regular and no extrasystoles were noted during several minutes of auscultation. The first and second heart sounds were normal and physiologic splitting of the second heart sound was noted. There were no murmurs, rubs, clicks, or gallops. Abdominal exam revealed normal bowel sounds. The abdomen was soft, non-tender, and without masses, organomegaly, or appreciable enlargement of the abdominal aorta. Examination of the extremities revealed easily palpable radial, femoral and pedal pulses. There was no cyanosis, clubbing or edema., Trace ankle edema Examination of the skin revealed no evidence of significant rashes, suspicious appearing nevi or other concerning lesions. Neurologically, the patient is awake and alert and the patient does not have any focal neurological deficit. Cranial nerves are essentially intact. - Labs CBC & Chem 7: 12/28/23 03:01 12/28/23 03:01 Labs: Abnormal Lab Results - Last 24 Hours (Table) 12/27/23 12/27/23 12/27/23 Range/Units 11:38 16:47 20:00 WBC (3.8-10.6) k/uL Hgb (11.4-16.0) gm/dL Neutrophils # (Manual) (1.3-7.7) k/uL Sodium (137-145) mmol/L Carbon Dioxide (22-30) mmol/L BUN (7-17) mg/dL Glucose (74-99) mg/dL POC Glucose (mg/dL) 279 H 399 H 367 H (70-110) mg/dL Calcium (8.4-10.2) mg/dL 12/27/23 12/28/23 12/28/23 Range/Units 23:39 03:01 03:01 WBC 19.1 H (3.8-10.6) k/uL Hgb 11.3 L D (11.4-16.0) gm/dL Neutrophils # (Manual) 16.80 H (1.3-7.7) k/uL Sodium 125 L (137-145) mmol/L Carbon Dioxide 20 L (22-30) mmol/L BUN 22 H (7-17) mg/dL Glucose 177 H (74-99) mg/dL POC Glucose (mg/dL) 285 H (70-110) mg/dL Calcium 6.7 L (8.4-10.2) mg/dL 12/28/23 Range/Units 06:27 WBC (3.8-10.6) k/uL Hgb (11.4-16.0) gm/dL Neutrophils # (Manual) (1.3-7.7) k/uL Sodium (137-145) mmol/L Carbon Dioxide (22-30) mmol/L BUN (7-17) mg/dL Glucose (74-99) mg/dL POC Glucose (mg/dL) 141 H (70-110) mg/dL Calcium (8.4-10.2) mg/dL Microbiology - Last 24 Hours (Table) 12/23/23 13:28 Gram Stain - Final Pleural Fluid Body Fluid Culture - Final 12/26/23 13:51 Gram Stain - Preliminary Bronchoalviolar Lavage - Right Bronchial Washings Culture - Preliminary Michelle albicans Assessment and Plan Plan: Acute hypoxic respiratory failure improved and the patient is currently on room air oxygen Right lung empyema. The patient presents with a large right-sided pleural effus ion with compressive atelectasis of the right lung, likely parapneumonic in nature. Thoracentesis was done and approximately 1.6 L of turbid pleural fluid was aspirated from the right lung. The pleural fluid is an exudate. Culture were negative.. The follow-up chest x-ray showed reaccumulation of a moderate to large size right-sided pleural effusion along with compressive atelectasis of the right lung base. There is also extensive calcification of the airways and the right mainstem bronchus, bronchus remains in the right lower lobe bronchus and there is also an abrupt cut off sign. This could be mucus. The patient had bronchoscopy on 12/26/2023 and copious amount of mucous plugs were aspirated from the right lower lobe. Chest tube was inserted on 12/27/2023 with evacuation of another 1.7 L purulent material. Output is dropping. Alteplase will be administered. The patient is currently on room air oxygen. Right lung pneumonia, Acute leukocytosis, white cell count remains elevated. Mild lactic acidosis, improved Hyponatremia, stable at 125 Diabetes mellitus type 1 maintained on insulin on outpatient basis Hypertension Hyperlipidemia Recent fall with pelvic fracture Generalized weakness and fatigue secondary to above Plan Titrate oxygen flow to maintain saturation above 90% currently on room air oxygen Provide the patient w incentive spirometer Monitor the output from the right-sided chest tube Cover the patient with Rocephin Check procalcitonin level, mildly elevated Bronchoscopy was done and copious amount of respiratory secretions were aspirated from the right lower lobe. Cultures are still pending. Alteplase to be administered through the right-sided chest tube Fluid restriction and monitor sodium level Will continue to follow.
[2023-12-28 16:32] LABS: Glucose,Whole Blood 153 mg/dL (70-110)
--- NOTE | 2023-12-28 19:14 | P.PN ---
Subjective Progress Note Date: 12/28/23 Patient is seen for follow-up for hyponatremia. Doing OK, no new complaints. Trying to limit fluid intake. Patient is awake, comfortable, no acute distress. Examination of the heart S1 and S2 Examination of the lungs bilateral breath sounds are heard, decreased breath sounds at the bases. Abdomen is soft nontender Examination of lower extremity shows edema 2+ bilaterally [employer] exam grossly intact Objective - Vital Signs Vital signs: Vital Signs Temp 98.2 F 12/28/23 04:00 Pulse 114 H 12/28/23 07:00 Resp 15 12/28/23 07:00 BP 121/73 12/28/23 07:00 Pulse Ox 97 12/28/23 08:05 FiO2 Intake & Output 12/27/23 12/28/23 12/28/23 18:59 06:59 18:59 Intake Total 890.75 720 Output Total 2000 865 0 Balance -1109.25 -145 0 Weight 61.9 kg Intake: IV 250 Vancomycin 750 mg In 250 Sodium Chloride 0.9% 250 ml @ 125 mls/hr IVPB ONCE [facility] Rx#:[id number] Intake, IV Titration 410.75 20 Amount Diltiazem 125 mg In 20.75 Sodium Chloride 0.9% 100 ml @ 5 MG/HR 5 mls/hr IV .Q24H [facility] Rx#:[id number] Sodium Chloride 0.9% 1, 90 20 000 ml @ 10 mls/hr IV . Q24H [facility] Rx#:[id number] Vancomycin 1,000 mg In 250 Sodium Chloride 0.9% 250 ml @ 125 mls/hr IVPB BID@ 0500,1700 [facility] Rx#: [id number] cefTRIAXone 2 gm In 50 Sodium Chloride 0.9% 50 ml @ 100 mls/hr IVPB Q24HR [facility] Rx#:[id number] Oral 480 450 Output: Chest Tube Drainage 1500 65 0 Chest Tube Right 1500 65 0 Posterior Chest Urine 250 800 Post Void Residual 250 Other: Voiding Method External Catheter Bedside Commode - Labs CBC & Chem 7: 12/28/23 03:01 12/28/23 03:01 Labs: Abnormal Lab Results - Last 24 Hours (Table) 12/27/23 12/27/23 12/27/23 Range/Units 11:38 16:47 20:00 WBC (3.8-10.6) k/uL Hgb (11.4-16.0) gm/dL Neutrophils # (Manual) (1.3-7.7) k/uL Sodium (137-145) mmol/L Carbon Dioxide (22-30) mmol/L BUN (7-17) mg/dL Glucose (74-99) mg/dL POC Glucose (mg/dL) 279 H 399 H 367 H (70-110) mg/dL Calcium (8.4-10.2) mg/dL 12/27/23 12/28/23 12/28/23 Range/Units 23:39 03:01 03:01 WBC 19.1 H (3.8-10.6) k/uL Hgb 11.3 L D (11.4-16.0) gm/dL Neutrophils # (Manual) 16.80 H (1.3-7.7) k/uL Sodium 125 L (137-145) mmol/L Carbon Dioxide 20 L (22-30) mmol/L BUN 22 H (7-17) mg/dL Glucose 177 H (74-99) mg/dL POC Glucose (mg/dL) 285 H (70-110) mg/dL Calcium 6.7 L (8.4-10.2) mg/dL 12/28/23 Range/Units 06:27 WBC (3.8-10.6) k/uL Hgb (11.4-16.0) gm/dL Neutrophils # (Manual) (1.3-7.7) k/uL Sodium (137-145) mmol/L Carbon Dioxide (22-30) mmol/L BUN (7-17) mg/dL Glucose (74-99) mg/dL POC Glucose (mg/dL) 141 H (70-110) mg/dL Calcium (8.4-10.2) mg/dL Microbiology - Last 24 Hours (Table) 12/26/23 13:51 Gram Stain - Final Bronchoalviolar Lavage - Right Bronchial Washings Culture - Final Michelle albicans 12/27/23 11:30 Gram Stain - Preliminary Pleural Fluid 12/23/23 13:28 Gram Stain - Final Pleural Fluid Body Fluid Culture - Final Assessment and Plan Assessment: 1. Hyponatremia, appears hypervolemic clinically. Low urine sodium suggestive of underlying volume depletion. Serum sodium improved with normal saline. Now discontinued. Serum sodium dropped to 125. 2. Recurrent right pleural effusion status post thoracentesis of 1.6 L. Most likely related to pneumonia. Status post bronchoscopy which showed mucous plugs. Scheduled for reinsertion of right chest tube as the previous one accidentally came out. 3. Acute hypoxic respiratory failure secondary to pneumonia and large right pleural effusion, status post thoracentesis 4. Type 2 diabetes 5. History of fall few weeks ago with pelvic fracture. 6. Chronic lower extremity edema Plan: Continue off of IV fluids If sodium drops further will repeat urine studies and possibly give Tolvaptan. Continue fluid restriction 1500cc daily. Hold off on further diuresis for now.
[2023-12-28 19:35] LABS: Glucose,Whole Blood 207 mg/dL (70-110)
[2023-12-29] MEDS ORDERED: VANCOMYCIN TROUGH DUE 1 EACH MISC MISCELLANE ONE (04:00)
[2023-12-29 06:41] LABS: Glucose,Whole Blood 109 mg/dL (70-110)
--- NOTE | 2023-12-29 07:26 | XR ---
EXAMINATION TYPE: XR chest 1V portable DATE OF EXAM: 12/29/2023 3:50 AM CLINICAL INDICATION:Female, 83 years old with history of r pleural effusion; COMPARISON: Chest radiographs from 12/28/2023 TECHNIQUE: XR chest 1V portable Frontal view of the chest. FINDINGS: Lungs/Pleura: There is no evidence of pleural effusion, focal consolidation, or pneumothorax. Pulmonary vascularity: Unremarkable. Heart/mediastinum: Cardiomediastinal silhouette is unremarkable. Musculoskeletal: No acute osseous pathology. Right thoracotomy tube with small right pleural effusion. No pneumothorax visualized. IMPRESSION: Right thoracotomy tube with small right pleural effusion. No pneumothorax visualized.
[2023-12-29 08:07] LABS: Basophils # (A) 0.1 k/uL (0-0.2); Basophils % (A) 0 %; Eosinophils # (A) 0.2 k/uL (0-0.7); Eosinophils % (A) 1 %; HCT 37.5 % (34.0-46.0); HGB 12.1 gm/dL (11.4-16.0); Hypochromasia Slight; Lymphocytes # (A) 1.2 k/uL (1.0-4.8); Lymphocytes % (A) 7 %; MCH 29.3 pg (25.0-35.0); MCHC 32.2 g/dL (31.0-37.0); Mean Platelet Volume 9.7; Monocytes # (A) 1.1 k/uL (0-1.0); Monocytes % (A) 6 %; Neutrophils # (A) 15.7 k/uL (1.3-7.7); Neutrophils % (A) 86 %; Platelet Count 411 k/uL (150-450); RBC 4.12 m/uL (3.80-5.40); RDW 14.5 % (11.5-15.5); WBC 18.3 k/uL (3.8-10.6)
[2023-12-29 08:10] LABS: African American GFR (CKD) 71 (>60 ml/min/1.73 sqM); Anion Gap 5 mmol/L; Blood Urea Nitrogen 23 mg/dL (7-17); Calcium 6.9 mg/dL (8.4-10.2); Carbon Dioxide 20 mmol/L (22-30); Chloride 102 mmol/L (98-107); Glucose 83 mg/dL (74-99); Non-African American GFR(CKD) 62 (>60 ml/min/1.73 sqM); Potassium 5.3 mmol/L (3.5-5.1); Sodium 127 mmol/L (137-145)
[2023-12-29 11:27] LABS: Glucose,Whole Blood 113 mg/dL (70-110)
--- NOTE | 2023-12-29 11:39 | P.PN ---
Subjective Progress Note Date: 12/29/23 Principal diagnosis: Large right-sided pleural effusion with compressive atelectasis right lung, status post thoracentesis and pigtail catheter placement, acute hypoxic respiratory failure, right lung pneumonia, acute leukocytosis, hyponatremia. History of hypertension, hyperlipidemia, insulin-dependent diabetes mellitus type 2, recent fall from standing sustaining a pelvic fracture, daily EtOH use, previous tobacco dependence POD #3 right sided pigtail catheter placement by interventional radiology Status post day #2 right-sided chest tube insertion by Dr. Burgess The patient was seen and examined in follow-up today December 29, 2023 at her bedside in the intensive care unit. She is currently sitting up to the bedside chair, is awake, alert, oriented x 3 and is in no acute apparent distress. She is currently on room air with oxygen saturations 97% and is achieving 1000 mL on her incentive spirometry with encouragement. Right chest tube placement was completed by Dr. Burgess December 29, 2023 for complicated recurrent parapneumonic right-sided pleural effusion/empyema. No air leak is present. Draining thin cloudy serosanguineous drainage with 80 mL output in the last 8 hours and 500 mL output in the last 24 hours. She was instilled with alteplase/dornase pleural instillation yesterday through her right pleural chest tube, tolerated well with some complaints of discomfort to her right chest tube insertion site. She remains hemodynamically stable and is currently on no inotropic or pressor support. Bedside telemetry is showing normal sinus rhythm with occasional PACs heart rate 92 bpm. Laboratory and chest x-ray results were reviewed. Objective - Vital Signs Vital signs: Vital Signs Temp 98.4 F 12/29/23 08:00 Pulse 133 H 12/29/23 08:00 Resp 17 12/29/23 08:00 BP 113/72 12/29/23 08:00 Pulse Ox 97 12/29/23 08:00 FiO2 Intake & Output 12/28/23 12/29/23 12/29/23 18:59 06:59 18:59 Intake Total 870 120 70 Output Total 1010 950 20 Balance -140 -830 50 Weight 63.2 kg Intake: IV 160 120 70 Sodium Chloride 0.9% 1, 110 120 20 000 ml @ 10 mls/hr IV . Q24H [facility] Rx#:[id number] cefTRIAXone 2 gm In 50 50 Sodium Chloride 0.9% 50 ml @ 100 mls/hr IVPB Q24HR [facility] Rx#:[id number] Oral 710 Output: Chest Tube Drainage 360 150 20 Chest Tube Right 360 150 20 Posterior Chest Urine 650 800 0 Other: Voiding Method Bedside Commode Bedside Commode Bedside Commode # Bowel Movements 1 - Exam CONSTITUTIONAL: Appears comfortable, cooperative, no acute distress RESPIRATORY: Lungs sounds diminished bilaterally, right greater than left. Respirations even, nonlabored. Currently on room air with oxygen saturation 97%. Able to achieve 1000 mL on incentive spirometry. Strong nonproductive cough. CARDIOVASCULAR: S1, S2 present. Regular rate and rhythm, sinus rhythm on telemetry. Palpable peripheral pulses bilaterally. No edema present. No calf pain or tenderness noted. SCDs present. GASTROINTESTINAL: Abdomen soft, nontender, nondistended. Active bowel sounds present 4 quadrants. Tolerating diet. Bowel movement 12/26 GENITOURINARY: Continues to void INTEGUMENTARY: Skin is warm and dry. No clubbing or cyanosis is present. NEUROLOGIC: Cranial nerves II through XII intact. No focal deficits. MUSKULOSKELETAL: Able to move all extremities, strength equal bilaterally, gait normal. PSYCHIATRIC: Alert and oriented to person place and time, appropriate affect, intact judgment and insight. - Allied health notes Allied health notes reviewed: nursing - Labs CBC & Chem 7: 12/29/23 05:37 12/29/23 05:37 Labs: Abnormal Lab Results - Last 24 Hours (Table) 12/28/23 12/28/23 12/29/23 Range/Units 16:30 19:34 05:37 WBC 18.3 H (3.8-10.6) k/uL Neutrophils # 15.7 H (1.3-7.7) k/uL Monocytes # 1.1 H (0-1.0) k/uL Sodium (137-145) mmol/L Potassium (3.5-5.1) mmol/L Carbon Dioxide (22-30) mmol/L BUN (7-17) mg/dL POC Glucose (mg/dL) 153 H 207 H (70-110) mg/dL Calcium (8.4-10.2) mg/dL 12/29/23 12/29/23 Range/Units 05:37 11:26 WBC (3.8-10.6) k/uL Neutrophils # (1.3-7.7) k/uL Monocytes # (0-1.0) k/uL Sodium 127 L (137-145) mmol/L Potassium 5.3 H (3.5-5.1) mmol/L Carbon Dioxide 20 L (22-30) mmol/L BUN 23 H (7-17) mg/dL POC Glucose (mg/dL) 113 H (70-110) mg/dL Calcium 6.9 L (8.4-10.2) mg/dL Microbiology - Last 24 Hours (Table) 12/27/23 11:30 Gram Stain - Preliminary Pleural Fluid Body Fluid Culture - Preliminary 12/23/23 08:24 Blood Culture - Final Blood 12/23/23 08:24 Blood Culture - Final Blood 12/26/23 13:51 Gram Stain - Final Bronchoalviolar Lavage - Right Bronchial Washings Culture - Final Michelle albicans 12/23/23 13:28 Gram Stain - Final Pleural Fluid Body Fluid Culture - Final - Imaging and Cardiology Chest x-ray: report reviewed, image reviewed Assessment and Plan Assessment: Large right-sided pleural effusion/empyema with compressive atelectasis right lung, status post thoracentesis and pigtail catheter placement, status post 2 dose lytics, status post right chest tube placement by Dr. Burgess on December 27, 2023 Acute hypoxic respiratory failure Right lung pneumonia Acute leukocytosis Hyponatremia History of hypertension Hyperlipidemia Insulin-dependent diabetes mellitus type 2 Recent fall from standing sustaining a pelvic fracture Daily EtOH use Previous tobacco dependence Plan: We will instill a third dose of alteplase/dornase pleural instillation through her right pleural chest tube today. We will clamp the chest tube for 1 hour and after 1 hour will unclamp and placed back to low continuous wall suction -20 cm H2O. May disconnect chest tube from wall suction to ambulate in the hallway. Encourage incentive spirometry use 10 times every hour while awake, bronchodilators per pulmonology Increase activity, ambulate as tolerated. Out of bed for all meals. Antibiotics per pulmonology/internal medicine. GI/DVT prophylaxis. More recommendations to follow based on patient's clinical course. Time with Patient: Greater than 30
--- NOTE | 2023-12-29 11:42 | P.PN ---
Subjective Progress Note Date: 12/29/23 This is a 83-year-old female patient who came to the emergency department with increased shortness of breath. Her breathing was progressively getting worse over the past 1 week. She had increased cough congestion chest tightness and wheezing and she was having chills at home. She was given outpatient antibiotic therapy with Zithromax and her condition decompensated and she ended up coming into the hospital. The patient has been having some chest discomfort along the right chest. She had a fall approximately few weeks back and she also sustained a pelvic fracture. She is a lifetime non-smoker. She came to the emergency department and the patient had a white cell count of 34 with a hemoglobin 14.8. Her sodium level was 116 with a potassium level of 5.9 and a serum bicarb was at 21. BUN was 18 with a creatinine of 0.4. Troponin was 0.07. proBNP level was 5000. The viral screen was negative. Initial lactic acid level was at 2.1 and dropped down to 1.6. Coagulation profile was normal with a D-dimer of 2.6. Initial chest x-ray showed a large right-sided pleural effusion. CAT scan of the chest was also done in the Emergency Department that showed no evidence of any central pulmonary embolism. There was a large right-sided pleural effusion with near complete opacification and compression of the right lung. There was also abnormal attenuation within the right mainstem right middle lobe and right lower lobe bronchus and aspiration was suspected. I saw the patient in the e mergency department. She was quite short of breath and she was on oxygen at 5 L/min nasal cannula. Her pulse ox was as in the low 90s. I performed a bedside thoracentesis a total of 1.6 L of pleural fluid is aspirated. No complications. The post thoracentesis chest x-ray showed interval marked reduction in the right-sided pleural effusion without evidence of any pneumothorax. The patient was started on broad-spectrum antibiotics and she is currently on a combination of Rocephin and Zithromax and vancomycin. She is diabetic. She takes insulin on outpatient basis. She also has history of hypertension and hyperlipidemia. Currently she is also on IV fluids and the patient is on normal saline which is running at a rate of 75 cc an hour. No altered mentation. No seizure activity. On 12/24/2023, the patient is feeling better. The patient is less short of breath and currently she is on 2 L of oxygen by nasal cannula. Her breathing is more comfortable. Thoracentesis was done yesterday and the pleural fluid analysis still pending. Cultures are still pending. Legionella urine antigen is negative. Echocardiogram showed a preserved LV function, no significant valvular abnormalities. The white cell count is currently down to 26 with a hemoglobin 13.1 and a platelet count of 491. Sodium is 119 improved compared to yesterday and the urine sodium is essentially low less than 20, not typical of SIADH. Serum bicarb is 18 with a BUN of 16 and a creatinine of 0.4. She remain s on Rocephin and Zithromax and vancomycin. Metoprolol was restarted. He is also on Zestril 40 mg p.o. daily for blood pressure control. She is on NovoLog 5 units 3 times daily with meals plus a sliding scale coverage. She remains on bronchodilators. On today's evaluation on 12/25/2023, the patient is being seen for a follow- up.The patient has no specific complaints. She seems to be less short of breath. She is on 4 L of oxygen by nasal cannula with a pulse ox of 96%. She remains on a combination of Rocephin and Zithromax and vancomycin. The white cell count is improving is currently down to 18.3 with a hemoglobin of 10.5 and a platelet count of 465. Sodium levels of 125. BUN is 12 with a creatinine of 0.4 and the patient is currently nondistended. Exercises an hour. On a separ ate note, chest x-ray that was done today showed further opacification of the right lung compared to yesterday chest x-ray. Based on that, a CAT scan of the chest was done and it showed a moderate to large right-sided pleural fluid collection along with compressive atelectasis of the right lung. There was also extensive calcification of the bronchi bilaterally more so on the right lower lobe bronchus and there was also a filling defect in the right lower lobe bronchus that was not felt to be patent. There is an abrupt cut off sign in the bronchus intermedius/right lower lobe area. Based on those findings, I recommended a pigtail catheter insertion and this will be done by interventional radiology today to be followed up by bronchoscopy in a.m. The pleural fluid is aspirated earlier was an accident with elevated LDH of 610 and a protein of 3.2 g. Glucose was at 136. Cell count was 1000. The fluid cytology still pending for now. The Gram stain culture is also negative. 12/26/2023, the patient is being seen for a follow-up. The patient is on 4 L of oxygen nasal cannula. The pigtail catheter was inserted yesterday and a total of 4 L of pleural fluid was further aspirated. Blood from the PICC line has been noted. Nevertheless, the chest x-ray still showing volume loss and persistent right lung consolidation. As mentioned earlier, there is an abrupt cut off sign in the right mainstem bronchus/bronchus intermedius and the patient is going to undergo a bronchoscopy today. White cell count is 16, hemoglobin 11 and platelet count is at 464, sodium levels at 128, BUN is at 10 with a creatinine of 0.3. Remains on the same antibiotic coverage to include Rocephin and Zithromax and vancomycin. Cultures are still negative. Sputum culture still pending. Clinically doing well. No significant tachycardia. Hemodynamically stable. Currently n.p.o. awaiting bronchoscopy. She went 12/27/2023, for the patient for a follow-up. Events from yesterday were noted and the patient's pigtail catheter has been removed. This came out accidentally. Repeat CAT scan of the chest was done this morning and it showed essentially enlarged right-sided pleural effusion with loculation. The patient also had atelectatic changes in the right lung. There is again a cut off sign in the right lower lobe bronchus. Noted I performed a bronchoscopy the patient and the patient had copious amount of respiratory secretions and mucous plugs that were aspirated without any major difficulties. Cultures were sent and the results are still pending for now. She remains on oxygen at 4 L nasal cannula with pulse ox of 97%. The patient has a white cell count of 25, hemoglobin is at 14.4 and a platelet count of 650. Sodium levels of 128, BUN 11 with a creatinine of 0.39. The pleural fluid cultures are still negative. She remains on bronchodilators with DuoNeb updrafts. She continues to have a congested cough, producing limited amount of sputum. Awake and alert and communicating. She does have chronic lower extremity edema. Cardiac rhythm remained sinus. 12/28/2023, the patient has produced approximately 1.7 L of purulent material from the right lung post chest tube insertion. Output has dropped and the patient is going to receive a dose of alteplase through the chest tube. She is currently on room air oxygen. The chest x-ray from today shows residual consolidation of the right lung base. No evidence of any pneumothorax and the chest tube is in good location. The white cell count is at 93 with a hemoglobin 11.3 platelet count of 450. The BUN is 22 with a creatinine of 0.74. All of the cultures have been negative thus far. The patient is currently on IV Rocephin. Cardiac rhythm is sinus. IV fluids are currently at KVO. No other significant events overnight. She is sitting up on a chair and she is calm and comfortable. 12/29/2023, right-sided chest tube is in place. Alteplase was administered yesterday and a total of 500 cc of output was obtained. Chest x-ray findings show some residual consolidation and atelectasis in the right lower lobe. Clinically doing well. She is on room air oxygen. No fever or chills. White cell count remains elevated at 18.3 with a hemoglobin 12.1, sodium level is up to 127, BUN is 23 and creatinine is 0.8. Hemodynamically stable. Cultures are all negative. The patient remains on IV Rocephin. Aggressive pulmonary toileting is being performed. Neurologically intact. Objective - Vital Signs Vital signs: Vital Signs Temp 98.4 F 12/29/23 08:00 Pulse 133 H 12/29/23 08:00 Resp 17 12/29/23 08:00 BP 113/72 12/29/23 08:00 Pulse Ox 97 12/29/23 08:00 FiO2 Intake & Output 12/28/23 12/29/23 12/29/23 18:59 06:59 18:59 Intake Total 870 120 70 Output Total 1010 950 0 Balance -140 -830 70 Weight 63.2 kg Intake: IV 160 120 70 Sodium Chloride 0.9% 1, 110 120 20 000 ml @ 10 mls/hr IV . Q24H SHANICE Rx#:[id number] cefTRIAXone 2 gm In 50 50 Sodium Chloride 0.9% 50 ml @ 100 mls/hr IVPB Q24HR SHANICE Rx#:[id number] Oral 710 Output: Chest Tube Drainage 360 150 0 Chest Tube Right 360 150 0 Posterior Chest Urine 650 800 0 Other: Voiding Method Bedside Commode Bedside Commode # Bowel Movements 1 - Exam Calm and comfortable mild degree of respiratory distress, BMI 17.6 currently on room air oxygen Head exam was generally normal. There was no scleral icterus or corneal arcus. Mucous membranes were moist. Neck was supple and without jugular venous distension, thyromegaly, or carotid bruits. Carotids were easily palpable bilaterally. There was no adenopathy. Lung sounds revealed improved breath sounds right lung base. Some limited crackles. Left lung is clear. Cardiac exam revealed the PMI to be normally situated and sized. The rhythm was regular and no extrasystoles were noted during several minutes of auscultation. The first and second heart sounds were normal and physiologic splitting of the second heart sound was noted. There were no murmurs, rubs, clicks, or gallops. Abdominal exam revealed normal bowel sounds. The abdomen was soft, non-tender, and without masses, organomegaly, or appreciable enlargement of the abdominal aorta. Examination of the extremities revealed easily palpable radial, femoral and pedal pulses. There was no cyanosis, clubbing or edema., Trace ankle edema Examination of the skin revealed no evidence of significant rashes, suspicious appearing nevi or other concerning lesions. Neurologically, the patient is awake and alert and the patient does not have any focal neurological deficit. Cranial nerves are essentially intact. - Labs CBC & Chem 7: 12/29/23 05:37 12/29/23 05:37 Labs: Abnormal Lab Results - Last 24 Hours (Table) 12/28/23 12/28/23 12/28/23 Range/Units 11:30 16:30 19:34 WBC (3.8-10.6) k/uL Neutrophils # (1.3-7.7) k/uL Monocytes # (0-1.0) k/uL Sodium (137-145) mmol/L Potassium (3.5-5.1) mmol/L Carbon Dioxide (22-30) mmol/L BUN (7-17) mg/dL POC Glucose (mg/dL) 276 H 153 H 207 H (70-110) mg/dL Calcium (8.4-10.2) mg/dL 12/29/23 12/29/23 Range/Units 05:37 05:37 WBC 18.3 H (3.8-10.6) k/uL Neutrophils # 15.7 H (1.3-7.7) k/uL Monocytes # 1.1 H (0-1.0) k/uL Sodium 127 L (137-145) mmol/L Potassium 5.3 H (3.5-5.1) mmol/L Carbon Dioxide 20 L (22-30) mmol/L BUN 23 H (7-17) mg/dL POC Glucose (mg/dL) (70-110) mg/dL Calcium 6.9 L (8.4-10.2) mg/dL Microbiology - Last 24 Hours (Table) 12/23/23 08:24 Blood Culture - Final Blood 12/23/23 08:24 Blood Culture - Final Blood 12/27/23 11:30 Gram Stain - Preliminary Pleural Fluid Body Fluid Culture - Preliminary 12/26/23 13:51 Gram Stain - Final Bronchoalviolar Lavage - Right Bronchial Washings Culture - Final Michelle albicans 12/23/23 13:28 Gram Stain - Final Pleural Fluid Body Fluid Culture - Final Assessment and Plan Plan: Acute hypoxic respiratory failure improved and the patient is currently on room air oxygen Right lung empyema. The patient presents with a large right-sided pleural effusion with compressive atelectasis of the right lung, likely parapneumonic in nature. Thoracentesis was done and approximately 1.6 L of turbid pleural fluid was aspirated from the right lung. The pleural fluid is an exudate. Culture were negative.. The follow-up chest x-ray showed reaccumulation of a moderate to large size right-sided pleural effusion along with compressive atelectasis of the right lung base. There is also extensive calcification of the airways and the right mainstem bronchus, bronchus remains in the right lower lobe bronchus and there is also an abrupt cut off sign. This could be mucus. The patient had bronchoscopy on 12/26/2023 and copious amount of mucous plugs were aspirated from the right lower lobe. Chest tube was inserted on 12/27/2023 with evacuation of another 1.7 L purulent material. Alteplase was administered yesterday and another 500 cc of output was obtained. Chest tube will be kept in place and another dose of alteplase will be administered today. Right lung pneumonia, Acute leukocytosis, white cell count remains elevated. Mild lactic acidosis, improved Hyponatremia, stable at 127 Diabetes mellitus type 1 maintained on insulin on outpatient basis Hypertension Hyperlipidemia Recent fall with pelvic fracture Generalized weakness and fatigue secondary to above Plan Titrate oxygen flow to maintain saturation above 90% currently on room air oxygen incentive spirometer Monitor the output from the right-sided chest tube Cover the patient with Rocephin Check procalcitonin level, mildly elevated Bronchoscopy was done and copious amount of respiratory secretions were a spirated from the right lower lobe. Cultures are still pending. Alteplase to be administered through the right-sided chest tube, monitor the output Fluid restriction and monitor sodium level Will continue to follow.
--- NOTE | 2023-12-29 12:22 | P.PN ---
Subjective Progress Note Date: 12/29/23 Patient is seen for follow-up for hyponatremia. Doing OK, no new complaints. Patient is awake, comfortable, no acute distress. Examination of the heart S1 and S2 Examination of the lungs bilateral breath sounds are heard, decreased breath sounds at the bases. Abdomen is soft nontender Examination of lower extremity shows edema 2+ bilaterally [employer] exam grossly intact Objective - Vital Signs Vital signs: Vital Signs Temp 98.4 F 12/29/23 08:00 Pulse 133 H 12/29/23 08:00 Resp 17 12/29/23 08:00 BP 113/72 12/29/23 08:00 Pulse Ox 97 12/29/23 08:00 FiO2 Intake & Output 12/28/23 12/29/23 12/29/23 18:59 06:59 18:59 Intake Total 870 120 70 Output Total 1010 950 0 Balance -140 -830 70 Weight 63.2 kg Intake: IV 160 120 70 Sodium Chloride 0.9% 1, 110 120 20 000 ml @ 10 mls/hr IV . Q24H [facility] Rx#:[id number] cefTRIAXone 2 gm In 50 50 Sodium Chloride 0.9% 50 ml @ 100 mls/hr IVPB Q24HR SHANICE Rx#:[id number] Oral 710 Output: Chest Tube Drainage 360 150 0 Chest Tube Right 360 150 0 Posterior Chest Urine 650 800 0 Other: Voiding Method Bedside Commode Bedside Commode Bedside Commode # Bowel Movements 1 - Labs CBC & Chem 7: 12/29/23 05:37 12/29/23 05:37 Labs: Abnormal Lab Results - Last 24 Hours (Table) 12/28/23 12/28/23 12/28/23 Range/Units 11:30 16:30 19:34 WBC (3.8-10.6) k/uL Neutrophils # (1.3-7.7) k/uL Monocytes # (0-1.0) k/uL Sodium (137-145) mmol/L Potassium (3.5-5.1) mmol/L Carbon Dioxide (22-30) mmol/L BUN (7-17) mg/dL POC Glucose (mg/dL) 276 H 153 H 207 H (70-110) mg/dL Calcium (8.4-10.2) mg/dL 12/29/23 12/29/23 Range/Units 05:37 05:37 WBC 18.3 H (3.8-10.6) k/uL Neutrophils # 15.7 H (1.3-7.7) k/uL Monocytes # 1.1 H (0-1.0) k/uL Sodium 127 L (137-145) mmol/L Potassium 5.3 H (3.5-5.1) mmol/L Carbon Dioxide 20 L (22-30) mmol/L BUN 23 H (7-17) mg/dL POC Glucose (mg/dL) (70-110) mg/dL Calcium 6.9 L (8.4-10.2) mg/dL Microbiology - Last 24 Hours (Table) 12/23/23 08:24 Blood Culture - Final Blood 12/23/23 08:24 Blood Culture - Final Blood 12/27/23 11:30 Gram Stain - Preliminary Pleural Fluid Body Fluid Culture - Preliminary 12/26/23 13:51 Gram Stain - Final Bronchoalviolar Lavage - Right Bronchial Washings Culture - Final Michelle albicans 12/23/23 13:28 Gram Stain - Final Pleural Fluid Body Fluid Culture - Final Assessment and Plan Assessment: 1. Hyponatremia, appears hypervolemic clinically. Low urine sodium suggestive of underlying volume depletion. Serum sodium improved with normal saline. Now discontinued. Serum sodium stable at 127 today. 2. Recurrent right pleural effusion status post thoracentesis of 1.6 L. Most likely related to pneumonia. Status post bronchoscopy which showed mucous plugs. Scheduled for reinsertion of right chest tube as the previous one accidentally came out. 3. Acute hypoxic respiratory failure secondary to pneumonia and large right pleural effusion, status post thoracentesis 4. Type 2 diabetes 5. History of fall few weeks ago with pelvic fracture. 6. Chronic lower extremity edema Plan: Continue off of IV fluids If sodium drops further will repeat urine studies and possibly give Tolvaptan. Continue fluid restriction 1500cc daily. Hold off on further diuresis for now.
--- NOTE | 2023-12-29 12:26 | P.PN ---
Subjective Progress Note Date: 12/29/23 83-year-old office patient for many years with active medical history of insulin-dependent type 2 diabetes, hypertension, hyperlipidemia, neuropathy, history of spinal stenosis, who has mild bradycardia otherwise healthy doing well has not been in the hospital long time she had a fall 2 weeks ago to the right side and developed pelvic and did not require to be hospitalized but ended up seen Dr. Wisdom as an outpatient. Also patient had open communicated distal radius fracture back in 2022 secondary to minor fall ended up having open reduction with internal fixation and irrigation debridement of the right wrist fracture. Patient seen cardiology in the last few years in 2021 was admitted to the hospital because of an episode of palpitation with pulse rate of 160 bpm found to have paroxysmal SVT and elevated troponin with no cardiac injury or any other cardiac history has been on beta-yahir been well-controlled since. I received a phone call from the yesterday with complain that his has been in extreme shortness of breath and been symptomatic and for the previous 5 days she had a virtual visit in the office for severe bronchitis was prescribed antibiotics and some expectorant which patient had felt slightly bit better but become much worse over the last 2 days to a degree becoming extreme dyspnea with minimal exertion. Was instructed to bring her to the emergency department to be seen and evaluated. Patient apparently decided not to come to the emergency department till early this morning on 12/23/2023 where was seen and evaluated was severely hypoxic at the time her chest x-ray showed very large right-sided pleural effusion almost occupying 90% out of the right lung. D-dimer was elevated and patient ended up for CTA finding with no pulmonary embolism large right-sided pleural effusion with near complete compression of the right lung there is an abnormal attenuation within the right mainstrem middle lobe and lower lobe bronchus which could be related to aspiration also there is only slight left pleural effusion as well with subsegmental area of consolidation favored to atelectasis versus pneumonitis. With pulse ox running quite a bit low at the time required 4 L of O2 to keep her pulse ox above 90 percentile and laboratory value showing sodium of 116 with normal creatinine and GFR with blood sugar of 292 white blood cell was 34,500 with platelet count 537 mildly elevated troponin 0.07 with lactic acid at 1.6 proBNP at 5090 with alk phos of 289. Patient ended up seeing Dr. Helms and in the emergency department who is done a consultation and decided to transfer the patient to the intensive care unit and ended up performing bedside thoracentesis for total of 1.6 L of pleural fluid is aspirated with no complication fluid was not bloody followed by chest x-ray showed fairly expansion of the lung only. Patient was transferred to the ICU and admitted for severe large sided pleural effusion, possible aspiration pneumonia with sepsis, severe hyponatremia. Will consult nephrology as well for the severity of her hyponatremia. 11/23/2023: Patient is resting comfortably in the chair this morning, her sodium is up to 119 from 116 early, kidney function still good, blood sugar still slightly bit elevated required 2 units of insulin every time she is having her Accu-Chek. Chest x-ray still showing significant amount of pleural effusion around the right side which might require another thoracentesis today or tomorrow. She still seen nephrology for probably increase her sodium tablet and little bit more restriction on IV fluid. Tachycardia has improved compared to yesterday also patient is not hypoxic but still required 2 L of O2 to keep her pulse ox above 92 percentile. Legionella antibody was negative still waiting for mycoplasma and further analysis of her thoracentesis fluid. Also echocardiogram came back with no major abnormality to create any pleural effusion. 11/24/2023: With the recurrent pleural effusion pulmonary decided to accelerate this into setting up patient for pigtail catheter placement in the pleural space by radiology to be able to drain pleural fluid when needed. Apparently with patient is not improving as fast as expected earlier consideration including possibility of malignancy is quite bit high at this point chest x-ray apparently showed further opacification of the right lung compared to the one from yesterday chest CAT scan showed moderate right-sided pleural fluid collection along with compressive atelectasis of the right side and there was extensive calcification and bronchial bilaterally more on the right lower lobe bronchus and there were also filling defect in the right lower lobe that was not felt to be patent. After pigtail catheter placement patient will be going for bronchoscopy to see if he have any malignancy in the lung. Still awaiting the final analysis of the pleural fluid. Sodium has been improved up to 125 today blood sugar still mildly elevated at some point. Oxygen level has been better so far. She is remain having slight tachycardia likely multifocal atrial tachycardia along with frequent PACs will continue Cardizem and metoprolol patient does not need to be on anticoagulation. 11/25/2023: She is still having significant shortness of breath did not improve she had yesterday pigtail catheter in the pleural space connected with chest tube under waterseal continue to have significant shortness of breath and dyspnea, chest x-ray continue to show significant lobulated fluid in the pleural space. Patient be going for bronchoscopy today looking for mass or malignancy. Continue aggressive antibiotics as expected but with all the picture have specially with the pleural fluid there is concern of malignancy. 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 Pulse rate remained slightly bit fast and continue Cardizem drip at this point. 12/27/2023: Patient pigtail catheter was fluid off yesterday continue to have significant amount of right-sided pleural effusion with loculation bronchoscopy was done and had removal significant amount of respiratory secretion and sputum plug which had helped some but patient continued to be symptomatic. Original plan to use the pigtail catheter or thrombolytic by cardiothoracic but since it fell off was a bit harder. Pulmonary in the surgical chest tube and continue alteplase administration to the right side hemithoracic to evacuate the complicated parapneumonic effusion. Apparently pulmonary has discussed with family and patient the possibility of VATS procedure at later stage. He is remain in the ICU, blood sugar slightly bit better medication were adjusted, white blood cells down recently to 25,000 today. She is remain on antibiotic to cover her pneumonia. 12/27. Patient seen and examined. Lab work done this morning showed WBC 19.1, hemoglobin 11.3, sodium 125, potassium 4.6,. States she feels better. Patient had 95 mL output in the last 8 hours and 1.7 L output in the last 24 hours 12/28. Patient seen and examined.Blood work done this morning showed WBC 18.3, hemoglobin 12.1, sodium 127, potassium 5.3, calcium 6.9. Alteplase was administered yesterday and a total of 500 cc of output was obtained. REVIEW OF SYSTEMS: CONSTITUTIONAL: No fever, no malaise,. CARDIOVASCULAR: No chest pain, no palpitations, no syncope. PULMONARY: No shortness of breath, no cough, GASTROINTESTINAL: No diarrhea, no nausea, no vomiting, no abdominal pain. NEUROLOGICAL: No headaches, no weakness, PHYSICAL EXAMINATION: GENERAL: The patient is alert and oriented x3, not in any acute distress. Well developed, well nourished. HEENT: Pupils are round and equally reacting to light. EOMI. No scleral icterus. No conjunctival pallor. Normocephalic, atraumatic. No pharyngeal erythema. No thyromegaly. CARDIOVASCULAR: S1 and S2 present. No murmurs, rubs, or gallops. PULMONARY: Right-sided chest tube seen, diminished breath sounds at the bases. No wheezing or crackles. ABDOMEN: Soft, nontender, nondistended, normoactive bowel sounds. No palpable organomegaly. MUSCULOSKELETAL: No joint swelling or deformity. EXTREMITIES: No cyanosis, clubbing, or pedal edema. NEUROLOGICAL: Gross neurological examination did not reveal any focal deficits. SKIN: No rashes. Assessment and plan Acute hypoxic respiratory failure Complicated recurrent parapneumonic right-sided pleural effusion/empyema Bacterial pneumonia, Monitor vital signs monitor CBC Monitor CMP Continue oxygen supplementation Status post thoracentesis and right-sided chest tube placement Continue IV Rocephin Pulmonology following CT surgery following, patient getting third dose of alteplase/dornase pleural instillation through her right pleural chest tube today _Severe hyponatremia: Monitor BMP, nephrology following, if sodium level drops more they will consider giving tolvaptan _Severe acute leukocytosis: Monitor CBC _Type 1 diabetes: Monitor blood sugar levels, continue current insulin regimen _Neuropathy: Continue gabapentin doing slightly better. _Recent history of pelvic fracture has been seen orthopedic. _Hyperlipidemia: Remain on rosuvastatin 10 mg a day. _Tachycardia and multifocal PACs: Remain on metoprolol Labs and medication were reviewed.. Continue same treatment. Continue with symptomatic treatment. Resume home medication. Monitor labs and vitals. DVT and GI prophylaxis. Further recommendations as per clinical course of the patient Dictation was produced using [employer] dictation software. please excuse any grammatical, word or spelling errors. Objective - Vital Signs Vital signs: Vital Signs Temp 98.4 F 12/29/23 08:00 Pulse 133 H 12/29/23 08:00 Resp 17 12/29/23 08:00 BP 113/72 12/29/23 08:00 Pulse Ox 97 12/29/23 08:00 FiO2 Intake & Output 12/28/23 12/29/23 12/29/23 18:59 06:59 18:59 Intake Total 870 120 70 Output Total 1010 950 120 Balance -140 -830 -50 Weight 63.2 kg Intake: IV 160 120 70 Sodium Chloride 0.9% 1, 110 120 20 000 ml @ 10 mls/hr IV . Q24H [facility] Rx#:[id number] cefTRIAXone 2 gm In 50 50 Sodium Chloride 0.9% 50 ml @ 100 mls/hr IVPB Q24HR [facility] Rx#:[id number] Oral 710 Output: Chest Tube Drainage 360 150 20 Chest Tube Right 360 150 20 Posterior Chest Urine 650 800 100 Other: Voiding Method Bedside Commode Bedside Commode Bedside Commode # Bowel Movements 1 1 - Labs CBC & Chem 7: 12/29/23 05:37 12/29/23 05:37 Labs: Abnormal Lab Results - Last 24 Hours (Table) 12/28/23 12/28/23 12/29/23 Range/Units 16:30 19:34 05:37 WBC 18.3 H (3.8-10.6) k/uL Neutrophils # 15.7 H (1.3-7.7) k/uL Monocytes # 1.1 H (0-1.0) k/uL Sodium (137-145) mmol/L Potassium (3.5-5.1) mmol/L Carbon Dioxide (22-30) mmol/L BUN (7-17) mg/dL POC Glucose (mg/dL) 153 H 207 H (70-110) mg/dL Calcium (8.4-10.2) mg/dL 12/29/23 12/29/23 Range/Units 05:37 11:26 WBC (3.8-10.6) k/uL Neutrophils # (1.3-7.7) k/uL Monocytes # (0-1.0) k/uL Sodium 127 L (137-145) mmol/L Potassium 5.3 H (3.5-5.1) mmol/L Carbon Dioxide 20 L (22-30) mmol/L BUN 23 H (7-17) mg/dL POC Glucose (mg/dL) 113 H (70-110) mg/dL Calcium 6.9 L (8.4-10.2) mg/dL Microbiology - Last 24 Hours (Table) 12/27/23 11:30 Gram Stain - Preliminary Pleural Fluid Body Fluid Culture - Preliminary 12/23/23 08:24 Blood Culture - Final Blood 12/23/23 08:24 Blood Culture - Final Blood 12/26/23 13:51 Gram Stain - Final Bronchoalviolar Lavage - Right Bronchial Washings Culture - Final Michelle albicans 12/23/23 13:28 Gram Stain - Final Pleural Fluid Body Fluid Culture - Final
[2023-12-29] MEDS: DORNASE ALFA 5 MG in SODIUM CHLORIDE 0.9% 50 ML IRRIGATION ONE (12:43)
[2023-12-29] MEDS: ALTEPLASE 10 MG in SODIUM CHLORIDE 0.9% 50 ML IRRIGATION ONE (12:43)
[2023-12-29 17:01] LABS: Glucose,Whole Blood 139 mg/dL (70-110)
[2023-12-29 19:09] LABS: Histoplasma Abs by Mycelia, CF <1:8 (<1:8)
[2023-12-29 20:20] LABS: Glucose,Whole Blood 201 mg/dL (70-110)
[2023-12-30 00:30] LABS: Glucose,Whole Blood 141 mg/dL (70-110)
--- NOTE | 2023-12-30 01:23 | XR ---
EXAM: XR Chest, 1 View CLINICAL HISTORY: XR Reason: chest tube pulled out TECHNIQUE: Frontal view of the chest. COMPARISON: December 29, 2023 FINDINGS: Lungs: Increased density in the right lower hemithorax consistent with atelectasis, unchanged. Pleural space: See below. Heart: The cardiac silhouette is mildly enlarged, unchanged. Mediastinum: Unremarkable. Normal mediastinal contour. Bones/joints: Unremarkable. No acute fracture. Tubes, lines and devices: The previously seen large caliber right- sided chest tube is no longer present. No significant pneumothorax is seen. There is persistent blunting the right costophrenic angle and slight pleural thickening consistent with small residual pleural effusion versus pleural thickening. Upper abdomen: There is no pneumoperitoneum under the diaphragm. IMPRESSION: The previously seen large caliber right-sided chest tube is no longer present. No significant pneumothorax is seen. There is persistent blunting the right costophrenic angle and slight pleural thickening consistent with small residual pleural effusion versus pleural thickening.
[2023-12-30 06:28] LABS: African American GFR (CKD) 66 (>60 ml/min/1.73 sqM); Anion Gap 2 mmol/L; Blood Urea Nitrogen 23 mg/dL (7-17); Calcium 7.2 mg/dL (8.4-10.2); Carbon Dioxide 25 mmol/L (22-30); Chloride 103 mmol/L (98-107); Glucose 62 mg/dL (74-99); Non-African American GFR(CKD) 57 (>60 ml/min/1.73 sqM); Potassium 5.2 mmol/L (3.5-5.1); Sodium 130 mmol/L (137-145)
[2023-12-30 06:29] LABS: Glucose,Whole Blood 64 mg/dL (70-110)
[2023-12-30 06:31] LABS: Glucose,Whole Blood 59 mg/dL (70-110)
[2023-12-30 06:56] LABS: Basophils # (A) 0.1 k/uL (0-0.2); Basophils % (A) 1 %; Eosinophils # (A) 0.2 k/uL (0-0.7); Eosinophils % (A) 2 %; HCT 41.5 % (34.0-46.0); HGB 13.1 gm/dL (11.4-16.0); Lymphocytes # (A) 0.9 k/uL (1.0-4.8); Lymphocytes % (A) 8 %; MCH 28.2 pg (25.0-35.0); MCHC 31.6 g/dL (31.0-37.0); MCV 89.4 fL (80.0-100.0); Mean Platelet Volume 10.2; Monocytes # (A) 1.3 k/uL (0-1.0); Monocytes % (A) 11 %; Neutrophils # (A) 8.9 k/uL (1.3-7.7); Neutrophils % (A) 78 %; Platelet Count 385 k/uL (150-450); RBC 4.64 m/uL (3.80-5.40); RDW 14.5 % (11.5-15.5); WBC 11.4 k/uL (3.8-10.6)
[2023-12-30 07:01] LABS: Glucose,Whole Blood 79 mg/dL (70-110)
--- NOTE | 2023-12-30 07:51 | P.PN ---
Subjective Progress Note Date: 12/30/23 PROGRESS NOTE The patient is an 83-year-old female with a history of hyperlipidemia, diabetes who presented with progressive dyspnea was found to have pneumonia and large right-sided pleural effusion. She has chest tube that was pulled out yesterday and was transferred yesterday to the ICU. She is feeling well this morning. She denies any chest discomfort and her breathing is stable. She denies any dizziness or palpitations. She denies any nausea or vomiting. Her appetite is good. She is in sinus mechanism. Her echocardiogram showed a preserved systolic function with no significant valvular disease. He underwent bronchoscopy. Medications: Aspirin 81 mg daily, Lipitor 20 mg daily, Rocephin, insulin, metoprolol tartrate 50 mg twice a day, Protonix, tramadol on a as needed basis PHYSICAL EXAMINATION: Blood pressure 153/69 heart rate 90 LUNGS: Decreased breath sounds on the right base, mild tenderness on the right side at the side of the chest tube HEART: Regular rate and rhythm, S1, S2. No S3. Systolic ejection murmur ABDOMEN: Soft, nontender, no organomegaly EXTREMETIES: +1 edema LAB: Potassium 5.2, BUN 23, creatinine 0.93, hemoglobin 13.1. IMPRESSION: 1. Status post pneumonia and parapneumonic effusion 2. Post chest tube placement, removed accidentally yesterday 3. History of hypertension 4. History of hyperlipidemia PLAN: 1. IV Lasix x 1 today 2. Continue incentive spirometry 3. Follow chest x-ray 4. Depending on her progress further recommendations will be made Objective - Vital Signs Vital signs: Vital Signs Temp 97.8 F 12/30/23 04:00 Pulse 96 12/30/23 07:00 Resp 19 12/30/23 07:00 BP 153/69 12/30/23 07:00 Pulse Ox 98 12/30/23 07:00 FiO2 Intake & Output 12/29/23 12/30/23 12/30/23 18:59 06:59 18:59 Intake Total 1540 270 Output Total 600 670 150 Balance 940 -400 -150 Intake: IV 120 30 Invasive Line 4 10 30 Sodium Chloride 0.9% 1, 60 000 ml @ 10 mls/hr IV . Q24H [facility] Rx#:[id number] cefTRIAXone 2 gm In 50 Sodium Chloride 0.9% 50 ml @ 100 mls/hr IVPB Q24HR [facility] Rx#:[id number] Oral 1420 240 Output: Chest Tube Drainage 150 20 Chest Tube Right 150 20 Posterior Chest Urine 450 650 150 Other: Voiding Method Bedside Commode Bedside Commode # Voids 1 1 1 # Bowel Movements 1 1 - Labs CBC & Chem 7: 12/30/23 05:22 12/30/23 05:22 Labs: Abnormal Lab Results - Last 24 Hours (Table) 12/29/23 12/29/23 12/29/23 Range/Units 05:37 05:37 11:26 WBC 18.3 H (3.8-10.6) k/uL Neutrophils # 15.7 H (1.3-7.7) k/uL Lymphocytes # (1.0-4.8) k/uL Monocytes # 1.1 H (0-1.0) k/uL Sodium 127 L (137-145) mmol/L Potassium 5.3 H (3.5-5.1) mmol/L Carbon Dioxide 20 L (22-30) mmol/L BUN 23 H (7-17) mg/dL Glucose (74-99) mg/dL POC Glucose (mg/dL) 113 H (70-110) mg/dL Calcium 6.9 L (8.4-10.2) mg/dL 12/29/23 12/29/23 12/30/23 Range/Units 17:00 20:19 00:27 WBC (3.8-10.6) k/uL Neutrophils # (1.3-7.7) k/uL Lymphocytes # (1.0-4.8) k/uL Monocytes # (0-1.0) k/uL Sodium (137-145) mmol/L Potassium (3.5-5.1) mmol/L Carbon Dioxide (22-30) mmol/L BUN (7-17) mg/dL Glucose (74-99) mg/dL POC Glucose (mg/dL) 139 H 201 H 141 H (70-110) mg/dL Calcium (8.4-10.2) mg/dL 12/30/23 12/30/23 12/30/23 Range/Units 05:22 05:22 06:28 WBC 11.4 H (3.8-10.6) k/uL Neutrophils # 8.9 H (1.3-7.7) k/uL Lymphocytes # 0.9 L (1.0-4.8) k/uL Monocytes # 1.3 H (0-1.0) k/uL Sodium 130 L (137-145) mmol/L Potassium 5.2 H (3.5-5.1) mmol/L Carbon Dioxide (22-30) mmol/L BUN 23 H (7-17) mg/dL Glucose 62 L (74-99) mg/dL POC Glucose (mg/dL) 64 L (70-110) mg/dL Calcium 7.2 L (8.4-10.2) mg/dL 12/30/23 Range/Units 06:29 WBC (3.8-10.6) k/uL Neutrophils # (1.3-7.7) k/uL Lymphocytes # (1.0-4.8) k/uL Monocytes # (0-1.0) k/uL Sodium (137-145) mmol/L Potassium (3.5-5.1) mmol/L Carbon Dioxide (22-30) mmol/L BUN (7-17) mg/dL Glucose (74-99) mg/dL POC Glucose (mg/dL) 59 L (70-110) mg/dL Calcium (8.4-10.2) mg/dL Microbiology - Last 24 Hours (Table) 12/27/23 11:30 Gram Stain - Preliminary Pleural Fluid Body Fluid Culture - Preliminary
--- NOTE | 2023-12-30 08:16 | XR ---
EXAMINATION TYPE: XR chest 1V portable DATE OF EXAM: 12/30/2023 4:44 AM CLINICAL INDICATION:Female, 83 years old with history of r pleural effusion; [facility] COMPARISON: Chest radiographs from same day TECHNIQUE: XR chest 1V portable Frontal view of the chest. FINDINGS: Lungs/Pleura: There is no evidence of pleural effusion, focal consolidation, or pneumothorax. Pulmonary vascularity: Unremarkable. Heart/mediastinum: Cardiomediastinal silhouette is unremarkable. Musculoskeletal: No acute osseous pathology. IMPRESSION: Stable exam small moderate pleural effusion. No appreciable pneumothorax.
--- NOTE | 2023-12-30 08:52 | P.PN ---
Subjective Progress Note Date: 12/30/23 Principal diagnosis: Large right-sided pleural effusion with compressive atelectasis right lung, status post thoracentesis and pigtail catheter placement, acute hypoxic respiratory failure, right lung pneumonia, acute leukocytosis, hyponatremia. History of hypertension, hyperlipidemia, insulin-dependent diabetes mellitus type 2, recent fall from standing sustaining a pelvic fracture, daily EtOH use, previous tobacco dependence POD #4 right sided pigtail catheter placement by interventional radiology Status post day #3 right-sided chest tube insertion by Dr. Burgess The patient was seen and examined in follow-up today December 30, 2023 at her bedside in the intensive care unit. She is currently laying in bed, is awake, alert, oriented x 3 and is in no acute apparent distress. She was transferred to the third floor cardiac stepdown unit yesterday for further monitoring and rehabilitation, although during the late evening the patient's chest tube fell out when the patient was up ambulating to the bathroom. She was subsequently transferred back to the intensive care unit for further monitoring. She was instilled with an alteplase/dornase pleural instillation dose through her right pleural chest tube yesterday which was her third total dose with only 170 mL of recorded output in the last 24 hours. Oxygen saturations are 98% on room air and she is achieving 1250 mL on her incentive spirometry with encouragement. Bedside telemetry is showing normal sinus rhythm with occasional PACs with a heart rate of 93 bpm. Laboratory and chest x-ray results reviewed. Her white count continues to trend down in his 11.4 today. She remains on Rocephin for antibiotic coverage managed by pulmonary/critical care medicine. Objective - Vital Signs Vital signs: Vital Signs Temp 97.8 F 12/30/23 04:00 Pulse 96 12/30/23 07:00 Resp 19 12/30/23 07:00 BP 153/69 12/30/23 07:00 Pulse Ox 98 12/30/23 07:00 FiO2 Intake & Output 12/29/23 12/30/23 12/30/23 18:59 06:59 18:59 Intake Total 1540 270 Output Total 600 670 150 Balance 940 -400 -150 Intake: IV 120 30 Invasive Line 4 10 30 Sodium Chloride 0.9% 1, 60 000 ml @ 10 mls/hr IV . Q24H [facility] Rx#:[id number] cefTRIAXone 2 gm In 50 Sodium Chloride 0.9% 50 ml @ 100 mls/hr IVPB Q24HR [facility] Rx#:[id number] Oral 1420 240 Output: Chest Tube Drainage 150 20 Chest Tube Right 150 20 Posterior Chest Urine 450 650 150 Other: Voiding Method Bedside Commode Bedside Commode # Voids 1 1 1 # Bowel Movements 1 1 - Exam CONSTITUTIONAL: Appears comfortable, cooperative, no acute distress RESPIRATORY: Lungs sounds diminished bilaterally, right greater than left. Respirations symmetrical, nonlabored. Currently on room air with oxygen saturation 97%. Able to achieve 1250 mL on her incentive spirometry. Strong nonproductive cough. CARDIOVASCULAR: S1, S2 present. Regular rate and rhythm, sinus rhythm with occasional PACs on telemetry. Palpable peripheral pulses bilaterally. No edema present. No calf pain or tenderness noted. SCDs present. GASTROINTESTINAL: Abdomen soft, nontender, nondistended. Active bowel sounds present 4 quadrants. Tolerating diet. Bowel movement 12/30/23 GENITOURINARY: Continues to void INTEGUMENTARY: Skin is warm and dry. No clubbing or cyanosis is present. NEUROLOGIC: Cranial nerves II through XII intact. No focal deficits. MUSKULOSKELETAL: Able to move all extremities, strength equal bilaterally, gait normal. PSYCHIATRIC: Alert and oriented to person place and time, appropriate affect, intact judgment and insight. - Allied health notes Allied health notes reviewed: nursing - Labs CBC & Chem 7: 12/30/23 05:22 12/30/23 05:22 Labs: Abnormal Lab Results - Last 24 Hours (Table) 12/29/23 12/29/23 12/29/23 Range/Units 11:26 17:00 20:19 WBC (3.8-10.6) k/uL Neutrophils # (1.3-7.7) k/uL Lymphocytes # (1.0-4.8) k/uL Monocytes # (0-1.0) k/uL Sodium (137-145) mmol/L Potassium (3.5-5.1) mmol/L BUN (7-17) mg/dL Glucose (74-99) mg/dL POC Glucose (mg/dL) 113 H 139 H 201 H (70-110) mg/dL Calcium (8.4-10.2) mg/dL 06/17/24 06/17/24 06/17/24 Range/Units 00:27 05:22 05:22 WBC 11.4 H (3.8-10.6) k/uL Neutrophils # 8.9 H (1.3-7.7) k/uL Lymphocytes # 0.9 L (1.0-4.8) k/uL Monocytes # 1.3 H (0-1.0) k/uL Sodium 130 L (137-145) mmol/L Potassium 5.2 H (3.5-5.1) mmol/L BUN 23 H (7-17) mg/dL Glucose 62 L (74-99) mg/dL POC Glucose (mg/dL) 141 H (70-110) mg/dL Calcium 7.2 L (8.4-10.2) mg/dL 12/30/23 12/30/23 Range/Units 06:28 06:29 WBC (3.8-10.6) k/uL Neutrophils # (1.3-7.7) k/uL Lymphocytes # (1.0-4.8) k/uL Monocytes # (0-1.0) k/uL Sodium (137-145) mmol/L Potassium (3.5-5.1) mmol/L BUN (7-17) mg/dL Glucose (74-99) mg/dL POC Glucose (mg/dL) 64 L 59 L (70-110) mg/dL Calcium (8.4-10.2) mg/dL Microbiology - Last 24 Hours (Table) 12/27/23 11:30 Gram Stain - Preliminary Pleural Fluid Body Fluid Culture - Preliminary - Imaging and Cardiology Chest x-ray: report reviewed, image reviewed Assessment and Plan Assessment: Large right-sided pleural effusion/empyema with compressive atelectasis right lung, status post thoracentesis and pigtail catheter placement, status post 3 doses of alteplase/dornase pleural space instillation, status post right chest tube placement by Dr. Burgess on December 27, 2023 Acute hypoxic respiratory failure Right lung pneumonia Acute leukocytosis, WBC count today is 11.4 Hyponatremia History of hypertension Hyperlipidemia Insulin-dependent diabetes mellitus type 2 Recent fall from standing sustaining a pelvic fracture Daily EtOH use Previous tobacco dependence Plan: We will obtain a CT scan of the chest without contrast today to reevaluate her right pleural effusion/empyema. Encourage incentive spirometry use 10 times every hour while awake, bronchodilators per pulmonology Increase activity, ambulate as tolerated. Out of bed for all meals. Antibiotics per pulmonology/internal medicine. GI/DVT prophylaxis. More recommendations to follow based on patient's clinical course. Time with Patient: Greater than 30
--- NOTE | 2023-12-30 09:17 | P.PN ---
Subjective Patient is seen in follow-up for hyponatremia. Sodium level 130 today. Pulled out chest tube last night. Currently in ICU. No active complaints. Vital signs are stable. General: No acute distress. HEENT: Head exam is unremarkable. LUNGS: No audible rhonchi or wheezes. HEART: Rate and Rhythm are regular. ABDOMEN: Nontender. EXTREMITITES: 2+ edema. Objective - Vital Signs Vital signs: Vital Signs Temp 97.8 F 12/30/23 04:00 Pulse 96 12/30/23 07:00 Resp 19 12/30/23 07:00 BP 153/69 12/30/23 07:00 Pulse Ox 98 12/30/23 07:00 FiO2 Intake & Output 12/29/23 12/30/23 12/30/23 18:59 06:59 18:59 Intake Total 1540 270 Output Total 600 670 150 Balance 940 -400 -150 Intake: IV 120 30 Invasive Line 4 10 30 Sodium Chloride 0.9% 1, 60 000 ml @ 10 mls/hr IV . Q24H [facility] Rx#:[id number] cefTRIAXone 2 gm In 50 Sodium Chloride 0.9% 50 ml @ 100 mls/hr IVPB Q24HR [facility] Rx#:[id number] Oral 1420 240 Output: Chest Tube Drainage 150 20 Chest Tube Right 150 20 Posterior Chest Urine 450 650 150 Other: Voiding Method Bedside Commode Bedside Commode # Voids 1 1 1 # Bowel Movements 1 1 - Labs CBC & Chem 7: 12/30/23 05:22 12/30/23 05:22 Labs: Abnormal Lab Results - Last 24 Hours (Table) 12/29/23 12/29/23 12/29/23 Range/Units 11:26 17:00 20:19 WBC (3.8-10.6) k/uL Neutrophils # (1.3-7.7) k/uL Lymphocytes # (1.0-4.8) k/uL Monocytes # (0-1.0) k/uL Sodium (137-145) mmol/L Potassium (3.5-5.1) mmol/L BUN (7-17) mg/dL Glucose (74-99) mg/dL POC Glucose (mg/dL) 113 H 139 H 201 H (70-110) mg/dL Calcium (8.4-10.2) mg/dL 0612/30/23 12/30/23 Range/Units 00:27 05:22 05:22 WBC 11.4 H (3.8-10.6) k/uL Neutrophils # 8.9 H (1.3-7.7) k/uL Lymphocytes # 0.9 L (1.0-4.8) k/uL Monocytes # 1.3 H (0-1.0) k/uL Sodium 130 L (137-145) mmol/L Potassium 5.2 H (3.5-5.1) mmol/L BUN 23 H (7-17) mg/dL Glucose 62 L (74-99) mg/dL POC Glucose (mg/dL) 141 H (70-110) mg/dL Calcium 7.2 L (8.4-10.2) mg/dL 12/30/23 12/30/23 Range/Units 06:28 06:29 WBC (3.8-10.6) k/uL Neutrophils # (1.3-7.7) k/uL Lymphocytes # (1.0-4.8) k/uL Monocytes # (0-1.0) k/uL Sodium (137-145) mmol/L Potassium (3.5-5.1) mmol/L BUN (7-17) mg/dL Glucose (74-99) mg/dL POC Glucose (mg/dL) 64 L 59 L (70-110) mg/dL Calcium (8.4-10.2) mg/dL Microbiology - Last 24 Hours (Table) 12/27/23 11:30 Gram Stain - Preliminary Pleural Fluid Body Fluid Culture - Preliminary Assessment and Plan Plan: Assessment: 1. Hyponatremia, hypervolemic. Urine sodium less than 20 and urine osmolality 493. Better. 2. Volume overload with pleural effusions. Status post right-sided thoracentesis with 1.6 L drained. Pulled out chest tube by accident last night. 3. Diabetes mellitus. Plan: Encouraged oral intake. Maintain fluid restriction. Lasix 40 mg IV once today. Repeat labs in the morning.
[2023-12-30] MEDS: FUROSEMIDE 10 MG/ML 4 ML VIAL IV STA (10:09)
--- NOTE | 2023-12-30 10:26 | CT ---
EXAMINATION TYPE: CT chest wo con DATE OF EXAM: 12/30/2023 COMPARISON: 12/27/2023 HISTORY: Right Pleural Effusion CT DLP: [address] of the chest was performed with lung and mediastinal window settings submitted. The la ck of contrast limits evaluation of the vascular, mediastinal and parenchymal structures including th e upper abdomen. LUNGS: There is significant diminution in right-sided pleural effusion. Small residual remains at the right lung base with an internal foci of air likely reflecting recent thoracentesis. No evidence for pneumothorax. The left lung is free of consolidative processes. Small effusion is noted. At the righ t lung base there is compressive atelectasis. Debris is again noted within the right lower lobe and r ight middle lobe bronchi which may reflect aspirated secretions. MEDIASTINUM/RONALD: Thoracic aorta is of normal caliber with limited evaluation given lack of contrast . The heart is not enlarged. No evidence for mediastinal mass. No lymph nodes greater than 1cm. UPPER ABDOMEN: No significant abnormality is seen. OTHER: No significant other abnormality. IMPRESSION: 1. Significant diminution in right-sided pleural effusion with a small residual right lung base with residual foci of air likely reflecting recent thoracentesis. 2. There is no opacification of the right lower lobe and right middle lobe bronchi which may reflect aspirated material mucous debris. 3. Small left-sided effusion.
[2023-12-30 11:50] LABS: Glucose,Whole Blood 246 mg/dL (70-110)
--- NOTE | 2023-12-30 12:42 | P.PN ---
Subjective Progress Note Date: 12/30/23 Principal diagnosis: Complicated right-sided pleural effusion possible empyema This is a 83-year-old female patient who came to the emergency department with increased shortness of breath. Her breathing was progressively getting worse over the past 1 week. She had increased cough congestion chest tightness and wheezing and she was having chills at home. She was given outpatient antibiotic therapy with Zithromax and her condition decompensated and she ended up coming into the hospital. The patient has been having some chest discomfort along the right chest. She had a fall approximately few weeks back and she also sustained a pelvic fracture. She is a lifetime non-smoker. She came to the emergency department and the patient had a white cell count of 34 with a hemoglobin 14.8. Her sodium level was 116 with a potassium level of 5.9 and a serum bicarb was at 21. BUN was 18 with a creatinine of 0.4. Troponin was 0.07. proBNP level was 5000. The viral screen was negative. Initial lactic acid level was at 2.1 and dropped down to 1.6. Coagulation profile was normal with a D-dimer of 2.6. Initial chest x-ray showed a large right-sided pleural effusion. CAT scan of the chest was also done in the Emergency Department that showed no evidence of any central pulmonary embolism. There was a large right-sided pleural effusion with near complete opacification and compression of the right lung. There was also abnormal attenuation within the right mainstem right middle lobe and right lower lobe bronchus and aspiration was suspected. I saw the patient in the emergency department. She was quite short of breath and she was on oxygen at 5 L/min nasal cannula. Her pulse ox was as in the low 90s. I performed a bedside thoracentesis a total of 1.6 L of pleural fluid is aspirated. No complications. The post thoracentesis chest x-ray showed interval marked reduction in the right-sided pleural effusion without evidence of any pneumothorax. The patient was started on broad-spectrum antibiotics and she is currently on a combination of Rocephin and Zithromax and vancomycin. She is diabetic. She takes insulin on outpatient basis. She also has history of hypertension and hyperlipidemia. Currently she is also on IV fluids and the patient is on normal saline which is running at a rate of 75 cc an hour. No altered mentation. No seizure activity. On 12/24/2023, the patient is feeling better. The patient is less short of breath and currently she is on 2 L of oxygen by nasal cannula. Her breathing is more comfortable. Thoracentesis was done yesterday and the pleural fluid analysis still pending. Cultures are still pending. Legionella urine antigen is negative. Echocardiogram showed a preserved LV function, no significant valvular abnormalities. The white cell count is currently down to 26 with a hemoglobin 13.1 and a platelet count of 491. Sodium is 119 improved compared to yesterday and the urine sodium is essentially low less than 20, not typical of SIADH. Serum bicarb is 18 with a BUN of 16 and a creatinine of 0.4. She remains on Rocephin and Zithromax and vancomycin. Metoprolol was restarted. He is also on Zestril 40 mg p.o. daily for blood pressure control. She is on NovoLog 5 units 3 times daily with meals plus a sliding scale coverage. She remains on bronchodilators. On today's evaluation on 12/25/2023, the patient is being seen for a follow- up.The patient has no specific complaints. She seems to be less short of breath. She is on 4 L of oxygen by nasal cannula with a pulse ox of 96%. She remains on a combination of Rocephin and Zithromax and vancomycin. The white cell count is improving is currently down to 18.3 with a hemoglobin of 10.5 and a platelet count of 465. Sodium levels of 125. BUN is 12 with a creatinine of 0.4 and the patient is currently nondistended. Exercises an hour. On a separate note, chest x-ray that was done today showed further opacification of the right lung compared to yesterday chest x-ray. Based on that, a CAT scan of the chest was done and it showed a moderate to large right-sided pleural fluid collection along with compressive atelectasis of the right lung. There was also extensive calcification of the bronchi bilaterally more so on the right lower lo be bronchus and there was also a filling defect in the right lower lobe bronchus that was not felt to be patent. There is an abrupt cut off sign in the bronchus intermedius/right lower lobe area. Based on those findings, I recommended a pigtail catheter insertion and this will be done by interventional radiology today to be followed up by bronchoscopy in a.m. The pleural fluid is aspirated earlier was an accident with elevated LDH of 610 and a protein of 3.2 g. Glucose was at 136. Cell count was 1000. The fluid cytology still pending for now. The Gram stain culture is also negative. 12/26/2023, the patient is being seen for a follow-up. The patient is on 4 L of oxygen nasal cannula. The pigtail catheter was inserted yesterday and a total of 4 L of pleural fluid was further aspirated. Blood from the PICC line has been noted. Nevertheless, the chest x-ray still showing volume loss and persistent right lung consolidation. As mentioned earlier, there is an abrupt cut off sign in the right mainstem bronchus/bronchus intermedius and the patient is going to undergo a bronchoscopy today. White cell count is 16, hemoglobin 11 and platelet count is at 464, sodium levels at 128, BUN is at 10 with a creatinine of 0.3. Remains on the same antibiotic coverage to include Rocephin and Zithromax and vancomycin. Cultures are still negative. Sputum culture still pending. Clinically doing well. No significant tachycardia. Hemodynamically stable. Currently n.p.o. awaiting bronchoscopy. She went 12/27/2023, for the patient for a follow-up. Events from yesterday were noted and the patient's pigtail catheter has been removed. This came out accidentally. Repeat CAT scan of the chest was done this morning and it showed essentially enlarged right-sided pleural effusion with loculation. The patient also had atelectatic changes in the right lung. There is again a cut off sign in the right lower lobe bronchus. Noted I performed a bronchoscopy the patient and the patient had copious amount of respiratory secretions and mucous plugs that were aspirated without any major difficulties. Cultures were sent and the results are still pending for now. She remains on oxygen at 4 L nasal cannula with pulse ox of 97%. The patient has a white cell count of 25, hemoglobin is at 14.4 and a platelet count of 650. Sodium levels of 128, BUN 11 with a creatinine of 0.39. The pleural fluid cultures are still negative. She remains on bronchodilators with DuoNeb updrafts. She continues to have a congested cough, producing limited amount of sputum. Awake and alert and communicating. She does have chronic lower extremity edema. Cardiac rhythm remained sinus. 12/28/2023, the patient has produced approximately 1.7 L of purulent material from the right lung post chest tube insertion. Output has dropped and the patient is going to receive a dose of alteplase through the chest tube. She is currently on room air oxygen. The chest x-ray from today shows residual cons olidation of the right lung base. No evidence of any pneumothorax and the chest tube is in good location. The white cell count is at 93 with a hemoglobin 11.3 platelet count of 450. The BUN is 22 with a creatinine of 0.74. All of the cultures have been negative thus far. The patient is currently on IV Rocephin. Cardiac rhythm is sinus. IV fluids are currently at KVO. No other significant events overnight. She is sitting up on a chair and she is calm and comfortable. 12/29/2023, right-sided chest tube is in place. Alteplase was administered yesterday and a total of 500 cc of output was obtained. Chest x-ray findings show some residual consolidation and atelectasis in the right lower lobe. Clinically doing well. She is on room air oxygen. No fever or chills. White cell count remains elevated at 18.3 with a hemoglobin 12.1, sodium level is up to 127, BUN is 23 and creatinine is 0.8. Hemodynamically stable. Cultures are all negative. The patient remains on IV Rocephin. Aggressive pulmonary toileting is being performed. Neurologically intact. Patient was seen today on 12/30/2023, patient is in the ICU, on room air, on Rocephin, not in any distress. Her chest tube was dislodged yesterday, and the patient is doing well. Cultures have been negative on the pleural effusion, bronchoscopy was nondiagnostic except for Michelle in the BAL, hair overall clinical status is improving continues to have small loculated effusion in the right pleural space, CT of the chest is pending, and thoracic surgery is following. Looking back at this patient she had right-sided thoracentesis on 12/22 pigtail catheter placed on 12/24 bronchoscopy on 12/25 right-sided chest tube placed on 12/26. And it got dislodged on 12/28 requiring transfer to ICU but did not require any intervention. Patient is comfortable, not in distress, her labs today were all reviewed CBC is relatively normal basic metabolic profile is normal renal profile is normal. Cultures from the pleural effusion have been all negative Objective - Vital Signs Vital signs: Vital Signs Temp 98.4 F 12/30/23 08:00 Pulse 85 12/30/23 11:03 Resp 19 12/30/23 11:03 BP 153/69 12/30/23 11:03 Pulse Ox 97 12/30/23 11:03 FiO2 Intake & Output 12/29/23 12/30/23 12/30/23 18:59 06:59 18:59 Intake Total 1540 270 600 Output Total 600 670 800 Balance 940 -400 -200 Intake: IV 120 30 100 Invasive Line 4 10 30 Sodium Chloride 0.9% 1, 60 000 ml @ 10 mls/hr IV . Q24H [facility] Rx#:[id number] cefTRIAXone 2 gm In 50 100 Sodium Chloride 0.9% 50 ml @ 100 mls/hr IVPB Q24HR [facility] Rx#:[id number] Oral 1420 240 500 Output: Chest Tube Drainage 150 20 Chest Tube Right 150 20 Posterior Chest Urine 450 650 800 Other: Voiding Method Bedside Commode Bedside Commode Bedside Commode # Voids 1 1 1 # Bowel Movements 1 1 1 - Exam CONSTITUTIONAL: 83-year-old female in no distress RESPIRATORY: Slightly diminished breath sounds at the right base otherwise no crackles rhonchi or wheezes CARDIOVASCULAR: Distant S1-S2, no S3 gallop. No murmur GASTROINTESTINAL: Soft nontender no megaly no rebound no guarding. INTEGUMENTARY: No rashes. NEUROLOGIC: Alert oriented x 3 no focal deficit MUSKULOSKELETAL: No deformities no limitation range of motion PSYCHIATRIC: Normal mood, normal affect and normal mental status examination - Labs CBC & Chem 7: 12/30/23 05:22 12/30/23 05:22 Labs: Abnormal Lab Results - Last 24 Hours (Table) 12/29/23 12/29/23 12/30/23 Range/Units 17:00 20:19 00:27 WBC (3.8-10.6) k/uL Neutrophils # (1.3-7.7) k/uL Lymphocytes # (1.0-4.8) k/uL Monocytes # (0-1.0) k/uL Sodium (137-145) mmol/L Potassium (3.5-5.1) mmol/L BUN (7-17) mg/dL Glucose (74-99) mg/dL POC Glucose (mg/dL) 139 H 201 H 141 H (70-110) mg/dL Calcium (8.4-10.2) mg/dL 12/30/23 12/30/23 12/30/23 Range/Units 05:22 05:22 06:28 WBC 11.4 H (3.8-10.6) k/uL Neutrophils # 8.9 H (1.3-7.7) k/uL Lymphocytes # 0.9 L (1.0-4.8) k/uL Monocytes # 1.3 H (0-1.0) k/uL Sodium 130 L (137-145) mmol/L Potassium 5.2 H (3.5-5.1) mmol/L BUN 23 H (7-17) mg/dL Glucose 62 L (74-99) mg/dL POC Glucose (mg/dL) 64 L (70-110) mg/dL Calcium 7.2 L (8.4-10.2) mg/dL 12/30/23 12/30/23 Range/Units 06:29 11:48 WBC (3.8-10.6) k/uL Neutrophils # (1.3-7.7) k/uL Lymphocytes # (1.0-4.8) k/uL Monocytes # (0-1.0) k/uL Sodium (137-145) mmol/L Potassium (3.5-5.1) mmol/L BUN (7-17) mg/dL Glucose (74-99) mg/dL POC Glucose (mg/dL) 59 L 246 H (70-110) mg/dL Calcium (8.4-10.2) mg/dL Microbiology - Last 24 Hours (Table) 12/27/23 11:30 Gram Stain - Preliminary Pleural Fluid Body Fluid Culture - Preliminary Assessment and Plan Assessment: Impression: Complicated right-sided pleural effusion, parapneumonic, exudative in nature, possible empyema, cultures from the fluid have been negative Acute hypoxic respiratory failure, resolved Acute leukocytosis History of hypertension Dyslipidemia Insulin-dependent diabetes mellitus type 2 Recent fall from standing sustaining a pelvic fracture Daily EtOH use Ex-smoker Recommendation: Continue antibiotics Infectious disease to see on consultation Transfer back to medical floor. Awaiting CT of the chest which was ordered by thoracic surgery today Patient is clinically improving with treatment Will continue to follow Time with Patient: Less than 30
[2023-12-30 16:57] LABS: Glucose,Whole Blood 185 mg/dL (70-110)
[2023-12-30 20:39] LABS: Glucose,Whole Blood 198 mg/dL (70-110)
--- NOTE | 2023-12-31 05:41 | P.PN ---
Subjective Progress Note Date: 12/30/23 HISTORY OF PRESENT ILLNESS: 83-year-old office patient for many years with active medical history of insulin-dependent type 2 diabetes, hypertension, hyperlipidemia, neuropathy, history of spinal stenosis, who has mild bradycardia otherwise healthy doing well has not been in the hospital long time she had a fall 2 weeks ago to the right side and developed pelvic and did not require to be hospitalized but ended up seen Dr. Wisdom as an outpatient. Also patient had open communicated distal radius fracture back in 2022 secondary to minor fall ended up having open reduction with internal fixation and irrigation debridement of the right wrist fracture. Patient seen cardiology in the last few years in 2021 was admitted to the hospital because of an episode of palpitation with pulse rate of 160 bpm found to have paroxysmal SVT and elevated troponin with no cardiac injury or any other cardiac history has been on beta-yahir been well-controlled since. I received a phone call from the yesterday with complain that his has been in extreme shortness of breath and been symptomatic and for the previous 5 days she had a virtual visit in the office for severe bronchitis was prescribed antibiotics and some expectorant which patient had felt slightly bit better but become much worse over the last 2 days to a degree becoming extreme dyspnea with minimal exertion. Was instructed to bring her to the emergency department to be seen and evaluated. Patient apparently decided not to come to the emergency department till early this morning on 12/23/2023 where was seen and evaluated was severely hypoxic at the time her chest x-ray showed very large right-sided pleural effusion almost occupying 90% out of the right lung. D-dimer was elevated and patient ended up for CTA finding with no pulmonary embolism large right-sided pleural effusion with near complete compression of the right lung there is an abnormal attenuation within the right mainstrem middle lobe and lower lobe bronchus which could be related to aspiration also there is only slight left pleural effusion as well with subsegmental area of consolidation favored to atelectasis versus pneumonitis. With pulse ox running quite a bit low at the time required 4 L of O2 to keep her pulse ox above 90 percentile and laboratory value showing sodium of 116 with normal creatinine and GFR with blood sugar of 292 white blood cell was 34,500 with platelet count 537 mildly elevated troponin 0.07 with lactic acid at 1.6 proBNP at 5090 with alk phos of 289. Patient ended up seeing Dr. Helms and in the emergency department who is done a consultation and decided to transfer the patient to the intensive care unit and ended up performing bedside thoracentesis for total of 1.6 L of pleural fluid is aspirated with no complication fluid was not bloody followed by chest x-ray showed fairly expansion of the lung only. Patient was transferred to the ICU and admitted for severe large sided pleural effusion, possible aspiration pneumonia with sepsis, severe hyponatremia. Will consult nephrology as well for the severity of her hyponatremia. 11/23/2023: Patient is resting comfortably in the chair this morning, her sodium is up to 119 from 116 early, kidney function still good, blood sugar still slightly bit elevated required 2 units of insulin every time she is having her Accu-Chek. Chest x-ray still showing significant amount of pleural effusion around the right side which might require another thoracentesis today or tomorrow. She still seen nephrology for probably increase her sodium tablet and little bit more restriction on IV fluid. Tachycardia has improved compared to yesterday also patient is not hypoxic but still required 2 L of O2 to keep her pulse ox above 92 percentile. Legionella antibody was negative still waiting for mycoplasma and further analysis of her thoracentesis fluid. Also echocardiogram came back with no major abnormality to create any pleural effusion. 11/24/2023: With the recurrent pleural effusion pulmonary decided to accelerate this into setting up patient for pigtail catheter placement in the pleural space by radiology to be able to drain pleural fluid when needed. Apparently with patient is not improving as fast as expected earlier consideration including possibility of malignancy is quite bit high at this point chest x-ray apparently showed further opacification of the right lung compared to the one from yesterday chest CAT scan showed moderate right-sided pleural fluid collection along with compressive atelectasis of the right side and there was extensive calcification and bronchial bilaterally more on the right lower lobe bronchus and there were also filling defect in the right lower lobe that was not felt to be patent. After pigtail catheter placement patient will be going for bronchoscopy to see if he have any malignancy in the lung. Still awaiting the final analysis of the pleural fluid. Sodium has been improved up to 125 today blood sugar still mildly elevated at some point. Oxygen level has been better so far. She is remain having slight tachycardia likely multifocal atrial tachycardia along with frequent PACs will continue Cardizem and metoprolol patient does not need to be on anticoagulation. 11/25/2023: She is still having significant shortness of breath did not improve she had yesterday pigtail catheter in the pleural space connected with chest tube under waterseal continue to have significant shortness of breath and dyspnea, chest x-ray continue to show significant lobulated fluid in the pleural space. Patient be going for bronchoscopy today looking for mass or malignancy. Continue aggressive antibiotics as expected but with all the picture have specially with the pleural fluid there is concern of malignancy. 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 Pulse rate remained slightly bit fast and continue Cardizem drip at this point. 12/27/2023: Patient pigtail catheter was fluid off yesterday continue to have significant amount of right-sided pleural effusion with loculation bronchoscopy was done and had removal significant amount of respiratory secretion and sputum plug which had helped some but patient continued to be symptomatic. Original plan to use the pigtail catheter or thrombolytic by cardiothoracic but since it fell off was a bit harder. Pulmonary in the surgical chest tube and continue alteplase administration to the right side hemithoracic to evacuate the complic ated parapneumonic effusion. Apparently pulmonary has discussed with family and patient the possibility of VATS procedure at later stage. He is remain in the ICU, blood sugar slightly bit better medication were adjusted, white blood cells down recently to 25,000 today. She is remain on antibiotic to cover her pneumonia. 12/30/2023: Obviously since her chest tube insertion on Saturday she had the third dose of alteplase/dornase pleural instillation to her right-sided pleural chest tube chest tube was clamped for 1 hour and after 1 hour release and continue suction 20 cm water eventually was placed to disconnect the chest tube and allow patient to ambulate. Patient apparently was transferred back to the ICU because slight decline in respiration and hypoxia. White blood cell still quite bit elevated at 18,300 kidney function still good and blood sugar is much better. Still on antibiotics for empyema combination of Rocephin vancomycin apparently was stopped her bronchial wash showed Michelle albicans and now and by fungus on yeast was implemented yet. From cardiothoracic standpoint despite the chest tube is out at this point looking at the chest x-ray the right side looks a lot more expanding does not need to rearrange another chest tube to complete the alteplase/dornase treatment because this is quite bit success as lytic management. On the other hand patient symptom of shortness of breath is much better and improved. She was transferred back to the ICU because of worsening hypoxia and shortness of breath and losing her chest tube mostly patient is doing a lot better symptoms carrillo. REVIEW OF SYSTEMS: CONSTITUTIONAL: Well-developed in acute respiratory distress. EYES: No icterus sclerae, no conjunctivitis. EARS, NOSE, MOUTH, THROAT, and FACE: No sore throat, lymphadenopathy, carotid bruits or deformity. RESPIRATORY: Positive shortness of breath cough or wheezes. CARDIOVASCULAR: Positive PND orthopnea palpitation. GASTROINTESTINAL: No Abd pain, Nausea or vomiting, no Diarrhea or constipation, No GI Bleed, no distention or masses. GENITOURINARY: Negative for Hematuria or UTI, no kidney stones. INTEGUMENT/BREAST: Negative for any muscular injury with mild osteoarthritis.. HEMATOLOGIC/LYMPHATIC: Negative for bleed or purpura. MUSCULOSKELTAL: Negative for Myalgia or arthralgia. NEURLOGICAL: No LOC, Sz or syncope, blurred vision dizziness or abnormality.. BEHAVIORAL/PSYCH: Negative. ENDOCRINE: Negative. PHYSICAL EXAMINATION: General Appearance: Alert, cooperative, in mild respiratory distress. Neck HEENT: Supple, no lymphadenopathy, no thyroid enlargement, no carotid bruits. Lungs: Significantly decreased breath sound in the right side all the way to have the way up significant rhonchi and mild crackles in the bases as well with mild expiratory wheezes. Chest Wall: Decreased expansion with deep inspiration no tenderness and no deformity was found on exam, no costochondral pain or discomfort. No sign of trauma or bruise to the rib cage area. Heart: Regular rate and rhythm with mild tachycardia, S1, S2 normal, no murmur, rub or gallop. Back: Symmetric, no curvature, ROM normal, no CVA tenderness. Abdomen: Soft, non-tender, bowel sounds active all four quadrants, no masses, no organomegaly. Extremities: Extremities normal, atraumatic, no cyanosis or edema. Pulses: 2+ and symmetric. Skin: Skin color, texture, tugor normal, no rashes or lesions. Neurologic: Alert oriented x3 cranial nerves II through XII intact, no motor deficit, no abnormal balance or gait. ASSESSMENT AND PLAN: _Acute hypoxic respiratory failure: With large right-sided pleural effusion and empyema has been on IV antibiotics still has chest tube with lytic management done through. _Severe large right-sided pleural effusion with compression of the right lung thoracentesis of 1.6 L of terabyte pleural. Still have significant amount of pleural fluid with loculated fluid pulmonary doing alteplase through chest tube with suctioning had received after the last dose from yesterday patient apparently ended up incidentally taking out her chest tube and was transferred back to the ICU for that reason but looking into her chest x-ray looks much better and more expanding not a clear whether she is going to need any more lytic management or not. _Aspiration pneumonia: Remain on Rocephin only no further vancomycin post bronchoscopy with debris is removed along with sputum blood culture came back positive for candidiasis. _Severe hyponatremia: Much better so far and sodium is back to normal. Continue fluid restriction. _Severe acute leukocytosis: Still have leukocytosis with severity of infection remain on antibiotics. _Type 1 diabetes: Will change medication to 7 units of short acting insulin AC meals along with 7 to 8 units of Lantus at nighttime. _Neuropathy: Continue gabapentin doing slightly better. _Recent history of pelvic fracture has been seen orthopedic. _Hyperlipidemia: Remain on rosuvastatin 10 mg a day. _Tachycardia and multifocal PACs: Remain on metoprolol and if needed will add Cardizem drip. Still seeing cardiology. CODE STATUS: Full code. Discussion: Through the weekend with the chest tube insertion she had her alt eplase/DuoNeb as pleural instillation for the third time and ended up accidentally removing her chest tube was sent back to the ICU look from her chest x-ray that does not need any further treatment and agree just to treat her medically from here on only. Apparently with the Empyema found in the pleural space recurrent management had worked really good patient might still need to be on oral antibiotic for little longer time and to watch her chest x-ray every 2 weeks for the next 2 to 3 months. Objective - Vital Signs Vital signs: Vital Signs Temp 97.8 F 12/30/23 04:00 Pulse 84 12/30/23 06:00 Resp 17 12/30/23 06:00 BP 141/69 12/30/23 06:00 Pulse Ox 96 12/30/23 06:00 FiO2 Intake & Output 12/29/23 12/29/23 12/30/23 06:59 18:59 06:59 Intake Total 120 1540 270 Output Total 950 600 670 Balance -830 940 -400 Weight 63.2 kg Intake: IV 120 120 30 Invasive Line 4 10 30 Sodium Chloride 0.9% 1, 120 60 000 ml @ 10 mls/hr IV . Q24H [facility] Rx#:[id number] cefTRIAXone 2 gm In 50 Sodium Chloride 0.9% 50 ml @ 100 mls/hr IVPB Q24HR [facility] Rx#:[id number] Oral 1420 240 Output: Chest Tube Drainage 150 150 20 Chest Tube Right 150 150 20 Posterior Chest Urine 800 450 650 Other: Voiding Method Bedside Commode Bedside Commode Bedside Commode # Voids 1 1 # Bowel Movements 1 1 1 - Labs CBC & Chem 7: 12/30/23 05:22 12/30/23 05:22 Labs: Abnormal Lab Results - Last 24 Hours (Table) 12/29/23 12/29/23 12/29/23 Range/Units 05:37 05:37 11:26 WBC 18.3 H (3.8-10.6) k/uL Neutrophils # 15.7 H (1.3-7.7) k/uL Monocytes # 1.1 H (0-1.0) k/uL Sodium 127 L (137-145) mmol/L Potassium 5.3 H (3.5-5.1) mmol/L Carbon Dioxide 20 L (22-30) mmol/L BUN 23 H (7-17) mg/dL POC Glucose (mg/dL) 113 H (70-110) mg/dL Calcium 6.9 L (8.4-10.2) mg/dL 12/29/23 12/29/23 12/30/23 Range/Units 17:00 20:19 00:27 WBC (3.8-10.6) k/uL Neutrophils # (1.3-7.7) k/uL Monocytes # (0-1.0) k/uL Sodium (137-145) mmol/L Potassium (3.5-5.1) mmol/L Carbon Dioxide (22-30) mmol/L BUN (7-17) mg/dL POC Glucose (mg/dL) 139 H 201 H 141 H (70-110) mg/dL Calcium (8.4-10.2) mg/dL Microbiology - Last 24 Hours (Table) 12/27/23 11:30 Gram Stain - Preliminary Pleural Fluid Body Fluid Culture - Preliminary
[2023-12-31 05:55] LABS: Glucose,Whole Blood 59 mg/dL (70-110)
[2023-12-31 06:04] LABS: Glucose,Whole Blood 62 mg/dL (70-110)
[2023-12-31 06:24] LABS: Glucose,Whole Blood 111 mg/dL (70-110)
--- NOTE | 2023-12-31 08:58 | XR ---
EXAMINATION TYPE: XR chest 1V portable DATE OF EXAM: 12/31/2023 6:57 AM CLINICAL INDICATION:Female, 83 years old with history of Right pleural effusion; [facility] COMPARISON: Chest radiograph from one day prior. TECHNIQUE: XR chest 1V portable Frontal view of the chest. FINDINGS: Lungs/Pleura: Small to moderate right pleural effusion. There is no evidence of left pleural effusion , focal consolidation, or pneumothorax. Pulmonary vascularity: Unremarkable. Heart/mediastinum: Cardiomediastinal silhouette is unremarkable. Musculoskeletal: No acute osseous pathology. IMPRESSION: Stable exam small moderate right pleural effusion. No appreciable pneumothorax.
[2023-12-31 11:23] LABS: Glucose,Whole Blood 288 mg/dL (70-110)
[2023-12-31 11:33] LABS: African American GFR (CKD) 73 (>60 ml/min/1.73 sqM); Anion Gap 3 mmol/L; Blood Urea Nitrogen 23 mg/dL (7-17); Calcium 6.8 mg/dL (8.4-10.2); Carbon Dioxide 24 mmol/L (22-30); Chloride 100 mmol/L (98-107); Glucose 253 mg/dL (74-99); Non-African American GFR(CKD) 63 (>60 ml/min/1.73 sqM); Potassium 5.2 mmol/L (3.5-5.1); Sodium 127 mmol/L (137-145)
--- NOTE | 2023-12-31 11:42 | P.PN ---
Subjective Patient is seen in follow-up for hyponatremia. Sodium level 127 today. Denies chest pain or shortness of breath. No active complaints. Vital signs are stable. General: No acute distress. HEENT: Head exam is unremarkable. LUNGS: No audible rhonchi or wheezes. HEART: Rate and Rhythm are regular. ABDOMEN: Nontender. EXTREMITITES: 2+ edema. Objective - Vital Signs Vital signs: Vital Signs Temp 97.8 F 12/31/23 08:40 Pulse 91 12/31/23 08:40 Resp 18 12/31/23 08:40 BP 155/70 12/31/23 08:40 Pulse Ox 96 12/31/23 08:40 FiO2 Intake & Output 12/30/23 12/31/23 12/31/23 18:59 06:59 18:59 Intake Total 800 540 Output Total 2450 1400 Balance -1650 -860 Weight 63.2 kg Intake: IV 100 cefTRIAXone 2 gm In 100 Sodium Chloride 0.9% 50 ml @ 100 mls/hr IVPB Q24HR ON LICENSE OF [facility] Rx#:[id number] Oral 700 540 Output: Urine 2450 1400 Other: Voiding Method Bedside Commode Bedside Commode Bedside Commode # Voids 1 1 1 # Bowel Movements 1 1 1 - Labs CBC & Chem 7: 12/30/23 05:22 12/31/23 09:59 Labs: Abnormal Lab Results - Last 24 Hours (Table) 12/30/23 12/30/23 12/30/23 Range/Units 11:48 16:55 20:26 Sodium (137-145) mmol/L Potassium (3.5-5.1) mmol/L BUN (7-17) mg/dL Glucose (74-99) mg/dL POC Glucose (mg/dL) 246 H 185 H 198 H (70-110) mg/dL Calcium (8.4-10.2) mg/dL 12/31/23 12/31/23 12/31/23 Range/Units 05:53 06:03 06:23 Sodium (137-145) mmol/L Potassium (3.5-5.1) mmol/L BUN (7-17) mg/dL Glucose (74-99) mg/dL POC Glucose (mg/dL) 59 L 62 L 111 H (70-110) mg/dL Calcium (8.4-10.2) mg/dL 12/31/23 12/31/23 Range/Units 09:59 11:20 Sodium 127 L (137-145) mmol/L Potassium 5.2 H (3.5-5.1) mmol/L BUN 23 H (7-17) mg/dL Glucose 253 H (74-99) mg/dL POC Glucose (mg/dL) 288 H (70-110) mg/dL Calcium 6.8 L (8.4-10.2) mg/dL Microbiology - Last 24 Hours (Table) 12/27/23 11:30 Gram Stain - Final Pleural Fluid Body Fluid Culture - Final Assessment and Plan Plan: Assessment: 1. Hyponatremia, hypervolemic. Urine sodium less than 20 and urine osmolality 493. Sodium level 127 today. 2. Volume overload with pleural effusions. Status post right-sided thoracentesis with 1.6 L drained. Pulled out chest tube by accident last night. 3. Diabetes mellitus. Plan: Encouraged oral intake. Maintain fluid restriction. Add IV Lasix 40 mg twice daily. Follow-up TSH. Repeat labs in the morning.
[2023-12-31] MEDS: FUROSEMIDE 10 MG/ML 4 ML VIAL IV STA (12:28)
--- NOTE | 2023-12-31 13:35 | P.PN ---
Subjective Progress Note Date: 12/31/23 Principal diagnosis: Complicated right-sided pleural effusion possible empyema This is a 83-year-old female patient who came to the emergency department with increased shortness of breath. Her breathing was progressively getting worse over the past 1 week. She had increased cough congestion chest tightness and wheezing and she was having chills at home. She was given outpatient antibiotic therapy with Zithromax and her condition decompensated and she ended up coming into the hospital. The patient has been having some chest discomfort along the right chest. She had a fall approximately few weeks back and she also sustained a pelvic fracture. She is a lifetime non-smoker. She came to the emergency department and the patient had a white cell count of 34 with a hemoglobin 14.8. Her sodium level was 116 with a potassium level of 5.9 and a serum bicarb was at 21. BUN was 18 with a creatinine of 0.4. Troponin was 0.07. proBNP level was 5000. The viral screen was negative. Initial lactic acid level was at 2.1 and dropped down to 1.6. Coagulation profile was normal with a D-dimer of 2.6. Initial chest x-ray showed a large right-sided pleural effusion. CAT scan of the chest was also done in the Emergency Department that showed no evidence of any central pulmonary embolism. There was a large right-sided pleural effusion with near complete opacification and compression of the right lung. There was also abnormal attenuation within the right mainstem right middle lobe and right lower lobe bronchus and aspiration was suspected. I saw the patient in the emergency department. She was quite short of breath and she was on oxygen at 5 L/min nasal cannula. Her pulse ox was as in the low 90s. I performed a bedside thoracentesis a total of 1.6 L of pleural fluid is aspirated. No complications. The post thoracentesis chest x-ray showed interval marked reduction in the right-sided pleural effusion without evidence of any pneumothorax. The patient was started on broad-spectrum antibiotics and she is currently on a combination of Rocephin and Zithromax and vancomycin. She is diabetic. She takes insulin on outpatient basis. She also has history of hypertension and hyperlipidemia. Currently she is also on IV fluids and the patient is on normal saline which is running at a rate of 75 cc an hour. No altered mentation. No seizure activity. On 12/24/2023, the patient is feeling better. The patient is less short of breath and currently she is on 2 L of oxygen by nasal cannula. Her breathing is more comfortable. Thoracentesis was done yesterday and the pleural fluid analysis still pending. Cultures are still pending. Legionella urine antigen is negative. Echocardiogram showed a preserved LV function, no significant valvular abnormalities. The white cell count is currently down to 26 with a hemoglobin 13.1 and a platelet count of 491. Sodium is 119 improved compared to yesterday and the urine sodium is essentially low less than 20, not typical of SIADH. Serum bicarb is 18 with a BUN of 16 and a creatinine of 0.4. She remains on Rocephin and Zithromax and vancomycin. Metoprolol was restarted. He is also on Zestril 40 mg p.o. daily for blood pressure control. She is on NovoLog 5 units 3 times daily with meals plus a sliding scale coverage. She remains on bronchodilators. On today's evaluation on 12/25/2023, the patient is being seen for a follow- up.The patient has no specific complaints. She seems to be less short of breath. She is on 4 L of oxygen by nasal cannula with a pulse ox of 96%. She remains on a combination of Rocephin and Zithromax and vancomycin. The white cell count is improving is currently down to 18.3 with a hemoglobin of 10.5 and a platelet count of 465. Sodium levels of 125. BUN is 12 with a creatinine of 0.4 and the patient is currently nondistended. Exercises an hour. On a separate note, chest x-ray that was done today showed further opacification of the right lung compared to yesterday chest x-ray. Based on that, a CAT scan of the chest was done and it showed a moderate to large right-sided pleural fluid collection along with compressive atelectasis of the right lung. There was also extensive calcification of the bronchi bilaterally more so on the right lower lo be bronchus and there was also a filling defect in the right lower lobe bronchus that was not felt to be patent. There is an abrupt cut off sign in the bronchus intermedius/right lower lobe area. Based on those findings, I recommended a pigtail catheter insertion and this will be done by interventional radiology today to be followed up by bronchoscopy in a.m. The pleural fluid is aspirated earlier was an accident with elevated LDH of 610 and a protein of 3.2 g. Glucose was at 136. Cell count was 1000. The fluid cytology still pending for now. The Gram stain culture is also negative. 12/26/2023, the patient is being seen for a follow-up. The patient is on 4 L of oxygen nasal cannula. The pigtail catheter was inserted yesterday and a total of 4 L of pleural fluid was further aspirated. Blood from the PICC line has been noted. Nevertheless, the chest x-ray still showing volume loss and persistent right lung consolidation. As mentioned earlier, there is an abrupt cut off sign in the right mainstem bronchus/bronchus intermedius and the patient is going to undergo a bronchoscopy today. White cell count is 16, hemoglobin 11 and platelet count is at 464, sodium levels at 128, BUN is at 10 with a creatinine of 0.3. Remains on the same antibiotic coverage to include Rocephin and Zithromax and vancomycin. Cultures are still negative. Sputum culture still pending. Clinically doing well. No significant tachycardia. Hemodynamically stable. Currently n.p.o. awaiting bronchoscopy. She went 12/27/2023, for the patient for a follow-up. Events from yesterday were noted and the patient's pigtail catheter has been removed. This came out accidentally. Repeat CAT scan of the chest was done this morning and it showed essentially enlarged right-sided pleural effusion with loculation. The patient also had atelectatic changes in the right lung. There is again a cut off sign in the right lower lobe bronchus. Noted I performed a bronchoscopy the patient and the patient had copious amount of respiratory secretions and mucous plugs that were aspirated without any major difficulties. Cultures were sent and the results are still pending for now. She remains on oxygen at 4 L nasal cannula with pulse ox of 97%. The patient has a white cell count of 25, hemoglobin is at 14.4 and a platelet count of 650. Sodium levels of 128, BUN 11 with a creatinine of 0.39. The pleural fluid cultures are still negative. She remains on bronchodilators with DuoNeb updrafts. She continues to have a congested cough, producing limited amount of sputum. Awake and alert and communicating. She does have chronic lower extremity edema. Cardiac rhythm remained sinus. 12/28/2023, the patient has produced approximately 1.7 L of purulent material from the right lung post chest tube insertion. Output has dropped and the patient is going to receive a dose of alteplase through the chest tube. She is currently on room air oxygen. The chest x-ray from today shows residual cons olidation of the right lung base. No evidence of any pneumothorax and the chest tube is in good location. The white cell count is at 93 with a hemoglobin 11.3 platelet count of 450. The BUN is 22 with a creatinine of 0.74. All of the cultures have been negative thus far. The patient is currently on IV Rocephin. Cardiac rhythm is sinus. IV fluids are currently at KVO. No other significant events overnight. She is sitting up on a chair and she is calm and comfortable. 12/29/2023, right-sided chest tube is in place. Alteplase was administered yesterday and a total of 500 cc of output was obtained. Chest x-ray findings show some residual consolidation and atelectasis in the right lower lobe. Clinically doing well. She is on room air oxygen. No fever or chills. White cell count remains elevated at 18.3 with a hemoglobin 12.1, sodium level is up to 127, BUN is 23 and creatinine is 0.8. Hemodynamically stable. Cultures are all negative. The patient remains on IV Rocephin. Aggressive pulmonary toileting is being performed. Neurologically intact. Patient was seen today on 12/30/2023, patient is in the ICU, on room air, on Rocephin, not in any distress. Her chest tube was dislodged yesterday, and the patient is doing well. Cultures have been negative on the pleural effusion, bronchoscopy was nondiagnostic except for Michelle in the BAL, hair overall clinical status is improving continues to have small loculated effusion in the right pleural space, CT of the chest is pending, and thoracic surgery is following. Looking back at this patient she had right-sided thoracentesis on 12/22 pigtail catheter placed on 12/24 bronchoscopy on 12/25 right-sided chest tube placed on 12/26. And it got dislodged on 12/28 requiring transfer to ICU but did not require any intervention. Patient is comfortable, not in distress, her labs today were all reviewed CBC is relatively normal basic metabolic profile is normal renal profile is normal. Cultures from the pleural effusion have been all negative Patient was evaluated today on 12/31/2023, patient is now on the cardiac floor, doing well, relatively asymptomatic, hardly any pulmonary symptoms, patient feels great. On 2 L nasal cannula, O2 saturation 97%, remains on antibiotics for empyema, infectious disease consultation is pending. Her last CT of the chest was reviewed. Surgery is not planning any surgical intervention for her residual loculated fluid, clinically the patient is doing better. Objective - Vital Signs Vital signs: Vital Signs Temp 97.7 F 12/31/23 11:40 Pulse 76 12/31/23 11:40 Resp 18 12/31/23 11:40 BP 160/72 12/31/23 11:40 Pulse Ox 96 12/31/23 11:40 FiO2 Intake & Output 12/30/23 12/31/23 12/31/23 18:59 06:59 18:59 Intake Total 800 540 Output Total 2450 1400 Balance -1650 -860 Weight 63.2 kg Intake: IV 100 cefTRIAXone 2 gm In 100 Sodium Chloride 0.9% 50 ml @ 100 mls/hr IVPB Q24HR [facility] Rx#:[id number] Oral 700 540 Output: Urine 2450 1400 Other: Voiding Method Bedside Commode Bedside Commode Bedside Commode # Voids 1 1 2 # Bowel Movements 1 1 1 - Exam CONSTITUTIONAL: 83-year-old female in no distress RESPIRATORY: Slightly diminished breath sounds at the right base otherwise no crackles rhonchi or wheezes CARDIOVASCULAR: Distant S1-S2, no S3 gallop. No murmur GASTROINTESTINAL: Soft nontender no megaly no rebound no guarding. INTEGUMENTARY: No rashes. NEUROLOGIC: Alert oriented x 3 no focal deficit MUSKULOSKELETAL: No deformities no limitation range of motion PSYCHIATRIC: Normal mood, normal affect and normal mental status examination - Labs CBC & Chem 7: 12/30/23 05:22 12/31/23 09:59 Labs: Abnormal Lab Results - Last 24 Hours (Table) 12/30/23 12/30/23 12/31/23 Range/Units 16:55 20:26 05:53 Sodium (137-145) mmol/L Potassium (3.5-5.1) mmol/L BUN (7-17) mg/dL Glucose (74-99) mg/dL POC Glucose (mg/dL) 185 H 198 H 59 L (70-110) mg/dL Calcium (8.4-10.2) mg/dL 12/31/23 12/31/23 12/31/23 Range/Units 06:03 06:23 09:59 Sodium 127 L (137-145) mmol/L Potassium 5.2 H (3.5-5.1) mmol/L BUN 23 H (7-17) mg/dL Glucose 253 H (74-99) mg/dL POC Glucose (mg/dL) 62 L 111 H (70-110) mg/dL Calcium 6.8 L (8.4-10.2) mg/dL 12/31/23 Range/Units 11:20 Sodium (137-145) mmol/L Potassium (3.5-5.1) mmol/L BUN (7-17) mg/dL Glucose (74-99) mg/dL POC Glucose (mg/dL) 288 H (70-110) mg/dL Calcium (8.4-10.2) mg/dL Microbiology - Last 24 Hours (Table) 12/27/23 11:30 Gram Stain - Final Pleural Fluid Body Fluid Culture - Final Assessment and Plan Assessment: Impression: Complicated right-sided pleural effusion, parapneumonic, exudative in nature, possible empyema, cultures from the fluid have been negative Acute hypoxic respiratory failure, resolved Acute leukocytosis History of hypertension Dyslipidemia Insulin-dependent diabetes mellitus type 2 Recent fall from standing sustaining a pelvic fracture Daily EtOH use Ex-smoker Recommendation: Continue antibiotics Infectious disease to see on consultation CT of the chest was reviewed, Awaiting further input from cardiothoracic surgery Patient is clinically improving with treatment Will continue to follow Time with Patient: Less than 30
--- NOTE | 2023-12-31 13:37 | P.PN ---
Subjective Progress Note Date: 12/31/23 PROGRESS NOTE The patient is an 83-year-old female with a history of hyperlipidemia, diabetes who presented with progressive dyspnea was found to have pneumonia and large right-sided pleural effusion. She has chest tube that was pulled out yesterday and was transferred yesterday to the ICU. She is feeling well this morning. She denies any chest discomfort and her breathing is stable. She denies any dizziness or palpitations. She denies any nausea or vomiting. Her appetite is good. She is in sinus mechanism. Her echocardiogram showed a preserved systolic function with no significant valvular disease. He underwent bronchoscopy. 12/30 Patient has been transferred out of the intensive care unit is seen today on the cardiac stepdown unit. She states her breathing is better. She continues to have a cough with sputum production. She continues to have lower extremity edema. She denies any wheezing. Blood pressure 155/70, heart rate 91, pulse ox 96% on room air. Repeat blood work reveals sodium 127, potassium 5.2, BUN 23 creatinine 0.85. Repeat chest x-ray reveals stable exam. Small moderate right pleural effusion. No appreciable pneumothorax. Medications: Aspirin 81 mg daily, Lipitor 20 mg daily, Rocephin, insulin, metoprolol tartrate 50 mg twice a day, Protonix, tramadol on a as needed basis PHYSICAL EXAMINATION: LUNGS: Crackles on the right base HEART: Regular rate and rhythm, S1, S2. No S3. Systolic ejection murmur ABDOMEN: Soft, nontender, no organomegaly EXTREMETIES: +1 edema IMPRESSION: 1. Status post pneumonia and parapneumonic effusion 2. Post chest tube placement, removed accidentally 3. History of hypertension 4. History of hyperlipidemia PLAN: 1. IV Lasix 40 mg x 1 today 2. Continue incentive spirometry 3. Follow chest x-ray 4. Depending on her progress further recommendations will be made Nurse practitioner note has been reviewed, I agree with documented findings and plan of care. Patient was seen and examined. Objective - Vital Signs Vital signs: Vital Signs Temp 97.8 F 12/31/23 08:40 Pulse 91 12/31/23 08:40 Resp 18 12/31/23 08:40 BP 155/70 12/31/23 08:40 Pulse Ox 96 12/31/23 08:40 FiO2 Intake & Output 12/30/23 12/31/23 12/31/23 18:59 06:59 18:59 Intake Total 800 540 Output Total 2450 1400 Balance -1650 -860 Weight 63.2 kg Intake: IV 100 cefTRIAXone 2 gm In 100 Sodium Chloride 0.9% 50 ml @ 100 mls/hr IVPB Q24HR [facility] 234 BEDS AT [facility] Rx#:[id number] Oral 700 540 Output: Urine 2450 1400 Other: Voiding Method Bedside Commode Bedside Commode Bedside Commode # Voids 1 1 1 # Bowel Movements 1 1 1 - Labs CBC & Chem 7: 12/30/23 05:22 12/31/23 09:59 Labs: Abnormal Lab Results - Last 24 Hours (Table) 12/30/23 12/30/23 12/30/23 Range/Units 11:48 16:55 20:26 Sodium (137-145) mmol/L Potassium (3.5-5.1) mmol/L BUN (7-17) mg/dL Glucose (74-99) mg/dL POC Glucose (mg/dL) 246 H 185 H 198 H (70-110) mg/dL Calcium (8.4-10.2) mg/dL 12/31/23 12/31/23 12/31/23 Range/Units 05:53 06:03 06:23 Sodium (137-145) mmol/L Potassium (3.5-5.1) mmol/L BUN (7-17) mg/dL Glucose (74-99) mg/dL POC Glucose (mg/dL) 59 L 62 L 111 H (70-110) mg/dL Calcium (8.4-10.2) mg/dL 12/31/23 12/31/23 Range/Units 09:59 11:20 Sodium 127 L (137-145) mmol/L Potassium 5.2 H (3.5-5.1) mmol/L BUN 23 H (7-17) mg/dL Glucose 253 H (74-99) mg/dL POC Glucose (mg/dL) 288 H (70-110) mg/dL Calcium 6.8 L (8.4-10.2) mg/dL Microbiology - Last 24 Hours (Table) 12/27/23 11:30 Gram Stain - Final Pleural Fluid Body Fluid Culture - Final
[2023-12-31 16:25] LABS: Glucose,Whole Blood 306 mg/dL (70-110)
[2023-12-31 20:03] LABS: Glucose,Whole Blood 220 mg/dL (70-110)
[2023-12-31] MEDS: FUROSEMIDE 10 MG/ML 4 ML VIAL IV SCH (20:28)
--- NOTE | 2023-12-31 22:23 | P.CONS ---
History of Present Illness - Reason for Consult Consult date: 12/31/23 Infection, antibiotics Requesting physician: Mary Floyd - Chief Complaint Shortness of breath and cough x few days - History of Present Illness Patient is a 83-year-old female from with a past medical history significant for diabetes mellitus hypertension hyperlipidemia pneumonia patient has been brought into the hospital 8 days ago for evaluation of increasing shortness of breath that was getting worse for few days before presentation to the hospital patient symptom of shortness of breath also associated with the cough mild to moderate intensity nonproductive denies having any pleuritic chest pain no URI symptoms no nausea no vomiting no choking on food no abdominal pain or any diarrhea patient on presentation to the hospital was afebrile she did have 1 low-grade fever of 100.2 on 12/27/2023 patient was not tachycardic hypotensive did have hypoxemia requiring supplemental oxygen patient did have elevated white count 34,000 on admission that is down to 11.4 creatinine has been normal liver enzymes are normal procalcitonin was 0.39 patient did have thoracocentesis done on 12/23/2023 which was clear 1007 WBC, patient did have a bronchoscopy done on 12/26/2023 with evidence of mucus obstructing the right mainstem bronchus and right lower lobe bronchus cultures currently growing Michelle albicans pleural fluid culture has been negative patient has been treated with the ceftriaxone CT of the chest done on significant decrease in the right-sided effusion with a small residual right lung base no opacification of right lower lobe, small left effusion infectious he was consulted for further management of antibiotic therapy Review of Systems Positive point and negatives has been mentioned in the HPI, complete review of systems was performed and all other systems are negative Past Medical History Past Medical History: Diabetes Mellitus, Hyperlipidemia, Hypertension, Pneumonia Additional Past Medical History / Comment(s): Pelvic fracture 2 weeks ago. Neuropathy. spinal stenosis History of Any Multi-Drug Resistant Organisms: None Reported Past Surgical History: No Surgical Hx Reported Additional Past Surgical History / Comment(s): Broken wrist, ORIF Past Anesthesia/Blood Transfusion Reactions: No Reported Reaction Past Psychological History: No Psychological Hx Reported Smoking Status: Former smoker Past Alcohol Use History: Daily (Drinks 1 glass of wine per day) Past Drug Use History: None Reported - Past Family History Mother Additional Family Medical History / Comment(s): from encephalopathy Father Family Medical History: Cancer Medications and Allergies Home Medications Medication Instructions Recorded Confirmed Type ALPRAZolam [Xanax] 0.25 mg PO TID 11/06/21 12/23/23 History Insulin Aspart (Niacinamide) 10 - 12 units SQ AC-TID 11/06/21 12/23/23 History [Fiasp 100 Unit/ml Flextouch Pen] Rosuvastatin [Crestor] 10 mg PO DAILY 11/06/21 12/23/23 History Alendronate Sodium 70 mg PO GUERRA 01/02/23 12/23/23 History Calcium Carbonate [Calcium] 600 mg PO DAILY 01/02/23 12/23/23 History Pantoprazole [Protonix] 40 mg PO DAILY 01/02/23 12/23/23 History traMADol HCL 50 mg PO Q8H PRN 01/02/23 12/23/23 History Ascorbic Acid [Vitamin C] 500 mg PO DAILY 12/23/23 12/23/23 History Aspirin EC [Ecotrin Low Dose] 81 mg PO DAILY 12/23/23 12/23/23 History Bifidobacterium Infantis [Align] 4 mg PO DAILY 12/23/23 12/23/23 History Gabapentin [Neurontin] 400 mg PO BID 12/23/23 12/23/23 History Magnesium Oxide [Mag-Ox] 400 mg PO DAILY 12/23/23 12/23/23 History Metoprolol Tartrate [Lopressor] 25 mg PO BID 12/23/23 12/23/23 History Turmeric Root Extract [Turmeric] 500 mg PO MOWEFR 12/23/23 12/23/23 History guaiFENesin-Coden 100-10MG/5ML 5 ml PO Q6H PRN 12/23/23 12/23/23 History [Robitussin AC] hydrALAZINE HCL [Apresoline] 100 mg PO TID 12/23/23 12/23/23 History lisinopriL [Zestril] 40 mg PO DAILY 12/23/23 12/23/23 History traZODone HCL [Desyrel] 50 mg PO HS PRN 12/23/23 12/23/23 History Allergies Allergy/AdvReac Type Severity Reaction Status Date / Time hydrocodone [From Vicodin] AdvReac Nausea & Verified 12/23/23 12:54 Vomiting Physical Exam Vitals: Vital Signs Temp Pulse Pulse Resp BP BP Pulse Ox 12/31/23 08:40 97.8 F 91 18 155/70 96 12/31/23 08:31 95 12/31/23 04:31 87 18 156/67 96 12/30/23 23:38 80 18 168/80 98 12/30/23 21:48 98.2 F 81 18 173/74 98 12/30/23 20:00 98.2 F 112 H 13 160/67 95 12/30/23 19:00 92 22 129/74 12/30/23 18:00 103 H 11 L 129/74 12/30/23 17:00 95 14 129/74 12/30/23 16:00 98.4 F 80 11 L 129/74 97 12/30/23 15:00 78 10 L 12/30/23 14:00 80 19 98 12/30/23 13:00 76 16 98 12/30/23 12:00 98.2 F 82 14 153/69 97 Intake and Output 12/30/23 12/31/23 12/31/23 22:59 06:59 14:59 Intake Total 540 Output Total 750 1100 Balance -210 -1100 Intake: Oral 540 Output: Urine 750 1100 Other: Voiding Method Bedside Commode Bedside Commode Bedside Commode # Voids 1 1 1 # Bowel Movements 1 1 1 Weight 63.2 kg GENERAL DESCRIPTION: Elderly female up in the chair, no distress. No tachypnea or accessory muscle of respiration use. HEENT: Shows Pallor , no scleral icterus. Oral mucous membrane is dry. No pharyn geal erythema or thrush NECK: Trachea central, no thyromegaly. LUNGS: Unlabored breathing. Decreased breath sound at the base HEART: S1, S2, regular rate and rhythm. No loud murmur ABDOMEN: Soft, no tenderness , guarding or rigidity, no organomegaly EXTREMITIES: No edema of feet. SKIN: No rash, no masses palpable. NEUROLOGICAL: The patient is awake, alert, oriented x3, mood and affect normal. Results CBC & Chem 7: 12/30/23 05:22 12/31/23 09:59 Labs: Abnormal Lab Results - Last 24 Hours (Table) 12/30/23 12/30/23 12/30/23 Range/Units 11:48 16:55 20:26 POC Glucose (mg/dL) 246 H 185 H 198 H (70-110) mg/dL 12/31/23 12/31/23 12/31/23 Range/Units 05:53 06:03 06:23 POC Glucose (mg/dL) 59 L 62 L 111 H (70-110) mg/dL Microbiology - Last 24 Hours (Table) 12/27/23 11:30 Gram Stain - Final Pleural Fluid Body Fluid Culture - Final Assessment and Plan (1) Pneumonia Current Visit: Yes Status: Acute Code(s): J18.9 - PNEUMONIA, UNSPECIFIED ORGANISM SNOMED Code(s): 911668497 (2) Leukocytosis Current Visit: Yes Status: Acute Code(s): D72.829 - ELEVATED WHITE BLOOD CELL COUNT, UNSPECIFIED SNOMED Code(s): 583138473 Plan: 1patient presented to hospital more than a week ago for evaluation of increasing shortness of breath and this patient has been diagnosed with right- sided pneumonia and effusion status post thoracocentesis and bronchoscopy both cultures have been negative for any resistant pathogen sputum did grow Michelle albicans, patient did have an improvement in the white count and symptomatology 2-continue with Rocephin while inpatient however keeping in mind overall improvement hopefully will be able to finish therapy with oral Ceftin on discharge We will follow on clinical condition and cultures to further adjust medication if needed Thank you for this consultation we will follow the patient along with you Dictation was produced using [employer] dictation software. please excuse any grammatical, word or spelling errors. Time with Patient: Greater than 30
--- NOTE | 2024-01-01 06:09 | P.PN ---
Subjective Progress Note Date: 12/31/23 HISTORY OF PRESENT ILLNESS: 83-year-old office patient for many years with active medical history of insulin-dependent type 1 diabetes, hypertension, hyperlipidemia, neuropathy, history of spinal stenosis, who has mild bradycardia otherwise healthy doing well has not been in the hospital long time she had a fall 2 weeks ago to the right side and developed pelvic and did not require to be hospitalized but ended up seen Dr. Laguna as an outpatient. Also patient had open communicated distal radius fracture back in 2022 secondary to minor fall ended up having open reduction with internal fixation and irrigation debridement of the right wrist fracture. Patient seen cardiology in the last few years in 2021 was admitted to the hospital because of an episode of palpitation with pulse rate of 160 bpm found to have paroxysmal SVT and elevated troponin with no cardiac injury or any other cardiac history has been on beta-yahir been well-controlled since. I received a phone call from the yesterday with complain that his has been in extreme shortness of breath and been symptomatic and for the previous 5 days she had a virtual visit in the office for severe bronchitis was prescribed antibiotics and some expectorant which patient had felt slightly bit better but become much worse over the last 2 days to a degree becoming extreme dyspnea with minimal exertion. Was instructed to bring her to the emergency department to be seen and evaluated. Patient apparently decided not to come to the emergency department till early this morning on 12/23/2023 where was seen and evaluated was severely hypoxic at the time her chest x-ray showed very large right-sided pleural effusion almost occupying 90% out of the right lung. D-dimer was elevated and patient ended up for CTA finding with no pulmonary embolism large right-sided pleural effusion with near complete compression of the right lung there is an abnormal attenuation within the right mainstrem middle lobe and lower lobe bronchus which could be related to aspiration also there is only slight left pleural effusion as well with subsegmental area of consolidation favored to atelectasis versus pneumonitis. With pulse ox running quite a bit low at the time required 4 L of O2 to keep her pulse ox above 90 percentile and laboratory value showing sodium of 116 with normal creatinine and GFR with blood sugar of 292 white blood cell was 34,500 with platelet count 537 mildly elevated troponin 0.07 with lactic acid at 1.6 proBNP at 5090 with alk phos of 289. Patient ended up seeing Dr. Burgess and in the emergency department who is done a consultation and decided to transfer the patient to the intensive care unit and ended up performing bedside thoracentesis for total of 1.6 L of pleural fluid is aspirated with no complication fluid was not bloody followed by chest x-ray showed fairly expansion of the lung only. Patient was transferred to the ICU and admitted for severe large sided pleural effusion, possible aspiration pneumonia with sepsis, severe hyponatremia. Will consult nephrology as well for the severity of her hyponatremia. 11/23/2023: Patient is resting comfortably in the chair this morning, her sodium is up to 119 from 116 early, kidney function still good, blood sugar still slightly bit elevated required 2 units of insulin every time she is having her Accu-Chek. Chest x-ray still showing significant amount of pleural effusion around the right side which might require another thoracentesis today or tomorrow. She still seen nephrology for probably increase her sodium tablet and little bit more restriction on IV fluid. Tachycardia has improved compared to yesterday also patient is not hypoxic but still required 2 L of O2 to keep her pulse ox above 92 percentile. Legionella antibody was negative still waiting for mycoplasma and further analysis of her thoracentesis fluid. Also echocardiogram came back with no major abnormality to create any pleural effusion. 11/24/2023: With the recurrent pleural effusion pulmonary decided to accelerate this into setting up patient for pigtail catheter placement in the pleural space by radiology to be able to drain pleural fluid when needed. Apparently with patient is not improving as fast as expected earlier consideration including possibility of malignancy is quite bit high at this point chest x-ray apparently showed further opacification of the right lung compared to the one from yesterday chest CAT scan showed moderate right-sided pleural fluid collection along with compressive atelectasis of the right side and there was extensive calcification and bronchial bilaterally more on the right lower lobe bronchus and there were also filling defect in the right lower lobe that was not felt to be patent. After pigtail catheter placement patient will be going for bronchoscopy to see if he have any malignancy in the lung. Still awaiting the final analysis of the pleural fluid. Sodium has been improved up to 125 today blood sugar still mildly elevated at some point. Oxygen level has been better so far. She is remain having slight tachycardia likely multifocal atrial tachycardia along with frequent PACs will continue Cardizem and metoprolol patient does not need to be on anticoagulation. 11/25/2023: She is still having significant shortness of breath did not improve she had yesterday pigtail catheter in the pleural space connected with chest tube under waterseal continue to have significant shortness of breath and dyspnea, chest x-ray continue to show significant lobulated fluid in the pleural space. Patient be going for bronchoscopy today looking for mass or malignancy. Continue aggressive antibiotics as expected but with all the picture have specially with the pleural fluid there is concern of malignancy. Sodium carrillo her eap counselor lab showing her sodium is up to 128 still normal kidney function white blood cell is down 16,200 and again still on current antibiotic with Rocephin, vancomycin she is off azithromycin. Pulse rate remained slightly bit fast and continue Cardizem drip at this point. 12/27/2023: Patient pigtail catheter was fluid off yesterday continue to have significant amount of right-sided pleural effusion with loculation bronchoscopy was done and had removal significant amount of respiratory secretion and sputum plug which had helped some but patient continued to be symptomatic. Original plan to use the pigtail catheter or thrombolytic by cardiothoracic but since it fell off was a bit harder. Pulmonary in the surgical chest tube and continue alteplase administration to the right side hemithoracic to evacuate the complic ated parapneumonic effusion. Apparently pulmonary has discussed with family and patient the possibility of VATS procedure at later stage. He is remain in the ICU, blood sugar slightly bit better medication were adjusted, white blood cells down recently to 25,000 today. She is remain on antibiotic to cover her pneumonia. 12/30/2023: Obviously since her chest tube insertion on Saturday she had the third dose of alteplase/dornase pleural instillation to her right-sided pleural chest tube chest tube was clamped for 1 hour and after 1 hour release and continue suction 20 cm water eventually was placed to disconnect the chest tube and allow patient to ambulate. Patient apparently was transferred back to the ICU because slight decline in respiration and hypoxia. White blood cell still quite bit elevated at 18,300 kidney function still good and blood sugar is much better. Still on antibiotics for empyema combination of Rocephin vancomycin apparently was stopped her bronchial wash showed Michelle albicans and now and by fungus on yeast was implemented yet. From cardiothoracic standpoint despite the chest tube is out at this point looking at the chest x-ray the right side looks a lot more expanding does not need to rearrange another chest tube to complete the alteplase/dornase treatment because this is quite bit success as lytic management. On the other hand patient symptom of shortness of breath is much better and improved. She was transferred back to the ICU because of worsening hypoxia and shortness of breath and losing her chest tube mostly patient is doing a lot better symptoms carrillo. 12/31/2023: She is out of ICU, her x-ray and CAT scan showing more expansion of the right lung compared to before does not need any lytic management at this point. Continue 2 L O2 maintaining her pulse ox above 97 percentile. Remain on ceftriaxone 2 g daily and vancomycin currently for her empyema which seems to control her symptoms. The choice for oral antibiotic and prepare hopefully for discharge. Patient will benefit from Ceftin orally 500 mg twice a day when she is discharged. Cardiology standpoint patient arrhythmia tachycardia is much better continue metoprolol 50 mg twice a day. No atrial fibrillation was found throughout the hospitalization with the hypoxia and distress patient went through. Increase and titrate physical therapy and prepare for making plan hopefully for discharge at this point. REVIEW OF SYSTEMS: CONSTITUTIONAL: Well-developed in acute respiratory distress. EYES: No icterus sclerae, no conjunctivitis. EARS, NOSE, MOUTH, THROAT, and FACE: No sore throat, lymphadenopathy, carotid bruits or deformity. RESPIRATORY: Positive shortness of breath cough or wheezes. CARDIOVASCULAR: Positive PND orthopnea palpitation. GASTROINTESTINAL: No Abd pain, Nausea or vomiting, no Diarrhea or constipation, No GI Bleed, no distention or masses. GENITOURINARY: Negative for Hematuria or UTI, no kidney stones. INTEGUMENT/BREAST: Negative for any muscular injury with mild osteoarthritis.. HEMATOLOGIC/LYMPHATIC: Negative for bleed or purpura. MUSCULOSKELTAL: Negative for Myalgia or arthralgia. NEURLOGICAL: No LOC, Sz or syncope, blurred vision dizziness or abnormality.. BEHAVIORAL/PSYCH: Negative. ENDOCRINE: Negative. PHYSICAL EXAMINATION: General Appearance: Alert, cooperative, in mild respiratory distress. Neck HEENT: Supple, no lymphadenopathy, no thyroid enlargement, no carotid bruits. Lungs: Significantly decreased breath sound in the right side all the way to have the way up significant rhonchi and mild crackles in the bases as well with mild expiratory wheezes. Chest Wall: Decreased expansion with deep inspiration no tenderness and no deformity was found on exam, no costochondral pain or discomfort. No sign of trauma or bruise to the rib cage area. Heart: Regular rate and rhythm with mild tachycardia, S1, S2 normal, no murmur, rub or gallop. Back: Symmetric, no curvature, ROM normal, no CVA tenderness. Abdomen: Soft, non-tender, bowel sounds active all four quadrants, no masses, no organomegaly. Extremities: Extremities normal, atraumatic, no cyanosis or edema. Pulses: 2+ and symmetric. Skin: Skin color, texture, tugor normal, no rashes or lesions. Neurologic: Alert oriented x3 cranial nerves II through XII intact, no motor deficit, no abnormal balance or gait. ASSESSMENT AND PLAN: _Acute hypoxic respiratory failure: With large right-sided pleural effusion and empyema has been on IV antibiotics does not need anymore lytic lesion or any further chest tube at this point. Still on O2 2 L given her pulse ox above 92 percentile. _Severe large right-sided pleural effusion with compression of the right lung, postthoracentesis and post lytic with alteplase via chest tube at the time which patient has done much better, chest tube came out little bit early but did not require any further treatment and management based was realistically very large empyema require good management between thoracentesis and pigtail catheter along with chest tube with alteplase lytic treatment for 2 days. Does not require any further management described current antibiotic and follow-up with a chest x-ray from [place]. _Aspiration pneumonia: Continue Rocephin we will switch patient to oral Ceftin when she goes home. _Severe hyponatremia: Sodium is down to 127 again today continue fluid restriction and current management doing better. _Severe acute leukocytosis: Still have leukocytosis with severity of infection remain on antibiotics. _Type 1 diabetes: Was running slightly with hypoglycemia insulin was adjusted again and seems to go back on her blood sugar is in the low 200s. Will continue with management of 7 units of short acting insulin AC meals along with 7 to 8 units of Lantus at nighttime. _Neuropathy: Continue gabapentin doing slightly better. _Recent history of pelvic fracture has been seen orthopedic. _Hyperlipidemia: Remain on rosuvastatin 10 mg a day. _Tachycardia and multifocal PACs: Most likely secondary to her hypoxia along with emphysema and her hyponatremia. Much better currently. CODE STATUS: Full code. Discussion: Patient has done very well last 24 hours, out of the ICU, no further intervention needed. Will focus on increased activity with PT and finalize plan hopefully for discharge in the next 2 days. Objective - Vital Signs Vital signs: Vital Signs Temp 98.2 F 12/30/23 21:48 Pulse 87 12/31/23 04:31 Resp 18 12/31/23 04:31 BP 156/67 12/31/23 04:31 Pulse Ox 96 12/31/23 04:31 FiO2 Intake & Output 12/30/23 12/30/23 12/31/23 06:59 18:59 06:59 Intake Total 270 800 540 Output Total 670 2450 1100 Balance -400 -1650 -560 Weight 63.2 kg Intake: IV 30 100 Invasive Line 4 30 cefTRIAXone 2 gm In 100 Sodium Chloride 0.9% 50 ml @ 100 mls/hr IVPB Q24HR SHANICE Rx#:[id number] Oral 240 700 540 Output: Chest Tube Drainage 20 Chest Tube Right 20 Posterior Chest Urine 650 2450 1100 Other: Voiding Method Bedside Commode Bedside Commode Bedside Commode # Voids 1 1 1 # Bowel Movements 1 1 1 - Labs CBC & Chem 7: 01/03/24 08:55 01/03/24 08:55 Labs: Abnormal Lab Results - Last 24 Hours (Table) 12/30/23 12/30/23 12/30/23 Range/Units 05:22 05:22 06:28 WBC 11.4 H (3.8-10.6) k/uL Neutrophils # 8.9 H (1.3-7.7) k/uL Lymphocytes # 0.9 L (1.0-4.8) k/uL Monocytes # 1.3 H (0-1.0) k/uL Sodium 130 L (137-145) mmol/L Potassium 5.2 H (3.5-5.1) mmol/L BUN 23 H (7-17) mg/dL Glucose 62 L (74-99) mg/dL POC Glucose (mg/dL) 64 L (70-110) mg/dL Calcium 7.2 L (8.4-10.2) mg/dL 12/30/23 12/30/23 12/30/23 Range/Units 06:29 11:48 16:55 WBC (3.8-10.6) k/uL Neutrophils # (1.3-7.7) k/uL Lymphocytes # (1.0-4.8) k/uL Monocytes # (0-1.0) k/uL Sodium (137-145) mmol/L Potassium (3.5-5.1) mmol/L BUN (7-17) mg/dL Glucose (74-99) mg/dL POC Glucose (mg/dL) 59 L 246 H 185 H (70-110) mg/dL Calcium (8.4-10.2) mg/dL 12/30/23 Range/Units 20:26 WBC (3.8-10.6) k/uL Neutrophils # (1.3-7.7) k/uL Lymphocytes # (1.0-4.8) k/uL Monocytes # (0-1.0) k/uL Sodium (137-145) mmol/L Potassium (3.5-5.1) mmol/L BUN (7-17) mg/dL Glucose (74-99) mg/dL POC Glucose (mg/dL) 198 H (70-110) mg/dL Calcium (8.4-10.2) mg/dL Microbiology - Last 24 Hours (Table) 12/27/23 11:30 Gram Stain - Preliminary Pleural Fluid Body Fluid Culture - Preliminary
[2024-01-01 06:12] LABS: Glucose,Whole Blood 91 mg/dL (70-110)
[2024-01-01 07:52] LABS: African American GFR (CKD) 78 (>60 ml/min/1.73 sqM); Anion Gap 3 mmol/L; Blood Urea Nitrogen 25 mg/dL (7-17); Carbon Dioxide 27 mmol/L (22-30); Chloride 101 mmol/L (98-107); Glucose 79 mg/dL (74-99); Magnesium 1.9 mg/dL (1.6-2.3); Non-African American GFR(CKD) 67 (>60 ml/min/1.73 sqM); Potassium 4.5 mmol/L (3.5-5.1); Sodium 131 mmol/L (137-145)
[2024-01-01] MEDS: lisinopriL 20 MG TAB PO SCH (08:34)
--- NOTE | 2024-01-01 09:35 | XR ---
EXAMINATION TYPE: XR chest 2V DATE OF EXAM: 01/01/2024 8:57 AM CLINICAL INDICATION:Female, 83 years old with history of Pleural Effusion; COMPARISON: Chest radiographs from 12/31/2023 TECHNIQUE: XR chest 2V Frontal and lateral views of the chest. FINDINGS: Lungs/Pleura: Blunting of the costophrenic angles are greater than left. There is no evidence of , fo yoselin consolidation, or pneumothorax. Pulmonary vascularity: Unremarkable. Heart/mediastinum: Cardiomediastinal silhouette is unremarkable. Musculoskeletal: No acute osseous pathology. IMPRESSION: Small to moderate right and trace left pleural effusion with associated atelectasis.
[2024-01-01 11:37] LABS: Glucose,Whole Blood 265 mg/dL (70-110)
--- NOTE | 2024-01-01 11:49 | P.PN ---
Subjective Patient is seen in follow-up for hyponatremia. Sodium level 131 today. Denies chest pain or shortness of breath. No active complaints. Vital signs are stable. General: No acute distress. HEENT: Head exam is unremarkable. LUNGS: No audible rhonchi or wheezes. HEART: Rate and Rhythm are regular. ABDOMEN: Nontender. EXTREMITITES: 2+ edema. Objective - Vital Signs Vital signs: Vital Signs Temp 98.0 F 01/01/24 11:37 Pulse 80 01/01/24 11:37 Resp 16 01/01/24 11:37 BP 150/77 01/01/24 11:37 Pulse Ox 100 01/01/24 11:37 FiO2 Intake & Output 12/31/23 01/01/24 01/01/24 18:59 06:59 18:59 Weight 57.7 kg Other: Voiding Method Toilet Bedside Commode Bedside Commode # Voids 1 1 # Bowel Movements 1 - Labs CBC & Chem 7: 12/30/23 05:22 01/01/24 06:53 Labs: Abnormal Lab Results - Last 24 Hours (Table) 12/31/23 12/31/23 01/01/24 Range/Units 16:23 20:01 06:53 Sodium 131 L (137-145) mmol/L BUN 25 H (7-17) mg/dL POC Glucose (mg/dL) 306 H 220 H (70-110) mg/dL Calcium 7.0 L (8.4-10.2) mg/dL 01/01/24 Range/Units 11:35 Sodium (137-145) mmol/L BUN (7-17) mg/dL POC Glucose (mg/dL) 265 H (70-110) mg/dL Calcium (8.4-10.2) mg/dL Assessment and Plan Plan: Assessment: 1. Hyponatremia, hypervolemic. Urine sodium less than 20 and urine osmolality 493. Sodium level 131 today. TSH normal. 2. Volume overload with pleural effusions. Status post right-sided thoracentesis with 1.6 L drained. Pulled out chest tube by accident this a dmission. 3. Diabetes mellitus. Plan: Encouraged oral intake. Maintain fluid restriction. Maintain IV Lasix. Repeat labs in the morning.
--- NOTE | 2024-01-01 12:07 | P.PN ---
Subjective Progress Note Date: 01/01/24 Principal diagnosis: Complicated right-sided pleural effusion possible empyema This is a 83-year-old female patient who came to the emergency department with increased shortness of breath. Her breathing was progressively getting worse over the past 1 week. She had increased cough congestion chest tightness and wheezing and she was having chills at home. She was given outpatient antibiotic therapy with Zithromax and her condition decompensated and she ended up coming into the hospital. The patient has been having some chest discomfort along the right chest. She had a fall approximately few weeks back and she also sustained a pelvic fracture. She is a lifetime non-smoker. She came to the emergency department and the patient had a white cell count of 34 with a hemoglobin 14.8. Her sodium level was 116 with a potassium level of 5.9 and a serum bicarb was at 21. BUN was 18 with a creatinine of 0.4. Troponin was 0.07. proBNP level was 5000. The viral screen was negative. Initial lactic acid level was at 2.1 and dropped down to 1.6. Coagulation profile was normal with a D-dimer of 2.6. Initial chest x-ray showed a large right-sided pleural effusion. CAT scan of the chest was also done in the Emergency Department that showed no evidence of any central pulmonary embolism. There was a large right-sided pleural effusion with near complete opacification and compression of the right lung. There was also abnormal attenuation within the right mainstem right middle lobe and right lower lobe bronchus and aspiration was suspected. I saw the patient in the emergency department. She was quite short of breath and she was on oxygen at 5 L/min nasal cannula. Her pulse ox was as in the low 90s. I performed a bedside thoracentesis a total of 1.6 L of pleural fluid is aspirated. No complications. The post thoracentesis chest x-ray showed interval marked reduction in the right-sided pleural effusion without evidence of any pneumothorax. The patient was started on broad-spectrum antibiotics and she is currently on a combination of Rocephin and Zithromax and vancomycin. She is diabetic. She takes insulin on outpatient basis. She also has history of hypertension and hyperlipidemia. Currently she is also on IV fluids and the patient is on normal saline which is running at a rate of 75 cc an hour. No altered mentation. No seizure activity. On 12/24/2023, the patient is feeling better. The patient is less short of breath and currently she is on 2 L of oxygen by nasal cannula. Her breathing is more comfortable. Thoracentesis was done yesterday and the pleural fluid analysis still pending. Cultures are still pending. Legionella urine antigen is negative. Echocardiogram showed a preserved LV function, no significant valvular abnormalities. The white cell count is currently down to 26 with a hemoglobin 13.1 and a platelet count of 491. Sodium is 119 improved compared to yesterday and the urine sodium is essentially low less than 20, not typical of SIADH. Serum bicarb is 18 with a BUN of 16 and a creatinine of 0.4. She remains on Rocephin and Zithromax and vancomycin. Metoprolol was restarted. He is also on Zestril 40 mg p.o. daily for blood pressure control. She is on NovoLog 5 units 3 times daily with meals plus a sliding scale coverage. She remains on bronchodilators. On today's evaluation on 12/25/2023, the patient is being seen for a follow- up.The patient has no specific complaints. She seems to be less short of breath. She is on 4 L of oxygen by nasal cannula with a pulse ox of 96%. She remains on a combination of Rocephin and Zithromax and vancomycin. The white cell count is improving is currently down to 18.3 with a hemoglobin of 10.5 and a platelet count of 465. Sodium levels of 125. BUN is 12 with a creatinine of 0.4 and the patient is currently nondistended. Exercises an hour. On a separate note, chest x-ray that was done today showed further opacification of the right lung compared to yesterday chest x-ray. Based on that, a CAT scan of the chest was done and it showed a moderate to large right-sided pleural fluid collection along with compressive atelectasis of the right lung. There was also extensive calcification of the bronchi bilaterally more so on the right lower lo be bronchus and there was also a filling defect in the right lower lobe bronchus that was not felt to be patent. There is an abrupt cut off sign in the bronchus intermedius/right lower lobe area. Based on those findings, I recommended a pigtail catheter insertion and this will be done by interventional radiology today to be followed up by bronchoscopy in a.m. The pleural fluid is aspirated earlier was an accident with elevated LDH of 610 and a protein of 3.2 g. Glucose was at 136. Cell count was 1000. The fluid cytology still pending for now. The Gram stain culture is also negative. 12/26/2023, the patient is being seen for a follow-up. The patient is on 4 L of oxygen nasal cannula. The pigtail catheter was inserted yesterday and a total of 4 L of pleural fluid was further aspirated. Blood from the PICC line has been noted. Nevertheless, the chest x-ray still showing volume loss and persistent right lung consolidation. As mentioned earlier, there is an abrupt cut off sign in the right mainstem bronchus/bronchus intermedius and the patient is going to undergo a bronchoscopy today. White cell count is 16, hemoglobin 11 and platelet count is at 464, sodium levels at 128, BUN is at 10 with a creatinine of 0.3. Remains on the same antibiotic coverage to include Rocephin and Zithromax and vancomycin. Cultures are still negative. Sputum culture still pending. Clinically doing well. No significant tachycardia. Hemodynamically stable. Currently n.p.o. awaiting bronchoscopy. She went 12/27/2023, for the patient for a follow-up. Events from yesterday were noted and the patient's pigtail catheter has been removed. This came out accidentally. Repeat CAT scan of the chest was done this morning and it showed essentially enlarged right-sided pleural effusion with loculation. The patient also had atelectatic changes in the right lung. There is again a cut off sign in the right lower lobe bronchus. Noted I performed a bronchoscopy the patient and the patient had copious amount of respiratory secretions and mucous plugs that were aspirated without any major difficulties. Cultures were sent and the results are still pending for now. She remains on oxygen at 4 L nasal cannula with pulse ox of 97%. The patient has a white cell count of 25, hemoglobin is at 14.4 and a platelet count of 650. Sodium levels of 128, BUN 11 with a creatinine of 0.39. The pleural fluid cultures are still negative. She remains on bronchodilators with DuoNeb updrafts. She continues to have a congested cough, producing limited amount of sputum. Awake and alert and communicating. She does have chronic lower extremity edema. Cardiac rhythm remained sinus. 12/28/2023, the patient has produced approximately 1.7 L of purulent material from the right lung post chest tube insertion. Output has dropped and the patient is going to receive a dose of alteplase through the chest tube. She is currently on room air oxygen. The chest x-ray from today shows residual cons olidation of the right lung base. No evidence of any pneumothorax and the chest tube is in good location. The white cell count is at 93 with a hemoglobin 11.3 platelet count of 450. The BUN is 22 with a creatinine of 0.74. All of the cultures have been negative thus far. The patient is currently on IV Rocephin. Cardiac rhythm is sinus. IV fluids are currently at KVO. No other significant events overnight. She is sitting up on a chair and she is calm and comfortable. 12/29/2023, right-sided chest tube is in place. Alteplase was administered yesterday and a total of 500 cc of output was obtained. Chest x-ray findings show some residual consolidation and atelectasis in the right lower lobe. Clinically doing well. She is on room air oxygen. No fever or chills. White cell count remains elevated at 18.3 with a hemoglobin 12.1, sodium level is up to 127, BUN is 23 and creatinine is 0.8. Hemodynamically stable. Cultures are all negative. The patient remains on IV Rocephin. Aggressive pulmonary toileting is being performed. Neurologically intact. Patient was seen today on 12/30/2023, patient is in the ICU, on room air, on Rocephin, not in any distress. Her chest tube was dislodged yesterday, and the patient is doing well. Cultures have been negative on the pleural effusion, bronchoscopy was nondiagnostic except for Michelle in the BAL, hair overall clinical status is improving continues to have small loculated effusion in the right pleural space, CT of the chest is pending, and thoracic surgery is following. Looking back at this patient she had right-sided thoracentesis on 12/22 pigtail catheter placed on 12/24 bronchoscopy on 12/25 right-sided chest tube placed on 12/26. And it got dislodged on 12/28 requiring transfer to ICU but did not require any intervention. Patient is comfortable, not in distress, her labs today were all reviewed CBC is relatively normal basic metabolic profile is normal renal profile is normal. Cultures from the pleural effusion have been all negative Patient was evaluated today on 12/31/2023, patient is now on the cardiac floor, doing well, relatively asymptomatic, hardly any pulmonary symptoms, patient feels great. On 2 L nasal cannula, O2 saturation 97%, remains on antibiotics for empyema, infectious disease consultation is pending. Her last CT of the chest was reviewed. Surgery is not planning any surgical intervention for her residual loculated fluid, clinically the patient is doing better. Patient was evaluated today on 01/01/2024, patient remains on antibiotics for her presumptive empyema, apparently surgery is not planning any surgical intervention, patient should be considered for discharge planning on oral antibiotics as recommended by infectious disease on the case. Patient is on room air, O2 saturation 100%, relatively normal labs noted today including normal basic metabolic profile, blood sugar is a bit elevated at 265 Objective - Vital Signs Vital signs: Vital Signs Temp 98.0 F 01/01/24 11:37 Pulse 80 01/01/24 11:37 Resp 16 01/01/24 11:37 BP 150/77 01/01/24 11:37 Pulse Ox 100 01/01/24 11:37 FiO2 Intake & Output 12/31/23 01/01/24 01/01/24 18:59 06:59 18:59 Weight 57.7 kg Other: Voiding Method Toilet Bedside Commode Bedside Commode # Voids 1 1 # Bowel Movements 1 - Exam CONSTITUTIONAL: 83-year-old female in no distress RESPIRATORY: Slightly diminished breath sounds at the right base otherwise no crackles rhonchi or wheezes CARDIOVASCULAR: Distant S1-S2, no S3 gallop. No murmur GASTROINTESTINAL: Soft nontender no megaly no rebound no guarding. INTEGUMENTARY: No rashes. NEUROLOGIC: Alert oriented x 3 no focal deficit MUSKULOSKELETAL: No deformities no limitation range of motion PSYCHIATRIC: Normal mood, normal affect and normal mental status examination - Labs CBC & Chem 7: 12/30/23 05:22 01/01/24 06:53 Labs: Abnormal Lab Results - Last 24 Hours (Table) 12/31/23 12/31/23 01/01/24 Range/Units 16:23 20:01 06:53 Sodium 131 L (137-145) mmol/L BUN 25 H (7-17) mg/dL POC Glucose (mg/dL) 306 H 220 H (70-110) mg/dL Calcium 7.0 L (8.4-10.2) mg/dL 01/01/24 Range/Units 11:35 Sodium (137-145) mmol/L BUN (7-17) mg/dL POC Glucose (mg/dL) 265 H (70-110) mg/dL Calcium (8.4-10.2) mg/dL Assessment and Plan Assessment: Impression: Complicated right-sided pleural effusion, parapneumonic, exudative in nature, possible empyema, cultures from the fluid have been negative Acute hypoxic respiratory failure, resolved Acute leukocytosis History of hypertension Dyslipidemia Insulin-dependent diabetes mellitus type 2 Recent fall from standing sustaining a pelvic fracture Daily EtOH use Ex-smoker Recommendation: Continue antibiotics as per infectious disease on the case recommending oral Ceftin postdischarge. Will clear the patient for discharge if cleared by other consultants Patient to follow-up on outpatient basis with Dr. Burgess Patient is clinically improving with treatment Will continue to follow Time with Patient: Less than 30
--- NOTE | 2024-01-01 12:43 | P.PN ---
Subjective Progress Note Date: 01/01/24 Principal diagnosis: Reason for follow-up is pneumonia Patient is a 83-year-old female from with a past medical history significant for diabetes mellitus hypertension hyperlipidemia pneumonia patient has been brought into the hospital for evaluation of increasing shortness of breath and cough patient has been diagnosed with pneumonia and is status post thoracocentesis and bronchoscopy culture has been negative for any resistant pathogen BAL did grow Michelle albicans. On today's evaluation that is 01/01/2024, patient has been afebrile, patient is breathing comfortably and is currently on room air, patient denies having any worsening cough no chest pain shortness of breath, patient denies nausea vomiting or diarrhea and no abdominal pain. Patient did have a creatinine 0.81 Objective - Vital Signs Vital signs: Vital Signs Temp 98.0 F 01/01/24 11:37 Pulse 80 01/01/24 11:37 Resp 16 01/01/24 11:37 BP 150/77 01/01/24 11:37 Pulse Ox 100 01/01/24 11:37 FiO2 Intake & Output 12/31/23 01/01/24 01/01/24 18:59 06:59 18:59 Weight 57.7 kg Other: Voiding Method Toilet Bedside Commode Bedside Commode # Voids 1 1 # Bowel Movements 1 - Exam GENERAL DESCRIPTION: Elderly female up in the chair in no distress RESPIRATORY SYSTEM: Unlabored breathing , decreased breath sounds at bases HEART: S1 S2 regular rate and rhythm , ABDOMEN: Soft , no tenderness EXTREMITIES: No edema feet - Labs CBC & Chem 7: 12/30/23 05:22 01/01/24 06:53 Labs: Abnormal Lab Results - Last 24 Hours (Table) 12/31/23 12/31/23 01/01/24 Range/Units 16:23 20:01 06:53 Sodium 131 L (137-145) mmol/L BUN 25 H (7-17) mg/dL POC Glucose (mg/dL) 306 H 220 H (70-110) mg/dL Calcium 7.0 L (8.4-10.2) mg/dL 01/01/24 Range/Units 11:35 Sodium (137-145) mmol/L BUN (7-17) mg/dL POC Glucose (mg/dL) 265 H (70-110) mg/dL Calcium (8.4-10.2) mg/dL Assessment and Plan (1) Pneumonia Current Visit: Yes Status: Acute Code(s): J18.9 - PNEUMONIA, UNSPECIFIED ORGANISM SNOMED Code(s): 371711742 (2) Leukocytosis Current Visit: Yes Status: Acute Code(s): D72.829 - ELEVATED WHITE BLOOD CELL COUNT, UNSPECIFIED SNOMED Code(s): 290868248 Plan: 1patient presented to hospital more than a week ago for evaluation of increas ing shortness of breath and this patient has been diagnosed with right-sided pneumonia and effusion status post thoracocentesis and bronchoscopy both cultures have been negative for any resistant pathogen sputum did grow Michelle albicans, patient did have an improvement in the white count and symptomatology 2-patient to continue with Rocephin with a plan to finish therapy with oral Ceftin on discharge Question concerns were answered Dictation was produced using [employer] dictation software. please excuse any grammatical, word or spelling errors. Time with Patient: Less than 30
--- NOTE | 2024-01-01 13:48 | P.PN ---
Subjective Progress Note Date: 01/01/24 PROGRESS NOTE The patient is an 83-year-old female with a history of hyperlipidemia, diabetes who presented with progressive dyspnea was found to have pneumonia and large right-sided pleural effusion. She has chest tube that was pulled out yesterday and was transferred yesterday to the ICU. She is feeling well this morning. She denies any chest discomfort and her breathing is stable. She denies any dizziness or palpitations. She denies any nausea or vomiting. Her appetite is good. She is in sinus mechanism. Her echocardiogram showed a preserved systolic function with no significant valvular disease. He underwent bronchoscopy. 12/30 Patient has been transferred out of the intensive care unit is seen today on the cardiac stepdown unit. She states her breathing is better. She continues to have a cough with sputum production. She continues to have lower extremity edema. She denies any wheezing. Blood pressure 155/70, heart rate 91, pulse ox 96% on room air. Repeat blood work reveals sodium 127, potassium 5.2, BUN 23 creatinine 0.85. Repeat chest x-ray reveals stable exam. Small moderate right pleural effusion. No appreciable pneumothorax. 12/31 Patient has been switched to IV Lasix 40 mg every 12 hours per nephrology. Chest x-ray reviewed and shows some improvement. She had a midline placed this morning. Blood pressure 150/77, heart rate 80, pulse ox 100% on room air. She continues to have some lower extremity edema although slightly improved. She states she has been urinating a lot with the new dose of Lasix. She slept okay last night. She denies having any cough. Breathing is improved. She states her appetite is fine. Repeat blood work reveals sodium 131, potassium 4.5, BUN 25 creatinine 0.81. Medications: Aspirin 81 mg daily, Lipitor 20 mg daily, Rocephin, Lasix 40 mg IV every 12 hours, lisinopril 20 mg daily, insulin, metoprolol tartrate 50 mg twice a day, Protonix, tramadol on a as needed basis PHYSICAL EXAMINATION: LUNGS: Crackles on the right base HEART: Regular rate and rhythm, S1, S2. No S3. Systolic ejection murmur ABDOMEN: Soft, nontender, no organomegaly EXTREMETIES: +1 edema IMPRESSION: 1. Status post pneumonia and parapneumonic effusion 2. Post chest tube placement, removed accidentally 3. History of hypertension 4. History of hyperlipidemia PLAN: 1. Continue IV Lasix 40 mg every 12 hours per nephrology 2. Continue incentive spirometry 3. Follow chest x-ray 4. Depending on her progress further recommendations will be made Nurse practitioner note has been reviewed, I agree with documented findings and plan of care. Patient was seen and examined. Objective - Vital Signs Vital signs: Vital Signs Temp 97.8 F 01/01/24 08:00 Pulse 84 01/01/24 08:00 Resp 16 01/01/24 08:00 BP 131/69 01/01/24 08:00 Pulse Ox 98 01/01/24 08:00 FiO2 Intake & Output 12/31/23 01/01/24 01/01/24 18:59 06:59 18:59 Weight 57.7 kg Other: Voiding Method Toilet Bedside Commode Bedside Commode # Voids 1 1 # Bowel Movements 1 - Labs CBC & Chem 7: 12/30/23 05:22 01/01/24 06:53 Labs: Abnormal Lab Results - Last 24 Hours (Table) 12/31/23 12/31/23 12/31/23 Range/Units 09:59 16:23 20:01 Sodium 127 L (137-145) mmol/L Potassium 5.2 H (3.5-5.1) mmol/L BUN 23 H (7-17) mg/dL Glucose 253 H (74-99) mg/dL POC Glucose (mg/dL) 306 H 220 H (70-110) mg/dL Calcium 6.8 L (8.4-10.2) mg/dL 01/01/24 Range/Units 06:53 Sodium 131 L (137-145) mmol/L Potassium (3.5-5.1) mmol/L BUN 25 H (7-17) mg/dL Glucose (74-99) mg/dL POC Glucose (mg/dL) (70-110) mg/dL Calcium 7.0 L (8.4-10.2) mg/dL
[2024-01-01 16:43] LABS: Glucose,Whole Blood 273 mg/dL (70-110)
[2024-01-01 20:19] LABS: Glucose,Whole Blood 266 mg/dL (70-110)
[2024-01-02 06:07] LABS: Glucose,Whole Blood 74 mg/dL (70-110)
--- NOTE | 2024-01-02 06:16 | P.PN ---
Subjective Progress Note Date: 01/01/24 HISTORY OF PRESENT ILLNESS: 83-year-old office patient for many years with active medical history of insulin-dependent type 1 diabetes, hypertension, hyperlipidemia, neuropathy, history of spinal stenosis, who has mild bradycardia otherwise healthy doing well has not been in the hospital long time she had a fall 2 weeks ago to the right side and developed pelvic and did not require to be hospitalized but ended up seen Dr. Laguna as an outpatient. Also patient had open communicated distal radius fracture back in 2022 secondary to minor fall ended up having open reduction with internal fixation and irrigation debridement of the right wrist fracture. Patient seen cardiology in the last few years in 2021 was admitted to the hospital because of an episode of palpitation with pulse rate of 160 bpm found to have paroxysmal SVT and elevated troponin with no cardiac injury or any other cardiac history has been on beta-yahir been well-controlled since. I received a phone call from the yesterday with complain that his has been in extreme shortness of breath and been symptomatic and for the previous 5 days she had a virtual visit in the office for severe bronchitis was prescribed antibiotics and some expectorant which patient had felt slightly bit better but become much worse over the last 2 days to a degree becoming extreme dyspnea with minimal exertion. Was instructed to bring her to the emergency department to be seen and evaluated. Patient apparently decided not to come to the emergency department till early this morning on 12/23/2023 where was seen and evaluated was severely hypoxic at the time her chest x-ray showed very large right-sided pleural effusion almost occupying 90% out of the right lung. D-dimer was elevated and patient ended up for CTA finding with no pulmonary embolism large right-sided pleural effusion with near complete compression of the right lung there is an abnormal attenuation within the right mainstrem middle lobe and lower lobe bronchus which could be related to aspiration also there is only slight left pleural effusion as well with subsegmental area of consolidation favored to atelectasis versus pneumonitis. With pulse ox running quite a bit low at the time required 4 L of O2 to keep her pulse ox above 90 percentile and laboratory value showing sodium of 116 with normal creatinine and GFR with blood sugar of 292 white blood cell was 34,500 with platelet count 537 mildly elevated troponin 0.07 with lactic acid at 1.6 proBNP at 5090 with alk phos of 289. Patient ended up seeing Dr. Burgess and in the emergency department who is done a consultation and decided to transfer the patient to the intensive care unit and ended up performing bedside thoracentesis for total of 1.6 L of pleural fluid is aspirated with no complication fluid was not bloody followed by chest x-ray showed fairly expansion of the lung only. Patient was transferred to the ICU and admitted for severe large sided pleural effusion, possible aspiration pneumonia with sepsis, severe hyponatremia. Will consult nephrology as well for the severity of her hyponatremia. 11/23/2023: Patient is resting comfortably in the chair this morning, her sodium is up to 119 from 116 early, kidney function still good, blood sugar still slightly bit elevated required 2 units of insulin every time she is having her Accu-Chek. Chest x-ray still showing significant amount of pleural effusion around the right side which might require another thoracentesis today or tomorrow. She still seen nephrology for probably increase her sodium tablet and little bit more restriction on IV fluid. Tachycardia has improved compared to yesterday also patient is not hypoxic but still required 2 L of O2 to keep her pulse ox above 92 percentile. Legionella antibody was negative still waiting for mycoplasma and further analysis of her thoracentesis fluid. Also echocardiogram came back with no major abnormality to create any pleural effusion. 11/24/2023: With the recurrent pleural effusion pulmonary decided to accelerate this into setting up patient for pigtail catheter placement in the pleural space by radiology to be able to drain pleural fluid when needed. Apparently with patient is not improving as fast as expected earlier consideration including possibility of malignancy is quite bit high at this point chest x-ray apparently showed further opacification of the right lung compared to the one from yesterday chest CAT scan showed moderate right-sided pleural fluid collection along with compressive atelectasis of the right side and there was extensive calcification and bronchial bilaterally more on the right lower lobe bronchus and there were also filling defect in the right lower lobe that was not felt to be patent. After pigtail catheter placement patient will be going for bronchoscopy to see if he have any malignancy in the lung. Still awaiting the final analysis of the pleural fluid. Sodium has been improved up to 125 today blood sugar still mildly elevated at some point. Oxygen level has been better so far. She is remain having slight tachycardia likely multifocal atrial tachycardia along with frequent PACs will continue Cardizem and metoprolol patient does not need to be on anticoagulation. 11/25/2023: She is still having significant shortness of breath did not improve she had yesterday pigtail catheter in the pleural space connected with chest tube under waterseal continue to have significant shortness of breath and dyspnea, chest x-ray continue to show significant lobulated fluid in the pleural space. Patient be going for bronchoscopy today looking for mass or malignancy. Continue aggressive antibiotics as expected but with all the picture have specially with the pleural fluid there is concern of malignancy. Sodium carrillo her battery charger tester lab showing her sodium is up to 128 still normal kidney function white blood cell is down 16,200 and again still on current antibiotic with Rocephin, vancomycin she is off azithromycin. Pulse rate remained slightly bit fast and continue Cardizem drip at this point. 12/27/2023: Patient pigtail catheter was fluid off yesterday continue to have significant amount of right-sided pleural effusion with loculation bronchoscopy was done and had removal significant amount of respiratory secretion and sputum plug which had helped some but patient continued to be symptomatic. Original plan to use the pigtail catheter or thrombolytic by cardiothoracic but since it fell off was a bit harder. Pulmonary in the surgical chest tube and continue alteplase administration to the right side hemithoracic to evacuate the complic ated parapneumonic effusion. Apparently pulmonary has discussed with family and patient the possibility of VATS procedure at later stage. He is remain in the ICU, blood sugar slightly bit better medication were adjusted, white blood cells down recently to 25,000 today. She is remain on antibiotic to cover her pneumonia. 12/30/2023: Obviously since her chest tube insertion on Saturday she had the third dose of alteplase/dornase pleural instillation to her right-sided pleural chest tube chest tube was clamped for 1 hour and after 1 hour release and continue suction 20 cm water eventually was placed to disconnect the chest tube and allow patient to ambulate. Patient apparently was transferred back to the ICU because slight decline in respiration and hypoxia. White blood cell still quite bit elevated at 18,300 kidney function still good and blood sugar is much better. Still on antibiotics for empyema combination of Rocephin vancomycin apparently was stopped her bronchial wash showed Michelle albicans and now and by fungus on yeast was implemented yet. From cardiothoracic standpoint despite the chest tube is out at this point looking at the chest x-ray the right side looks a lot more expanding does not need to rearrange another chest tube to complete the alteplase/dornase treatment because this is quite bit success as lytic management. On the other hand patient symptom of shortness of breath is much better and improved. She was transferred back to the ICU because of worsening hypoxia and shortness of breath and losing her chest tube mostly patient is doing a lot better symptoms carrillo. 12/31/2023: She is out of ICU, her x-ray and CAT scan showing more expansion of the right lung compared to before does not need any lytic management at this point. Continue 2 L O2 maintaining her pulse ox above 97 percentile. Remain on ceftriaxone 2 g daily and vancomycin currently for her empyema which seems to control her symptoms. The choice for oral antibiotic and prepare hopefully for discharge. Patient will benefit from Ceftin orally 500 mg twice a day when she is discharged. Cardiology standpoint patient arrhythmia tachycardia is much better continue metoprolol 50 mg twice a day. No atrial fibrillation was found throughout the hospitalization with the hypoxia and distress patient went through. Increase and titrate physical therapy and prepare for making plan hopefully for discharge at this point. 01/01/2024: Shortness of breath is much better, her right lung is a lot better expanded than before, she is seen infectious disease and prepared for longer term for her empyema management and believe having to continue Rocephin as an inpatient acceptable but will switch to Ceftin upon discharge. Despite finding Michelle albicans in the sputum there is no sign of candidiasis infectious disease apparently did not see the necessity to do any treatment for it. Patient is doing very well from cardiology standpoint her pulse rate is under good control currently. Anasarca carrillo and significant edema continue to have significant edema with over 10 kg weight gain mostly fluid through the last few days she has remained on IV furosemide 40 mg every 12 hours which we will do for the next day or 2 and she is feeling little bit more comfortable switch to oral Lasix and prepare hopefully for home. Sodium was her sodium is up to 131 today from 127 early continue to improve continue fluid restriction under 1500 cc under the Lasix hopefully will create more concentration help her out. REVIEW OF SYSTEMS: CONSTITUTIONAL: Well-developed in acute respiratory distress. EYES: No icterus sclerae, no conjunctivitis. EARS, NOSE, MOUTH, THROAT, and FACE: No sore throat, lymphadenopathy, carotid bruits or deformity. RESPIRATORY: Positive shortness of breath cough or wheezes. CARDIOVASCULAR: Positive PND orthopnea palpitation. GASTROINTESTINAL: No Abd pain, Nausea or vomiting, no Diarrhea or constipation, No GI Bleed, no distention or masses. GENITOURINARY: Negative for Hematuria or UTI, no kidney stones. INTEGUMENT/BREAST: Negative for any muscular injury with mild osteoarthritis.. HEMATOLOGIC/LYMPHATIC: Negative for bleed or purpura. MUSCULOSKELTAL: Negative for Myalgia or arthralgia. NEURLOGICAL: No LOC, Sz or syncope, blurred vision dizziness or abnormality.. BEHAVIORAL/PSYCH: Negative. ENDOCRINE: Negative. PHYSICAL EXAMINATION: General Appearance: Alert, cooperative, in mild respiratory distress. Neck HEENT: Supple, no lymphadenopathy, no thyroid enlargement, no carotid b ruits. Lungs: Significantly decreased breath sound in the right side all the way to have the way up significant rhonchi and mild crackles in the bases as well with mild expiratory wheezes. Chest Wall: Decreased expansion with deep inspiration no tenderness and no deformity was found on exam, no costochondral pain or discomfort. No sign of trauma or bruise to the rib cage area. Heart: Regular rate and rhythm with mild tachycardia, S1, S2 normal, no murmur, rub or gallop. Back: Symmetric, no curvature, ROM normal, no CVA tenderness. Abdomen: Soft, non-tender, bowel sounds active all four quadrants, no masses, no organomegaly. Extremities: Extremities normal, atraumatic, no cyanosis or edema. Pulses: 2+ and symmetric. Skin: Skin color, texture, tugor normal, no rashes or lesions. Neurologic: Alert oriented x3 cranial nerves II through XII intact, no motor deficit, no abnormal balance or gait. ASSESSMENT AND PLAN: _Acute hypoxic respiratory failure: With large right-sided pleural effusion and empyema has been on IV antibiotics does not need anymore lytic lesion or any further chest tube at this point. Still on O2 2 L given her pulse ox above 92 percentile. _Severe large right-sided pleural effusion with compression of the right lung, postthoracentesis and post lytic with alteplase via chest tube at the time which patient has done much better, chest tube came out little bit early but did not require any further treatment and management based was realistically very large empyema require good management between thoracentesis and pigtail catheter along with chest tube with alteplase lytic treatment for 2 days. Does not require any further management described current antibiotic and follow-up with a chest x-ray from [place]. _Aspiration pneumonia: Continue Rocephin we will switch patient to oral Ceftin when she goes home. Which will help to treat both her pneumonia and empyema. _Severe hyponatremia: Sodium is up to 131 and hopefully with the management of the fluid restriction along with her IV furosemide will help to keep sodium under better control. _Severe acute leukocytosis: Still have leukocytosis with severity of infection remain on antibiotics. Has been much better and improved. _Type 1 diabetes: Was running slightly with hypoglycemia insulin was adjusted again and seems to go back on her blood sugar is in the low 200s. Will continue with management of 7 units of short acting insulin AC meals along with 7 to 8 units of Lantus at nighttime. _Neuropathy: Continue gabapentin doing slightly better. _Recent history of pelvic fracture has been seen orthopedic. _Hyperlipidemia: Remain on rosuvastatin 10 mg a day. _Tachycardia and multifocal PACs: Most likely secondary to her hypoxia along with emphysema and her hyponatremia. Much better currently. CODE STATUS: Full code. Discussion: Continue Lasix IV 40 mg twice a day for the next 24 hours if patient diuresed really well switch her to oral prednisone specially if holding well on her A-fib and sodium prepare hopefully for home by either or Saturday. Objective - Vital Signs Vital signs: Vital Signs Temp 98.5 F 01/01/24 04:00 Pulse 69 01/01/24 04:00 Resp 16 01/01/24 04:00 BP 178/69 01/01/24 04:00 Pulse Ox 98 01/01/24 04:00 FiO2 Intake & Output 12/31/23 12/31/23 01/01/24 06:59 18:59 06:59 Intake Total 540 Output Total 1400 Balance -860 Intake: Oral 540 Output: Urine 1400 Other: Voiding Method Bedside Commode Toilet Bedside Commode Bedside Commode # Voids 1 1 2 # Bowel Movements 1 1 - Labs CBC & Chem 7: 01/03/24 08:55 01/03/24 08:55 Labs: Abnormal Lab Results - Last 24 Hours (Table) 12/31/23 12/31/23 12/31/23 Range/Units 06:23 09:59 11:20 Sodium 127 L (137-145) mmol/L Potassium 5.2 H (3.5-5.1) mmol/L BUN 23 H (7-17) mg/dL Glucose 253 H (74-99) mg/dL POC Glucose (mg/dL) 111 H 288 H (70-110) mg/dL Calcium 6.8 L (8.4-10.2) mg/dL 12/31/23 12/31/23 Range/Units 16:23 20:01 Sodium (137-145) mmol/L Potassium (3.5-5.1) mmol/L BUN (7-17) mg/dL Glucose (74-99) mg/dL POC Glucose (mg/dL) 306 H 220 H (70-110) mg/dL Calcium (8.4-10.2) mg/dL Microbiology - Last 24 Hours (Table) 12/27/23 11:30 Gram Stain - Final Pleural Fluid Body Fluid Culture - Final
[2024-01-02 06:35] LABS: Glucose,Whole Blood 103 mg/dL (70-110)
[2024-01-02 08:04] LABS: HGB 11.3 gm/dL (11.4-16.0); Hypochromasia Moderate; MCH 28.5 pg (25.0-35.0); MCHC 30.6 g/dL (31.0-37.0); MCV 93.1 fL (80.0-100.0); Mean Platelet Volume 9.4; Platelet Count 293 k/uL (150-450); RBC 3.98 m/uL (3.80-5.40); RDW 14.6 % (11.5-15.5)
[2024-01-02 08:22] LABS: ALT 57 U/L (4-34); AST 69 U/L (14-36); African American GFR (CKD) 79 (>60 ml/min/1.73 sqM); Albumin 2.1 g/dL (3.5-5.0); Alkaline Phosphatase 158 U/L (38-126); Anion Gap 4 mmol/L; Blood Urea Nitrogen 26 mg/dL (7-17); Calcium 7.2 mg/dL (8.4-10.2); Carbon Dioxide 27 mmol/L (22-30); Chloride 99 mmol/L (98-107); Glucose 138 mg/dL (74-99); Magnesium 1.9 mg/dL (1.6-2.3); Non-African American GFR(CKD) 68 (>60 ml/min/1.73 sqM); Potassium 4.7 mmol/L (3.5-5.1); Sodium 130 mmol/L (137-145); Total Bilirubin 0.4 mg/dL (0.2-1.3); Total Protein 4.7 g/dL (6.3-8.2)
--- NOTE | 2024-01-02 09:32 | XR ---
EXAMINATION TYPE: XR chest 2V DATE OF EXAM: 01/02/2024 COMPARISON: 01/01/2024 HISTORY: Shortness of breath TECHNIQUE: Frontal and lateral views of the chest are obtained. FINDINGS: Scattered senescent parenchymal changes noted. Hyperinflation compatible with COPD. Right basilar increased density is unchanged and may reflect pleural effusion, infiltrate and/or atel ectasis. Heart size is stable. Mediastinal structures are stable and grossly unremarkable. No evidence for hilar prominence. Degenerative changes dorsal spine. IMPRESSION: 1. Right basilar increased density is unchanged and may reflect pleural effusion, infiltrate and/or a telectasis.
[2024-01-02 10:06] LABS: Glucose,Whole Blood 284 mg/dL (70-110)
--- NOTE | 2024-01-02 10:59 | P.PN ---
Subjective Patient is seen in follow-up for hyponatremia. Sodium level 130 today. Denies chest pain or shortness of breath. No active complaints. Vital signs are stable. General: No acute distress. HEENT: Head exam is unremarkable. LUNGS: No audible rhonchi or wheezes. HEART: Rate and Rhythm are regular. ABDOMEN: Nontender. EXTREMITITES: 2+ edema. Objective - Vital Signs Vital signs: Vital Signs Temp 98.2 F 01/02/24 09:00 Pulse 85 01/02/24 09:00 Resp 16 01/02/24 09:00 BP 116/50 01/02/24 09:00 Pulse Ox 95 01/02/24 09:00 FiO2 Intake & Output 01/01/24 01/02/24 01/02/24 18:59 06:59 18:59 Intake Total 530 600 Output Total 600 Balance -70 600 Weight 57.6 kg Intake: IV 50 cefTRIAXone 2 gm In 50 Sodium Chloride 0.9% 50 ml @ 100 mls/hr IVPB Q24HR [facility] Rx#:[id number] Oral 480 600 Output: Urine 600 Other: Voiding Method Toilet Bedside Commode Bedside Commode # Voids 1 # Bowel Movements 1 - Labs CBC & Chem 7: 01/02/24 07:42 01/02/24 07:42 Labs: Abnormal Lab Results - Last 24 Hours (Table) 01/01/24 01/01/24 01/01/24 Range/Units 11:35 16:41 20:18 Hgb (11.4-16.0) gm/dL MCHC (31.0-37.0) g/dL Sodium (137-145) mmol/L BUN (7-17) mg/dL Glucose (74-99) mg/dL POC Glucose (mg/dL) 265 H 273 H 266 H (70-110) mg/dL Calcium (8.4-10.2) mg/dL AST (14-36) U/L ALT (4-34) U/L Alkaline Phosphatase (38-126) U/L Total Protein (6.3-8.2) g/dL Albumin (3.5-5.0) g/dL 01/02/24 01/02/24 01/02/24 Range/Units 07:42 07:42 10:04 Hgb 11.3 L (11.4-16.0) gm/dL MCHC 30.6 L (31.0-37.0) g/dL Sodium 130 L (137-145) mmol/L BUN 26 H (7-17) mg/dL Glucose 138 H (74-99) mg/dL POC Glucose (mg/dL) 284 H (70-110) mg/dL Calcium 7.2 L (8.4-10.2) mg/dL AST 69 H (14-36) U/L ALT 57 H (4-34) U/L Alkaline Phosphatase 158 H (38-126) U/L Total Protein 4.7 L (6.3-8.2) g/dL Albumin 2.1 L (3.5-5.0) g/dL Assessment and Plan Plan: Assessment: 1. Hyponatremia, hypervolemic. Urine sodium less than 20 and urine osmolality 493. Sodium level 130 today. TSH normal. 2. Volume overload with pleural effusions. Status post right-sided thoracentesis with 1.6 L drained. Pulled out chest tube by accident this admission. 3. Diabetes mellitus. Plan: Encouraged oral intake. Maintain fluid restriction. Maintain IV Lasix. Samsca 15 mg once today. Repeat labs in the morning.
[2024-01-02 11:31] LABS: Glucose,Whole Blood 310 mg/dL (70-110)
[2024-01-02] MEDS: TOLVAPTAN 15 MG TABLET PO ONE (11:33)
--- NOTE | 2024-01-02 13:37 | P.PN ---
Subjective Progress Note Date: 01/02/24 Principal diagnosis: Reason for follow-up is pneumonia Patient is a 83-year-old female from with a past medical history significant for diabetes mellitus hypertension hyperlipidemia pneumonia patient has been brought into the hospital for evaluation of increasing shortness of breath and cough patient has been diagnosed with pneumonia and is status post thoracocentesis and bronchoscopy culture has been negative for any resistant pathogen BAL did grow Michelle albicans. On today's evaluation that is 01/02/2024, Patient is afebrile this morning and denies any chills, patient mention breathing comfortably and is currently on room air and currently satting 95%, patient denies any chest pain occasional cough but no sputum production patient denies any abdominal pain no diarrhea no nausea no vomiting, feeling better. Patient white count is 8.0, creatinine 0.80 Objective - Vital Signs Vital signs: Vital Signs Temp 97.8 F 01/02/24 11:44 Pulse 77 01/02/24 11:44 Resp 16 01/02/24 11:44 BP 148/75 01/02/24 11:44 Pulse Ox 95 01/02/24 11:44 FiO2 Intake & Output 01/01/24 01/02/24 01/02/24 18:59 06:59 18:59 Intake Total 530 600 Output Total 600 Balance -70 600 Weight 57.6 kg Intake: IV 50 cefTRIAXone 2 gm In 50 Sodium Chloride 0.9% 50 ml @ 100 mls/hr IVPB Q24HR [facility] Rx#:[id number] Oral 480 600 Output: Urine 600 Other: Voiding Method Toilet Bedside Commode Bedside Commode # Voids 1 # Bowel Movements 1 - Exam GENERAL DESCRIPTION: Elderly female up in the chair in no distress RESPIRATORY SYSTEM: Unlabored breathing , decreased breath sounds at bases HEART: S1 S2 regular rate and rhythm , ABDOMEN: Soft , no tenderness EXTREMITIES: No edema feet - Labs CBC & Chem 7: 01/02/24 07:42 01/02/24 07:42 Labs: Abnormal Lab Results - Last 24 Hours (Table) 01/01/24 01/01/24 01/02/24 Range/Units 16:41 20:18 07:42 Hgb 11.3 L (11.4-16.0) gm/dL MCHC 30.6 L (31.0-37.0) g/dL Sodium (137-145) mmol/L BUN (7-17) mg/dL Glucose (74-99) mg/dL POC Glucose (mg/dL) 273 H 266 H (70-110) mg/dL Calcium (8.4-10.2) mg/dL AST (14-36) U/L ALT (4-34) U/L Alkaline Phosphatase (38-126) U/L Total Protein (6.3-8.2) g/dL Albumin (3.5-5.0) g/dL 01/02/24 01/02/24 01/02/24 Range/Units 07:42 10:04 11:29 Hgb (11.4-16.0) gm/dL MCHC (31.0-37.0) g/dL Sodium 130 L (137-145) mmol/L BUN 26 H (7-17) mg/dL Glucose 138 H (74-99) mg/dL POC Glucose (mg/dL) 284 H 310 H (70-110) mg/dL Calcium 7.2 L (8.4-10.2) mg/dL AST 69 H (14-36) U/L ALT 57 H (4-34) U/L Alkaline Phosphatase 158 H (38-126) U/L Total Protein 4.7 L (6.3-8.2) g/dL Albumin 2.1 L (3.5-5.0) g/dL Assessment and Plan (1) Pneumonia Current Visit: Yes Status: Acute Code(s): J18.9 - PNEUMONIA, UNSPECIFIED ORGANISM SNOMED Code(s): 602143486 (2) Leukocytosis Current Visit: Yes Status: Acute Code(s): D72.829 - ELEVATED WHITE BLOOD CELL COUNT, UNSPECIFIED SNOMED Code(s): 723848023 Plan: 1patient presented to hospital more than a week ago for evaluation of increasing shortness of breath and this patient has been diagnosed with right- sided pneumonia and effusion status post thoracocentesis and bronchoscopy both cultures have been negative for any resistant pathogen sputum did grow Michelle albicans, patient did have an improvement in the white count and symptomatology 2-patient has shown clinical, the patient white count has normalized continue with Rocephin while inpatient and a week of oral Ceftin on discharge Dictation was produced using [employer] dictation software. please excuse any grammatical, word or spelling errors. Time with Patient: Less than 30
--- NOTE | 2024-01-02 14:13 | P.PN ---
Subjective Progress Note Date: 01/02/24 Principal diagnosis: Complicated right-sided pleural effusion possible empyema This is a 83-year-old female patient who came to the emergency department with increased shortness of breath. Her breathing was progressively getting worse over the past 1 week. She had increased cough congestion chest tightness and wheezing and she was having chills at home. She was given outpatient antibiotic therapy with Zithromax and her condition decompensated and she ended up coming into the hospital. The patient has been having some chest discomfort along the right chest. She had a fall approximately few weeks back and she also sustained a pelvic fracture. She is a lifetime non-smoker. She came to the emergency department and the patient had a white cell count of 34 with a hemoglobin 14.8. Her sodium level was 116 with a potassium level of 5.9 and a serum bicarb was at 21. BUN was 18 with a creatinine of 0.4. Troponin was 0.07. proBNP level was 5000. The viral screen was negative. Initial lactic acid level was at 2.1 and dropped down to 1.6. Coagulation profile was normal with a D-dimer of 2.6. Initial chest x-ray showed a large right-sided pleural effusion. CAT scan of the chest was also done in the Emergency Department that showed no evidence of any central pulmonary embolism. There was a large right-sided pleural effusion with near complete opacification and compression of the right lung. There was also abnormal attenuation within the right mainstem right middle lobe and right lower lobe bronchus and aspiration was suspected. I saw the patient in the emergency department. She was quite short of breath and she was on oxygen at 5 L/min nasal cannula. Her pulse ox was as in the low 90s. I performed a bedside thoracentesis a total of 1.6 L of pleural fluid is aspirated. No complications. The post thoracentesis chest x-ray showed interval marked reduction in the right-sided pleural effusion without evidence of any pneumothorax. The patient was started on broad-spectrum antibiotics and she is currently on a combination of Rocephin and Zithromax and vancomycin. She is diabetic. She takes insulin on outpatient basis. She also has history of hypertension and hyperlipidemia. Currently she is also on IV fluids and the patient is on normal saline which is running at a rate of 75 cc an hour. No altered mentation. No seizure activity. On 12/24/2023, the patient is feeling better. The patient is less short of breath and currently she is on 2 L of oxygen by nasal cannula. Her breathing is more comfortable. Thoracentesis was done yesterday and the pleural fluid analysis still pending. Cultures are still pending. Legionella urine antigen is negative. Echocardiogram showed a preserved LV function, no significant valvular abnormalities. The white cell count is currently down to 26 with a hemoglobin 13.1 and a platelet count of 491. Sodium is 119 improved compared to yesterday and the urine sodium is essentially low less than 20, not typical of SIADH. Serum bicarb is 18 with a BUN of 16 and a creatinine of 0.4. She remains on Rocephin and Zithromax and vancomycin. Metoprolol was restarted. He is also on Zestril 40 mg p.o. daily for blood pressure control. She is on NovoLog 5 units 3 times daily with meals plus a sliding scale coverage. She remains on bronchodilators. On today's evaluation on 12/25/2023, the patient is being seen for a follow- up.The patient has no specific complaints. She seems to be less short of breath. She is on 4 L of oxygen by nasal cannula with a pulse ox of 96%. She remains on a combination of Rocephin and Zithromax and vancomycin. The white cell count is improving is currently down to 18.3 with a hemoglobin of 10.5 and a platelet count of 465. Sodium levels of 125. BUN is 12 with a creatinine of 0.4 and the patient is currently nondistended. Exercises an hour. On a separate note, chest x-ray that was done today showed further opacification of the right lung compared to yesterday chest x-ray. Based on that, a CAT scan of the chest was done and it showed a moderate to large right-sided pleural fluid collection along with compressive atelectasis of the right lung. There was also extensive calcification of the bronchi bilaterally more so on the right lower lo be bronchus and there was also a filling defect in the right lower lobe bronchus that was not felt to be patent. There is an abrupt cut off sign in the bronchus intermedius/right lower lobe area. Based on those findings, I recommended a pigtail catheter insertion and this will be done by interventional radiology today to be followed up by bronchoscopy in a.m. The pleural fluid is aspirated earlier was an accident with elevated LDH of 610 and a protein of 3.2 g. Glucose was at 136. Cell count was 1000. The fluid cytology still pending for now. The Gram stain culture is also negative. 12/26/2023, the patient is being seen for a follow-up. The patient is on 4 L of oxygen nasal cannula. The pigtail catheter was inserted yesterday and a total of 4 L of pleural fluid was further aspirated. Blood from the PICC line has been noted. Nevertheless, the chest x-ray still showing volume loss and persistent right lung consolidation. As mentioned earlier, there is an abrupt cut off sign in the right mainstem bronchus/bronchus intermedius and the patient is going to undergo a bronchoscopy today. White cell count is 16, hemoglobin 11 and platelet count is at 464, sodium levels at 128, BUN is at 10 with a creatinine of 0.3. Remains on the same antibiotic coverage to include Rocephin and Zithromax and vancomycin. Cultures are still negative. Sputum culture still pending. Clinically doing well. No significant tachycardia. Hemodynamically stable. Currently n.p.o. awaiting bronchoscopy. She went 12/27/2023, for the patient for a follow-up. Events from yesterday were noted and the patient's pigtail catheter has been removed. This came out accidentally. Repeat CAT scan of the chest was done this morning and it showed essentially enlarged right-sided pleural effusion with loculation. The patient also had atelectatic changes in the right lung. There is again a cut off sign in the right lower lobe bronchus. Noted I performed a bronchoscopy the patient and the patient had copious amount of respiratory secretions and mucous plugs that were aspirated without any major difficulties. Cultures were sent and the results are still pending for now. She remains on oxygen at 4 L nasal cannula with pulse ox of 97%. The patient has a white cell count of 25, hemoglobin is at 14.4 and a platelet count of 650. Sodium levels of 128, BUN 11 with a creatinine of 0.39. The pleural fluid cultures are still negative. She remains on bronchodilators with DuoNeb updrafts. She continues to have a congested cough, producing limited amount of sputum. Awake and alert and communicating. She does have chronic lower extremity edema. Cardiac rhythm remained sinus. 12/28/2023, the patient has produced approximately 1.7 L of purulent material from the right lung post chest tube insertion. Output has dropped and the patient is going to receive a dose of alteplase through the chest tube. She is currently on room air oxygen. The chest x-ray from today shows residual cons olidation of the right lung base. No evidence of any pneumothorax and the chest tube is in good location. The white cell count is at 93 with a hemoglobin 11.3 platelet count of 450. The BUN is 22 with a creatinine of 0.74. All of the cultures have been negative thus far. The patient is currently on IV Rocephin. Cardiac rhythm is sinus. IV fluids are currently at KVO. No other significant events overnight. She is sitting up on a chair and she is calm and comfortable. 12/29/2023, right-sided chest tube is in place. Alteplase was administered yesterday and a total of 500 cc of output was obtained. Chest x-ray findings show some residual consolidation and atelectasis in the right lower lobe. Clinically doing well. She is on room air oxygen. No fever or chills. White cell count remains elevated at 18.3 with a hemoglobin 12.1, sodium level is up to 127, BUN is 23 and creatinine is 0.8. Hemodynamically stable. Cultures are all negative. The patient remains on IV Rocephin. Aggressive pulmonary toileting is being performed. Neurologically intact. Patient was seen today on 12/30/2023, patient is in the ICU, on room air, on Rocephin, not in any distress. Her chest tube was dislodged yesterday, and the patient is doing well. Cultures have been negative on the pleural effusion, bronchoscopy was nondiagnostic except for Michelle in the BAL, hair overall clinical status is improving continues to have small loculated effusion in the right pleural space, CT of the chest is pending, and thoracic surgery is following. Looking back at this patient she had right-sided thoracentesis on 12/22 pigtail catheter placed on 12/24 bronchoscopy on 12/25 right-sided chest tube placed on 12/26. And it got dislodged on 12/28 requiring transfer to ICU but did not require any intervention. Patient is comfortable, not in distress, her labs today were all reviewed CBC is relatively normal basic metabolic profile is normal renal profile is normal. Cultures from the pleural effusion have been all negative Patient was evaluated today on 12/31/2023, patient is now on the cardiac floor, doing well, relatively asymptomatic, hardly any pulmonary symptoms, patient feels great. On 2 L nasal cannula, O2 saturation 97%, remains on antibiotics for empyema, infectious disease consultation is pending. Her last CT of the chest was reviewed. Surgery is not planning any surgical intervention for her residual loculated fluid, clinically the patient is doing better. Patient was evaluated today on 01/01/2024, patient remains on antibiotics for her presumptive empyema, apparently surgery is not planning any surgical intervention, patient should be considered for discharge planning on oral antibiotics as recommended by infectious disease on the case. Patient is on room air, O2 saturation 100%, relatively normal labs noted today including normal basic metabolic profile, blood sugar is a bit elevated at 265 Patient was evaluated today on 01/02/2024, patient is doing well, no pulmonary symptoms no cough no wheezing no shortness of breath no chest pain no fever no chills, On room air, O2 saturation 95%. Patient is being considered for possible discharge in the next 24 hours. Updated her daughter on her condition yesterday, and I am actually clear the patient for discharge if cleared by other consultants on the case. Objective - Vital Signs Vital signs: Vital Signs Temp 97.8 F 01/02/24 11:44 Pulse 77 01/02/24 11:44 Resp 16 01/02/24 11:44 BP 148/75 01/02/24 11:44 Pulse Ox 95 01/02/24 11:44 FiO2 Intake & Output 01/01/24 01/02/24 01/02/24 18:59 06:59 18:59 Intake Total 530 600 Output Total 600 Balance -70 600 Weight 57.6 kg Intake: IV 50 cefTRIAXone 2 gm In 50 Sodium Chloride 0.9% 50 ml @ 100 mls/hr IVPB Q24HR [facility] Rx#:[id number] Oral 480 600 Output: Urine 600 Other: Voiding Method Toilet Bedside Commode Bedside Commode # Voids 1 # Bowel Movements 1 - Exam CONSTITUTIONAL: 83-year-old female in no distress, on room air. RESPIRATORY: Slightly diminished breath sounds at the right base otherwise no crackles rhonchi or wheezes CARDIOVASCULAR: Distant S1-S2, no S3 gallop. No murmur GASTROINTESTINAL: Soft nontender no megaly no rebound no guarding. INTEGUMENTARY: No rashes. NEUROLOGIC: Alert oriented x 3 no focal deficit MUSKULOSKELETAL: No deformities no limitation range of motion PSYCHIATRIC: Normal mood, normal affect and normal mental status examination - Labs CBC & Chem 7: 01/02/24 07:42 01/02/24 07:42 Labs: Abnormal Lab Results - Last 24 Hours (Table) 01/01/24 01/01/24 01/02/24 Range/Units 16:41 20:18 07:42 Hgb 11.3 L (11.4-16.0) gm/dL MCHC 30.6 L (31.0-37.0) g/dL Sodium (137-145) mmol/L BUN (7-17) mg/dL Glucose (74-99) mg/dL POC Glucose (mg/dL) 273 H 266 H (70-110) mg/dL Calcium (8.4-10.2) mg/dL AST (14-36) U/L ALT (4-34) U/L Alkaline Phosphatase (38-126) U/L Total Protein (6.3-8.2) g/dL Albumin (3.5-5.0) g/dL 01/02/24 01/02/24 01/02/24 Range/Units 07:42 10:04 11:29 Hgb (11.4-16.0) gm/dL MCHC (31.0-37.0) g/dL Sodium 130 L (137-145) mmol/L BUN 26 H (7-17) mg/dL Glucose 138 H (74-99) mg/dL POC Glucose (mg/dL) 284 H 310 H (70-110) mg/dL Calcium 7.2 L (8.4-10.2) mg/dL AST 69 H (14-36) U/L ALT 57 H (4-34) U/L Alkaline Phosphatase 158 H (38-126) U/L Total Protein 4.7 L (6.3-8.2) g/dL Albumin 2.1 L (3.5-5.0) g/dL Assessment and Plan Assessment: Impression: Complicated right-sided pleural effusion, parapneumonic, exudative in nature, possible empyema, cultures from the fluid have been negative Acute hypoxic respiratory failure, resolved Acute leukocytosis History of hypertension Dyslipidemia Insulin-dependent diabetes mellitus type 2 Recent fall from standing sustaining a pelvic fracture Daily EtOH use Ex-smoker Recommendation: Oral antibiotics as per the recommendation of ID upon discharge may have to continue antibiotics for 2 more weeks. Will clear the patient for discharge if cleared by other consultants Patient to follow-up on outpatient basis with Dr. Burgess Significant improvement noted since admission Will continue to follow, while inpatient Time with Patient: Less than 30
[2024-01-02 15:04] VITALS: BMI 21.1
--- NOTE | 2024-01-02 16:05 | P.PN ---
Subjective Progress Note Date: 01/02/24 PROGRESS NOTE The patient is an 83-year-old female with a history of hyperlipidemia, diabetes who presented with progressive dyspnea was found to have pneumonia and large right-sided pleural effusion. She has chest tube that was pulled out yesterday and was transferred yesterday to the ICU. She is feeling well this morning. She denies any chest discomfort and her breathing is stable. She denies any dizziness or palpitations. She denies any nausea or vomiting. Her appetite is good. She is in sinus mechanism. Her echocardiogram showed a preserved systolic function with no significant valvular disease. He underwent bronchoscopy. 12/30 Patient has been transferred out of the intensive care unit is seen today on the cardiac stepdown unit. She states her breathing is better. She continues to have a cough with sputum production. She continues to have lower extremity edema. She denies any wheezing. Blood pressure 155/70, heart rate 91, pulse ox 96% on room air. Repeat blood work reveals sodium 127, potassium 5.2, BUN 23 creatinine 0.85. Repeat chest x-ray reveals stable exam. Small moderate right pleural effusion. No appreciable pneumothorax. 12/31 Patient has been switched to IV Lasix 40 mg every 12 hours per nephrology. Chest x-ray reviewed and shows some improvement. She had a midline placed this morning. Blood pressure 150/77, heart rate 80, pulse ox 100% on room air. She continues to have some lower extremity edema although slightly improved. She states she has been urinating a lot with the new dose of Lasix. She slept okay last night. She denies having any cough. Breathing is improved. She states her appetite is fine. Repeat blood work reveals sodium 131, potassium 4.5, BUN 25 creatinine 0.81. 01/01 Patient states that her lower extremity edema is quite improved today. Breathing is better. Repeat chest x-ray reveals improvement as well with right basilar increased density is unchanged and may reflect pleural effusion, infiltrate and/or atelectasis. Blood pressure 116/50, heart rate 85, pulse ox 95% on room air. Repeat blood work reveals WBC 8, hemoglobin 11.3. BUN 26 creatinine 0.8. Patient states that she anticipate discharge home tomorrow. Medications: Aspirin 81 mg daily, Lipitor 20 mg daily, Rocephin, Lasix 40 mg IV every 12 zane rs, lisinopril 20 mg daily, insulin, metoprolol tartrate 50 mg twice a day, Protonix, tramadol on a as needed basis PHYSICAL EXAMINATION: LUNGS: Crackles on the right base HEART: Regular rate and rhythm, S1, S2. No S3. Systolic ejection murmur ABDOMEN: Soft, nontender, no organomegaly EXTREMETIES: +1 edema IMPRESSION: 1. Status post pneumonia and parapneumonic effusion 2. Post chest tube placement, removed accidentally 3. History of hypertension 4. History of hyperlipidemia PLAN: 1. Continue IV Lasix 40 mg every 12 hours per nephrology 2. Continue incentive spirometry 3. Follow chest x-ray 4. Depending on her progress further recommendations will be made Nurse practitioner note has been reviewed, I agree with documented findings and plan of care. Patient was seen and examined. Objective - Vital Signs Vital signs: Vital Signs Temp 97.8 F 01/02/24 11:44 Pulse 77 01/02/24 11:44 Resp 16 01/02/24 11:44 BP 148/75 01/02/24 11:44 Pulse Ox 95 01/02/24 11:44 FiO2 Intake & Output 01/01/24 01/02/24 01/02/24 18:59 06:59 18:59 Intake Total 530 600 Output Total 600 Balance -70 600 Weight 57.6 kg Intake: IV 50 cefTRIAXone 2 gm In 50 Sodium Chloride 0.9% 50 ml @ 100 mls/hr IVPB Q24HR [facility] Rx#:[id number] Oral 480 600 Output: Urine 600 Other: Voiding Method Toilet Bedside Commode Bedside Commode # Voids 1 # Bowel Movements 1 - Labs CBC & Chem 7: 01/02/24 07:42 01/02/24 07:42 Labs: Abnormal Lab Results - Last 24 Hours (Table) 01/01/24 01/01/24 01/02/24 Range/Units 16:41 20:18 07:42 Hgb 11.3 L (11.4-16.0) gm/dL MCHC 30.6 L (31.0-37.0) g/dL Sodium (137-145) mmol/L BUN (7-17) mg/dL Glucose (74-99) mg/dL POC Glucose (mg/dL) 273 H 266 H (70-110) mg/dL Calcium (8.4-10.2) mg/dL AST (14-36) U/L ALT (4-34) U/L Alkaline Phosphatase (38-126) U/L Total Protein (6.3-8.2) g/dL Albumin (3.5-5.0) g/dL 01/02/24 01/02/24 01/02/24 Range/Units 07:42 10:04 11:29 Hgb (11.4-16.0) gm/dL MCHC (31.0-37.0) g/dL Sodium 130 L (137-145) mmol/L BUN 26 H (7-17) mg/dL Glucose 138 H (74-99) mg/dL POC Glucose (mg/dL) 284 H 310 H (70-110) mg/dL Calcium 7.2 L (8.4-10.2) mg/dL AST 69 H (14-36) U/L ALT 57 H (4-34) U/L Alkaline Phosphatase 158 H (38-126) U/L Total Protein 4.7 L (6.3-8.2) g/dL Albumin 2.1 L (3.5-5.0) g/dL
[2024-01-02 16:56] LABS: Glucose,Whole Blood 192 mg/dL (70-110)
[2024-01-02 20:29] LABS: Glucose,Whole Blood 133 mg/dL (70-110)
[2024-01-02] MEDS: traZODone HCL 50 MG TAB PO SCH (20:40)
--- NOTE | 2024-01-02 22:41 | P.PN ---
Subjective Progress Note Date: 01/02/24 HISTORY OF PRESENT ILLNESS: 83-year-old office patient for many years with active medical history of insulin-dependent type 1 diabetes, hypertension, hyperlipidemia, neuropathy, history of spinal stenosis, who has mild bradycardia otherwise healthy doing well has not been in the hospital long time she had a fall 2 weeks ago to the right side and developed pelvic and did not require to be hospitalized but ended up seen Dr. Wisdom as an outpatient. Also patient had open communicated distal radius fracture back in 2022 secondary to minor fall ended up having open reduction with internal fixation and irrigation debridement of the right wrist fracture. Patient seen cardiology in the last few years in 2021 was admitted to the hospital because of an episode of palpitation with pulse rate of 160 bpm found to have paroxysmal SVT and elevated troponin with no cardiac injury or any other cardiac history has been on beta-yahir been well-controlled since. I received a phone call from the yesterday with complain that his has been in extreme shortness of breath and been symptomatic and for the previous 5 days she had a virtual visit in the office for severe bronchitis was prescribed antibiotics and some expectorant which patient had felt slightly bit better but become much worse over the last 2 days to a degree becoming extreme dyspnea with minimal exertion. Was instructed to bring her to the emergency department to be seen and evaluated. Patient apparently decided not to come to the emergency department till early this morning on 12/23/2023 where was seen and evaluated was severely hypoxic at the time her chest x-ray showed very large right-sided pleural effusion almost occupying 90% out of the right lung. D-dimer was elevated and patient ended up for CTA finding with no pulmonary embolism large right-sided pleural effusion with near complete compression of the right lung there is an abnormal attenuation within the right mainstrem middle lobe and lower lobe bronchus which could be related to aspiration also there is only slight left pleural effusion as well with subsegmental area of consolidation favored to atelectasis versus pneumonitis. With pulse ox running quite a bit low at the time required 4 L of O2 to keep her pulse ox above 90 percentile and laboratory value showing sodium of 116 with normal creatinine and GFR with blood sugar of 292 white blood cell was 34,500 with platelet count 537 mildly elevated troponin 0.07 with lactic acid at 1.6 proBNP at 5090 with alk phos of 289. Patient ended up seeing Dr. Helms and in the emergency department who is done a consultation and decided to transfer the patient to the intensive care unit and ended up performing bedside thoracentesis for total of 1.6 L of pleural fluid is aspirated with no complication fluid was not bloody followed by chest x-ray showed fairly expansion of the lung only. Patient was transferred to the ICU and admitted for severe large sided pleural effusion, possible aspiration pneumonia with sepsis, severe hyponatremia. Will consult nephrology as well for the severity of her hyponatremia. 11/23/2023: Patient is resting comfortably in the chair this morning, her sodium is up to 119 from 116 early, kidney function still good, blood sugar still slightly bit elevated required 2 units of insulin every time she is having her Accu-Chek. Chest x-ray still showing significant amount of pleural effusion around the right side which might require another thoracentesis today or tomorrow. She still seen nephrology for probably increase her sodium tablet and little bit more restriction on IV fluid. Tachycardia has improved compared to yesterday also patient is not hypoxic but still required 2 L of O2 to keep her pulse ox above 92 percentile. Legionella antibody was negative still waiting for mycoplasma and further analysis of her thoracentesis fluid. Also echocardiogram came back with no major abnormality to create any pleural effusion. 11/24/2023: With the recurrent pleural effusion pulmonary decided to accelerate this into setting up patient for pigtail catheter placement in the pleural space by radiology to be able to drain pleural fluid when needed. Apparently with patient is not improving as fast as expected earlier consideration including possibility of malignancy is quite bit high at this point chest x-ray apparently showed further opacification of the right lung compared to the one from yesterday chest CAT scan showed moderate right-sided pleural fluid collection along with compressive atelectasis of the right side and there was extensive calcification and bronchial bilaterally more on the right lower lobe bronchus and there were also filling defect in the right lower lobe that was not felt to be patent. After pigtail catheter placement patient will be going for bronchoscopy to see if he have any malignancy in the lung. Still awaiting the final analysis of the pleural fluid. Sodium has been improved up to 125 today blood sugar still mildly elevated at some point. Oxygen level has been better so far. She is remain having slight tachycardia likely multifocal atrial tachycardia along with frequent PACs will continue Cardizem and metoprolol patient does not need to be on anticoagulation. 11/25/2023: She is still having significant shortness of breath did not improve she had yesterday pigtail catheter in the pleural space connected with chest tube under waterseal continue to have significant shortness of breath and dyspnea, chest x-ray continue to show significant lobulated fluid in the pleural space. Patient be going for bronchoscopy today looking for mass or malignancy. Continue aggressive antibiotics as expected but with all the picture have specially with the pleural fluid there is concern of malignancy. Sodium carrillo her non acoustic operator lab showing her sodium is up to 128 still normal kidney function white blood cell is down 16,200 and again still on current antibiotic with Rocephin, vancomycin she is off azithromycin. Pulse rate remained slightly bit fast and continue Cardizem drip at this point. 12/27/2023: Patient pigtail catheter was fluid off yesterday continue to have significant amount of right-sided pleural effusion with loculation bronchoscopy was done and had removal significant amount of respiratory secretion and sputum plug which had helped some but patient continued to be symptomatic. Original plan to use the pigtail catheter or thrombolytic by cardiothoracic but since it fell off was a bit harder. Pulmonary in the surgical chest tube and continue alteplase administration to the right side hemithoracic to evacuate the complic ated parapneumonic effusion. Apparently pulmonary has discussed with family and patient the possibility of VATS procedure at later stage. He is remain in the ICU, blood sugar slightly bit better medication were adjusted, white blood cells down recently to 25,000 today. She is remain on antibiotic to cover her pneumonia. 12/30/2023: Obviously since her chest tube insertion on Saturday she had the third dose of alteplase/dornase pleural instillation to her right-sided pleural chest tube chest tube was clamped for 1 hour and after 1 hour release and continue suction 20 cm water eventually was placed to disconnect the chest tube and allow patient to ambulate. Patient apparently was transferred back to the ICU because slight decline in respiration and hypoxia. White blood cell still quite bit elevated at 18,300 kidney function still good and blood sugar is much better. Still on antibiotics for empyema combination of Rocephin vancomycin apparently was stopped her bronchial wash showed Michelle albicans and now and by fungus on yeast was implemented yet. From cardiothoracic standpoint despite the chest tube is out at this point looking at the chest x-ray the right side looks a lot more expanding does not need to rearrange another chest tube to complete the alteplase/dornase treatment because this is quite bit success as lytic management. On the other hand patient symptom of shortness of breath is much better and improved. She was transferred back to the ICU because of worsening hypoxia and shortness of breath and losing her chest tube mostly patient is doing a lot better symptoms carrillo. 12/31/2023: She is out of ICU, her x-ray and CAT scan showing more expansion of the right lung compared to before does not need any lytic management at this point. Continue 2 L O2 maintaining her pulse ox above 97 percentile. Remain on ceftriaxone 2 g daily and vancomycin currently for her empyema which seems to control her symptoms. The choice for oral antibiotic and prepare hopefully for discharge. Patient will benefit from Ceftin orally 500 mg twice a day when she is discharged. Cardiology standpoint patient arrhythmia tachycardia is much better continue metoprolol 50 mg twice a day. No atrial fibrillation was found throughout the hospitalization with the hypoxia and distress patient went through. Increase and titrate physical therapy and prepare for making plan hopefully for discharge at this point. 01/01/2024: Shortness of breath is much better, her right lung is a lot better expanded than before, she is seen infectious disease and prepared for longer term for her empyema management and believe having to continue Rocephin as an inpatient acceptable but will switch to Ceftin upon discharge. Despite finding Michelle albicans in the sputum there is no sign of candidiasis infectious disease apparently did not see the necessity to do any treatment for it. Patient is doing very well from cardiology standpoint her pulse rate is under good control currently. Anasarca carrillo and significant edema continue to have significant edema with over 10 kg weight gain mostly fluid through the last few days she has remained on IV furosemide 40 mg every 12 hours which we will do for the next day or 2 and she is feeling little bit more comfortable switch to oral Lasix and prepare hopefully for home. Sodium was her sodium is up to 131 today from 127 early continue to improve continue fluid restriction under 1500 cc under the Lasix hopefully will create more concentration help her out. 01/01/2022: She is feeling much better today sitting in the chair eating her breakfast in the morning she still have significant anasarca and fluid retention, positive for sodium still running good at 130 but liver function tests are slightly above normal. She had significant fluid overload continue to maintain IV Lasix 40 mg twice a day for at least another 24 hours for switch to oral by tomorrow. Nephrology using 1 dose of Samsca 15 mg today. Cardiology carrillo with her arrhythmia is a lot more stable remains on metoprolol 50 mg twice a day. As a mention for fluid overload still on Lasix 40 mg IV twice a day she is making good urine output weight, her hand has not dropped much lately. REVIEW OF SYSTEMS: CONSTITUTIONAL: Well-developed in acute respiratory distress. EYES: No icterus sclerae, no conjunctivitis. EARS, NOSE, MOUTH, THROAT, and FACE: No sore throat, lymphadenopathy, carotid bruits or deformity. RESPIRATORY: Positive shortness of breath cough or wheezes. CARDIOVASCULAR: Positive PND orthopnea palpitation. GASTROINTESTINAL: No Abd pain, Nausea or vomiting, no Diarrhea or constipation, No GI Bleed, no distention or masses. GENITOURINARY: Negative for Hematuria or UTI, no kidney stones. INTEGUMENT/BREAST: Negative for any muscular injury with mild osteoarthritis.. HEMATOLOGIC/LYMPHATIC: Negative for bleed or purpura. MUSCULOSKELTAL: Negative for Myalgia or arthralgia. NEURLOGICAL: No LOC, Sz or syncope, blurred vision dizziness or abnormality.. BEHAVIORAL/PSYCH: Negative. ENDOCRINE: Negative. PHYSICAL EXAMINATION: General Appearance: Alert, cooperative, in mild respiratory distress. Neck HEENT: Supple, no lymphadenopathy, no thyroid enlargement, no carotid bruits. Lungs: Significantly decreased breath sound in the right side all the way to have the way up significant rhonchi and mild crackles in the bases as well with mild expiratory wheezes. Chest Wall: Decreased expansion with deep inspiration no tenderness and no deformity was found on exam, no costochondral pain or discomfort. No sign of trauma or bruise to the rib cage area. Heart: Regular rate and rhythm with mild tachycardia, S1, S2 normal, no murmur, rub or gallop. Back: Symmetric, no curvature, ROM normal, no CVA tenderness. Abdomen: Soft, non-tender, bowel sounds active all four quadrants, no masses, no organomegaly. Extremities: Extremities normal, atraumatic, no cyanosis or edema. Pulses: 2+ and symmetric. Skin: Skin color, texture, tugor normal, no rashes or lesions. Neurologic: Alert oriented x3 cranial nerves II through XII intact, no motor deficit, no abnormal balance or gait. ASSESSMENT AND PLAN: _Acute hypoxic respiratory failure: With large right-sided pleural effusion and empyema has been on IV antibiotics does not need anymore lytic lesion or any further chest tube at this point. Still on O2 2 L given her pulse ox above 92 percentile. _Anasarca and severe edema with water retention: Remain on furosemide 40 mg twi ce a day IV will switch to oral as soon as we can by tomorrow. _Hyponatremia: Sodium is up to 130, patient will be using Samsca 15 mg 1 dose today. _Severe large right-sided pleural effusion with compression of the right lung, post thoracentesis and post lytic with alteplase via chest tube at the time which patient has done much better, chest tube came out little bit early but did not require any further treatment and management based was realistically very large empyema require good management between thoracentesis and pigtail catheter along with chest tube with alteplase lytic treatment for 2 days. Does not require any further management described current antibiotic and follow-up with a chest x-ray from [place]. _Aspiration pneumonia: Continue Rocephin we will switch patient to oral Ceftin when she goes home. Which will help to treat both her pneumonia and empyema. _Severe acute leukocytosis: Still have leukocytosis with severity of infection remain on antibiotics. Has been much better and improved. _Type 1 diabetes: Was running slightly with hypoglycemia insulin was adjusted again and seems to go back on her blood sugar is in the low 200s. Will continue with management of 7 units of short acting insulin AC meals along with 7 to 8 units of Lantus at nighttime. _Neuropathy: Continue gabapentin doing slightly better. _Recent history of pelvic fracture has been seen orthopedic. _Hyperlipidemia: Remain on rosuvastatin 10 mg a day. _Tachycardia and multifocal PACs: Most likely secondary to her hypoxia along with emphysema and her hyponatremia. Much better currently. CODE STATUS: Full code. Discussion: Continue Lasix IV for 24 more hours switch to oral by tomorrow and prepare hopefully for home with home care in the next 24 hours. Objective - Vital Signs Vital signs: Vital Signs Temp 98.0 F 01/01/24 23:37 Pulse 82 01/02/24 03:42 Resp 16 01/02/24 03:42 BP 166/72 01/02/24 03:42 Pulse Ox 98 01/02/24 03:42 FiO2 Intake & Output 01/01/24 01/01/24 01/02/24 06:59 18:59 06:59 Intake Total 530 Output Total 600 Balance -70 Weight 57.7 kg 57.6 kg Intake: IV 50 cefTRIAXone 2 gm In 50 Sodium Chloride 0.9% 50 ml @ 100 mls/hr IVPB Q24HR [facility] Rx#:[id number] Oral 480 Output: Urine 600 Other: Voiding Method Bedside Commode Toilet Bedside Commode # Voids 1 2 # Bowel Movements 1 - Labs CBC & Chem 7: 01/02/24 07:42 01/02/24 07:42 Labs: Abnormal Lab Results - Last 24 Hours (Table) 01/01/24 01/01/24 01/01/24 Range/Units 06:53 11:35 16:41 Sodium 131 L (137-145) mmol/L BUN 25 H (7-17) mg/dL POC Glucose (mg/dL) 265 H 273 H (70-110) mg/dL Calcium 7.0 L (8.4-10.2) mg/dL 01/01/24 Range/Units 20:18 Sodium (137-145) mmol/L BUN (7-17) mg/dL POC Glucose (mg/dL) 266 H (70-110) mg/dL Calcium (8.4-10.2) mg/dL
[2024-01-03 04:08] LABS: Glucose,Whole Blood 53 mg/dL (70-110)
[2024-01-03 04:16] VITALS: RESP 16
[2024-01-03 04:19] LABS: Glucose,Whole Blood 74 mg/dL (70-110)
[2024-01-03 06:11] LABS: Glucose,Whole Blood 136 mg/dL (70-110)
[2024-01-03 08:33] VITALS: BP 113/64; PULSE 68; TEMP 97.9
[2024-01-03 09:38] LABS: HCT 37.1 % (34.0-46.0); HGB 11.2 gm/dL (11.4-16.0); Hypochromasia Slight; MCH 27.6 pg (25.0-35.0); MCHC 30.3 g/dL (31.0-37.0); MCV 91.1 fL (80.0-100.0); Mean Platelet Volume 9.4; Platelet Count 363 k/uL (150-450); RBC 4.07 m/uL (3.80-5.40); RDW 14.7 % (11.5-15.5); WBC 7.7 k/uL (3.8-10.6)
[2024-01-03 09:44] LABS: ALT 46 U/L (4-34); AST 53 U/L (14-36); African American GFR (CKD) 70 (>60 ml/min/1.73 sqM); Albumin 2.4 g/dL (3.5-5.0); Alkaline Phosphatase 156 U/L (38-126); Anion Gap 3 mmol/L; Blood Urea Nitrogen 28 mg/dL (7-17); Calcium 7.6 mg/dL (8.4-10.2); Carbon Dioxide 32 mmol/L (22-30); Chloride 100 mmol/L (98-107); Glucose 138 mg/dL (74-99); Magnesium 2.1 mg/dL (1.6-2.3); Non-African American GFR(CKD) 61 (>60 ml/min/1.73 sqM); Potassium 4.6 mmol/L (3.5-5.1); Sodium 135 mmol/L (137-145); Total Bilirubin 0.3 mg/dL (0.2-1.3); Total Protein 5.2 g/dL (6.3-8.2)
[2024-01-03 09:48] LABS: NT-Pro-B-Type Natriuretic Pept 2370 pg/mL
[2024-01-03 11:24] LABS: Glucose,Whole Blood 127 mg/dL (70-110)
--- NOTE | 2024-01-03 11:53 | P.PN ---
Subjective Patient is seen in follow-up for hyponatremia. Sodium level 135 today. Denies chest pain or shortness of breath. No active complaints. Vital signs are stable. General: No acute distress. HEENT: Head exam is unremarkable. LUNGS: No audible rhonchi or wheezes. HEART: Rate and Rhythm are regular. ABDOMEN: Nontender. EXTREMITITES: 1+ edema. Objective - Vital Signs Vital signs: Vital Signs Temp 97.9 F 01/03/24 08:29 Pulse 68 01/03/24 08:29 Resp 16 01/03/24 08:29 BP 113/64 01/03/24 08:29 Pulse Ox 100 01/03/24 08:29 FiO2 Intake & Output 01/02/24 01/03/24 01/03/24 18:59 06:59 18:59 Intake Total 600 512 Output Total 475 Balance 600 37 Weight 57.6 kg 55.3 kg Intake: Intake, IV Titration 50 Amount cefTRIAXone 2 gm In 50 Sodium Chloride 0.9% 50 ml @ 100 mls/hr IVPB Q24HR [facility] Rx#:[id number] Oral 600 462 Output: Urine 475 Other: Voiding Method Bedside Commode Bedside Commode Toilet # Voids 5 1 1 - Labs CBC & Chem 7: 01/03/24 08:55 01/03/24 08:55 Labs: Abnormal Lab Results - Last 24 Hours (Table) 01/02/24 01/02/24 01/03/24 Range/Units 16:55 20:28 04:02 Hgb (11.4-16.0) gm/dL MCHC (31.0-37.0) g/dL Sodium (137-145) mmol/L Carbon Dioxide (22-30) mmol/L BUN (7-17) mg/dL Glucose (74-99) mg/dL POC Glucose (mg/dL) 192 H 133 H 53 L (70-110) mg/dL Calcium (8.4-10.2) mg/dL AST (14-36) U/L ALT (4-34) U/L Alkaline Phosphatase (38-126) U/L Total Protein (6.3-8.2) g/dL Albumin (3.5-5.0) g/dL 01/03/24 01/03/24 01/03/24 Range/Units 06:09 08:55 08:55 Hgb 11.2 L (11.4-16.0) gm/dL MCHC 30.3 L (31.0-37.0) g/dL Sodium 135 L (137-145) mmol/L Carbon Dioxide 32 H (22-30) mmol/L BUN 28 H (7-17) mg/dL Glucose 138 H (74-99) mg/dL POC Glucose (mg/dL) 136 H (70-110) mg/dL Calcium 7.6 L (8.4-10.2) mg/dL AST 53 H (14-36) U/L ALT 46 H (4-34) U/L Alkaline Phosphatase 156 H (38-126) U/L Total Protein 5.2 L (6.3-8.2) g/dL Albumin 2.4 L (3.5-5.0) g/dL 01/03/24 Range/Units 11:23 Hgb (11.4-16.0) gm/dL MCHC (31.0-37.0) g/dL Sodium (137-145) mmol/L Carbon Dioxide (22-30) mmol/L BUN (7-17) mg/dL Glucose (74-99) mg/dL POC Glucose (mg/dL) 127 H (70-110) mg/dL Calcium (8.4-10.2) mg/dL AST (14-36) U/L ALT (4-34) U/L Alkaline Phosphatase (38-126) U/L Total Protein (6.3-8.2) g/dL Albumin (3.5-5.0) g/dL Assessment and Plan Plan: Assessment: 1. Hyponatremia, hypervolemic. Urine sodium less than 20 and urine osmolality 493. Sodium level 135 today. TSH normal. 2. Volume overload with pleural effusions. Status post right-sided thoracentesis with 1.6 L drained. Pulled out chest tube by accident this admission. 3. Diabetes mellitus. Plan: Encouraged oral intake. Maintain fluid restriction. Maintain IV Lasix. Transition to oral upon discharge. Status post Samria yesterday. Repeat labs in the morning.
--- NOTE | 2024-01-03 13:02 | P.PN ---
Subjective Progress Note Date: 01/03/24 This is a 83-year-old female patient who came to the emergency department with increased shortness of breath. Her breathing was progressively getting worse over the past 1 week. She had increased cough congestion chest tightness and wheezing and she was having chills at home. She was given outpatient antibiotic therapy with Zithromax and her condition decompensated and she ended up coming into the hospital. The patient has been having some chest discomfort along the right chest. She had a fall approximately few weeks back and she also sustained a pelvic fracture. She is a lifetime non-smoker. She came to the emergency department and the patient had a white cell count of 34 with a hemoglobin 14.8. Her sodium level was 116 with a potassium level of 5.9 and a serum bicarb was at 21. BUN was 18 with a creatinine of 0.4. Troponin was 0.07. proBNP level was 5000. The viral screen was negative. Initial lactic acid level was at 2.1 and dropped down to 1.6. Coagulation profile was normal with a D-dimer of 2.6. Initial chest x-ray showed a large right-sided pleural effusion. CAT scan of the chest was also done in the Emergency Department that showed no evidence of any central pulmonary embolism. There was a large right-sided pleural effusion with near complete opacification and compression of the right lung. There was also abnormal attenuation within the right mainstem right middle lobe and right lower lobe bronchus and aspiration was suspected. I saw the patient in the em ergency department. She was quite short of breath and she was on oxygen at 5 L/min nasal cannula. Her pulse ox was as in the low 90s. I performed a bedside thoracentesis a total of 1.6 L of pleural fluid is aspirated. No complications. The post thoracentesis chest x-ray showed interval marked reduction in the right-sided pleural effusion without evidence of any pneumothorax. The patient was started on broad-spectrum antibiotics and she is currently on a combination of Rocephin and Zithromax and vancomycin. She is diabetic. She takes insulin on outpatient basis. She also has history of hypertension and hyperlipidemia. Currently she is also on IV fluids and the patient is on normal saline which is running at a rate of 75 cc an hour. No altered mentation. No seizure activity. On 12/24/2023, the patient is feeling better. The patient is less short of breath and currently she is on 2 L of oxygen by nasal cannula. Her breathing is more comfortable. Thoracentesis was done yesterday and the pleural fluid analysis still pending. Cultures are still pending. Legionella urine antigen is negative. Echocardiogram showed a preserved LV function, no significant valvular abnormalities. The white cell count is currently down to 26 with a hemoglobin 13.1 and a platelet count of 491. Sodium is 119 improved compared to yesterday and the urine sodium is essentially low less than 20, not typical of SIADH. Serum bicarb is 18 with a BUN of 16 and a creatinine of 0.4. She remains on Rocephin and Zithromax and vancomycin. Metoprolol was restarted. He is also on Zestril 40 mg p.o. daily for blood pressure control. She is on NovoLog 5 units 3 times daily with meals plus a sliding scale coverage. She remains on bronchodilators. On today's evaluation on 12/25/2023, the patient is being seen for a follow- up.The patient has no specific complaints. She seems to be less short of breath. She is on 4 L of oxygen by nasal cannula with a pulse ox of 96%. She remains on a combination of Rocephin and Zithromax and vancomycin. The white cell count is improving is currently down to 18.3 with a hemoglobin of 10.5 and a platelet count of 465. Sodium levels of 125. BUN is 12 with a creatinine of 0.4 and the patient is currently nondistended. Exercises an hour. On a separa te note, chest x-ray that was done today showed further opacification of the right lung compared to yesterday chest x-ray. Based on that, a CAT scan of the chest was done and it showed a moderate to large right-sided pleural fluid collection along with compressive atelectasis of the right lung. There was also extensive calcification of the bronchi bilaterally more so on the right lower lobe bronchus and there was also a filling defect in the right lower lobe bronchus that was not felt to be patent. There is an abrupt cut off sign in the bronchus intermedius/right lower lobe area. Based on those findings, I recommended a pigtail catheter insertion and this will be done by interventional radiology today to be followed up by bronchoscopy in a.m. The pleural fluid is aspirated earlier was an accident with elevated LDH of 610 and a protein of 3.2 g. Glucose was at 136. Cell count was 1000. The fluid cytology still pending for now. The Gram stain culture is also negative. 12/26/2023, the patient is being seen for a follow-up. The patient is on 4 L of oxygen nasal cannula. The pigtail catheter was inserted yesterday and a total of 4 L of pleural fluid was further aspirated. Blood from the PICC line has been noted. Nevertheless, the chest x-ray still showing volume loss and persistent right lung consolidation. As mentioned earlier, there is an abrupt cut off sign in the right mainstem bronchus/bronchus intermedius and the patient is going to undergo a bronchoscopy today. White cell count is 16, hemoglobin 11 and platelet count is at 464, sodium levels at 128, BUN is at 10 with a creatinine of 0.3. Remains on the same antibiotic coverage to include Rocephin and Zithromax and vancomycin. Cultures are still negative. Sputum culture still pending. Clinically doing well. No significant tachycardia. Hemodynamically stable. Currently n.p.o. awaiting bronchoscopy. She went 12/27/2023, for the patient for a follow-up. Events from yesterday were noted and the patient's pigtail catheter has been removed. This came out accidentally. Repeat CAT scan of the chest was done this morning and it showed essentially enlarged right-sided pleural effusion with loculation. The patient also had atelectatic changes in the right lung. There is again a cut off sign i n the right lower lobe bronchus. Noted I performed a bronchoscopy the patient and the patient had copious amount of respiratory secretions and mucous plugs that were aspirated without any major difficulties. Cultures were sent and the results are still pending for now. She remains on oxygen at 4 L nasal cannula with pulse ox of 97%. The patient has a white cell count of 25, hemoglobin is at 14.4 and a platelet count of 650. Sodium levels of 128, BUN 11 with a creatinine of 0.39. The pleural fluid cultures are still negative. She remains on bronchodilators with DuoNeb updrafts. She continues to have a congested cough, producing limited amount of sputum. Awake and alert and communicating. She does have chronic lower extremity edema. Cardiac rhythm remained sinus. 12/28/2023, the patient has produced approximately 1.7 L of purulent material from the right lung post chest tube insertion. Output has dropped and the patient is going to receive a dose of alteplase through the chest tube. She is currently on room air oxygen. The chest x-ray from today shows residual consolidation of the right lung base. No evidence of any pneumothorax and the chest tube is in good location. The white cell count is at 93 with a hemoglobin 11.3 platelet count of 450. The BUN is 22 with a creatinine of 0.74. All of the cultures have been negative thus far. The patient is currently on IV Rocephin. Cardiac rhythm is sinus. IV fluids are currently at KVO. No other significant events overnight. She is sitting up on a chair and she is calm and comfortable. 12/29/2023, right-sided chest tube is in place. Alteplase was administered yesterday and a total of 500 cc of output was obtained. Chest x-ray findings show some residual consolidation and atelectasis in the right lower lobe. Clinically doing well. She is on room air oxygen. No fever or chills. White cell count remains elevated at 18.3 with a hemoglobin 12.1, sodium level is up to 127, BUN is 23 and creatinine is 0.8. Hemodynamically stable. Cultures are all negative. The patient remains on IV Rocephin. Aggressive pulmonary toileting is being performed. Neurologically intact. Patient was seen today on 12/30/2023, patient is in the ICU, on room air, on Rocephin, not in any distress. Her chest tube was dislodged yesterday, and the patient is doing well. Cultures have been negative on the pleural effusion, bronchoscopy was nondiagnostic except for Michelle in the BAL, hair overall clinical status is improving continues to have small loculated effusion in the right pleural space, CT of the chest is pending, and thoracic surgery is following. Looking back at this patient she had right-sided thoracentesis on 12/22 pigtail catheter placed on 12/24 bronchoscopy on 12/25 right-sided chest tube placed on 12/26. And it got dislodged on 12/28 requiring transfer to ICU but did not require any intervention. Patient is comfortable, not in distress, her labs today were all reviewed CBC is relatively normal basic metabolic profile is normal renal profile is normal. Cultures from the pleural effusion have been all negative Patient was evaluated today on 12/31/2023, patient is now on the cardiac floor, doing well, relatively asymptomatic, hardly any pulmonary symptoms, patient feels great. On 2 L nasal cannula, O2 saturation 97%, remains on antibiotics for empyema, infectious disease consultation is pending. Her last CT of the chest was reviewed. Surgery is not planning any surgical intervention for her residual loculated fluid, clinically the patient is doing better. Patient was evaluated today on 01/01/2024, patient remains on antibiotics for her presumptive empyema, apparently surgery is not planning any surgical intervention, patient should be considered for discharge planning on oral an tibiotics as recommended by infectious disease on the case. Patient is on room air, O2 saturation 100%, relatively normal labs noted today including normal basic metabolic profile, blood sugar is a bit elevated at 265 Patient was evaluated today on 01/02/2024, patient is doing well, no pulmonary sy mptoms no cough no wheezing no shortness of breath no chest pain no fever no chills, On room air, O2 saturation 95%. Patient is being considered for possible discharge in the next 24 hours. Updated her daughter on her condition yesterday, and I am actually clear the patient for discharge if cleared by other consultants on the case. The patient is seen today January 03, 2024 in follow-up on the selective care unit. She is awake and alert in no acute distress. She is currently sitting up in a chair at the bedside. She is maintaining good O2 saturations in the 90s on room air. Bronchial wash cultures were positive for Michelle only. Pleural fluid revealed no growth. Blood cultures revealed no growth. White count 7.7. Hemoglobin 11.2. Platelets 363. Sodium 135. Potassium 4.6. Bicarb 32. BUN 28. Creatinine 0.88. Glucose 138. AST 53. ALT 46. proBNP 2370. She remains on bronchodilators, ceftriaxone. Remains on IV diuretics. Objective - Vital Signs Vital signs: Vital Signs Temp 97.9 F 01/03/24 08:29 Pulse 68 01/03/24 08:29 Resp 16 01/03/24 08:29 BP 113/64 01/03/24 08:29 Pulse Ox 100 01/03/24 08:29 FiO2 Intake & Output 01/02/24 01/03/24 01/03/24 18:59 06:59 18:59 Intake Total 600 630 Output Total 475 Balance 600 155 Weight 57.6 kg 55.3 kg Intake: Intake, IV Titration 50 Amount cefTRIAXone 2 gm In 50 Sodium Chloride 0.9% 50 ml @ 100 mls/hr IVPB Q24HR [facility] Rx#:[id number] Oral 600 580 Output: Urine 475 Other: Voiding Method Bedside Commode Bedside Commode Toilet # Voids 5 1 1 - Exam GENERAL EXAM: Alert, active, very pleasant 83-year-old female, on room air, up in a chair, comfortable in no apparent distress. HEAD: Normocephalic. EYES: Normal reaction of pupils, equal size. NOSE: Clear with pink turbinates. THROAT: No erythema or exudates. NECK: No masses, no JVD. CHEST: No chest wall deformity. LUNGS: Equal air entry with crackles in the right lung base. CVS: S1 and S2 normal with no audible murmur, regular rhythm. ABDOMEN: No hepatosplenomegaly, normal bowel sounds, no guarding or rigidity. SPINE: No scoliosis or deformity SKIN: No rashes CENTRAL NERVOUS SYSTEM: No focal deficits, tone is normal in all 4 extremities. EXTREMITIES: There is no peripheral edema. No clubbing, no cyanosis. Peripheral pulses are intact. - Labs CBC & Chem 7: 01/03/24 08:55 01/03/24 08:55 Labs: Abnormal Lab Results - Last 24 Hours (Table) 01/02/24 01/02/24 01/03/24 Range/Units 16:55 20:28 04:02 Hgb (11.4-16.0) gm/dL MCHC (31.0-37.0) g/dL Sodium (137-145) mmol/L Carbon Dioxide (22-30) mmol/L BUN (7-17) mg/dL Glucose (74-99) mg/dL POC Glucose (mg/dL) 192 H 133 H 53 L (70-110) mg/dL Calcium (8.4-10.2) mg/dL AST (14-36) U/L ALT (4-34) U/L Alkaline Phosphatase (38-126) U/L Total Protein (6.3-8.2) g/dL Albumin (3.5-5.0) g/dL 01/03/24 01/03/24 01/03/24 Range/Units 06:09 08:55 08:55 Hgb 11.2 L (11.4-16.0) gm/dL MCHC 30.3 L (31.0-37.0) g/dL Sodium 135 L (137-145) mmol/L Carbon Dioxide 32 H (22-30) mmol/L BUN 28 H (7-17) mg/dL Glucose 138 H (74-99) mg/dL POC Glucose (mg/dL) 136 H (70-110) mg/dL Calcium 7.6 L (8.4-10.2) mg/dL AST 53 H (14-36) U/L ALT 46 H (4-34) U/L Alkaline Phosphatase 156 H (38-126) U/L Total Protein 5.2 L (6.3-8.2) g/dL Albumin 2.4 L (3.5-5.0) g/dL 01/03/24 Range/Units 11:23 Hgb (11.4-16.0) gm/dL MCHC (31.0-37.0) g/dL Sodium (137-145) mmol/L Carbon Dioxide (22-30) mmol/L BUN (7-17) mg/dL Glucose (74-99) mg/dL POC Glucose (mg/dL) 127 H (70-110) mg/dL Calcium (8.4-10.2) mg/dL AST (14-36) U/L ALT (4-34) U/L Alkaline Phosphatase (38-126) U/L Total Protein (6.3-8.2) g/dL Albumin (3.5-5.0) g/dL Assessment and Plan Assessment: Complicated right-sided pleural effusion, parapneumonic, exudative in nature, possible empyema, cultures from the fluid have been negative. Cytology negative from both bronchial wash and pleural fluid Acute hypoxic respiratory failure, resolved Acute leukocytosis, resolved History of hypertension Dyslipidemia Insulin-dependent diabetes mellitus type 2 Recent fall from standing sustaining a pelvic fracture Daily EtOH use Ex-smoker Plan: The patient was seen and evaluated Labs and medications reviewed Stable and on room air Plan is for home with home care today Follow-up in our office 01/29/2024 I have personally seen and examined the patient, performed the documentation and the assessment and plan as written. Number of minutes spent on the visit: 10.
--- NOTE | 2024-01-03 14:39 | P.PN ---
Subjective Progress Note Date: 01/03/24 PROGRESS NOTE The patient is an 83-year-old female with a history of hyperlipidemia, diabetes who presented with progressive dyspnea was found to have pneumonia and large right-sided pleural effusion. She has chest tube that was pulled out yesterday and was transferred yesterday to the ICU. She is feeling well this morning. She denies any chest discomfort and her breathing is stable. She denies any dizziness or palpitations. She denies any nausea or vomiting. Her appetite is good. She is in sinus mechanism. Her echocardiogram showed a preserved systolic function with no significant valvular disease. He underwent bronchoscopy. 12/30 Patient has been transferred out of the intensive care unit is seen today on the cardiac stepdown unit. She states her breathing is better. She continues to have a cough with sputum production. She continues to have lower extremity edema. She denies any wheezing. Blood pressure 155/70, heart rate 91, pulse ox 96% on room air. Repeat blood work reveals sodium 127, potassium 5.2, BUN 23 creatinine 0.85. Repeat chest x-ray reveals stable exam. Small moderate right pleural effusion. No appreciable pneumothorax. 12/31 Patient has been switched to IV Lasix 40 mg every 12 hours per nephrology. Chest x-ray reviewed and shows some improvement. She had a midline placed this morning. Blood pressure 150/77, heart rate 80, pulse ox 100% on room air. She continues to have some lower extremity edema although slightly improved. She states she has been urinating a lot with the new dose of Lasix. She slept okay last night. She denies having any cough. Breathing is improved. She states her appetite is fine. Repeat blood work reveals sodium 131, potassium 4.5, BUN 25 creatinine 0.81. 01/01 Patient states that her lower extremity edema is quite improved today. Breathing is better. Repeat chest x-ray reveals improvement as well with right basilar increased density is unchanged and may reflect pleural effusion, infiltrate and/or atelectasis. Blood pressure 116/50, heart rate 85, pulse ox 95% on room air. Repeat blood work reveals WBC 8, hemoglobin 11.3. BUN 26 creatinine 0.8. Patient states that she anticipate discharge home tomorrow. 01/02 Patient states that she is going home today and is dressed and ready. She states she had a good night. Cough is less frequent. She denies shortness of breath and no chest pain. Lower extremity edema is also improved. She states she has walked in the hallway and feels that she has gotten stronger. Blood pressure 113/64, heart rate 60, pulse ox 100% on room air. Repeat blood work reveals hemoglobin 11.2, potassium 4.6, BUN 28 creatinine 0.88. Medications: Aspirin 81 mg daily, Lipitor 20 mg daily, Rocephin, Lasix 40 mg IV every 12 hours, lisinopril 20 mg daily, insulin, metoprolol tartrate 50 mg twice a day, Protonix, tramadol on a as needed basis PHYSICAL EXAMINATION: LUNGS: Crackles on the right base HEART: Regular rate and rhythm, S1, S2. No S3. Systolic ejection murmur ABDOMEN: Soft, nontender, no organomegaly EXTREMETIES: +1 edema IMPRESSION: 1. Status post pneumonia and parapneumonic effusion 2. Post chest tube placement, removed accidentally 3. History of hypertension 4. History of hyperlipidemia PLAN: 1. Continue IV Lasix 40 mg every 12 hours per nephrology 2. Continue incentive spirometry 3. Follow chest x-ray 4. Patient is cleared for discharge from cardiology May follow-up in the office with Dr. Wilburn in 2 weeks. Nurse practitioner note has been reviewed, I agree with documented findings and plan of care. Patient was seen and examined. Objective - Vital Signs Vital signs: Vital Signs Temp 97.9 F 01/03/24 08:29 Pulse 68 01/03/24 08:29 Resp 16 01/03/24 08:29 BP 113/64 01/03/24 08:29 Pulse Ox 100 01/03/24 08:29 FiO2 Intake & Output 01/02/24 01/03/24 01/03/24 18:59 06:59 18:59 Intake Total 600 512 Output Total 475 Balance 600 37 Weight 57.6 kg 55.3 kg Intake: Intake, IV Titration 50 Amount cefTRIAXone 2 gm In 50 Sodium Chloride 0.9% 50 ml @ 100 mls/hr IVPB Q24HR [facility] Rx#:[id number] Oral 600 462 Output: Urine 475 Other: Voiding Method Bedside Commode Bedside Commode Toilet # Voids 5 1 1 - Labs CBC & Chem 7: 01/03/24 08:55 01/03/24 08:55 Labs: Abnormal Lab Results - Last 24 Hours (Table) 01/02/24 01/02/24 01/03/24 Range/Units 16:55 20:28 04:02 Hgb (11.4-16.0) gm/dL MCHC (31.0-37.0) g/dL Sodium (137-145) mmol/L Carbon Dioxide (22-30) mmol/L BUN (7-17) mg/dL Glucose (74-99) mg/dL POC Glucose (mg/dL) 192 H 133 H 53 L (70-110) mg/dL Calcium (8.4-10.2) mg/dL AST (14-36) U/L ALT (4-34) U/L Alkaline Phosphatase (38-126) U/L Total Protein (6.3-8.2) g/dL Albumin (3.5-5.0) g/dL 01/03/24 01/03/24 01/03/24 Range/Units 06:09 08:55 08:55 Hgb 11.2 L (11.4-16.0) gm/dL MCHC 30.3 L (31.0-37.0) g/dL Sodium 135 L (137-145) mmol/L Carbon Dioxide 32 H (22-30) mmol/L BUN 28 H (7-17) mg/dL Glucose 138 H (74-99) mg/dL POC Glucose (mg/dL) 136 H (70-110) mg/dL Calcium 7.6 L (8.4-10.2) mg/dL AST 53 H (14-36) U/L ALT 46 H (4-34) U/L Alkaline Phosphatase 156 H (38-126) U/L Total Protein 5.2 L (6.3-8.2) g/dL Albumin 2.4 L (3.5-5.0) g/dL 01/03/24 Range/Units 11:23 Hgb (11.4-16.0) gm/dL MCHC (31.0-37.0) g/dL Sodium (137-145) mmol/L Carbon Dioxide (22-30) mmol/L BUN (7-17) mg/dL Glucose (74-99) mg/dL POC Glucose (mg/dL) 127 H (70-110) mg/dL Calcium (8.4-10.2) mg/dL AST (14-36) U/L ALT (4-34) U/L Alkaline Phosphatase (38-126) U/L Total Protein (6.3-8.2) g/dL Albumin (3.5-5.0) g/dL
--- NOTE | 2024-01-03 17:46 | P.PN ---
Subjective Progress Note Date: 01/03/24 Principal diagnosis: Reason for follow-up is pneumonia Patient is a 83-year-old female from with a past medical history significant for diabetes mellitus hypertension hyperlipidemia pneumonia patient has been brought into the hospital for evaluation of increasing shortness of breath and cough patient has been diagnosed with pneumonia and is status post thoracocentesis and bronchoscopy culture has been negative for any resistant pathogen BAL did grow Michelle albicans. On today's evaluation that is 01/03/2024,the patient denies any fever or any chills, patient is breathing comfortably on room air, the patient denies chest pain shortness of breath and no significant cough, patient denies abdominal pain, no nausea vomiting or diarrhea. Patient mention feeling better wants to go home. Patient white count is 7.7, creatinine 0.88 sputum with Michelle albicans Objective - Vital Signs Vital signs: Vital Signs Temp 97.9 F 01/03/24 08:29 Pulse 68 01/03/24 08:29 Resp 16 01/03/24 08:29 BP 113/64 01/03/24 08:29 Pulse Ox 100 01/03/24 08:29 FiO2 Intake & Output 01/02/24 01/03/24 01/03/24 18:59 06:59 18:59 Intake Total 600 512 Output Total 475 Balance 600 37 Weight 57.6 kg 55.3 kg Intake: Intake, IV Titration 50 Amount cefTRIAXone 2 gm In 50 Sodium Chloride 0.9% 50 ml @ 100 mls/hr IVPB Q24HR [facility] Rx#:[id number] Oral 600 462 Output: Urine 475 Other: Voiding Method Bedside Commode Bedside Commode Toilet # Voids 5 1 1 - Exam GENERAL DESCRIPTION: Elderly female up in the chair in no distress RESPIRATORY SYSTEM: Unlabored breathing , decreased breath sounds at bases HEART: S1 S2 regular rate and rhythm , ABDOMEN: Soft , no tenderness EXTREMITIES: No edema feet - Labs CBC & Chem 7: 01/03/24 08:55 01/03/24 08:55 Labs: Abnormal Lab Results - Last 24 Hours (Table) 01/02/24 01/02/24 01/03/24 Range/Units 16:55 20:28 04:02 Hgb (11.4-16.0) gm/dL MCHC (31.0-37.0) g/dL Sodium (137-145) mmol/L Carbon Dioxide (22-30) mmol/L BUN (7-17) mg/dL Glucose (74-99) mg/dL POC Glucose (mg/dL) 192 H 133 H 53 L (70-110) mg/dL Calcium (8.4-10.2) mg/dL AST (14-36) U/L ALT (4-34) U/L Alkaline Phosphatase (38-126) U/L Total Protein (6.3-8.2) g/dL Albumin (3.5-5.0) g/dL 01/03/24 01/03/24 01/03/24 Range/Units 06:09 08:55 08:55 Hgb 11.2 L (11.4-16.0) gm/dL MCHC 30.3 L (31.0-37.0) g/dL Sodium 135 L (137-145) mmol/L Carbon Dioxide 32 H (22-30) mmol/L BUN 28 H (7-17) mg/dL Glucose 138 H (74-99) mg/dL POC Glucose (mg/dL) 136 H (70-110) mg/dL Calcium 7.6 L (8.4-10.2) mg/dL AST 53 H (14-36) U/L ALT 46 H (4-34) U/L Alkaline Phosphatase 156 H (38-126) U/L Total Protein 5.2 L (6.3-8.2) g/dL Albumin 2.4 L (3.5-5.0) g/dL 01/03/24 Range/Units 11:23 Hgb (11.4-16.0) gm/dL MCHC (31.0-37.0) g/dL Sodium (137-145) mmol/L Carbon Dioxide (22-30) mmol/L BUN (7-17) mg/dL Glucose (74-99) mg/dL POC Glucose (mg/dL) 127 H (70-110) mg/dL Calcium (8.4-10.2) mg/dL AST (14-36) U/L ALT (4-34) U/L Alkaline Phosphatase (38-126) U/L Total Protein (6.3-8.2) g/dL Albumin (3.5-5.0) g/dL Assessment and Plan (1) Pneumonia Status: Acute Code(s): J18.9 - PNEUMONIA, UNSPECIFIED ORGANISM SNOMED Code(s): 523101547 (2) Leukocytosis Status: Acute Code(s): D72.829 - ELEVATED WHITE BLOOD CELL COUNT, UNSPECIFIED SNOMED Code(s): 522495908 Plan: 1patient presented to hospital more than a week ago for evaluation of increasing shortness of breath and this patient has been diagnosed with right- sided pneumonia and effusion status post thoracocentesis and bronchoscopy both cultures have been negative for any resistant pathogen sputum did grow Michelle albicans, patient did have an improvement in the white count and symptomatology 2-patient has shown clinical, the patient white count has normalized, patient to finish therapy with a 7-day course of oral Ceftin on discharge and close out patient follow-up Dictation was produced using [employer] dictation software. please excuse any grammatical, word or spelling errors. Time with Patient: Less than 30
--- NOTE | 2024-01-04 16:42 | P.DS ---
Providers Date of admission: 12/23/23 07:37 Attending physician: Tyler Patel Consults: 12/23/23 09:04 Consult Physician Urgent Consulting Provider: Pasha Burgess Consult Reason/Comments: Large pleural effusion, hypoxia Do you want consulting provider notified?: Yes 12/23/23 13:31 Consult Physician Urgent Consulting Provider: Aan Mtz Consult Reason/Comments: Hyponatremia Do you want consulting provider notified?: Yes 12/24/23 13:07 Consult Physician Urgent Consulting Provider: Dejan Hurd Consult Reason/Comments: afib rvr vs sinus tach with PACs Do you want consulting provider notified?: Already Contacted 12/26/23 16:13 Consult Physician Routine Consulting Provider: Darius Jacobs Consult Reason/Comments: pleural effusion Do you want consulting provider notified?: Already Contacted 12/31/23 10:06 Consult Physician Routine Consulting Provider: Byron Jimenez Consult Reason/Comments: Infection, antibiotics Do you want consulting provider notified?: Yes Primary care physician: Tyler Patel [facility] Course: HISTORY OF PRESENT ILLNESS: 83-year-old office patient for many years with active medical history of insulin-dependent type 1 diabetes, hypertension, hyperlipidemia, neuropathy, history of spinal stenosis, who has mild bradycardia otherwise healthy doing well has not been in the hospital long time she had a fall 2 weeks ago to the right side and developed pelvic and did not require to be hospitalized but ended up seen Dr. Wisdom as an outpatient. Also patient had open communicated distal radius fracture back in 2022 secondary to minor fall ended up having open reduction with internal fixation and irrigation debridement of the right wrist fracture. Patient seen cardiology in the last few years in 2021 was admitted to the hospital because of an episode of palpitation with pulse rate of 160 bpm found to have paroxysmal SVT and elevated troponin with no cardiac injury or any other cardiac history has been on beta-yahir been well-controlled since. I received a phone call from the yesterday with complain that his has been in extreme shortness of breath and been symptomatic and for the previous 5 days she had a virtual visit in the office for severe bronchitis was prescribed antibiotics and some expectorant which patient had felt slightly bit better but become much worse over the last 2 days to a degree becoming extreme dyspnea with minimal exertion. Was instructed to bring her to the emergency department to be seen and evaluated. Patient apparently decided not to come to the emergency department till early this morning on 12/23/2023 where was seen and evaluated was severely hypoxic at the time her chest x-ray showed very large right-sided pleural effusion almost occupying 90% out of the right lung. D-dimer was elevated and patient ended up for CTA finding with no pulmonary embolism large right-sided pleural effusion with near complete compression of the right lung there is an abnormal attenuati on within the right mainstrem middle lobe and lower lobe bronchus which could be related to aspiration also there is only slight left pleural effusion as well with subsegmental area of consolidation favored to atelectasis versus pneumonitis. With pulse ox running quite a bit low at the time required 4 L of O2 to keep her pulse ox above 90 percentile and laboratory value showing sodium of 116 with normal creatinine and GFR with blood sugar of 292 white blood cell was 34,500 with platelet count 537 mildly elevated troponin 0.07 with lactic acid at 1.6 proBNP at 5090 with alk phos of 289. Patient ended up seeing Dr. Burgess and in the emergency department who is done a consultation and decided to transfer the patient to the intensive care unit and ended up performing bedside thoracentesis for total of 1.6 L of pleural fluid is aspirated with no complication fluid was not bloody followed by chest x-ray showed fairly expansion of the lung only. Patient was transferred to the ICU and admitted for severe large sided pleural effusion, possible aspiration pneumonia with sepsis, severe hyponatremia. Will consult nephrology as well for the severity of her hyponatremia. 11/23/2023: Patient is resting comfortably in the chair this morning, her sodium is up to 119 from 116 early, kidney function still good, blood sugar still slightly bit elevated required 2 units of insulin every time she is having her Accu-Chek. Chest x-ray still showing significant amount of pleural effusion around the right side which might require another thoracentesis today or tomorrow. She still seen nephrology for probably increase her sodium tablet and little bit more restriction on IV fluid. Tachycardia has improved compared to yesterday also patient is not hypoxic but still required 2 L of O2 to keep her pulse ox above 92 percentile. Legionella antibody was negative still waiting for mycoplasma and further analysis of her thoracentesis fluid. Also echocardiogram came back with no khushbu r abnormality to create any pleural effusion. 11/24/2023: With the recurrent pleural effusion pulmonary decided to accelerate this into setting up patient for pigtail catheter placement in the pleural space by radiology to be able to drain pleural fluid when needed. Apparently with patient is not improving as fast as expected earlier consideration including possibility of malignancy is quite bit high at this point chest x-ray apparently showed further opacification of the right lung compared to the one from yesterday chest CAT scan showed moderate right-sided pleural fluid collection along with compressive atelectasis of the right side and there was extensive calcification and bronchial bilaterally more on the right lower lobe bronchus and there were also filling defect in the right lower lobe that was not felt to be patent. After pigtail catheter placement patient will be going for bronchoscopy to see if he have any malignancy in the lung. Still awaiting the final analysis of the pleural fluid. Sodium has been improved up to 125 today blood sugar still mildly elevated at some point. Oxygen level has been better so far. She is remain having slight tachycardia likely multifocal atrial tachycardia along with frequent PACs will continue Cardizem and metoprolol patient does not need to be on anticoagulation. 11/25/2023: She is still having significant shortness of breath did not improve she had yesterday pigtail catheter in the pleural space connected with chest tube under waterseal continue to have significant shortness of breath and dyspnea, chest x-ray continue to show significant lobulated fluid in the pleural space. Patient be going for bronchoscopy today looking for mass or malignancy. Continue aggressive antibiotics as expected but with all the picture have specially with the pleural fluid there is concern of malignancy. Sodium carrillo her vp data lab showing her sodium is up to 128 still normal kidney function white blood cell is down 16,200 and again still on current antibiotic with Rocephin, vancomycin she is off azithromycin. Pulse rate remained slightly bit fast and continue Cardizem drip at this point. 12/27/2023: Patient pigtail catheter was fluid off yesterday continue to have significant amount of right-sided pleural effusion with loculation bronchoscopy was done and had removal significant amount of respiratory secretion and sputum plug which had helped some but patient continued to be symptomatic. Original plan to use the pigtail catheter or thrombolytic by cardiothoracic but since it fell off was a bit harder. Pulmonary in the surgical chest tube and continue alteplase administration to the right side hemithoracic to evacuate the complicated parapneumonic effusion. Apparently pulmonary has discussed with family and patient the possibility of VATS procedure at later stage. He is remain in the ICU, blood sugar slightly bit better medication were adjusted, white blood cells down recently to 25,000 today. She is remain on antibiotic to cover her pneumonia. 12/30/2023: Obviously since her chest tube insertion on Saturday she had the third dose of alteplase/dornase pleural instillation to her right-sided pleural chest tube chest tube was clamped for 1 hour and after 1 hour release and continue suction 20 cm water eventually was placed to disconnect the chest tube and allow patient to ambulate. Patient apparently was transferred back to the ICU because slight decline in respiration and hypoxia. White blood cell still quite bit elevated at 18,300 kidney function still good and blood sugar is much better. Still on antibiotics for empyema combination of Rocephin vancomycin apparently was stopped her bronchial wash showed Michelle albicans and now and by fungus on yeast was implemented yet. From cardiothoracic standpoint despite the chest tube is out at this point looking at the chest x-ray the right side looks a lot more expanding does not need to rearrange another chest tube to complete the alteplase/dornase treatment because this is quite bit success as lytic management. On the other hand patient symptom of shortness of breath is much better and improved. She was transferred back to the ICU because of worsening hypoxia and shortness of breath and losing her chest tube mostly patient is doing a lot better symptoms carrillo. 12/31/2023: She is out of ICU, her x-ray and CAT scan showing more expansion of the right lung compared to before does not need any lytic management at this point. Continue 2 L O2 maintaining her pulse ox above 97 percentile. Remain on ceftriaxone 2 g daily and vancomycin currently for her empyema which seems to control her symptoms. The choice for oral antibiotic and prepare hopefully for discharge. Patient will benefit from Ceftin orally 500 mg twice a day when she is discharged. Cardiology standpoint patient arrhythmia tachycardia is much better continue metoprolol 50 mg twice a day. No atrial fibrillation was found throughout the hospitalization with the hypoxia and distress patient went through. Increase and titrate physical therapy and prepare for making plan hopefully for discharge at this point. 01/01/2024: Shortness of breath is much better, her right lung is a lot better expanded than before, she is seen infectious disease and prepared for longer term for her empyema management and believe having to continue Rocephin as an inpatient acceptable but will switch to Ceftin upon discharge. Despite finding Michelle albicans in the sputum there is no sign of candidiasis infectious disease apparently did not see the necessity to do any treatment for it. Patient is doing very well from cardiology standpoint her pulse rate is under good control currently. Anasarca carrillo and significant edema continue to have significant edema with over 10 kg weight gain mostly fluid through the last few days she has remained on IV furosemide 40 mg every 12 hours which we will do for the next day or 2 and she is feeling little bit more comfortable switch to oral Lasix and prepare hopefully for home. Sodium was her sodium is up to 131 today from 127 early continue to improve continue fluid restriction under 1500 cc under the Lasix hopefully will create more concentration help her out. 01/01/2022: She is feeling much better today sitting in the chair eating her breakfast in the morning she still have significant anasarca and fluid retention, positive for sodium still running good at 130 but liver function tests are slightly above normal. She had significant fluid overload continue to maintain IV Lasix 40 mg twice a day for at least another 24 hours for switch to oral by tomorrow. Nephrology using 1 dose of Samsca 15 mg today. Cardiology carrillo with her arrhythmia is a lot more stable remains on metoprolol 50 mg twice a day. As a mention for fluid overload still on Lasix 40 mg IV twice a day she is making good urine output weight, her hand has not dropped much lately. 01/03/2024: She is feeling much better still have slight anasarca and edema but has improved from before continue to use stocking and knee-high RONALDO hose patient's kidney function remained good blood sugar has been under control repeat chest x-ray again showing more expansion of the right side of the lung but not a whole lot improvement compared last 48 hours. Patient will remain on antibiotics again for the next 7 days. She was having quite a bit tachycardia into the current medication has improved specially while patient not having hypoxia anymore. Patient be discharged home today 01/03/2024, patient had more help at home and she is getting visiting nurse and home care initially with physical therapy. REVIEW OF SYSTEMS: CONSTITUTIONAL: Well-developed in acute respiratory distress. EYES: No icterus sclerae, no conjunctivitis. EARS, NOSE, MOUTH, THROAT, and FACE: No sore throat, lymphadenopathy, carotid bruits or deformity. RESPIRATORY: Positive shortness of breath cough or wheezes. CARDIOVASCULAR: Positive PND orthopnea palpitation. GASTROINTESTINAL: No Abd pain, Nausea or vomiting, no Diarrhea or constipation, No GI Bleed, no distention or masses. GENITOURINARY: Negative for Hematuria or UTI, no kidney stones. INTEGUMENT/BREAST: Negative for any muscular injury with mild osteoarthritis.. HEMATOLOGIC/LYMPHATIC: Negative for bleed or purpura. MUSCULOSKELTAL: Negative for Myalgia or arthralgia. NEURLOGICAL: No LOC, Sz or syncope, blurred vision dizziness or abnormality.. BEHAVIORAL/PSYCH: Negative. ENDOCRINE: Negative. PHYSICAL EXAMINATION: General Appearance: Alert, cooperative, in mild respiratory distress. Neck HEENT: Supple, no lymphadenopathy, no thyroid enlargement, no carotid bruits. Lungs: Significantly decreased breath sound in the right side all the way to have the way up significant rhonchi and mild crackles in the bases as well with mild expiratory wheezes. Chest Wall: Decreased expansion with deep inspiration no tenderness and no deformity was found on exam, no costochondral pain or discomfort. No sign of trauma or bruise to the rib cage area. Heart: Regular rate and rhythm with mild tachycardia, S1, S2 normal, no murmur, rub or gallop. Back: Symmetric, no curvature, ROM normal, no CVA tenderness. Abdomen: Soft, non-tender, bowel sounds active all four quadrants, no masses, no organomegaly. Extremities: Extremities normal, atraumatic, no cyanosis or edema. Pulses: 2+ and symmetric. Skin: Skin color, texture, tugor normal, no rashes or lesions. Neurologic: Alert oriented x3 cranial nerves II through XII intact, no motor deficit, no abnormal balance or gait. ASSESSMENT AND PLAN: _Acute hypoxic respiratory failure: With large right-sided pleural effusion and empyema has been on IV antibiotics does not need anymore lytic lesion or any further chest tube at this point. Still on O2 2 L given her pulse ox above 92 percentile. _Anasarca and severe edema with water retention: Remain on furosemide 40 mg twice a day IV will switch to oral as soon as we can by tomorrow. _Hyponatremia: Sodium is up to 130, patient will be using Samsca 15 mg 1 dose today. _Severe large right-sided pleural effusion with compression of the right lung, post thoracentesis and post lytic with alteplase via chest tube at the time which patient has done much better, chest tube came out little bit early but did not require any further treatment and management based was realistically very large empyema require good management between thoracentesis and pigtail catheter along with chest tube with alteplase lytic treatment for 2 days. Does not require any further management described current antibiotic and follow-up with a chest x-ray from [place]. _Aspiration pneumonia: Continue Rocephin we will switch patient to oral Ceftin when she goes home. Which will help to treat both her pneumonia and empyema. _Severe acute leukocytosis: Still have leukocytosis with severity of infection remain on antibiotics. Has been much better and improved. _Type 1 diabetes: Was running slightly with hypoglycemia insulin was adjusted again and seems to go back on her blood sugar is in the low 200s. Will continue with management of 7 units of short acting insulin AC meals along with 7 to 8 units of Lantus at nighttime. _Neuropathy: Continue gabapentin doing slightly better. _Recent history of pelvic fracture has been seen orthopedic. _Hyperlipidemia: Remain on rosuvastatin 10 mg a day. _Tachycardia and multifocal PACs: Most likely secondary to her hypoxia along with emphysema and her hyponatremia. Much better currently. CODE STATUS: Full code. Discussion: She was switched to oral Lasix 40 mg twice a day and Klor-Con 20 mEq daily will watch her kidney function next few days. Hospital course: Patient was admitted to the hospital on 11/22/2023 for 2 days worsening dyspnea with minimal exertion along with severe hypoxia she was supposed to be in the hospital on Saturday but apparently patient and delay her admission along the family made it to the emergency department because she became quite bit symptomatic. At the time was seen in the ER found to have very large pleural effusion on the right side occupying 90% of the lung, D-dimer was elevated CTA did not show any pulmonary embolism at the time the patient was diagnosed with very large pneumonia and pneumonitis on the right side with white blood cell 34,000 proBNP was mildly elevated only lactic acid was high troponin was 0.07. Patient require 4 L of O2 try to keep her pulse ox above 90 percentile. She was transferred to the intensive care unit with the current symptoms and the severity of her pleural effusion thoracentesis of 1.6 L of pleural fluid was drained patient felt slightly bit better but continued to be quite a bit symptomatic. She was running inside everything else severe hyponatremia at 116 which with better hydration and treatment of her pleural fluid and infection became at 119 and furthermore 120 and 121. Infection process along with other etiology was started patient pleural fluid showed transudate not exudate and there is no sign of malignancy at all time. The pleural fluid did not improve a whole lot the patient ended up seeing cardiothoracic surgery decided to do pigtail catheter in the chest wall and to do treatment with alteplase done through the pleural space to see if it can note the pleural fluid. After applying the first treatment patient incidentally pulled her pigtail chest tube out. The following day pulmonary in the putting the chest tube in and alteplase was done again now and patient again 1 more time in the pulling the tube out while she is walking to the bathroom. By then repeat chest x-ray and CAT scan showing only small amount of pleural fluid left which decided at this point not to redo chest tube anymore. Patient continued to be treated with aggressive management her sodium has improved significantly but by 12/31/2023 she had almost over 10 pounds of weight gain mostly fluid retention and started having significant anasarca. Her sodium has improved up to 130 nephrology decided to treat patient with Lasix IV initially and then switch to oral Lasix and she had responded quite nicely to it still have significant edema. All culture and bronchoscopy with lavage did not show any finding more than empyema and infection no sign of malignancy. Patient is ready to be discharged home on 01/02/2022 she is going to have home care family will hire more help to come to the house. She will be seen back in the office and by pulmonary with intraoperative time. Time spent on discharging patient was over 40 minutes. Patient Condition at Discharge: Serious Plan - Discharge Summary Discharge Rx Participant: Yes New Discharge Prescriptions: New Cefuroxime [Ceftin] 500 mg PO BID 7 Days #14 tab Potassium Chloride [Klor-Con M20] 20 meq PO DAILY #30 tab Furosemide [Lasix] 40 mg PO BID #60 tablet lisinopriL [Zestril] 20 mg PO DAILY #30 tab Metoprolol Tartrate [Lopressor] 50 mg PO BID #120 tab Insulin Degludec [Tresiba] 8 units SQ HS #10 ml Albuterol Inhaler [Ventolin Inhaler] 2 puff INHALATION Q6HR PRN #1 each PRN Reason: Shortness Of Breath Or Wheezing Continue Rosuvastatin [Crestor] 10 mg PO DAILY Calcium Carbonate [Calcium] 600 mg PO DAILY Aspirin EC [Ecotrin Low Dose] 81 mg PO DAILY Turmeric Root Extract [Turmeric] 500 mg PO MOWEFR Insulin Aspart (Niacinamide) [Fiasp 100 Unit/ml Flextouch Pen] 10 - 12 units SQ AC-TID ALPRAZolam [Xanax] 0.25 mg PO TID Alendronate Sodium 70 mg PO GUERRA Pantoprazole [Protonix] 40 mg PO DAILY traMADol HCL 50 mg PO Q8H PRN PRN Reason: Pain Ascorbic Acid [Vitamin C] 500 mg PO DAILY traZODone HCL [Desyrel] 50 mg PO HS PRN PRN Reason: Insomnia Magnesium Oxide [Mag-Ox] 400 mg PO DAILY guaiFENesin-Coden 100-10MG/5ML [Robitussin AC] 5 ml PO Q6H PRN PRN Reason: Cough Gabapentin [Neurontin] 400 mg PO BID Bifidobacterium Infantis [Align] 4 mg PO DAILY Discontinued Metoprolol Tartrate [Lopressor] 25 mg PO BID lisinopriL [Zestril] 40 mg PO DAILY hydrALAZINE HCL [Apresoline] 100 mg PO TID Discharge Medication List ALPRAZolam [Xanax] 0.25 mg PO TID 11/06/21 [History] Insulin Aspart (Niacinamide) [Fiasp 100 Unit/ml Flextouch Pen] 10 - 12 units SQ AC-TID 11/06/21 [History] Rosuvastatin [Crestor] 10 mg PO DAILY 11/06/21 [History] Alendronate Sodium 70 mg PO GUERRA 01/02/23 [History] Calcium Carbonate [Calcium] 600 mg PO DAILY 01/02/23 [History] Pantoprazole [Protonix] 40 mg PO DAILY 01/02/23 [History] traMADol HCL 50 mg PO Q8H PRN 01/02/23 [History] Ascorbic Acid [Vitamin C] 500 mg PO DAILY 12/23/23 [History] Aspirin EC [Ecotrin Low Dose] 81 mg PO DAILY 12/23/23 [History] Bifidobacterium Infantis [Align] 4 mg PO DAILY 12/23/23 [History] Gabapentin [Neurontin] 400 mg PO BID 12/23/23 [History] Magnesium Oxide [Mag-Ox] 400 mg PO DAILY 12/23/23 [History] Turmeric Root Extract [Turmeric] 500 mg PO MOWEFR 12/23/23 [History] guaiFENesin-Coden 100-10MG/5ML [Robitussin AC] 5 ml PO Q6H PRN 12/23/23 [History] traZODone HCL [Desyrel] 50 mg PO HS PRN 12/23/23 [History] Albuterol Inhaler [Ventolin Inhaler] 2 puff INHALATION Q6HR PRN #1 each 01/03/24 [Rx] Cefuroxime [Ceftin] 500 mg PO BID 7 Days #14 tab 01/03/24 [Rx] Furosemide [Lasix] 40 mg PO BID #60 tablet 01/03/24 [Rx] Insulin Degludec [Tresiba] 8 units SQ HS #10 ml 01/03/24 [Rx] Metoprolol Tartrate [Lopressor] 50 mg PO BID #120 tab 01/03/24 [Rx] Potassium Chloride [Klor-Con M20] 20 meq PO DAILY #30 tab 01/03/24 [Rx] lisinopriL [Zestril] 20 mg PO DAILY #30 tab 01/03/24 [Rx] Follow up Appointment(s)/Referral(s): Ana Mtz MD [STAFF PHYSICIAN] - 01/24/24 1:40 pm (SATURDAY) Latonia Wilburn MD [STAFF PHYSICIAN] - 2 Weeks Tyler Patel MD [Primary Care Provider] - 01/09/24 10:30 am (WITH LISBETH OBRIEN SATURDAY) Pasha Burgess MD [STAFF PHYSICIAN] - 01/29/24 1:15 pm (SATURDAY) [facility] Visiting Nurse, [NON-STAFF] - As Needed Ambulatory/Diagnostic Orders: Comprehensive Metabolic Panel [LAB.AMB] Location: None Selected Patient Instructions/Handouts: Pleural Effusion (DC) Discharge/Stand Alone Forms: Who Do I Call?, Adult Foster Longterm List, Assisted Living Facilities, Help In The Home Discharge Disposition: HOME WITH HOME HEALTH SERVICES
== END 2024-01-03 15:02 | disposition home health service (06) | DRG 871 ==
LOC: EC 05:53 → 3SCARD 07:37 → 2SICU 13:32 → 3SCARD 12-29 14:40 → 2SICU 12-30 00:20 → 3SCARD 12-30 21:33
PROVIDERS: ADMIT Internal Medicine Geriatric Medicine; ATTEND Internal Medicine Geriatric Medicine
PROC: 3E033RZ Introduction of Antiarrhythmic into Peripheral Vein, Percutaneous Approach (ICD-10-PCS; 2023-12-24)
PROC: 0W993ZX Drainage of Right Pleural Cavity, Percutaneous Approach, Diagnostic (ICD-10-PCS; 2023-12-25)
PROC: 0B958ZZ Drainage of Right Middle Lobe Bronchus, Via Natural or Artificial Opening Endoscopic (ICD-10-PCS; principal; 2023-12-26 08:35)
PROC: 0B9F8ZX Drainage of Right Lower Lung Lobe, Via Natural or Artificial Opening Endoscopic, Diagnostic (ICD-10-PCS; principal; 2023-12-26 08:35)
PROC: 0BC38ZZ Extirpation of Matter from Right Main Bronchus, Via Natural or Artificial Opening Endoscopic (ICD-10-PCS; principal; 2023-12-26 08:35)
PROC: 0BC18ZZ Extirpation of Matter from Trachea, Via Natural or Artificial Opening Endoscopic (ICD-10-PCS; principal; 2023-12-26 08:35)
PROC: 0B968ZZ Drainage of Right Lower Lobe Bronchus, Via Natural or Artificial Opening Endoscopic (ICD-10-PCS; principal; 2023-12-26 08:35)
PROC: 0W9930Z Drainage of Right Pleural Cavity with Drainage Device, Percutaneous Approach (ICD-10-PCS; 2023-12-27)
PROC: 05HC33Z Insertion of Infusion Device into Left Basilic Vein, Percutaneous Approach (ICD-10-PCS; 2024-01-01)
DX: A41.9 Sepsis, unspecified organism (principal); J69.0 Pneumonitis due to inhalation of food and vomit; J96.01 Acute respiratory failure with hypoxia; J86.9 Pyothorax without fistula; E22.2 Syndrome of inappropriate secretion of antidiuretic hormone; E87.20 Acidosis, unspecified; I47.19 Other supraventricular tachycardia; T17.590A Other foreign object in bronchus causing asphyxiation, initial encounter; J91.8 Pleural effusion in other conditions classified elsewhere; J98.11 Atelectasis; E10.40 Type 1 diabetes mellitus with diabetic neuropathy, unspecified; E10.649 Type 1 diabetes mellitus with hypoglycemia without coma; J43.9 Emphysema, unspecified; I10 Essential (primary) hypertension; I08.1 Rheumatic disorders of both mitral and tricuspid valves; Z79.4 Long term (current) use of insulin; R54 Age-related physical debility; E78.5 Hyperlipidemia, unspecified; E87.5 Hyperkalemia; E87.70 Fluid overload, unspecified; I49.1 Atrial premature depolarization; M81.0 Age-related osteoporosis without current pathological fracture; R74.02 Elevation of levels of lactic acid dehydrogenase [LDH]; I49.3 Ventricular premature depolarization; M48.00 Spinal stenosis, site unspecified; R29.6 Repeated falls; S32.9XXD Fracture of unspecified parts of lumbosacral spine and pelvis, subsequent encounter for fracture with routine healing; Z79.83 Long term (current) use of bisphosphonates; Z79.82 Long term (current) use of aspirin; Z79.899 Other long term (current) drug therapy; Z87.891 Personal history of nicotine dependence; Z91.81 History of falling; Z71.3 Dietary counseling and surveillance; Z88.5 Allergy status to narcotic agent; W18.30XD Fall on same level, unspecified, subsequent encounter
CPT/HCPCS: 31624; 31645; 32551; 36410; 36415; 71045; 71046; 71250; 71275; 76937; 76942; 80048; 80053; 80202; 82945; 83605; 83615; 83735; 83880; 83930; 83935; 84145; 84157; 84295; 84300; 84443; 84478; 84484; 85025; 85027; 85379; 85610; 85652; 85730; 86698; 86738; 87040; 87070; 87205; 87449; 87636; 88108; 88305; 89050; 93005; 93306; 93970; 94640; 94760; 96361; 96365; 96367; 96375; 96376; 99291

== ENCOUNTER 2024-01-25 19:54 | Emergency (ER) | payer MEDICARE, BC ==
[2024-01-25 20:18] LABS: Glucose,Whole Blood 53 mg/dL (70-110)
[2024-01-25 20:46] LABS: Anisocytosis Slight; Basophils # (A) 0.1 k/uL (0-0.2); Basophils % (A) 1 %; Eosinophils # (A) 0.4 k/uL (0-0.7); Eosinophils % (A) 3 %; HCT 46.6 % (34.0-46.0); Lymphocytes # (A) 3.3 k/uL (1.0-4.8); Lymphocytes % (A) 27 %; MCH 29.1 pg (25.0-35.0); MCV 91.1 fL (80.0-100.0); Mean Platelet Volume 10.7; Monocytes # (A) 0.7 k/uL (0-1.0); Monocytes % (A) 5 %; Neutrophils # (A) 7.7 k/uL (1.3-7.7); Neutrophils % (A) 63 %; Platelet Count 515 k/uL (150-450); RBC 5.12 m/uL (3.80-5.40); RDW 16.9 % (11.5-15.5); WBC 12.3 k/uL (3.8-10.6)
[2024-01-25 20:48] LABS: HGB 14.9 gm/dL (11.4-16.0)
--- NOTE | 2024-01-25 21:00 | ED ---
Fall HPI - General Chief Complaint: Fall Stated Complaint: Fall, head injury Time Seen by Provider: 01/25/24 20:58 Source: patient, family, RN notes reviewed Mode of arrival: wheelchair - History of Present Illness Initial Comments: 83-year-old female presented to ER with chief complaint of a fall. Patient states that this evening she started to feel dizzy like she was going to pass out. She states she fell standing hitting the back of her head. She denies loss of consciousness. She does take a baby aspirin daily. She states during this episode she denied any chest pain, shortness of breath or palpitations. Patient reports she hit the back of her head and then upon trying to stand up she fell again hitting her forehead. She denies any other injuries from the falls besides skin tears. Patient does report that she is an insulin-dependent diabetic. She last took her 8 units of insulin around 6 PM. Denies any current double blurry vision, nausea, vomiting, chest pain, shortness of breath, abdominal pain, urinary complaints, constipation/diarrhea or peripheral edema. - Related Data Home Medications Medication Instructions Recorded Confirmed ALPRAZolam [Xanax] 0.25 mg PO TID 11/06/21 12/23/23 Insulin Aspart (Niacinamide) 10 - 12 units SQ AC-TID 11/06/21 12/23/23 [Fiasp 100 Unit/ml Flextouch Pen] Rosuvastatin [Crestor] 10 mg PO DAILY 11/06/21 12/23/23 Alendronate Sodium 70 mg PO GUERRA 01/02/23 12/23/23 Calcium Carbonate [Calcium] 600 mg PO DAILY 01/02/23 12/23/23 Pantoprazole [Protonix] 40 mg PO DAILY 01/02/23 12/23/23 traMADol HCL 50 mg PO Q8H PRN 01/02/23 12/23/23 Ascorbic Acid [Vitamin C] 500 mg PO DAILY 12/23/23 12/23/23 Aspirin EC [Ecotrin Low Dose] 81 mg PO DAILY 12/23/23 12/23/23 Bifidobacterium Infantis [Align] 4 mg PO DAILY 12/23/23 12/23/23 Gabapentin [Neurontin] 400 mg PO BID 12/23/23 12/23/23 Magnesium Oxide [Mag-Ox] 400 mg PO DAILY 12/23/23 12/23/23 Turmeric Root Extract [Turmeric] 500 mg PO MOWEFR 12/23/23 12/23/23 guaiFENesin-Coden 100-10MG/5ML 5 ml PO Q6H PRN 12/23/23 12/23/23 [Robitussin AC] traZODone HCL [Desyrel] 50 mg PO HS PRN 12/23/23 12/23/23 Previous Rx's Medication Instructions Recorded Albuterol Inhaler [Ventolin 2 puff INHALATION Q6HR PRN #1 each 01/03/24 Inhaler] Cefuroxime [Ceftin] 500 mg PO BID 7 Days #14 tab 01/03/24 Furosemide [Lasix] 40 mg PO BID #60 tablet 01/03/24 Insulin Degludec [Tresiba] 8 units SQ HS #10 ml 01/03/24 Metoprolol Tartrate [Lopressor] 50 mg PO BID #120 tab 01/03/24 Potassium Chloride [Klor-Con M20] 20 meq PO DAILY #30 tab 01/03/24 lisinopriL [Zestril] 20 mg PO DAILY #30 tab 01/03/24 Allergies Allergy/AdvReac Type Severity Reaction Status Date / Time hydrocodone [From Vicodin] AdvReac Nausea & Verified 01/25/24 20:05 Vomiting Review of Systems ROS Statement: Those systems with pertinent positive or pertinent negative responses have been documented in the HPI. ROS Other: All systems not noted in ROS Statement are negative. Past Medical History Past Medical History: Diabetes Mellitus, Hyperlipidemia, Hypertension, Pneumonia Additional Past Medical History / Comment(s): Pelvic fracture 2 weeks ago. Neuropathy. spinal stenosis History of Any Multi-Drug Resistant Organisms: None Reported Past Surgical History: No Surgical Hx Reported Additional Past Surgical History / Comment(s): Broken wrist, ORIF Past Anesthesia/Blood Transfusion Reactions: No Reported Reaction Past Psychological History: No Psychological Hx Reported Smoking Status: Former smoker Past Alcohol Use History: Daily Past Drug Use History: None Reported - Past Family History Mother Additional Family Medical History / Comment(s): from encephalopathy Father Family Medical History: Cancer General Exam Limitations: no limitations General appearance: alert, in no apparent distress Head exam: Present: atraumatic, normocephalic, normal inspection, other (Hematoma to left forehead) Eye exam: Present: normal appearance, PERRL, EOMI. Absent: scleral icterus, conjunctival injection, periorbital swelling Pupils: Present: normal accommodation (4mm bilaterally) ENT exam: Present: normal exam, normal oropharynx, TM's normal bilaterally Neck exam: Present: normal inspection. Absent: tenderness, meningismus, lymphadenopathy Respiratory exam: Present: normal lung sounds bilaterally. Absent: respiratory distress, wheezes, rales, rhonchi, stridor Cardiovascular Exam: Present: regular rate, normal rhythm, normal heart sounds. Absent: systolic murmur, diastolic murmur, rubs, gallop, clicks GI/Abdominal exam: Present: soft, normal bowel sounds. Absent: distended, tenderness, guarding, rebound, rigid Extremities exam: Present: normal inspection, full ROM, normal capillary refill. Absent: tenderness, pedal edema, joint swelling, calf tenderness Neurological exam: Present: alert, oriented X3, CN II-XII intact Skin exam: Present: warm, dry, intact, normal color, other (Skin tear to right calf). Absent: rash Course Vital Signs 01/25/24 01/25/24 20:02 22:19 Temperature 97.5 F L 97.8 F Pulse Rate 52 L 80 Respiratory 16 18 Rate Blood Pressure 111/70 142/57 O2 Sat by Pulse 93 L 95 Oximetry - Reevaluation(s) Reevaluation #1: 01/25/24 23:00 Case discussed with Madeleine Cabrera accept transfer. Medical Decision Making - Medical Decision Making Was pt. sent in by a medical professional or institution (, PA, MARINE MACHINIST, urgent care, hospital, or [place] health care facility...) When possible be specific @ -No Did you speak to anyone other than the patient for history (EMS, parent, family, police, friend...)? What history was obtained from this source @ -No Did you review nursing and triage notes (agree or disagree)? Why? @ -I reviewed and agree with nursing and triage notes Were old charts reviewed (outside hosp., previous admission, EMS record, old EKG, old radiological studies, urgent care reports/EKG's, [place] health care facility records)? Report findings @ -No old charts were reviewed Differential Diagnosis (chest pain, altered mental status, abdominal pain women, abdominal pain men, vaginal bleeding, weakness, fever, dyspnea, syncope, headache, dizziness, GI bleed, back pain, seizure, CVA, palpatations, mental health, musculoskeletal)? @ -Fracture, dislocation, contusion, hematoma, intracranial hemorrhage, concussion, abrasion, laceration this list does not like to be all-inclusive EKG interpreted by me (3pts min.). @ -As above X-rays interpreted by me (1pt min.). @ -X-ray interpreted by me negative for acute cardiopulmonary process. CT interpreted by me (1pt min.). @ -CT brain and C-spine negative for acute fractures or dislocations cervical spine. There is a hyperdensity in the left basal ganglia concerning of calcification versus hemorrhage. U/S interpreted by me (1pt. min.). @ -None done What testing was considered but not performed or refused? (CT, X-rays, U/S, labs)? Why? @ -None What meds were considered but not given or refused? Why? @ -None Did you discuss the management of the patient with other professionals (professionals i.e. , PA, MARINE MACHINIST, lab, RT, psych nurse, social media marketer, gas pit worker, teacher, antisubmarine weapons officer, case supervisor)? Give summary @ -Yes, case discussed with Madeleine Cabrera except transfer. Was smoking cessation discussed for >3mins.? @ -No Was critical care preformed (if so, how long)? @ -No Were there social determinants of health that impacted care today? How? (Homelessness, low income, unemployed, alcoholism, drug addiction, transportation, low edu. Level, literacy, decrease access to med. care, assisted, rehab)? @ -No Was there de-escalation of care discussed even if they declined (Discuss DNR or withdrawal of care, Hospice)? DNR status @ -No What co-morbidities impacted this encounter? (DM, HTN, Smoking, COPD, CAD, Cancer, CVA, ARF, Chemo, Hep., AIDS, mental health diagnosis, sleep apnea, morbid obesity)? @ -Diabetes, advanced age Was patient admitted / discharged? Hospital course, mention meds given and route, prescriptions, significant lab abnormalities, going to OR and other pertinent info. @ -Transferred. 83 year old female presenting to the ER with a chief complain of a fall. History and physical exam completed. Vitals stable. Patient was hypoglycemic upon arrival at 53. Patient in no sign of acute distress and nontoxic appearing. No acute neurological findings on exam. GSC 15. No focal bony tenderness. Bilateral upper and lower extremities neurovascular intact. Laboratory studies obtained remarkable for white blood cell count 12.3, sodium 133, chloride 94, BUN 35, glucose 45 with improvement to 89 after apple juice. Urinalysis negative. Troponin 0.013. CT brain and C-spine performed showing a hyperdensity of the left basal ganglia which is likely secondary to a calcification vs hemorrhage. Compared to study on 12-23-2023 this is an acute finding. Due to concern of traumatic brain bleed as this is a new finding compared to 1 month ago transferred was considered. I discussed case with Madeleine Cabrera who accepts transfer. Patient transferred in stable condition by EMS for further evaluation. Case discussed with ED attending, Dr. Hamilton. Undiagnosed new problem with uncertain prognosis? @ -No Drug Therapy requiring intensive monitoring for toxicity (Heparin, Nitro, Insulin, Cardizem)? @ -No Were any procedures done? @ -No Diagnosis/symptom? @ -Fall/hyperdensity of left basal ganglia/hypoglycemia Acute, or Chronic, or Acute on Chronic? @ -Acute Uncomplicated (without systemic symptoms) or Complicated (systemic symptoms)? @ -Complicated Side effects of treatment? @ -No Exacerbation, Progression, or Severe Exacerbation? @ -No Poses a threat to life or bodily function? How? (Chest pain, [place], [place], pneumonia, PE, COPD, DKA, ARF, appy, cholecystitis, CVA, Diverticulitis, Homicidal, Suicidal, threat to staff... and all critical care pts) @ -Yes - Lab Data Result diagrams: 01/25/24 20:18 01/25/24 20:18 Lab Results 01/25/24 01/25/24 01/25/24 Range/Units 20:17 20:18 20:18 WBC 12.3 H (3.8-10.6) k/uL RBC 5.12 (3.80-5.40) m/uL Hgb 14.9 D (11.4-16.0) gm/dL Hct 46.6 H (34.0-46.0) % MCV 91.1 (80.0-100.0) fL MCH 29.1 (25.0-35.0) pg MCHC 32.0 (31.0-37.0) g/dL RDW 16.9 H (11.5-15.5) % Plt Count 515 H (150-450) k/uL MPV 10.7 Neutrophils % 63 % Lymphocytes % 27 % Monocytes % 5 % Eosinophils % 3 % Basophils % 1 % Neutrophils # 7.7 (1.3-7.7) k/uL Lymphocytes # 3.3 (1.0-4.8) k/uL Monocytes # 0.7 (0-1.0) k/uL Eosinophils # 0.4 (0-0.7) k/uL Basophils # 0.1 (0-0.2) k/uL Anisocytosis Slight PT 11.3 (10.0-12.5) sec INR 1.0 (<1.2) APTT 25.3 (22.0-30.0) sec Sodium (137-145) mmol/L Potassium (3.5-5.1) mmol/L Chloride (98-107) mmol/L Carbon Dioxide (22-30) mmol/L Anion Gap mmol/L BUN (7-17) mg/dL Creatinine (0.52-1.04) mg/dL Est GFR (CKD-EPI)AfAm (>60 ml/min/1.73 sqM) Est GFR (CKD-EPI)NonAf (>60 ml/min/1.73 sqM) Glucose (74-99) mg/dL POC Glucose (mg/dL) 53 L (70-110) mg/dL POC Glu Ballast Cleaning Operator ID Moisés Herrera Calcium (8.4-10.2) mg/dL Magnesium (1.6-2.3) mg/dL Total Bilirubin (0.2-1.3) mg/dL AST (14-36) U/L ALT (4-34) U/L Alkaline Phosphatase (38-126) U/L Troponin I (0.000-0.034) ng/mL Total Protein (6.3-8.2) g/dL Albumin (3.5-5.0) g/dL Urine Color Urine Appearance (Clear) Urine pH (5.0-8.0) Ur Specific [place] (1.001-1.035) Urine Protein (Negative) Urine Glucose (UA) (Negative) Urine Ketones (Negative) Urine Blood (Negative) Urine Nitrite (Negative) Urine Bilirubin (Negative) Urine Urobilinogen (<2.0) mg/dL Ur Leukocyte Esterase (Negative) Urine RBC (0-5) /hpf Urine WBC (0-5) /hpf Ur Squamous Epith Cells (0-4) /hpf Amorphous Sediment (None) /hpf Hyaline Casts (0-2) /lpf 01/25/24 01/25/24 01/25/24 Range/Units 20:18 20:18 22:01 WBC (3.8-10.6) k/uL RBC (3.80-5.40) m/uL Hgb (11.4-16.0) gm/dL Hct (34.0-46.0) % MCV (80.0-100.0) fL MCH (25.0-35.0) pg MCHC (31.0-37.0) g/dL RDW (11.5-15.5) % Plt Count (150-450) k/uL MPV Neutrophils % % Lymphocytes % % Monocytes % % Eosinophils % % Basophils % % Neutrophils # (1.3-7.7) k/uL Lymphocytes # (1.0-4.8) k/uL Monocytes # (0-1.0) k/uL Eosinophils # (0-0.7) k/uL Basophils # (0-0.2) k/uL Anisocytosis PT (10.0-12.5) sec INR (<1.2) APTT (22.0-30.0) sec Sodium 133 L (137-145) mmol/L Potassium 3.8 (3.5-5.1) mmol/L Chloride 94 L (98-107) mmol/L Carbon Dioxide 29 (22-30) mmol/L Anion Gap 10 mmol/L BUN 35 H (7-17) mg/dL Creatinine 0.84 (0.52-1.04) mg/dL Est GFR (CKD-EPI)AfAm 74 (>60 ml/min/1.73 sqM) Est GFR (CKD-EPI)NonAf 64 (>60 ml/min/1.73 sqM) Glucose 45 L* (74-99) mg/dL POC Glucose (mg/dL) (70-110) mg/dL POC Glu Ballast Cleaning Operator ID Calcium 9.7 (8.4-10.2) mg/dL Magnesium 1.6 (1.6-2.3) mg/dL Total Bilirubin 0.5 (0.2-1.3) mg/dL AST 52 H (14-36) U/L ALT 24 (4-34) U/L Alkaline Phosphatase 137 H (38-126) U/L Troponin I 0.013 (0.000-0.034) ng/mL Total Protein 7.2 (6.3-8.2) g/dL Albumin 4.0 (3.5-5.0) g/dL Urine Color Colorless Urine Appearance Clear (Clear) Urine pH 6.5 (5.0-8.0) Ur Specific [place] 1.007 (1.001-1.035) Urine Protein Negative (Negative) Urine Glucose (UA) 1+ H (Negative) Urine Ketones Negative (Negative) Urine Blood Negative (Negative) Urine Nitrite Negative (Negative) Urine Bilirubin Negative (Negative) Urine Urobilinogen <2.0 (<2.0) mg/dL Ur Leukocyte Esterase Trace H (Negative) Urine RBC <1 (0-5) /hpf Urine WBC 5 (0-5) /hpf Ur Squamous Epith Cells 2 (0-4) /hpf Amorphous Sediment Rare H (None) /hpf Hyaline Casts 33 H (0-2) /lpf 01/24/ Range/Units 22:17 WBC (3.8-10.6) k/uL RBC (3.80-5.40) m/uL Hgb (11.4-16.0) gm/dL Hct (34.0-46.0) % MCV (80.0-100.0) fL MCH (25.0-35.0) pg MCHC (31.0-37.0) g/dL RDW (11.5-15.5) % Plt Count (150-450) k/uL MPV Neutrophils % % Lymphocytes % % Monocytes % % Eosinophils % % Basophils % % Neutrophils # (1.3-7.7) k/uL Lymphocytes # (1.0-4.8) k/uL Monocytes # (0-1.0) k/uL Eosinophils # (0-0.7) k/uL Basophils # (0-0.2) k/uL Anisocytosis PT (10.0-12.5) sec INR (<1.2) APTT (22.0-30.0) sec Sodium (137-145) mmol/L Potassium (3.5-5.1) mmol/L Chloride (98-107) mmol/L Carbon Dioxide (22-30) mmol/L Anion Gap mmol/L BUN (7-17) mg/dL Creatinine (0.52-1.04) mg/dL Est GFR (CKD-EPI)AfAm (>60 ml/min/1.73 sqM) Est GFR (CKD-EPI)NonAf (>60 ml/min/1.73 sqM) Glucose (74-99) mg/dL POC Glucose (mg/dL) 89 (70-110) mg/dL POC Glu Ballast Cleaning Operator ID Erica Khalil Calcium (8.4-10.2) mg/dL Magnesium (1.6-2.3) mg/dL Total Bilirubin (0.2-1.3) mg/dL AST (14-36) U/L ALT (4-34) U/L Alkaline Phosphatase (38-126) U/L Troponin I (0.000-0.034) ng/mL Total Protein (6.3-8.2) g/dL Albumin (3.5-5.0) g/dL Urine Color Urine Appearance (Clear) Urine pH (5.0-8.0) Ur Specific [place] (1.001-1.035) Urine Protein (Negative) Urine Glucose (UA) (Negative) Urine Ketones (Negative) Urine Blood (Negative) Urine Nitrite (Negative) Urine Bilirubin (Negative) Urine Urobilinogen (<2.0) mg/dL Ur Leukocyte Esterase (Negative) Urine RBC (0-5) /hpf Urine WBC (0-5) /hpf Ur Squamous Epith Cells (0-4) /hpf Amorphous Sediment (None) /hpf Hyaline Casts (0-2) /lpf - EKG Data -: EKG Interpreted by Me EKG Comments: EKG taken at 20: 19 showing a normal sinus rhythm with occasional PAC. No acute ST segment or T wave abnormalities. Normal axis. Ventricular rate 78, CT interval 121, QRS duration 74, QT/QTc 383/417. - Radiology Data Radiology results: report reviewed, image reviewed Disposition Clinical Impression: Fall, Hypoglycemia, Abnormality of basal ganglia Disposition: OTHER INSTITUTION NOT DEFINED Condition: Stable Referrals: Tyler Patel MD [Primary Care Provider] - 1-2 days Time of Disposition: 22:59 - Out of Hospital Transfer - Req. Specs Out of Hospital Transfer - Requested Specifics: Other Emergency Center (madeleine cabrera)
[2024-01-25 21:05] LABS: Partial Thromboplastin Time 25.3 sec (22.0-30.0); Prothrombin Time 11.3 sec (10.0-12.5)
[2024-01-25 21:22] LABS: ALT 24 U/L (4-34); AST 52 U/L (14-36); African American GFR (CKD) 74 (>60 ml/min/1.73 sqM); Alkaline Phosphatase 137 U/L (38-126); Anion Gap 10 mmol/L; Blood Urea Nitrogen 35 mg/dL (7-17); Calcium 9.7 mg/dL (8.4-10.2); Carbon Dioxide 29 mmol/L (22-30); Chloride 94 mmol/L (98-107); Magnesium 1.6 mg/dL (1.6-2.3); Non-African American GFR(CKD) 64 (>60 ml/min/1.73 sqM); Potassium 3.8 mmol/L (3.5-5.1); Sodium 133 mmol/L (137-145); Total Bilirubin 0.5 mg/dL (0.2-1.3); Total Protein 7.2 g/dL (6.3-8.2)
--- NOTE | 2024-01-25 21:25 | CT ---
EXAMINATION TYPE: CT brain cspine wo con DATE OF EXAM: 01/25/2024 COMPARISON: None HISTORY: Fall x2, hit head front and back, takes asprin. CT DLP: 1228.[address] of the brain was performed. The ventricles, basal cisterns and sulci overlying the cerebral convexities demonstrate enlargement. There is no evidence for intracranial hemorrhage or sulcal effacement. There is decreased attenuatio n about the periventricular white matter and deep white matter of both cerebral hemispheres, compatib le with chronic small vessel ischemia. No mass effects are seen. Hyperdensity left basal ganglia is likely secondary to a calcification rat her than hemorrhage. Comparison with any prior outside studies would be of value. If symptoms persist consider MRI. Osseous calvarium is intact. IMPRESSION: 1. Age related atrophic and chronic small vessel ischemic change without acute intracranial process seen at this time. CT Cervical Spine: Unenhanced CT of the cervical spine was performed with bone and soft tissue window settings submitted . Coronal and sagittal reconstruction is obtained. There is normal alignment and prevertebral soft tissues. No evidence for acute cervical fracture . Scattered degenerative disc disease and spondylosis. Biapical scarring. IMPRESSION: 1. No evidence for acute fracture or subluxation of the cervical spine.
--- NOTE | 2024-01-25 21:27 | XR ---
EXAMINATION TYPE: XR chest 2V DATE OF EXAM: 01/25/2024 COMPARISON: 01/02/2024 HISTORY: Shortness of breath TECHNIQUE: Frontal and lateral views of the chest are obtained. FINDINGS: Scattered senescent parenchymal changes noted. Hyperinflation compatible with COPD. Chronic pleural p arenchymal changes right lung base. No evidence for infiltrate. No evidence for atelectasis. Heart size is stable. Mediastinal structures are stable and grossly unremarkable. No evidence for hilar prominence. Degenerative changes dorsal spine. IMPRESSION: 1. No evidence for acute pulmonary disease.
[2024-01-25 21:29] LABS: Glucose 45 mg/dL (74-99)
[2024-01-25 22:18] LABS: Glucose,Whole Blood 89 mg/dL (70-110)
[2024-01-25 22:19] VITALS: PULSE 80
[2024-01-25 22:19] LABS: Amorphous Sediment,Urine Rare /hpf; Appearance,Urine Clear (Clear); Bilirubin,Urine Negative (Negative); Blood,Urine Negative (Negative); Color,Urine Colorless; Glucose,Urine (UA) 1+ (Negative); Hyaline Casts,Urine 33 /lpf (0-2); Ketones,Urine Negative (Negative); Leukocyte Esterase,Urine Trace (Negative); Nitrite,Urine Negative (Negative); PH, Urine 6.5 (5.0-8.0); Protein,Urine Negative (Negative); RBC,Urine <1 /hpf (0-5); Specific Gravity,Urine 1.007 (1.001-1.035); Squamous Epithelial Cell,Urine 2 /hpf (0-4); Urobilinogen,Urine <2.0 mg/dL (<2.0); WBC,Urine 5 /hpf (0-5)
[2024-01-25 23:14] VITALS: BP 169/72; RESP 16; TEMP 98.9
== END 2024-01-25 23:12 | disposition other institution (70) ==
LOC: EC 19:54
DX: S81.811A Laceration without foreign body, right lower leg, initial encounter (principal); S00.83XA Contusion of other part of head, initial encounter; E11.649 Type 2 diabetes mellitus with hypoglycemia without coma; G93.89 Other specified disorders of brain; E11.40 Type 2 diabetes mellitus with diabetic neuropathy, unspecified; Z79.4 Long term (current) use of insulin; Z88.5 Allergy status to narcotic agent; Z87.891 Personal history of nicotine dependence; W18.30XA Fall on same level, unspecified, initial encounter
CPT/HCPCS: 36415; 70450; 71046; 72125; 80053; 81001; 83735; 84484; 85025; 85610; 85730; 93005; 99285

== ENCOUNTER → 2024-06-29 | Outpatient (CLI) | payer MEDICARE, BC ==
[2024-06-29 10:59] LABS: African American GFR (CKD) >90 (>60 ml/min/1.73 sqM); Blood Urea Nitrogen 27 mg/dL (7-17); Non-African American GFR(CKD) 80 (>60 ml/min/1.73 sqM)
--- NOTE | 2024-06-29 11:46 | CT ---
EXAMINATION TYPE: CT brain wo/w con CT DLP: 2205 mGycm, Automated exposure control for dose reduction was used. DATE OF EXAM: 06/29/2024 11:36 AM COMPARISON: CT brain C-spine 01/25/2024. 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 TECHNIQUE: Axial CT images of the brain were obtained followed by contrast enhanced axial images of t he brain with 100 cc of ISO-view 370 IV contrast. One or more CT dose reduction strategies were utili zed during this examination. Coronal and sagittal reformats reviewed. FINDINGS: Extra-axial spaces: No abnormal extra-axial fluid collections. Ventricular system: Within normal limits Cerebral parenchyma: Cerebral atrophy. No acute intraparenchymal hemorrhage or mass effect. The gomez -white junction is well differentiated. Scattered hypoattenuating areas are seen within the periventr icular and subcortical white matter. No abnormal enhancement is seen after the administration of intr avenous contrast. Cerebellum: Unremarkable. Mass effect: No evidence of midline shift. Intracranial vasculature: Atherosclerotic calcifications of the intracranial vessels. Soft tissues: Normal. Calvarium/osseous structures: No depressed skull fracture. Paranasal sinuses and mastoid air cells: Several air cells are clear bilaterally. Both internal audit ory canals appear unremarkable within limitations due to type of CT exam. Thin sections are not obtai haily. Minimal mucosal thickening of the left ethmoid sinus. The remaining paranasal sinuses are clear. Visualized orbits: Bilateral aphakia IMPRESSION: 1. No acute intracranial process and no evidence to suggest intracranial mass. 2. Nonspecific white matter changes, likely secondary to chronic small vessel ischemic disease. 3. Both internal auditory canals appear unremarkable within limitations. If there is continued clinic al concern, consider further evaluation with CT or MR IAC. [facility], , 06/29/2024 11:44 AM
== END | disposition home or self-care (01) ==
LOC: RADCTMAIN 09:59
PROVIDERS: ATTEND Otolaryngology
DX: H93.3X9 Disorders of unspecified acoustic nerve (principal); H90.3 Sensorineural hearing loss, bilateral
CPT/HCPCS: 82565; 84520; 70470; 36415; Q9967